=== PATIENT | male | born 1975 | race Caucasian/White ===

== ENCOUNTER 2016-06-02 02:01 | Inpatient (IN) | payer BC ==
[2016-06-02] VITALS (8 sets, daily range): BP systolic 93–136; BP diastolic 43–80; PULSE 70–98; RESP 16–24; TEMP 96.7–99.1; O2SAT 97–99
[~2016-06-02] VITALS: Ht 175.3 cm; Wt 127.9 kg
[~2016-06-02 02:01] MED LIST: ALBUAER3 INH; OCEA0.653 EACH NARE
--- NOTE | 2016-06-02 02:44 | PD ---
HPI Chief Complaint: Lump, Cyst, Hernia Time Seen by Provider: 02:39 Travel History International Travel<30 days: No Contact w/Intl Traveler<30days: No Traveled to known affect area: No History of Present Illness HPI 40-year-old white male presents to emergency Department with complaints of abscess to his right upper back. He states that this is been present now for the past week. He has had family members squeezing that area and expressing pus. The patient is a noncompliant insulin-dependent diabetic. He states that he had lost his insurance and has been off his his medications now for a month. He had seen his primary care doctor last week and was prescribed his medications but he has yet to start them due to financial reasons. He has been feeling rundown, weak, generally ill-appearing. Very dehydrated. He's had increasing pain in the area of the abscess into his neck and shoulders. He denies any nausea or vomiting. No abdominal pain. No focal numbness or tingling. States the pain is moderate but can be severe with movement and palpation. No alleviating factors. PFSH Past Medical History Narrative Medical IDDM, hypertension, hypercholesterolemia, neuropathy, gout Arthritis: No Asthma: No Anxiety: No Depression: No Heart Rhythm Problems: No Cancer: No Cardiovascular Problems: Yes High Cholesterol: Yes Chest Pain: No Congestive Heart Failure: No COPD: No Diabetes: Yes Patient Takes Glucophage: Yes Diminished Hearing: Yes Endocrine: Yes Gastrointestinal Disorders: No Gout: Yes Genitourinary: No Hypertension: Yes Immune Disorder: No Implanted Vascular Access Dvce: No Musculoskeletal: Yes Neurologic: Yes (neuropathy in his feet) Psychiatric: No Reproductive: No Respiratory: No Immunizations Current: Yes Sleep Apnea: No Thyroid Disease: No Tetanus Vaccination: > 5 Years Influenza Vaccination: No Past Surgical History Narrative Surgical Cervical fusion Abdominal Surgery: No Body Medical Devices: METAL PLATES IN NECK Cardiac Surgery: No Ear Surgery: No Endocrine Surgery: No Eye Surgery: No Genitourinary Surgery: No Gynecologic Surgery: No Neurologic Surgery: Yes (ANTERIOR CERVICAL FUSION) Oral Surgery: No Pacemaker: No Thoracic Surgery: No Other Surgery: Yes (ANTERIOR FUSION C4-C5) Social History Alcohol Use: No Tobacco Use: No Substance Use: No Allergies-Medications (Allergen,Severity, Reaction): Coded Allergies: No Known Allergies (Verified , 06/02/16) Reported Meds & Prescriptions Reported Meds & Active Scripts Active Proair Hfa 8.5 GM Inh (Albuterol Sulfate) 90 Mcg/Act Aer 2 Puff INH Q6H PRN 108 mcg/actuation [place] Nasal Zebulon (Sodium Chloride) 0.65% Zebulon 2 Zebulon EACH NARE DIRECTED PRN 14 Days Review of Systems Except as stated in HPI: all other systems reviewed are Neg Physical Exam Narrative GENERAL: Well-developed, well-nourished in no apparent distress. Nontoxic appearing. HEAD: Normocephalic, atraumatic. EYES: Pupils equal round and reactive. Extraocular motions intact. No scleral icterus. No injection or drainage. ENT: Nose clear. Throat without erythema, tonsillar hypertrophy or exudate. Uvula midline. Airway patent. Mucous membranes are dry. NECK: Trachea midline. Supple, nontender, moves head freely. No central bony tenderness or spasm. CARDIOVASCULAR: Regular rate and rhythm without murmurs, gallops, or rubs. RESPIRATORY: Clear to auscultation. Breath sounds equal bilaterally. No wheezes , rales, or rhonchi. GASTROINTESTINAL: Abdomen soft, non-tender, nondistended. No hepato-splenomegaly , or palpable masses. No guarding. EXTREMITIES: No clubbing, cyanosis, or edema. No joint tenderness. BACK: Nontender without deformity. No flank tenderness. NEUROLOGICAL: Awake, alert and oriented x 3 .Cranial nerves grossly intact. Motor and sensory grossly within normal limits. Normal speech. Skin: Patient has an area of erythema, induration, swelling and tenderness to the right trapezius region. He has a area which she has shaved on his back and has been squeezing and picking at it. The area has tracking towards his midline and towards his neck. The area measures approximately 9 x 9 cm. No significant warmth. Data Data Last Documented VS Vital Signs Date Time Temp Pulse Resp B/P Pulse Ox O2 Delivery O2 Flow Rate FiO2 06/02/16 02:14 16 06/02/16 02:13 96.7 70 94/43 97 Room Air Orders Complete Blood Count With Diff (06/02/16 02:35) Basic Metabolic Panel (Bmp) (06/02/16 02:35) Iv Access Insert/Monitor (06/02/16 02:35) Sodium Chlor 0.9% 1000 Ml Inj (Ns 1000 M (06/02/16 02:45) Clindamycin Inj (Cleocin Inj) (06/02/16 02:45) Blood Glucose (06/02/16 02:44) Sodium Chlor 0.9% 1000 Ml Inj (Ns 1000 M (06/02/16 03:00) Insulin Human Regular Inj (Novolin R Inj (06/02/16 03:00) Blood Culture (06/02/16 03:16) Lactic Acid (06/02/16 03:16) Ct Soft Tiss Neck W Iv Cont (06/02/16 03:43) Vancomycin Inj (Vancomycin Inj) (06/02/16 04:00) Sodium Chlor 0.9% 1000 Ml Inj (Ns 1000 M (06/02/16 04:00) Iohexol 350 Inj (Omnipaque 350 Inj) (06/02/16 03:51) Morphine Inj (Morphine Inj) (06/02/16 04:30) Labs Laboratory Tests Test 06/02/16 02:50 White Blood Count 24.5 TH/MM3 Red Blood Count 4.83 MIL/MM3 Hemoglobin 14.0 GM/DL Hematocrit 40.3 % Mean Corpuscular Volume 83.5 FL Mean Corpuscular Hemoglobin 29.0 PG Mean Corpuscular Hemoglobin 34.7 % Concent Red Cell Distribution Width 12.4 % Platelet Count 247 TH/MM3 Mean Platelet Volume 9.5 FL Neutrophils (%) (Auto) 86.1 % Lymphocytes (%) (Auto) 5.7 % Monocytes (%) (Auto) 7.8 % Eosinophils (%) (Auto) 0.3 % Basophils (%) (Auto) 0.1 % Neutrophils # (Auto) 21.0 TH/MM3 Lymphocytes # (Auto) 1.4 TH/MM3 Monocytes # (Auto) 1.9 TH/MM3 Eosinophils # (Auto) 0.1 TH/MM3 Basophils # (Auto) 0.0 TH/MM3 CBC Comment DIFF FINAL Differential Comment Sodium Level 129 MEQ/L Potassium Level 4.3 MEQ/L Chloride Level 92 MEQ/L Carbon Dioxide Level 24.6 MEQ/L Anion Gap 12 MEQ/L Blood Urea Nitrogen 13 MG/DL Creatinine 1.36 MG/DL Estimat Glomerular Filtration 59 ML/MIN Rate Random Glucose 381 MG/DL Calcium Level 9.1 MG/DL MDM Medical Decision Making Medical Screen Exam Complete: Yes Emergency Medical Condition: Yes Medical Record Reviewed: Yes Interpretation(s) CT neck: Cellulitis without abscess CBC & BMP Diagram 06/02/16 02:50 Differential Diagnosis MDM: High Differential diagnoses: Abscess, folliculitis, cellulitis, lymphangitis, abrasion, contact dermatitis, uncontrolled diabetes, electrolyte abnormality, dehydration Narrative Course IV access is obtained. CBC, chemistry, lactic acid, 2 blood cultures, 3 L normal saline bolus, 10 units of Regular Insulin IV, 900 mg of clear mites and IV, and 2.25 g of vancomycin IV This is sepsis, cellulitis, hyperglycemia, IDDM I've spoken with Gagan El who is agreed to admit the patient today. He is aware of his history, clinical findings, and laboratory testing. He has requested that the patient be admitted to Dr. Carlson Sepsis Criteria SIRS Criteria (2 or more): Temp > 100.9 or < 96.8, WBC > 15618, < 4000 or > 10 % bands Sepsis Criteria (SIRS+source): Infect source susp/known Severe Sepsis (+one): Hypotension Diagnosis Primary Impression: Sepsis affecting skin Additional Impressions: Cellulitis and abscess of neck Hyperglycemia Diabetes mellitus, insulin dependent (IDDM), uncontrolled Qualified Code: E10.628 - Uncontrolled type 1 diabetes mellitus with other skin complication Condition: Stable Isma Alfaro Jun 02, 2016 02:44
[2016-06-02] MEDS ORDERED: CLINDAMYCIN INJ 900 MG in SODIUM CHLORIDE 0.9% INJ 100 ML IV ONE (02:45)
[2016-06-02] MEDS ORDERED: SODIUM CHLOR 0.9% 1000 ML INJ 1,000 ML IV ONE ×3 (02:45→04:00)
[2016-06-02] MEDS ORDERED: INSULIN HUMAN REGULAR 1,000 UNITS/10 ML VIAL IV PUSH ONE (03:00)
[2016-06-02 03:06] LABS: BASOPHIL % 0.1 % (0.0-2.0); EOSINOPHIL # 0.1 TH/MM3 (0-0.4); EOSINOPHIL % 0.3 % (0.0-4.0); HEMATOCRIT 40.3 % (39.0-51.0); HEMO FLAGS DIFF FINAL; LYMPH % 5.7 % (9.0-44.0); LYMPHOCYTE # 1.4 TH/MM3 (1.0-4.8); MEAN CELL VOLUME 83.5 FL (80.0-100.0); MEAN CORPUSCULAR HGB CONC 34.7 % (32.0-36.0); MONO % 7.8 % (0.0-8.0); NEUT % 86.1 % (16.0-70.0); PLATELET COUNT 247 TH/MM3 (150-450); RED BLOOD COUNT 4.83 MIL/MM3 (4.50-5.90); RED CELL DISTRIBUTION WIDTH 12.4 % (11.6-17.2); WHITE BLOOD COUNT 24.5 TH/MM3 (4.0-11.0)
[2016-06-02 03:29] LABS: BICARBONATE 24.6 MEQ/L (21.0-32.0); POTASSIUM 4.3 MEQ/L (3.5-5.1)
[2016-06-02] MEDS ORDERED: IOHEXOL 350 MG/ML 10 ML VIAL (for RAD DIAG) IV ONE (03:51)
[2016-06-02] MEDS ORDERED: VANCOMYCIN INJ 2,250 MG in SODIUM CHLORID 0.9% 500 ML INJ 500 ML IV ONE (04:00)
--- NOTE | 2016-06-02 04:12 | RADRPT ---
EXAM DATE/TIME: 06/02/2016 03:46 [facility] COMPARISON: No previous studies available for comparison. INDICATIONS : Lump back of neck. Possible abscess. IV CONTRAST: 68 cc Omnipaque 350 (iohexol) IV RADIATION DOSE: 17.67 CTDIvol (mGy) MEDICAL HISTORY : Cardiovascular disease. Hypertension. Diabetes mellitus type 2. SURGICAL HISTORY : Fusion, cervical. ENCOUNTER: Initial ACUITY: 1 day PAIN SCALE: 10/10 LOCATION: pelvis TECH NOTE: MARKERS PUT AROUND SITE TECHNIQUE: Volumetric scanning of the neck was performed. Using automated exposure control and adjustment of th e mA and/or kV according to patient size, radiation dose was kept as low as reasonably achievable to obtain optimal diagnostic quality images. FINDINGS: Examination of the skull base demonstrates no evidence of deep infiltrating mucosal lesion. The oroph arynx, hypopharynx, glottic and subglottic airway demonstrate no abnormality. Examination of the neck for adenopathy demonstrates no abnormally large lymph nodes by CT criteria. The thyroid gland demons trates no abnormality. Lung apices demonstrate no evidence of pulmonary nodule. Bone windows are unremarkable. There is minimal edema in the subcutaneous tissues posteriorly which may reflect cellulitis. CONCLUSION: 1. Cellulitis without abscess. Juan Dhillon MD on June 02, 2016 at 4:09 Board Certified Radiologist. This report was verified electronically.
[2016-06-02] MEDS ORDERED: MORPHINE SULFATE 4 MG/ML INJ IV PUSH ONE (04:30)
[2016-06-02] MEDS ORDERED: MORPHINE SULFATE 4 MG/ML INJ IV PUSH PRN (04:45)
[2016-06-02] MEDS ORDERED: DEXTROSE 50% IN WATER 50 ML VIAL(D50) IV PUSH PRN (04:45)
[2016-06-02] MEDS ORDERED: SENNOSIDES 8.6 MG TAB PO PRN (04:45)
[2016-06-02] MEDS ORDERED: ONDANSETRON HCL 4 MG/2 ML VIAL IVP PRN (04:45)
[2016-06-02] MEDS ORDERED: Vancomycin Consult Pharmacy 1 EA XX SCH (04:45)
[2016-06-02] MEDS ORDERED: MAGNESIUM HYDROXIDE SUSP 30 ML CUP PO PRN (04:45)
[2016-06-02] MEDS ORDERED: GLUCAGON 1 MG/ML VIAL OTHER PRN (04:45)
[2016-06-02] MEDS ORDERED: ACETAMINOPHEN 325 MG TAB PO PRN (04:45)
[2016-06-02] MEDS ORDERED: NALOXONE HCL 0.4 MG/ML AMP IV PRN (04:45)
[2016-06-02] MEDS: SODIUM CHLOR 0.9% 1000 ML INJ 1,000 ML IV SCH ×3 (05:21→23:16)
[2016-06-02] MEDS ORDERED: VANCOMYCIN INJ 1,900 MG in SODIUM CHLORID 0.9% 500 ML INJ 500 ML IV ONE (05:30)
[2016-06-02] MEDS: INSULIN ASPART SUPPLEMENTAL SCALE SQ SCH ×4 (07:15→21:38)
[2016-06-02] MEDS ORDERED: ALBUTEROL SULFATE 90 MCG/ACT HFA 8 GM INHALER INH PRN (07:30)
--- NOTE | 2016-06-02 09:32 | MH ---
cc: RUBICARLOS DATE OF ADMISSION: 06/02/2016 DATE OF 1975 CHIEF COMPLAINT Right upper shoulder cyst with pain. TRAVEL Has not traveled in 30 days or less. HISTORY OF PRESENT ILLNESS This is a pleasant 40-year-old white male who has presented to the ER with an abscess on his right upper shoulder in the trapezius area. He states that it has been painful for approximately two days. He states that a family member was able to squeeze the area and expressed some pus, but at this time it is closed with no head. She does have induration with acute pain radiating into his neck and shoulders. The area of induration is approximately 3 cm x 3 cm. The patient states that he has been working, but has had no insurance for approximately six months and has not been taking any medications secondary to his financial situation. He was able to go to his PCP last week with some gout symptoms and was given Gabapentin and Indocin which he has been able to take for the past week. The patient is a known insulin dependent diabetic, but has not had any insulin or medications in months. The patient also has symptoms of polyuria, polydipsia, polyphagia which has just started over the past few days. He does complain of feeling generalized weakness and a tired sensation. He states that he had a cough approximately a week ago, but that has subsided. When he came into the hospital, he had a dizzy sensation, but denies any periods of syncope or passing out. The patient denies any headache, numbness, or tingling in the area of the possible abscess, but he does have numbness and tingling which is chronic in his lower extremities. The patient denies any chest pain, no shortness of breath. PAST MEDICAL HISTORY 1. Hypertension 2. Hyperlipidemia 3. Diabetic neuropathy 4. Diabetes type 2 5. Gout 6. Hyperlipidemia 7. Mildly hard of hearing 8. Degenerative joint disease PAST SURGICAL HISTORY Cervical fusion with metal plates C4-C5. ALLERGIES No known drug allergies. MEDICATIONS 1. Albuterol inhaler 2. [place] spray 3. NovoLog insulin Any other medications currently unknown and he has not been taking them at least for six months. SOCIAL HISTORY The patient is single, lives in an apartment, has no children. He does work at a [employer] center, but has not been able to work for the past week. He denies any alcohol, tobacco or illicit drug use. He smoked in his early years, but has been quit approximately 15 years ago. FAMILY HISTORY Diabetes, hypertension, heart disease and cancer. REVIEW OF SYSTEMS A 12-point review was done. Positives noted are some mild generalized peripheral edema, dizziness, recent cough, generalized fatigue, abscess on his right trapezius area non-draining for now. Polydipsia, polyuria, polyphagia and any other systems are unremarkable at this time. PHYSICAL EXAMINATION VITAL SIGNS; Temperature is 98.2, pulse 82, respirations 16, blood pressure 121/80. In the ER initially, his blood pressure was 93/50. He is 98 on room air. GENERAL: Obese, well-developed, well-nourished white male in no acute respiratory distress. HEENT: Atraumatic, normocephalic. PERRL at three. No scleral icterus. No drainage. Throat is clear. Mucous membranes are pale, slightly dry. NECK: Thick and supple. CARDIOVASCULAR: Regular rate and rhythm. Distant heart sounds, but no murmurs, rubs or gallops appreciated. He does have just a trace of pedal edema and a trace of edema in his hands and forearms. RESPIRATORY: Essentially clear to auscultation anteriorly and posteriorly. No wheezes, rales or rhonchi. GI: Abdomen is obese, taut, but nontender and nondistended. Active bowel sounds in all four quads. MUSCULOSKELETAL: He can move his extremities with purpose. Denies any joint tenderness. BACK: No flank tenderness, but as noted a closed cyst versus small abscess with induration and mild erythema. NEUROLOGIC: He is alert and oriented x4. He is a good historian. Speech is normal and clear. PSYCH: Appropriate mood and affect. DIAGNOSTIC DATA WBC count 24.5, RBC 4.83, hemoglobin 14, hematocrit 40.3, platelet count 247, neutrophil auto count 86.1, lymphocyte 5.7. Chemistry sodium 129, potassium 4.3, chloride 92, carbon dioxide 24.6, amnion gap 12, BUN 13, creatinine 1.36, GFR 59, random glucose is 381, lactic acid is 3, calcium 9.1. IMAGING STUDIES A neck CT, cellulitis without abscess. ASSESSMENT/PLAN 1. Sepsis with cellulitis and ? abscess of the neck. 2. Diabetes type 1 uncontrolled with hyperglycemia 3. Leukocytosis 4. Hyponatremia 5. Acute kidney injury, mild 6. Gout 7. Hypertension 8. History of history of hypertension. 9. Hypotension in the ER which is resolved. PLAN Our plan is to admit inpatient, check his vital signs at least every four hours, 1800 calories ADA diet, gentle hydration with labs as warranted. We will recheck labs in the morning. DVT prophylaxis with heparin. He has had a dose of vancomycin in the ER and he will be on IV antibiotics, clindamycin and Vancomycin. We will consult ID for their expert opinion to assess this cellulitis and possible abscess on his right trapezius area, pain management, blood cultures and possible wound cultures. We will reconcile his medications, his home meds. The patient is full code, full aggressive care. Due to his financial dilemma, we need to research his medication needs. This is related to financial reasons. We will monitor. Thank you very much. Dictated by REJI Christy Carlos Carlson MD JP/JORDI /8:28 AM /9:30 AM PT WAS SEEN AND EXAMINED ON DAY OF ADMISSION ABOVE, IN ER FACE TO FACE TIME SPENT WITH PT CHART WAS REVIEWED IN DETAIL, INCLUDING LABS MEDS AND RAD DATA NOTES WERE REVIEWED KHOA MENDOZA ABOUT PLAN OF CARE KHOA PT CINDY SX INPUT ALYSE
[2016-06-02] MEDS: MORPHINE SULFATE 4 MG/ML INJ IV PUSH PRN ×2 (10:46→16:58)
[2016-06-02] MEDS: SODIUM CHLORIDE 0.9% FLUSH 5 ML FLUSH FLUSH SCH ×2 (10:46→21:37)
[2016-06-02] MEDS: HEPARIN SODIUM - SQ 10,000 UNITS/ML VIAL SQ SCH ×2 (10:47→21:37)
[2016-06-02] MEDS: CLINDAMYCIN INJ 600 MG in SODIUM CHLORIDE 0.9% INJ 100 ML IV SCH ×3 (11:53→23:15)
--- NOTE | 2016-06-02 16:23 | RADRPT ---
EXAM DATE/TIME: 06/02/2016 15:51 [facility] COMPARISON: No previous studies available for comparison. INDICATIONS : Right upper back and lower neck pain. MEDICAL HISTORY : Hypercholesterolemia. Hypertension. Neuropathy bilateral feet. Gout. Diabetes. SURGICAL HISTORY : Anterior fusion C4-C5. ENCOUNTER: Initial ACUITY: 1 day PAIN SCORE: 10/10 LOCATION: Right upper back and lower neck. AREA EVALUATED: Right upper back, shoulder and lower neck. FINDINGS: Edematous changes in the fatty tissues. No evidence of fluid collection to suggest discrete abscess. CONCLUSION: No abscess Gagan Ordonez MD on June 02, 2016 at 16:21 Board Certified Radiologist. This report was verified electronically.
--- NOTE | 2016-06-02 16:49 | PD.CONS ---
cc: Shaun Persaud MD [facility] Service General Surgery Consult Requested By Dr. Carlson Reason for Consult Eval upper back/lower neck abscess Primary Care Physician Antony Santos MD History of Present Illness This is a 40 year old male with past medical history of IDDM and HTN who has not had health insurance for about 6 months and has not been able to control his sugars at home. On Wednesday he noticed a small pimple on his RIGHT shoulder/ upper back that a friend opened and expressed a very small amount of pus. He felt relief until Wednesday when he started using a heating pad for pain. Throughout the day on Wednesday through Wednesday night/Wednesday morning the pain got so sever and he came to the ED. A CT of soft tissue of the neck was obtained and only showed cellulitis with not abscess or fluid collection. A general surgery consult was requested to evaluate the abscess. Review of Systems Constitutional: COMPLAINS OF: Dizziness, DENIES: Fever, Chills Endocrine: COMPLAINS OF: Polydipsia, Polyuria, Polyphagia Eyes: DENIES: Diplopia, Eye pain Ears, nose, mouth, throat: DENIES: Hearing loss, Vertigo Respiratory: DENIES: Cough, Snoring Cardiovascular: DENIES: Chest pain, Palpitations Gastrointestinal: DENIES: Abdominal pain, Diarrhea, Nausea Genitourinary: DENIES: Urinary incontinence, Urgency, Hematuria Musculoskeletal: COMPLAINS OF: Neck pain (around abscess area ), DENIES: Joint pain Integumentary: DENIES: Abnormal pigmentation Hematologic/lymphatic: DENIES: Bruising Immunologic/allergic: DENIES: Eczema Neurologic: DENIES: Abnormal gait, Headache Psychiatric: DENIES: Confusion, Mood changes, Depression Past Family Social History Past Medical History IDDM HTN Past Surgical History ACDF drainage of pilonidal cyst Allergies: Coded Allergies: No Known Allergies (Verified , 06/02/16) Active Ordered Medications Current Medications Medications (Trade) Dose Ordered Sig/Michelle Route Start Time Stop Time Status Last Admin (D50w (Vial) Inj) 25 ml UNSCH PRN IV PUSH 06/02/16 04:45 Glucagon 1 mg 1 mg UNSCH PRN OTHER 06/02/16 04:45 Clindamycin Phosphate 600 mg/ Sodium Chloride 104 ml @ 200 mls/hr Q8H IV 06/02/16 12:00 06/02/16 11:53 Pharmacy Profile Note 0 ml @ 0 mls/hr UNSCH XX 06/02/16 04:45 (NS 1000 ml Inj) 1,000 ml @ 100 mls/hr Q10H IV 06/02/16 04:34 06/02/16 05:21 (NS Flush) 2 ml UNSCH PRN FLUSH 06/02/16 04:45 (NS Flush) 2 ml BID FLUSH 06/02/16 09:00 06/02/16 10:46 (Tylenol) 650 mg Q4H PRN PO 06/02/16 04:45 (Zofran Inj) 4 mg Q6H PRN IVP 06/02/16 04:45 (Milk Of Magnesia Liq) 30 ml Q12H PRN PO 06/02/16 04:45 (Senokot) 17.2 mg Q12H PRN PO 06/02/16 04:45 (Ambien) 5 mg HS PRN PO 06/02/16 04:45 (Heparin Inj) 5,000 units Q12HR SQ 06/02/16 09:00 06/02/16 10:47 (Narcan Inj) 0.4 mg UNSCH PRN IV 06/02/16 04:45 (Morphine Inj) 5 mg Q3H PRN IV PUSH 06/02/16 04:45 (Proair Hfa Inh) 2 puff Q6H PRN INH 06/02/16 07:30 (Morphine Inj) 4 mg Q3H PRN IV PUSH 06/02/16 11:00 06/02/16 10:46 Family History Non contributory Social History Denies smoking Denies ETOH use Denies illicit drug use Physical Exam Vital Signs Vital Signs Date Time Temp Pulse Resp B/P Pulse Ox O2 Delivery O2 Flow Rate FiO2 06/02/16 07:46 98.2 82 16 121/80 98 Room Air 06/02/16 05:42 16 06/02/16 02:14 16 06/02/16 02:13 96.7 70 16 94/43 97 Room Air 06/02/16 02:05 97.8 93/50 97 Room Air Physical Exam GENERAL: Alert; resting in bed on LEFT side SKIN: RIGHT upper back/lower neck area with scabbed lesion; no drainage; minimal redness; severe pain with palpation HEAD: Atraumatic. Normocephalic. EYES: Pupils equal and round. No scleral icterus. No injection or drainage. ENT: No nasal bleeding or discharge. Mucous membranes pink and moist. NECK: Trachea midline. CARDIOVASCULAR: Regular rate and rhythm. RESPIRATORY: No accessory muscle use. Clear to auscultation. Breath sounds equal bilaterally. GASTROINTESTINAL: Abdomen soft, non-tender, nondistended. MUSCULOSKELETAL: Extremities without clubbing, cyanosis, or edema. No obvious deformities. NEUROLOGICAL: Awake and alert. No obvious cranial nerve deficits. Motor grossly within normal limits. Five out of 5 muscle strength in the arms and legs. Normal speech. PSYCHIATRIC: Appropriate mood and affect; insight and judgment normal. Laboratory Laboratory Tests Test 06/02/16 06/02/16 02:50 04:00 White Blood Count 24.5 Red Blood Count 4.83 Hemoglobin 14.0 Hematocrit 40.3 Mean Corpuscular Volume 83.5 Mean Corpuscular Hemoglobin 29.0 Mean Corpuscular Hemoglobin 34.7 Concent Red Cell Distribution Width 12.4 Platelet Count 247 Mean Platelet Volume 9.5 Neutrophils (%) (Auto) 86.1 Lymphocytes (%) (Auto) 5.7 Monocytes (%) (Auto) 7.8 Eosinophils (%) (Auto) 0.3 Basophils (%) (Auto) 0.1 Neutrophils # (Auto) 21.0 Lymphocytes # (Auto) 1.4 Monocytes # (Auto) 1.9 Eosinophils # (Auto) 0.1 Basophils # (Auto) 0.0 CBC Comment DIFF FINAL Differential Comment Sodium Level 129 Potassium Level 4.3 Chloride Level 92 Carbon Dioxide Level 24.6 Anion Gap 12 Blood Urea Nitrogen 13 Creatinine 1.36 Estimat Glomerular Filtration 59 Rate Random Glucose 381 Calcium Level 9.1 Lactic Acid Level 3.0 Date/Time Procedure Status Source Growth 06/02/16 04:04 Aerobic Blood Culture Received Blood Peripheral Pending 06/02/16 04:04 Anaerobic Blood Culture Received Blood Peripheral Pending Result Diagram: 06/02/16 0250 06/02/16 0250 Imaging Last [address] 06/02/16 0343 Signed Impressions: Service Date/Time: Thursday, June 02, 2016 03:46 - CONCLUSION: 1. Cellulitis without abscess. Juan Dhillon MD Soft Tissue Ultrasound 06/02/16 0000 Signed Impressions: Service Date/Time: Thursday, June 02, 2016 15:51 - CONCLUSION: No abscess Gagan Ordonez MD Assessment and Plan Assessment and Plan 40 year old male with uncontrolled IDDM with RIGHT shoulder/lower neck ?? abscess vs cellulitis -CT neck shows no fluid collection -There is a concern for necrotizing fasciitis due to clinical presentation (low Na, hypotensive on arrival, severe pain with palpation) but US neck shows indication of that at this time -Will need to closely monitor patient has he may need OR intervention -Control sugars -Continue Clindamycin Attending Statement Pt seen at bedside, clinical exam pt very tender to palpation, without crepitus or significant skin changes CTreviewed showing stranding without identifiable fluid collection We will continue to monitor patient closely and observed for abscess formation or evidence of necrotizing soft tissue infection currently patient has a normal BP and normal neurological status. Attestation The exam, history, and the medical decision-making described in the above note were completed with the assistance of the mid-level provider. I reviewed and agree with the findings presented. I attest that I had a [id number] encounter with the patient on the same day, and personally performed and documented my assessment and findings in the medical record. Grisel Garcia Jun 02, 2016 16:48 Shaun Persaud MD Jun 02, 2016 22:21
[2016-06-02] MEDS: ZOLPIDEM TARTRATE 5 MG TAB PO PRN (21:37)
[2016-06-02] MEDS: MORPHINE SULFATE 8 MG/ML INJ IV PUSH PRN (22:05)
[2016-06-03] VITALS (9 sets, daily range): BP systolic 113–150; BP diastolic 56–88; PULSE 81–107; RESP 18–22; TEMP 97.2–98.7; O2SAT 94–97
[2016-06-03] MEDS: MORPHINE SULFATE 8 MG/ML INJ IV PUSH PRN ×5 (02:08→20:36)
[2016-06-03] MEDS: CLINDAMYCIN INJ 600 MG in SODIUM CHLORIDE 0.9% INJ 100 ML IV SCH ×3 (05:03→20:35)
[2016-06-03] MEDS: INSULIN ASPART SUPPLEMENTAL SCALE SQ SCH ×4 (06:33→20:36)
[2016-06-03] MEDS: SODIUM CHLORIDE 0.9% FLUSH 5 ML FLUSH FLUSH SCH ×2 (09:00→20:35)
[2016-06-03] MEDS: HEPARIN SODIUM - SQ 10,000 UNITS/ML VIAL SQ SCH ×2 (09:23→20:36)
[2016-06-03] MEDS: MORPHINE SULFATE 4 MG/ML INJ IV PUSH PRN (09:27)
[2016-06-03 10:29] LABS: AUTOMATED NEUTROPHIL # 11.1 TH/MM3 (1.8-7.7); BASOPHIL % 0.1 % (0.0-2.0); EOSINOPHIL # 0.1 TH/MM3 (0-0.4); EOSINOPHIL % 0.5 % (0.0-4.0); HEMATOCRIT 36.3 % (39.0-51.0); HEMO FLAGS DIFF FINAL; LYMPH % 11.2 % (9.0-44.0); LYMPHOCYTE # 1.6 TH/MM3 (1.0-4.8); MEAN CELL VOLUME 86.2 FL (80.0-100.0); MEAN CORPUSCULAR HEMOGLOBIN 28.8 PG (27.0-34.0); MEAN CORPUSCULAR HGB CONC 33.5 % (32.0-36.0); MONO % 8.5 % (0.0-8.0); NEUT % 79.7 % (16.0-70.0); PLATELET COUNT 189 TH/MM3 (150-450); RED BLOOD COUNT 4.21 MIL/MM3 (4.50-5.90); RED CELL DISTRIBUTION WIDTH 12.6 % (11.6-17.2); WHITE BLOOD COUNT 13.9 TH/MM3 (4.0-11.0)
[2016-06-03 10:50] LABS: BICARBONATE 19.8 MEQ/L (21.0-32.0)
--- NOTE | 2016-06-03 11:51 | HHI.PR ---
Subjective Remarks Hungry No chest pain Shortness of breath Resting in bed on left side Appetite good, nothing by mouth for now (Aminata Alvarez) Objective Objective Results - Vital Signs Date Time Temp Pulse Resp B/P Pulse Ox O2 Delivery O2 Flow Rate FiO2 06/03/16 08:00 98.0 107 22 139/84 96 06/03/16 06:52 88 06/03/16 04:00 98.2 98 18 113/56 95 06/03/16 00:09 98.4 97 18 120/58 96 06/02/16 20:03 98.0 91 22 114/53 98 06/02/16 20:00 90 20 06/02/16 18:15 99.1 98 24 136/63 98 06/02/16 18:06 99 18 136/64 95 06/02/16 13:00 80 18 130/70 99 I/O 06/02/16 06/02/16 06/02/16 06/03/16 06/03/16 06/03/16 07:00 15:00 23:00 07:00 15:00 23:00 Intake Total 3100 ml 800 ml Output Total 1800 ml 1000 ml Balance 3100 ml -1000 ml -1000 ml Intake Oral 800 ml IV Total 3100 ml Output Urine Total 1800 ml 1000 ml (Aminata Alvarez) Result Diagram: 06/03/16 0920 06/03/16 0920 Other Results Last Impressions Neck CT 06/02/16 0343 Signed Impressions: Service Date/Time: Thursday, June 02, 2016 03:46 - CONCLUSION: 1. Cellulitis without abscess. Juan Dhillon MD Soft Tissue Ultrasound 06/02/16 0000 Signed Impressions: Service Date/Time: Thursday, June 02, 2016 15:51 - CONCLUSION: No abscess Gagan Ordonez MD Medications and IVs Active Medications Clindamycin Phosphate 600 mg/ Sodium Chloride 104 ml @ 200 mls/hr Q8H IV Last administered on 06/03/16t 05:03; Admin Dose 200 MLS/HR; Start 06/02/16 at 12:00 Levofloxacin/ Dextrose (Levaquin 500 Mg Premix Inj) 100 ml @ 100 mls/hr Q24H IV ; Start 06/03/16 at 12:00 Miscellaneous Information SPECIFIC LAB TO BE DRAWN:VANCOMYCIN TROUGH DATE TO... ONCE ONCE XX; Start 06/05/16 at 00:45; Stop 06/05/16 at 00:46 Vancomycin HCl/ Sodium Chloride (Vancomycin Inj/ NS 500 ml Inj) 517.5 ml @ 250 mls/hr Q12H IV; Start 06/03/16 at 13:00 (Aminata Alvarez) ROS General: Weakness (generalized), Other (10 point ROS done. Positives noted edema, cellulitis right upper shoulder and trapezius area weakness generalized pain in affected area. Other systems negative) Skin: Other (right upper shoulder trapezius area with some edema. Strength pain, minimal erythema) (Aminata Alvarez) Physical Exam Physical Exam GENERAL: Obese, well-developed, well-nourished white male in no acute respiratory distress. HEENT: Atraumatic, normocephalic. PERRL at three. No scleral icterus. No drainage. Throat is clear. Mucous membranes are pale, slightly dry. NECK: Thick and supple. CARDIOVASCULAR: Regular rate and rhythm. Distant heart sounds, but no murmurs, rubs or gallops appreciated. He does have just a trace of pedal edema and a trace of edema in his hands and forearms. RESPIRATORY: Essentially clear to auscultation anteriorly and posteriorly. No wheezes, rales or rhonchi. GI: Abdomen is obese, taut, but nontender and nondistended. Active bowel sounds in all four quads. MUSCULOSKELETAL: He can move his extremities with purpose. Denies any joint tenderness. Tenderness noted right upper back with edema and extreme pain. Minimal erythema BACK: No flank tenderness, but as noted a closed cyst versus small abscess with induration and mild erythema. NEUROLOGIC: He is alert and oriented x4. He is a good historian. Speech is normal and clear. PSYCH: Appropriate mood and affect. Objective Remarks I'm so hungry hope I can eat today. Patient is now nothing by mouth. (Aminata Alvarez) A/P Assessment and Plan . Sepsis with cellulitis and abscess of the neck. 2. Diabetes type 1 uncontrolled with hyperglycemia 3. Leukocytosis 4. Hyponatremia 5. Acute kidney injury, mild 6. Gout 7. Hypertension 8. History of history of hypertension. 9. Hypotension in the ER which is resolved. PLAN admit inpatient, check his vital signs at least every four 1800 calories ADA diet, gentle hydration labs as warranted. Leukocytosis improved from 24.5 to 10.9 DVT prophylaxis with heparin. He has had a IV antibiotics, clindamycin andVancomycin. consult ID Surgical consult, no abscess, evaluating for necrotizing fasciitis. The patient is maintained nothing by mouth, but if no surgical intervention today we can feed the patient. reconcile his medications, his home meds. The patient is full code, full aggressive care. Due to his financial dilemma, we need to research his medication needs. We will monitor. Discussed With: Nurse, Family (patient), Other (Dr. Carlson shunt seen on his behalf, ) (Aminata Alvarez) Assessment and Plan Patient seen and examined as above Labs reviewed Medications reviewed Notes reviewed Plan of care discussed with TRAILER ASSEMBLER Discussed with patient patient Plan for infectious disease consult Continue broad-spectrum antibiotics Discussed with RN (Roopa Carlson MD) Aminata Alvarez Jun 03, 2016 11:51 Roopa Carlson MD Jun 03, 2016 12:25
[2016-06-03] MEDS: SODIUM CHLOR 0.9% 1000 ML INJ 1,000 ML IV SCH ×2 (12:19→20:34)
[2016-06-03] MEDS: LEVOFLOXACIN 500 MG PREMIX INJ 100 ML IV SCH (12:20)
--- NOTE | 2016-06-03 13:48 | HHI.PR ---
Subjective Subjective Notes Resting in bed; able to sit on the side of the bed for exam Objective Vitals/I&O Vital Signs Date Time Temp Pulse Resp B/P Pulse Ox O2 Delivery O2 Flow Rate FiO2 06/03/16 08:00 98.0 107 22 139/84 96 06/02/16 07:46 Room Air Labs Laboratory Tests Test 06/03/16 09:20 White Blood Count 13.9 Red Blood Count 4.21 Hemoglobin 12.1 Hematocrit 36.3 Mean Corpuscular Volume 86.2 Mean Corpuscular Hemoglobin 28.8 Mean Corpuscular Hemoglobin 33.5 Concent Red Cell Distribution Width 12.6 Platelet Count 189 Mean Platelet Volume 9.3 Neutrophils (%) (Auto) 79.7 Lymphocytes (%) (Auto) 11.2 Monocytes (%) (Auto) 8.5 Eosinophils (%) (Auto) 0.5 Basophils (%) (Auto) 0.1 Neutrophils # (Auto) 11.1 Lymphocytes # (Auto) 1.6 Monocytes # (Auto) 1.2 Eosinophils # (Auto) 0.1 Basophils # (Auto) 0.0 CBC Comment DIFF FINAL Differential Comment Sodium Level 133 Potassium Level 4.0 Chloride Level 102 Carbon Dioxide Level 19.8 Anion Gap 11 Blood Urea Nitrogen 10 Creatinine 0.63 Estimat Glomerular Filtration 143 Rate Random Glucose 193 Calcium Level 8.2 Random Vancomycin Level 1.1 Date/Time Procedure Status Source Growth 06/02/16 04:04 Aerobic Blood Culture - Preliminary Resulted Blood Peripheral NO GROWTH IN 1 DAY 06/02/16 04:04 Anaerobic Blood Culture - Preliminary Resulted Blood Peripheral NO GROWTH IN 1 DAY Radiology Last [address] 06/02/16 0343 Signed Impressions: Service Date/Time: Thursday, June 02, 2016 03:46 - CONCLUSION: 1. Cellulitis without abscess. Juan Dhillon MD Soft Tissue Ultrasound 06/02/16 0000 Signed Impressions: Service Date/Time: Thursday, June 02, 2016 15:51 - CONCLUSION: No abscess Gagan Ordonez MD Cardiovascular: Regular Lungs: Clear Abdomen: Non-distended, Non-tender Narrative Exam RIGHT shoulder/lower neck area with healing lesion present; no fluid collection palpated; no erythremia Tender with palpation closer to the base of the neck A/P Assessment and Plan 40 year old male with IDDM and hypertension with RIGHT shoulder abscess -WBC improved today -Continue antibiotics -VVS overnight -Restart diet -Continue non operative treatment at this time -ID consulted per primary team Attending Statement Patient seen at bedside, still with pain but some improvement wbc trending down continue observation Attestation The exam, history, and the medical decision-making described in the above note were completed with the assistance of the mid-level provider. I reviewed and agree with the findings presented. I attest that I had a [id number] encounter with the patient on the same day, and personally performed and documented my assessment and findings in the medical record. Grisel Garcia Jun 03, 2016 13:48 Shaun Persaud MD Jun 09, 2016 07:18
[2016-06-03] MEDS: VANCOMYCIN INJ 1,750 MG in SODIUM CHLORID 0.9% 500 ML INJ 500 ML IV SCH (15:21)
--- NOTE | 2016-06-03 18:54 | MB ---
cc: FLORENCIA THURMAN MD DATE OF CONSULTATION: 06/03/2016 REASON FOR CONSULTATION: Cellulitis of the shoulder and neck area. REQUESTING PHYSICIAN Dr. Carlson HISTORY OF PRESENT ILLNESS: This is a 40 year-old white male who has diabetes mellitus. The patient lost his medical insurance and has been without diabetic medications for about two months. He developed pain in his left posterior neck area about a week ago and he had family members squeeze some pus from that area. The upper back has a little abrasion at the trapezius on the right. No drainage of fluid and no visible opening. The patient states that his neck becomes very painful whenever he sits up and he states that the pain gets up to a 10 over 10 level. He is a morbidly obese gentleman and has some folds of tissue at the posterior neck. Currently he denies chills and other symptoms but he feels somewhat fatigued. PAST MEDICAL HISTORY Diabetes mellitus type 2, hypertension, diabetic neuropathy. Hyperlipidemia, gout, degenerative joint disease, history of cervical fusion with plates at C4-C5. ALLERGIES NO KNOWN DRUG ALLERGIES. MEDICATIONS 1. Vancomycin. 2. Levaquin. 3. Clindamycin intravenous. 4. Morphine sulfate. 5. Insulin. 6. Ambien. SOCIAL HISTORY No tobacco, alcohol or illicit drugs. FAMILY HISTORY Significant for diabetes and hypertension. REVIEW OF SYSTEMS Significant for pain at the posterior neck region and also at the upper back and mild stiffness of the neck. PHYSICAL EXAMINATION This is a morbidly obese male who is in mild distress because of pain. Vital signs: Include temperature of 98 degrees, BP 139/84. Respirations 20, heart rate 107. HEENT: The head has a tiny bruise at the vertex with dry crusted blood at the rim of a rounded abrasion. Extraocular movements grossly intact, pupils reactive to light. No icterus. Oropharynx: No visible lesions. Neck: Semi stiff. Tenderness on palpation of the posterior neck. No adenopathy. Upper back has an area of swelling at the right side at the top of the trapezius where there is also mild tenderness slightly to the left of midline at the top of the left side trapezius. Lungs: Clear to auscultation. Heart: Regular rate and rhythm. No murmurs, rubs or gallops. Abdomen: Bowel sounds present, obese, soft, nontender. No masses palpable. Rectal: Not performed. Extremities: No clubbing, cyanosis or edema. Skin: No diffuse rash. Neuro: Nonfocal. Decreased range of motion of the right shoulder secondary to pain. Psychiatric: Patient uncooperative. LABORATORY DATA: WBC 13.9, platelet count 189, 79% neutrophils, hemoglobin 12.1, creatinine 0.63, BUN 10, sodium 133, WBC on 06/02 was 24.5. X-RAYS: CT scan of the neck shows cellulitis without abscess. Ultrasound of the neck soft tissue shows no abscess. IMPRESSION: 1. Cellulitis of the neck. 2. Cellulitis of the upper back. 3. Soft tissue infection. 4. Diabetes mellitus, poorly controlled. RECOMMENDATIONS: 1. Continue clindamycin. 2. Continue vancomycin. 3. Continue Levaquin. 4. Monitor white blood cell count which is improving with antibiotics. 5. Monitor the area of the neck for potential abscess formation. 6. Obtain culture if any drainage occurs from the neck or upper back. 7. Monitor blood cultures. Thank you for the consultation. The patient's progress will be monitored and further recommendations will be given on followup if necessary. Florencia Thurman MD FD/CAS /5:07 PM /5:39 PM MTDD
[2016-06-04] MEDS: MORPHINE SULFATE 8 MG/ML INJ IV PUSH PRN ×2 (00:35→20:08)
[2016-06-04] MEDS: VANCOMYCIN INJ 1,750 MG in SODIUM CHLORID 0.9% 500 ML INJ 500 ML IV SCH ×2 (00:35→13:21)
[2016-06-04] MEDS: ZOLPIDEM TARTRATE 5 MG TAB PO PRN (00:40)
[2016-06-04] MEDS: SODIUM CHLOR 0.9% 1000 ML INJ 1,000 ML IV SCH ×2 (01:00→20:08)
[2016-06-04] MEDS: MORPHINE SULFATE 4 MG/ML INJ IV PUSH PRN ×3 (04:39→13:22)
[2016-06-04] MEDS: CLINDAMYCIN INJ 600 MG in SODIUM CHLORIDE 0.9% INJ 100 ML IV SCH ×3 (04:39→20:00)
[2016-06-04 05:36] VITALS: BP 138/72; PULSE 94; RESP 18; TEMP 97.9; O2SAT 92
[2016-06-04] MEDS: INSULIN ASPART SUPPLEMENTAL SCALE SQ SCH ×4 (06:23→21:00)
[2016-06-04 06:47] LABS: HEMATOCRIT 33.1 % (39.0-51.0); MEAN CELL VOLUME 83.7 FL (80.0-100.0); MEAN CORPUSCULAR HEMOGLOBIN 29.3 PG (27.0-34.0); MEAN CORPUSCULAR HGB CONC 34.9 % (32.0-36.0); PLATELET COUNT 189 TH/MM3 (150-450); RED BLOOD COUNT 3.95 MIL/MM3 (4.50-5.90); RED CELL DISTRIBUTION WIDTH 12.1 % (11.6-17.2); REVIEW FLAG FINAL; WHITE BLOOD COUNT 10.8 TH/MM3 (4.0-11.0)
[2016-06-04 07:01] LABS: BICARBONATE 24.5 MEQ/L (21.0-32.0); POTASSIUM 3.7 MEQ/L (3.5-5.1)
[2016-06-04 08:00] VITALS: BP 143/76; PULSE 91; RESP 20; TEMP 97.7; O2SAT 95
[2016-06-04] MEDS: HEPARIN SODIUM - SQ 10,000 UNITS/ML VIAL SQ SCH ×2 (08:43→20:08)
[2016-06-04] MEDS: SODIUM CHLORIDE 0.9% FLUSH 5 ML FLUSH FLUSH SCH ×2 (08:51→20:08)
--- NOTE | 2016-06-04 10:18 | HHI.PR ---
Subjective Remarks Pain is improving now he can sleep on his back as well Nausea vomiting No headache no dizziness No chest pain Shortness of breath Resting in bed on his back Appetite good, nothing by mouth for now No bowel movement Review of system 10 point system otherwise unremarkable Objective Objective Results - Vital Signs Date Time Temp Pulse Resp B/P Pulse Ox O2 Delivery O2 Flow Rate FiO2 06/04/16 08:00 97.7 91 20 143/76 95 06/04/16 05:36 Room Air 06/04/16 05:36 97.9 94 18 138/72 92 06/03/16 23:46 98.7 101 18 150/83 96 06/03/16 23:46 Room Air 06/03/16 20:11 104 06/03/16 19:32 Room Air 06/03/16 19:32 98.1 96 18 150/80 96 06/03/16 16:00 98.1 100 22 137/88 96 06/03/16 12:00 97.5 99 22 130/85 97 I/O 06/03/16 06/03/16 06/03/16 06/04/16 06/04/16 06/04/16 07:00 15:00 23:00 07:00 15:00 23:00 Intake Total 240 ml 1968 ml 1526 ml Output Total 1000 ml 1400 ml 900 ml 1950 ml Balance -1000 ml -1160 ml 1068 ml -424 ml Intake Oral 240 ml 480 ml 600 ml IV Total 1488 ml 926 ml Output Urine Total 1000 ml 1400 ml 900 ml 1950 ml # Bowel Movements 1 0 Result Diagram: 06/04/16 0603 06/04/16 0603 Other Results Laboratory Tests Test 06/04/16 06:03 White Blood Count 10.8 Red Blood Count 3.95 Hemoglobin 11.6 Hematocrit 33.1 Mean Corpuscular Volume 83.7 Mean Corpuscular Hemoglobin 29.3 Mean Corpuscular Hemoglobin 34.9 Concent Red Cell Distribution Width 12.1 Platelet Count 189 Mean Platelet Volume 8.9 Sodium Level 133 Potassium Level 3.7 Chloride Level 100 Carbon Dioxide Level 24.5 Anion Gap 9 Blood Urea Nitrogen 9 Creatinine 0.55 Estimat Glomerular Filtration 167 Rate Random Glucose 186 Calcium Level 8.3 Date/Time Procedure Status Source Growth 06/02/16 04:04 Aerobic Blood Culture - Preliminary Resulted Blood Peripheral NO GROWTH IN 1 DAY 06/02/16 04:04 Anaerobic Blood Culture - Preliminary Resulted Blood Peripheral NO GROWTH IN 1 DAY Physical Exam Physical Exam GENERAL: Obese, well-developed, well-nourished white male in no acute respiratory distress. HEENT: Atraumatic, normocephalic. PERRL at three. No scleral icterus. No drainage. Throat is clear. Mucous membranes are pale, slightly dry. NECK: Thick and supple. Unable to appreciate any erythema CARDIOVASCULAR: Regular rate and rhythm. Distant heart sounds, but no murmurs, rubs or gallops appreciated. He does have just a trace of pedal edema and a trace of edema in his hands and forearms. RESPIRATORY: Essentially clear to auscultation anteriorly and posteriorly. No wheezes, rales or rhonchi. GI: Abdomen is obese, taut, but nontender and nondistended. Active bowel sounds in all four quads. MUSCULOSKELETAL: He can move his extremities with purpose. Denies any joint tenderness. Tenderness noted right upper back with edema and and some tenderness. No erythema BACK: No flank tenderness. Near left shoulder/upper back noted indurated area (approximately 5 cm area ) with a small scab on it and no erythema. NEUROLOGIC: He is alert and oriented x4. He is a good historian. Speech is normal and clear. PSYCH: Appropriate mood and affect. A/P Assessment and Plan 1. Sepsis with cellulitis and questionable abscess/cyst of the neck. 2. Diabetes type 1 uncontrolled with hyperglycemia 3. Leukocytosis 4. Hyponatremia 5. Acute kidney injury, mild 6. Gout 7. Hypertension 8. History of history of hypertension. 9. Hypotension in the ER which is resolved. PLAN Appreciate ID input Labs reviewed Stable H&H Improved WBC count 1800 calories ADA diet, gentle hydration labs as warranted. DVT prophylaxis with heparin. Continue IV antibiotics, clindamycin andVancomycin. And Levaquin Surgical consult, no abscess. Tolerating by mouth Stool softener/laxative use on a when necessary basis for constipation reconcile his medications, his home meds. The patient is full code, full aggressive care. Due to his financial dilemma, we need to research his medication needs. We will monitor. Discussed With: Nurse, Family (patient), Other (Dr. Robyn escobar seen on his behalf, Discussed With: Nurse, Family (patient), Other (Dr. Robyn escobar seen on his behalf, ) Roopa Carlson MD Jun 04, 2016 10:17
[2016-06-04] MEDS ORDERED: MAGNESIUM HYDROXIDE SUSP 30 ML CUP PO PRN (10:30)
[2016-06-04] MEDS ORDERED: MAGNESIUM HYDROXIDE SUSP 30 ML CUP PO ONE (11:00)
[2016-06-04] MEDS: FAMOTIDINE 20 MG TAB PO SCH ×2 (11:34→20:07)
[2016-06-04] MEDS: LEVOFLOXACIN 500 MG PREMIX INJ 100 ML IV SCH (11:35)
[2016-06-04 12:00] VITALS: BP 161/91; PULSE 102; RESP 20; TEMP 98.2; O2SAT 99
--- NOTE | 2016-06-04 14:31 | HHI.IDPN ---
Note Infectious Disease Note Patient says he feels a little better. Still has significant pain at the upper back at the trapezius right side. Afebrile. PAST MEDICAL HISTORY Diabetes mellitus type 2, hypertension, diabetic neuropathy. Hyperlipidemia, gout, degenerative joint disease, history of cervical fusion with plates at C4-C5. ALLERGIES NO KNOWN DRUG ALLERGIES. ANTIBIOTICS: 1. Vancomycin. 2. Levaquin. 3. Clindamycin intravenous. SOCIAL HISTORY No tobacco, alcohol or illicit drugs. FAMILY HISTORY Significant for diabetes and hypertension. OBJECTIVE: Vital Signs Date Time Temp Pulse Resp B/P Pulse Ox O2 Delivery O2 Flow Rate FiO2 06/04/16 08:00 97.7 91 20 143/76 95 06/04/16 05:36 Room Air 06/04/16 05:36 97.9 94 18 138/72 92 06/03/16 23:46 98.7 101 18 150/83 96 06/03/16 23:46 Room Air 06/03/16 20:11 104 06/03/16 19:32 Room Air 06/03/16 19:32 98.1 96 18 150/80 96 06/03/16 16:00 98.1 100 22 137/88 96 Laboratory Tests Test 06/03/16 06/04/16 09:20 06:03 White Blood Count 13.9 TH/MM3 10.8 TH/MM3 Red Blood Count 4.21 MIL/MM3 3.95 MIL/MM3 Hemoglobin 12.1 GM/DL 11.6 GM/DL Hematocrit 36.3 % 33.1 % Mean Corpuscular Volume 86.2 FL 83.7 FL Mean Corpuscular Hemoglobin 28.8 PG 29.3 PG Mean Corpuscular Hemoglobin 33.5 % 34.9 % Concent Red Cell Distribution Width 12.6 % 12.1 % Platelet Count 189 TH/MM3 189 TH/MM3 Mean Platelet Volume 9.3 FL 8.9 FL Neutrophils (%) (Auto) 79.7 % Lymphocytes (%) (Auto) 11.2 % Monocytes (%) (Auto) 8.5 % Eosinophils (%) (Auto) 0.5 % Basophils (%) (Auto) 0.1 % Neutrophils # (Auto) 11.1 TH/MM3 Lymphocytes # (Auto) 1.6 TH/MM3 Monocytes # (Auto) 1.2 TH/MM3 Eosinophils # (Auto) 0.1 TH/MM3 Basophils # (Auto) 0.0 TH/MM3 CBC Comment DIFF FINAL Differential Comment Laboratory Tests Test 06/03/16 06/04/16 09:20 06:03 Sodium Level 133 MEQ/L 133 MEQ/L Potassium Level 4.0 MEQ/L 3.7 MEQ/L Chloride Level 102 MEQ/L 100 MEQ/L Carbon Dioxide Level 19.8 MEQ/L 24.5 MEQ/L Anion Gap 11 MEQ/L 9 MEQ/L Blood Urea Nitrogen 10 MG/DL 9 MG/DL Creatinine 0.63 MG/DL 0.55 MG/DL Estimat Glomerular Filtration 143 ML/MIN 167 ML/MIN Rate Random Glucose 193 MG/DL 186 MG/DL Calcium Level 8.2 MG/DL 8.3 MG/DL Microbiology Date/Time Procedure Status Source Growth 06/02/16 03:55 Aerobic Blood Culture - Preliminary Resulted Blood Peripheral NO GROWTH IN 2 DAYS 06/02/16 03:55 Anaerobic Blood Culture - Preliminary Resulted Blood Peripheral NO GROWTH IN 2 DAYS 06/02/16 04:04 Aerobic Blood Culture - Preliminary Resulted Blood Peripheral NO GROWTH IN 2 DAYS 06/02/16 04:04 Anaerobic Blood Culture - Preliminary Resulted Blood Peripheral NO GROWTH IN 2 DAYS IMAGING: Neck CT 06/02/16 0343 Signed Impressions: Service Date/Time: Thursday, June 02, 2016 03:46 - CONCLUSION: 1. Cellulitis without abscess. Juan Dhillon MD Soft Tissue Ultrasound 06/02/16 0000 Signed Impressions: Service Date/Time: Thursday, June 02, 2016 15:51 - CONCLUSION: No abscess Gagan Ordonez MD PHYSICAL EXAMINATION GEN: No acute distress. HEENT: The head has a tiny bruise at the vertex with dry crusted blood at the rim of a rounded abrasion. Extraocular movements grossly intact, pupils reactive to light. No icterus. Oropharynx: No visible lesions. Neck: Supple. Less tenderness on palpation of the posterior neck. No adenopathy. Swelling remain at the right side at the trapezius where there is also mild tenderness slightly to the left of midline at the top of the left side trapezius. Lungs: Clear to auscultation. Heart: Regular rate and rhythm. No murmurs, rubs or gallops. Abdomen: Bowel sounds present, obese, soft, nontender. No masses palpable. Extremities: No clubbing, cyanosis or edema. Skin: No diffuse rash. Neuro: Nonfocal. PSYCHIATRIC: Patient uncooperative. IMPRESSION: 1. Cellulitis of the neck. 2. Cellulitis of the upper back. 3. Soft tissue infection. 4. Diabetes mellitus, poorly controlled. RECOMMENDATIONS: 1. Continue clindamycin. 2. Continue vancomycin. 3. Continue Levaquin. 4. Monitor white blood cell count. 5. Monitor the area of the neck for potential abscess formation. 6. Obtain culture if any drainage occurs from the neck or upper back. 7. Follow the blood cultures. Kin Delaney MD Jun 04, 2016 14:31
--- NOTE | 2016-06-04 15:23 | HHI.PR ---
Subjective Subjective Notes Sitting on the side of the bed Pain somewhat better today Objective Vitals/I&O Vital Signs Date Time Temp Pulse Resp B/P Pulse Ox O2 Delivery O2 Flow Rate FiO2 06/04/16 08:00 97.7 91 20 143/76 95 06/04/16 05:36 Room Air Labs Laboratory Tests Test 06/04/16 06:03 White Blood Count 10.8 Red Blood Count 3.95 Hemoglobin 11.6 Hematocrit 33.1 Mean Corpuscular Volume 83.7 Mean Corpuscular Hemoglobin 29.3 Mean Corpuscular Hemoglobin 34.9 Concent Red Cell Distribution Width 12.1 Platelet Count 189 Mean Platelet Volume 8.9 Sodium Level 133 Potassium Level 3.7 Chloride Level 100 Carbon Dioxide Level 24.5 Anion Gap 9 Blood Urea Nitrogen 9 Creatinine 0.55 Estimat Glomerular Filtration 167 Rate Random Glucose 186 Calcium Level 8.3 Date/Time Procedure Status Source Growth 06/02/16 04:04 Aerobic Blood Culture - Preliminary Resulted Blood Peripheral NO GROWTH IN 2 DAYS 06/02/16 04:04 Anaerobic Blood Culture - Preliminary Resulted Blood Peripheral NO GROWTH IN 2 DAYS Radiology Last [address] 06/02/16 0343 Signed Impressions: Service Date/Time: Thursday, June 02, 2016 03:46 - CONCLUSION: 1. Cellulitis without abscess. Juan Dhillon MD Soft Tissue Ultrasound 06/02/16 0000 Signed Impressions: Service Date/Time: Thursday, June 02, 2016 15:51 - CONCLUSION: No abscess Gagan Ordonez MD Cardiovascular: Regular Lungs: Clear Abdomen: Non-distended, Non-tender Narrative Exam RIGHT shoulder/lower neck area with healing lesion present; no fluid collection palpated; no erythremia Tender with palpation closer to the base of the neck A/P Assessment and Plan 40 year old male with IDDM and hypertension with RIGHT shoulder abscess -WBC continues to improve -Continue antibiotics---ID following -VVS overnight -Tolerating diet -Continue non operative treatment at this time Attending Statement patient seen at bedside, still with pain but better wbc improving, no fevers continue non operative tx, pt may need I and D if pain continues or fluctuance present. Attestation The exam, history, and the medical decision-making described in the above note were completed with the assistance of the mid-level provider. I reviewed and agree with the findings presented. I attest that I had a [id number] encounter with the patient on the same day, and personally performed and documented my assessment and findings in the medical record. Grisel Garcia Jun 04, 2016 15:23 Shaun Persaud MD Jun 14, 2016 21:29
[2016-06-04 16:00] VITALS: BP 164/96; PULSE 90; RESP 20; TEMP 98; O2SAT 96
[2016-06-04 20:00] VITALS: BP 156/91; PULSE 99; RESP 20; TEMP 97.5; O2SAT 98
[2016-06-04 20:25] VITALS: PULSE 85
[2016-06-05] VITALS: BP 159/74; PULSE 89; RESP 20; TEMP 97.7; O2SAT 99
[2016-06-05] MEDS: ZOLPIDEM TARTRATE 5 MG TAB PO PRN (00:04)
[2016-06-05] MEDS: MORPHINE SULFATE 8 MG/ML INJ IV PUSH PRN ×6 (00:05→21:21)
[2016-06-05] MEDS: VANCOMYCIN INJ 1,750 MG in SODIUM CHLORID 0.9% 500 ML INJ 500 ML IV SCH (00:24)
[2016-06-05] MEDS ORDERED: PHARMACY ORDERED LAB XX ONE (00:45)
[2016-06-05 04:00] VITALS: BP 160/74; PULSE 87; RESP 20; TEMP 97.8; O2SAT 97
[2016-06-05] MEDS: CLINDAMYCIN INJ 600 MG in SODIUM CHLORIDE 0.9% INJ 100 ML IV SCH ×3 (04:46→21:18)
[2016-06-05] MEDS: INSULIN ASPART SUPPLEMENTAL SCALE SQ SCH ×4 (06:47→21:19)
[2016-06-05 08:00] VITALS: BP 137/72; PULSE 88; RESP 18; TEMP 97.8; O2SAT 97
[2016-06-05] MEDS: SODIUM CHLORIDE 0.9% FLUSH 5 ML FLUSH FLUSH SCH ×2 (08:19→21:00)
[2016-06-05] MEDS: HEPARIN SODIUM - SQ 10,000 UNITS/ML VIAL SQ SCH ×2 (08:19→21:18)
[2016-06-05] MEDS: FAMOTIDINE 20 MG TAB PO SCH ×2 (08:20→21:17)
[2016-06-05] MEDS: VANCOMYCIN 1,500 MG/NS 500 ML IV SCH ×4 (11:20→18:50)
[2016-06-05 11:32] LABS: BICARBONATE 21.6 MEQ/L (21.0-32.0); POTASSIUM 3.7 MEQ/L (3.5-5.1)
[2016-06-05] MEDS: SODIUM CHLORIDE 0.9% FLUSH 5 ML FLUSH FLUSH PRN ×2 (11:32→15:02)
[2016-06-05 12:00] VITALS: BP 143/67; PULSE 85; RESP 18; TEMP 97; O2SAT 98
[2016-06-05 12:11] LABS: HEMATOCRIT 35.4 % (39.0-51.0); MEAN CORPUSCULAR HEMOGLOBIN 29.4 PG (27.0-34.0); MEAN CORPUSCULAR HGB CONC 34.6 % (32.0-36.0); PLATELET COUNT 232 TH/MM3 (150-450); RED BLOOD COUNT 4.16 MIL/MM3 (4.50-5.90); RED CELL DISTRIBUTION WIDTH 12.2 % (11.6-17.2); REVIEW FLAG FINAL; WHITE BLOOD COUNT 9.5 TH/MM3 (4.0-11.0)
--- NOTE | 2016-06-05 12:39 | HHI.PR ---
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 no erythema, induration noted, no discharge frustrated, wants to know if surgery is gonna happen no fever no cp no sob no diarrhea doesn't want to wear heart monitor Review of Systems Constitutional Constitutional Remarks 12 point ROS completed, negative except as noted above Vitals/Results Intake & Output 06/04/16 06/04/16 06/05/16 15:00 23:00 07:00 Intake Total 720 ml 1268 ml 1221 ml Balance 720 ml 1268 ml 1221 ml Intake Oral 720 ml 480 ml 480 ml IV Total 788 ml 741 ml # Voids 3 3 1 # Bowel Movements 2 1 1 Vital Signs Vital Signs Date Time Temp Pulse Resp B/P Pulse Ox O2 Delivery O2 Flow Rate FiO2 06/05/16 08:00 97.8 88 18 137/72 97 06/05/16 04:00 97.8 87 20 160/74 97 06/05/16 04:00 Room Air 06/05/16 00:00 97.7 89 20 159/74 99 06/05/16 00:00 Room Air 06/04/16 20:25 85 06/04/16 20:00 97.5 99 20 156/91 98 06/04/16 20:00 Room Air 06/04/16 16:00 98.0 90 20 164/96 96 CBC/BMP: 06/05/16 1132 06/05/16 0020 Lab Results Laboratory Tests Test 06/05/16 06/05/16 00:20 11:32 Sodium Level 136 MEQ/L Potassium Level 3.7 MEQ/L Chloride Level 103 MEQ/L Carbon Dioxide Level 21.6 MEQ/L Anion Gap 11 MEQ/L Blood Urea Nitrogen 9 MG/DL Creatinine 0.73 MG/DL Estimat Glomerular Filtration 120 ML/MIN Rate Random Glucose 118 MG/DL Calcium Level 9.2 MG/DL Vancomycin Level Trough 8.8 MCG/ML White Blood Count 9.5 TH/MM3 Red Blood Count 4.16 MIL/MM3 Hemoglobin 12.2 GM/DL Hematocrit 35.4 % Mean Corpuscular Volume 85.0 FL Mean Corpuscular Hemoglobin 29.4 PG Mean Corpuscular Hemoglobin 34.6 % Concent Red Cell Distribution Width 12.2 % Platelet Count 232 TH/MM3 Mean Platelet Volume 8.5 FL Physical Exam General General Appearance: Well Developed, Well Nourished, Comfortable, Obese Eyes Eye Exam: Pupils Equal, Pupils Reactive Ears & Nose Ears & Nose Exam: Nasal Mucosa [place] Throat Throat Exam: Oral Mucosa [place] & Moist Neck Neck Exam: Neck Supple, Trachea Midline Pulmonary Resp Exam: Clear Bilaterally, No Distress Cardiology CV Exam: Regular, Good Perfusion Gastrointestinal/Abdomen GI Exam: Soft, Non-Tender, Bowel Sounds Present, Non-Distended Musculoskeletal MS Exam: Joints Intact Integumentary Skin Exam: Warm, Dry, Ulcer(s) Skin Remarks indurated abscess right shoulder blade, firm, no fluctuance Extremeties Extremities Exam: Pedal Pulses Palpable, Trace Edema Neurologic Neuro Exam: Alert, Awake, Oriented, Speech Clear, Moving All Extremities, No Focal Deficits VTE Prophylaxis VTE Prophylaxis Meds: Heparin Assessment/Plan Assessment/Plan 1. Sepsis with cellulitis and questionable abscess/cyst of right shoulder blade 2. Diabetes type 2 uncontrolled with hyperglycemia 3. Leukocytosis 4. Hyponatremia 5. Acute kidney injury, mild 6. Gout 7. Hypertension 8. Hypotension in the ER which is resolved. PLAN Appreciate ID input continue abx follow cultures imaging studies reviewed, no abscess. surgery evaluated, recommends to continue with abx, no plans for surgery BGM elevated continue with accuchecks AC/HS and ISS 1800 calories ADA diet, Hgb A1C in am Renal fx improved-DC IVF DVT prophylaxis with heparin. Pepcid for GI prophylaxis Continue with abx, not ready for dc yet DC tele Ok for OOB to ambulate D/W RN D/W Dr. Carlson D/W pt This patient was seen by myself and Dr. Carlson, this note is written on his behalf. Nicolette Colbert Jun 05, 2016 12:39
--- NOTE | 2016-06-05 14:08 | HHI.PR ---
Subjective Subjective Notes DAILY PROGRESS NOTE FOR SURGICAL ATTENDING, DR. COMFORT CALDERON I feel better Objective Vitals/I&O Vital Signs Date Time Temp Pulse Resp B/P Pulse Ox O2 Delivery O2 Flow Rate FiO2 06/05/16 12:00 97.0 85 18 143/67 98 06/05/16 04:00 Room Air Labs Laboratory Tests Test 06/05/16 06/05/16 00:20 11:32 Sodium Level 136 Potassium Level 3.7 Chloride Level 103 Carbon Dioxide Level 21.6 Anion Gap 11 Blood Urea Nitrogen 9 Creatinine 0.73 Estimat Glomerular Filtration 120 Rate Random Glucose 118 Calcium Level 9.2 Vancomycin Level Trough 8.8 White Blood Count 9.5 Red Blood Count 4.16 Hemoglobin 12.2 Hematocrit 35.4 Mean Corpuscular Volume 85.0 Mean Corpuscular Hemoglobin 29.4 Mean Corpuscular Hemoglobin 34.6 Concent Red Cell Distribution Width 12.2 Platelet Count 232 Mean Platelet Volume 8.5 Date/Time Procedure Status Source Growth 06/02/16 04:04 Aerobic Blood Culture - Preliminary Resulted Blood Peripheral NO GROWTH IN 3 DAYS 06/02/16 04:04 Anaerobic Blood Culture - Preliminary Resulted Blood Peripheral NO GROWTH IN 3 DAYS Radiology Last Impressions Neck CT 06/02/16 0343 Signed Impressions: Service Date/Time: Thursday, June 02, 2016 03:46 - CONCLUSION: 1. Cellulitis without abscess. Juan Dhillon MD Soft Tissue Ultrasound 06/02/16 0000 Signed Impressions: Service Date/Time: Thursday, June 02, 2016 15:51 - CONCLUSION: No abscess Gagan Ordonez MD Narrative Exam No erythema posterior neck small punctate open wound right side of upper back shoulder area no erythema tenderness more medial than lateral I don't feel an abscess A/P Problem List: (1) Hyperglycemia (2) Cellulitis and abscess of neck (3) Diabetes mellitus, insulin dependent (IDDM), uncontrolled Assessment and Plan 40 year old male with IDDM and hypertension with RIGHT shoulder swelling improving on antibiotic therapy -WBC continues to improve -Continue antibiotics---ID following -VVS overnight -Tolerating diet -Continue IV antibiotics No abscess present Problem Qualifiers (1) Diabetes mellitus, insulin dependent (IDDM), uncontrolled: Qualified Code: E10.628 - Uncontrolled type 1 diabetes mellitus with other skin complication Comfort Calderon MD Jun 05, 2016 14:08
--- NOTE | 2016-06-05 14:13 | HHI.IDPN ---
Note Infectious Disease Note Patient says he feels a little better. Pain at the upper back at the trapezius right side is the same. Afebrile. Has severe tenderness when the back is palpated. PAST MEDICAL HISTORY Diabetes mellitus type 2, hypertension, diabetic neuropathy. Hyperlipidemia, gout, degenerative joint disease, history of cervical fusion with plates at C4-C5. ALLERGIES NO KNOWN DRUG ALLERGIES. ANTIBIOTICS: 1. Vancomycin. 2. Levaquin. 3. Clindamycin intravenous. SOCIAL HISTORY No tobacco, alcohol or illicit drugs. FAMILY HISTORY Significant for diabetes and hypertension. OBJECTIVE: Vital Signs Date Time Temp Pulse Resp B/P Pulse Ox O2 Delivery O2 Flow Rate FiO2 06/05/16 12:00 97.0 85 18 143/67 98 06/05/16 08:00 97.8 88 18 137/72 97 06/05/16 04:00 97.8 87 20 160/74 97 06/05/16 04:00 Room Air 06/05/16 00:00 97.7 89 20 159/74 99 06/05/16 00:00 Room Air 06/04/16 20:25 85 06/04/16 20:00 97.5 99 20 156/91 98 06/04/16 20:00 Room Air 06/04/16 16:00 98.0 90 20 164/96 96 06/04/16 06/04/16 06/05/16 15:00 23:00 07:00 Intake Total 720 ml 1268 ml 1221 ml Balance 720 ml 1268 ml 1221 ml Intake Oral 720 ml 480 ml 480 ml IV Total 788 ml 741 ml # Voids 3 3 1 # Bowel Movements 2 1 1 Laboratory Tests Test 06/04/16 06/05/16 06:03 11:32 White Blood Count 10.8 TH/MM3 9.5 TH/MM3 Red Blood Count 3.95 MIL/MM3 4.16 MIL/MM3 Hemoglobin 11.6 GM/DL 12.2 GM/DL Hematocrit 33.1 % 35.4 % Mean Corpuscular Volume 83.7 FL 85.0 FL Mean Corpuscular Hemoglobin 29.3 PG 29.4 PG Mean Corpuscular Hemoglobin 34.9 % 34.6 % Concent Red Cell Distribution Width 12.1 % 12.2 % Platelet Count 189 TH/MM3 232 TH/MM3 Mean Platelet Volume 8.9 FL 8.5 FL Laboratory Tests Test 06/04/16 06/05/16 06:03 00:20 Sodium Level 133 MEQ/L 136 MEQ/L Potassium Level 3.7 MEQ/L 3.7 MEQ/L Chloride Level 100 MEQ/L 103 MEQ/L Carbon Dioxide Level 24.5 MEQ/L 21.6 MEQ/L Anion Gap 9 MEQ/L 11 MEQ/L Blood Urea Nitrogen 9 MG/DL 9 MG/DL Creatinine 0.55 MG/DL 0.73 MG/DL Estimat Glomerular Filtration 167 ML/MIN 120 ML/MIN Rate Random Glucose 186 MG/DL 118 MG/DL Calcium Level 8.3 MG/DL 9.2 MG/DL IMAGING: Neck CT 06/02/16 0343 Signed Impressions: Service Date/Time: Thursday, June 02, 2016 03:46 - CONCLUSION: 1. Cellulitis without abscess. Juan Dhillon MD Soft Tissue Ultrasound 06/02/16 0000 Signed Impressions: Service Date/Time: Thursday, June 02, 2016 15:51 - CONCLUSION: No abscess Gagan Ordonez MD PHYSICAL EXAMINATION GEN: No acute distress. HEENT: Extraocular movements grossly intact, pupils reactive to light. No icterus. Oropharynx: No visible lesions. Neck: Supple. Less tender. No adenopathy. UPPER back: Swelling remain at the right side at the trapezius and severe tenderness on palpation. Lungs: Clear to auscultation. Heart: Regular rate and rhythm. No murmurs, rubs or gallops. Abdomen: Bowel sounds present, obese, soft, nontender. Extremities: No clubbing, cyanosis or edema. Skin: No diffuse rash. Neuro: Nonfocal. PSYCHIATRIC: Patient is cooperative. IMPRESSION: 1. Cellulitis of the neck. 2. Cellulitis of the upper back. 3. Soft tissue infection of the upper back. 4. Diabetes mellitus, poorly controlled. RECOMMENDATIONS: 1. Continue clindamycin. 2. Continue vancomycin. 3. Continue Levaquin. 4. Monitor white blood cell count. 5. Repeat CT scan of the neck for potential abscess formation and drainage of abscess if present. Kin Delaney MD Jun 05, 2016 14:13
[2016-06-05] MEDS: LEVOFLOXACIN 500 MG PREMIX INJ 100 ML IV SCH (14:54)
[2016-06-05 16:00] VITALS: BP 142/88; PULSE 90; RESP 18; TEMP 98.3; O2SAT 97
[2016-06-05 20:00] VITALS: BP 140/70; PULSE 81; RESP 19; TEMP 97.7; O2SAT 98
[2016-06-06] VITALS: BP 136/68; PULSE 78; RESP 18; TEMP 98.1; O2SAT 97
[2016-06-06] MEDS: ZOLPIDEM TARTRATE 5 MG TAB PO PRN ×2 (00:34→21:40)
[2016-06-06] MEDS: MORPHINE SULFATE 8 MG/ML INJ IV PUSH PRN ×2 (00:36→04:05)
[2016-06-06] MEDS: VANCOMYCIN 1,500 MG/NS 500 ML IV SCH ×4 (03:57→12:09)
[2016-06-06] MEDS: CLINDAMYCIN INJ 600 MG in SODIUM CHLORIDE 0.9% INJ 100 ML IV SCH ×3 (03:57→19:42)
[2016-06-06 04:00] VITALS: BP 120/82; PULSE 86; RESP 17; TEMP 98; O2SAT 96
[2016-06-06] MEDS: INSULIN ASPART SUPPLEMENTAL SCALE SQ SCH ×4 (05:44→21:40)
[2016-06-06] MEDS: HEPARIN SODIUM - SQ 10,000 UNITS/ML VIAL SQ SCH ×2 (07:43→21:39)
[2016-06-06] MEDS: FAMOTIDINE 20 MG TAB PO SCH ×2 (07:43→21:40)
[2016-06-06] MEDS: MORPHINE SULFATE 4 MG/ML INJ IV PUSH PRN ×4 (07:43→21:40)
[2016-06-06] MEDS: SODIUM CHLORIDE 0.9% FLUSH 5 ML FLUSH FLUSH SCH ×2 (07:43→19:42)
[2016-06-06 08:00] VITALS: BP 155/74; PULSE 82; RESP 20; TEMP 97.7; O2SAT 98
[2016-06-06] MEDS ORDERED: IOHEXOL 350 MG/ML 10 ML VIAL (for RAD DIAG) IV ONE (08:52)
[2016-06-06] MEDS ORDERED: PHARMACY ORDERED LAB XX ONE (10:45)
--- NOTE | 2016-06-06 11:41 | HHI.PR ---
Subjective Subjective Notes Still sore on neck Objective Vitals/I&O Vital Signs Date Time Temp Pulse Resp B/P Pulse Ox O2 Delivery O2 Flow Rate FiO2 06/06/16 08:00 97.7 82 20 155/74 98 06/05/16 04:00 Room Air Labs Laboratory Tests Test 06/06/16 10:45 Vancomycin Level Trough 22.6 Date/Time Procedure Status Source Growth 06/02/16 04:04 Aerobic Blood Culture - Preliminary Resulted Blood Peripheral NO GROWTH IN 4 DAYS 06/02/16 04:04 Anaerobic Blood Culture - Preliminary Resulted Blood Peripheral NO GROWTH IN 4 DAYS Radiology Last Impressions Neck CT 06/02/16 0343 Signed Impressions: Service Date/Time: Thursday, June 02, 2016 03:46 - CONCLUSION: 1. Cellulitis without abscess. Juan Dhillon MD Soft Tissue Ultrasound 06/02/16 0000 Signed Impressions: Service Date/Time: Thursday, June 02, 2016 15:51 - CONCLUSION: No abscess Gagan Ordonez MD Narrative Exam Soft tissue right base of neck upper back with some swelling but no induration or erythema Moderately tender to deep palpation. A/P Problem List: (1) Hyperglycemia (2) Cellulitis and abscess of neck (3) Diabetes mellitus, insulin dependent (IDDM), uncontrolled Assessment and Plan A/P Problem List: (1) Hyperglycemia (2) Cellulitis and abscess of neck (3) Diabetes mellitus, insulin dependent (IDDM), uncontrolled Assessment and Plan 40 year old male with IDDM and hypertension with RIGHT shoulder swelling improving on antibiotic therapy -No CBC today -Continue antibiotics---ID following -No fevers -Tolerating diet - Repeat CT results pending; if no abscess present, ok to discharge when ok with ID and med team. -No surgery indicated at this time. Problem Qualifiers (1) Diabetes mellitus, insulin dependent (IDDM), uncontrolled: Qualified Code: E10.628 - Uncontrolled type 1 diabetes mellitus with other skin complication Rusty Nugent MD Jun 06, 2016 11:41
--- NOTE | 2016-06-06 11:51 | RADRPT ---
EXAM DATE/TIME: 06/06/2016 08:46 [facility] COMPARISON: No previous studies available for comparison. INDICATIONS : Pain and swelling to posterior neck. IV CONTRAST: 62 cc Omnipaque 350 (iohexol) IV RADIATION DOSE: 21.41 CTDIvol (mGy) MEDICAL HISTORY : Hypertension. Diabetes mellitus type 2. SURGICAL HISTORY : Fusion, cervical. ENCOUNTER: Initial ACUITY: 1 week PAIN SCALE: 6/10 LOCATION: posterior neck. TECHNIQUE: Volumetric scanning of the neck was performed. Using automated exposure control and adjustment of th e mA and/or kV according to patient size, radiation dose was kept as low as reasonably achievable to obtain optimal diagnostic quality images. FINDINGS: Adenosine and indurated subcutaneous fat seen of the upper back and lower neck. This has worsened in the interim and now with some lobulated soft tissue density at the level of C7 right of midline measu ring approximately 3.2 x 6.2 cm in size and of concern for a developing abscess. This has extension t o just beneath the skin and potentially draining. Visualized lung apices are clear. Visualized osseous structures are without acute abnormality. CONCLUSION: Persistent cellulitis posteriorly of the upper back and lower neck and with CT features suggesting an irregular abscess developing to the right of midline. Gagan Pisano MD on June 06, 2016 at 11:48 Board Certified Radiologist. This report was verified electronically.
[2016-06-06 12:00] VITALS: BP 175/103; PULSE 83; RESP 22; TEMP 97.8; O2SAT 99
[2016-06-06] MEDS ORDERED: ACETAMINOPHEN 1000 MG/100 ML VIAL IV ONE (12:00)
[2016-06-06] MEDS ORDERED: PROPOFOL 200 MG/20 ML AMP IV ONE (12:00)
[2016-06-06] MEDS ORDERED: ePHEDrine/NS 25 MG/5 ML SYR IV ONE (12:00)
[2016-06-06] MEDS ORDERED: PHENYLEPH/NS 1000 MCG/10 ML SYR IV ONE (12:00)
[2016-06-06] MEDS ORDERED: ONDANSETRON HCL 4 MG/2 ML VIAL IV PUSH ONE (12:00)
[2016-06-06] MEDS: LEVOFLOXACIN 500 MG PREMIX INJ 100 ML IV SCH (12:07)
[2016-06-06 12:30] LABS: HEMOGLOBIN A1a 1.3 %; HEMOGLOBIN A1b 2.3 %; HEMOGLOBIN Ao 79.4 %; HEMOGLOBIN LA1C 2.1 %; HEMOGLOBIN P3 3.8 %
--- NOTE | 2016-06-06 12:37 | HHI.PR ---
Subjective Subjective Remarks bee tender to palpation on right shoulder area frustrated Dr. Nugent to evaluate, no surgery planned repeat CT pending no fever no cp no sob Review of Systems Constitutional Constitutional Remarks 12 point ROS completed, negative except as noted above Vitals/Results Intake & Output 06/05/16 06/05/16 06/06/16 15:00 23:00 07:00 Intake Total 960 ml 790 ml 732 ml Output Total 1250 ml Balance -290 ml 790 ml 732 ml Intake Oral 960 ml 290 ml 180 ml IV Total 500 ml 552 ml Output Urine Total 1250 ml # Voids 3 1 3 # Bowel Movements 0 Vital Signs Vital Signs Date Time Temp Pulse Resp B/P Pulse Ox O2 Delivery O2 Flow Rate FiO2 06/06/16 08:00 97.7 82 20 155/74 98 06/06/16 04:43 18 06/06/16 04:00 98.0 86 17 120/82 96 06/06/16 00:00 98.1 78 18 136/68 97 06/05/16 20:00 97.7 81 19 140/70 98 06/05/16 16:00 98.3 90 18 142/88 97 CBC/BMP: 06/05/16 1132 06/05/16 0020 Lab Results Laboratory Tests Test 06/06/16 10:45 Vancomycin Level Trough 22.6 MCG/ML Physical Exam General General Appearance: Well Developed, Well Nourished, Comfortable, Obese Eyes Eye Exam: Pupils Equal, Pupils Reactive Ears & Nose Ears & Nose Exam: Nasal Mucosa [place] Throat Throat Exam: Oral Mucosa [place] & Moist Neck Neck Exam: Neck Supple, Trachea Midline Pulmonary Resp Exam: Clear Bilaterally, No Distress Cardiology CV Exam: Regular, Good Perfusion Gastrointestinal/Abdomen GI Exam: Soft, Non-Tender, Bowel Sounds Present, Non-Distended Musculoskeletal MS Exam: Joints Intact Integumentary Skin Exam: Warm, Dry, Ulcer(s) Skin Remarks indurated abscess right shoulder blade, firm, no fluctuance Extremeties Extremities Exam: Pedal Pulses Palpable, Trace Edema Neurologic Neuro Exam: Alert, Awake, Oriented, Speech Clear, Moving All Extremities, No Focal Deficits VTE Prophylaxis VTE Prophylaxis Meds: Heparin Assessment/Plan Assessment/Plan 1. Sepsis with cellulitis and questionable abscess/cyst of right shoulder blade 2. Diabetes type 2 uncontrolled with hyperglycemia 3. Leukocytosis 4. Hyponatremia 5. Acute kidney injury, mild 6. Gout 7. Hypertension 8. Hypotension in the ER which is resolved. PLAN Appreciate ID input continue abx follow cultures imaging studies reviewed, no abscess. surgery evaluated, recommends to continue with abx, no plans for surgery Repeat CT done today, results noted-persistent cellulitis, poss. irregular abscess developing to right of midline BGM 170s continue with accuchecks AC/HS and ISS 1800 calories ADA diet, Hgb A1C 10.6, poorly controlled blood glucose doesn't take any meds at home, will need insulin when discharged consult outreach educator DVT prophylaxis with heparin. Pepcid for GI prophylaxis Continue with abx, not ready for dc yet Ok for OOB to ambulate Waiting on surgery input D/W RN D/W Dr. Carlson D/W pt This patient was seen by myself and Dr. Carlson, this note is written on his behalf. Nicolette Colbert Jun 06, 2016 12:37
[2016-06-06] MEDS: SODIUM CHLORIDE 0.9% FLUSH 5 ML FLUSH FLUSH PRN (15:03)
[2016-06-06 16:00] VITALS: BP 134/70; PULSE 78; RESP 20; TEMP 97.7; O2SAT 98
[2016-06-06] MEDS ORDERED: BUPIVACAINE/EPINEPHRINE 0.5% PF 30 ML VIAL ONE (18:34)
--- NOTE | 2016-06-06 19:17 | HHI.PR ---
cc: Rusty Nugent MD Immediate Post Op Note Procedure Date: Jun 06, 2016 Pre Op Diagnosis: Abscess RIGHT upper back Post Op Diagnosis: Same Surgeon: Rusty Nugent Clinical Data Manager(s): None Procedure: Incision and drainage RIGHT upper back abscess, complex Complications: None Specimen(s) removed: Gram Stain, C&S Estimated blood loss: 50 ml Anesthesia: General Drains: None IVF (600 ml) Patient to: PACU Patient Condition: Good Date/Time of Procedure: SEE SURGICAL CARE RECORD Rusty Nugent MD Jun 06, 2016 19:17
[2016-06-06] MEDS ORDERED: fentaNYL CITRATE 250 MCG/5 ML AMP ONE (19:25)
[2016-06-06] MEDS ORDERED: MIDAZOLAM HCL 2 MG/2 ML VIAL ONE (19:25)
[2016-06-06] MEDS ORDERED: HYDROmorphone HCL PF 2 MG/ML VIAL IV PUSH PRN (19:30)
[2016-06-06] MEDS ORDERED: DO NOT ADM ANY ANTICOAGULANT DRUGS XX PRN (19:45)
[2016-06-06 20:00] VITALS: BP 155/92; PULSE 88; RESP 18; TEMP 97.2; O2SAT 96
[2016-06-07] VITALS: BP 151/76; PULSE 88; RESP 18; TEMP 97.9; O2SAT 96
[2016-06-07] MEDS ORDERED: VANCOMYCIN INJ 1,750 MG in SODIUM CHLORID 0.9% 500 ML INJ 500 ML IV SCH (02:00)
[2016-06-07] MEDS: CLINDAMYCIN INJ 600 MG in SODIUM CHLORIDE 0.9% INJ 100 ML IV SCH (04:43)
[2016-06-07] MEDS: INSULIN ASPART SUPPLEMENTAL SCALE SQ SCH ×4 (06:12→20:26)
[2016-06-07] MEDS: FAMOTIDINE 20 MG TAB PO SCH ×2 (07:51→20:27)
[2016-06-07] MEDS: SODIUM CHLORIDE 0.9% FLUSH 5 ML FLUSH FLUSH SCH ×2 (07:52→20:32)
[2016-06-07] MEDS: HEPARIN SODIUM - SQ 10,000 UNITS/ML VIAL SQ SCH ×2 (07:52→20:28)
[2016-06-07] MEDS: MORPHINE SULFATE 4 MG/ML INJ IV PUSH PRN (07:58)
[2016-06-07 08:00] VITALS: BP 160/106; PULSE 74; RESP 20; TEMP 98.5; O2SAT 98
--- NOTE | 2016-06-07 08:23 | MP ---
cc: RUSTY NUGENT M.D., JAWED A. MD DATE OF SURGERY: 06/06/2016 PREOPERATIVE DIAGNOSIS: Abscess right upper back. POSTOPERATIVE DIAGNOSIS: Abscess right upper back. PROCEDURE: ANESTHESIA: General endotracheal anesthesia SURGEON: Amy Nugent MD. ESTIMATED BLOOD LOSS: 50 mL FLUIDS: 600 mL Crystalloid COMPLICATIONS: None. DRAINS: None. SPECIMEN: Gram stain and C&S to microbiology. PROCEDURE IN DETAIL The patient was taken to the operating room and placed on the operating table in the supine position. After an adequate level of general endotracheal anesthesia was achieved the patient was placed in the lateral decubitus position on the fall bag and the back was shaved, prepped and draped. Time-out was taken confirming the correct patient, site and procedure to be performed. Skin and subcutaneous tissue was infiltrated with local anesthetic and a transverse incision made directly over the previous scab. Purulent material was exuded and this was cultured and sent for Gram stain and C&S. The abscess cavity was completely opened and all loculations broken up. Small bleeding points were controlled with electrocautery. The wound was irrigated copiously with saline and then packed with four inch Betadine Juan [place], 4x4s and ABD were applied over this. The patient was extubated and taken back to the Recovery Room in stable condition. The patient tolerated the procedure well. Rusty Nugent MD [facility] /7:23 PM /8:19 AM
--- NOTE | 2016-06-07 08:46 | HHI.PR ---
Subjective Subjective Remarks Sitting up on side of bed Appetite good Alert, talkative No acute pain or shortness of breath Slept well last night (Aminata Alvarez) Review of Systems Constitutional Constitutional Remarks 10 point ROS done. Positives include wound on the right shoulder and trapezius area. Status post I&D last p.m. (Aminata Alvarez) Musculoskeletal MS: Swelling, Discomfort/Pain (at surgical wound site right upper shoulder) ( Aminata Alvarez) Integumentary Skin: Wounds (see above) (Aminata Alvarez) Psychiatric Psychiatric: Normal Mood (Aminata Alvarez) Vitals/Results Intake & Output 06/06/16 06/06/16 06/07/16 15:00 23:00 07:00 Intake Total 360 ml 1920 ml 669 ml Output Total 50 ml 300 ml Balance 360 ml 1870 ml 369 ml Intake Oral 360 ml 0 ml 120 ml IV Total 1120 ml 549 ml Other 800 ml Output Urine Total 0 ml 300 ml Estimated Blood Loss 50 ml Other 0 ml # Voids 4 # Bowel Movements 0 0 Vital Signs Vital Signs Date Time Temp Pulse Resp B/P Pulse Ox O2 Delivery O2 Flow Rate FiO2 06/07/16 00:00 97.9 88 18 151/76 96 06/06/16 20:00 97.2 88 18 155/92 96 06/06/16 19:50 86 19 142/85 95 Nasal Cannula 3 06/06/16 19:45 97.6 86 20 144/88 95 Nasal Cannula 3 06/06/16 19:30 89 16 136/83 95 Nasal Cannula 3 06/06/16 19:19 98.8 95 16 144/81 92 Simple Mask 10 06/06/16 17:17 98.5 100 20 161/86 100 06/06/16 17:17 Room Air 06/06/16 16:00 97.7 78 20 134/70 98 06/06/16 12:00 97.8 83 22 175/103 99 (Aminata Alvarez) CBC/BMP: 06/05/16 1132 06/05/16 0020 Lab Results Laboratory Tests Test 06/06/16 10:45 Vancomycin Level Trough 22.6 MCG/ML Microbiology Microbiology 06/06/16 Gram Stain, Received Pending 06/06/16 Wound Culture, Received Pending 06/06/16 Acid Fast Stain, Received Pending 06/06/16 Mycobacterial Culture, Received Pending 06/06/16 Fungal Smear, Received Pending 06/06/16 Fungal Culture, Received Pending Imaging Remarks Last Impressions Neck CT 06/06/16 0000 Signed Impressions: Service Date/Time: Monday, June 06, 2016 08:46 - CONCLUSION: Persistent cellulitis posteriorly of the upper back and lower neck and with CT features suggesting an irregular abscess developing to the right of midline. Gagan Pisano MD Soft Tissue Ultrasound 06/02/16 0000 Signed Impressions: Service Date/Time: Thursday, June 02, 2016 15:51 - CONCLUSION: No abscess Gagan Ordonez MD Current Medications Active Medications Bupivacaine HCl/ Epinephrine Bitart (Sensorcaine-Epinephrine Pf 0.5% Inj) 30 ml STK-MED ONCE .ROUTE Last administered on 06/06/16 18:47; Admin Dose 30 ML; Start 06/06/16 at 18:34; Stop 06/06/16 at 18:35; Status DC Fentanyl Citrate (fentaNYL INJ) 250 mcg STK-MED ONCE .ROUTE; Start 06/06/16 at 19:25; Stop 06/06/16 at 19:26; Status DC Hydromorphone HCl (Dilaudid Pf Inj) 2 mg Q4H PRN IV PUSH Last administered on 01:41; Admin Dose 2 MG; Start 06/06/16 at 19:30; Stop 06/07/16 at 19:30 Iohexol 62 ml 62 ml STK-MED ONCE IV Last administered on 06/06/16 08:52; Admin Dose 62 ML; Start 06/06/16 at 08:52; Stop 06/06/16 at 08:53; Status DC Midazolam HCl (Versed Inj) 2 mg STK-MED ONCE .ROUTE; Start 06/06/16 at 19:25; Stop 06/06/16 at 19:26; Status DC Miscellaneous Information ALL NURSING DEPARTME... UNSCH PRN XX; Start 06/06/16 at 19:45; Stop 06/07/16 at 19:44 Miscellaneous Information SPECIFIC LAB TO BE ... ONCE ONCE XX; Start at 01:45; Stop 06/09/16 at 01:46 Miscellaneous Information SPECIFIC LAB TO BE DRAWN:VANCO TROUGH DATE... ONCE ONCE XX Last administered on 06/06/16 10:44; Admin Dose 1; Start 06/06/16 at 10 :45; Stop 06/06/16 at 10:46; Status DC Vancomycin HCl/ Sodium Chloride (Vancomycin Inj/ NS 500 ml Inj) 517.5 ml @ 258.75 mls/ hr Q12H IV Last administered on 06/07/16 01:40; Admin Dose 258.75 MLS/HR; Start 06/07/16 at 02:00 (Aminata Alvarez. WINDING LATHE OPERATOR) Physical Exam General General Appearance: Well Developed, Well Nourished, Comfortable, Obese (Aminata Alvarez M. WINDING LATHE OPERATOR) Eyes Eye Exam: Pupils Equal, Pupils Reactive (Aminata Alvarez M. WINDING LATHE OPERATOR) Ears & Nose Ears & Nose Exam: Nasal Mucosa [place] (Aminata Alvarez M. WINDING LATHE OPERATOR) Throat Throat Exam: Oral Mucosa [place] & Moist (Aminata Alvarez M. WINDING LATHE OPERATOR) Neck Neck Exam: Neck Supple, Trachea Midline (Aminata Alvarez M. WINDING LATHE OPERATOR) Pulmonary Resp Exam: Clear Bilaterally, No Distress (Aminata Alvarez M. WINDING LATHE OPERATOR) Cardiology CV Exam: Regular, Good Perfusion (Denise Alvarezan M. WINDING LATHE OPERATOR) Gastrointestinal/Abdomen GI Exam: Soft, Non-Tender, Bowel Sounds Present, Non-Distended (Aminata Alvarez M. WINDING LATHE OPERATOR) Musculoskeletal MS Exam: Joints Intact (Aminata Alvarez M. WINDING LATHE OPERATOR) Integumentary Skin Exam: Warm, Dry, Ulcer(s) Skin Remarks Wound right upper shoulder, dressing clean dry and intact, soreness, improving ( Aminata Alvarez. WINDING LATHE OPERATOR) Extremeties Extremities Exam: Pedal Pulses Palpable, Trace Edema (Aminata Alvarez M. WINDING LATHE OPERATOR) Neurologic Neuro Exam: Alert, Awake, Oriented, Speech Clear, Moving All Extremities, No Focal Deficits (Aminata Alvarez M. WINDING LATHE OPERATOR) VTE Prophylaxis VTE Prophylaxis Meds: Heparin (Aminata Alvarez. WINDING LATHE OPERATOR) Assessment/Plan Assessment/Plan 1. Sepsis with cellulitis, deep complicated abscess 2. Diabetes type 2 uncontrolled with hyperglycemia 3. Leukocytosis 4. Hyponatremia 5. Acute kidney injury, mild 6. Gout 7. Hypertension 8. Hypotension in the ER which is resolved. PLAN Appreciate ID input continue abx follow wound cultures, pending, no growth 4 days on blood cultures Follow-up images show complex abscess, Surgical I&D yesterday p.m., Patient still taking IV pain meds, we'll discuss transition to by mouth today with Dr. Carlson BGM 170s continue with accuchecks AC/HS and ISS 1800 calories ADA diet, Hgb A1C 10.6, poorly controlled blood glucose doesn't take any meds at home, will need insulin when discharged consult compositor apprentice DVT prophylaxis with heparin. Pepcid for GI prophylaxis Ok for OOB to ambulate D/W Dr. Carlson, patient seen on his behalf D/W pt Discussed Condition with: Patient (Aminata Alvarez) Assessment/Plan Pt seen and examined labs reviewed still culture pending dw pt dw print production coordinator about plan of care hopefuly dc tomorrow depends on culture and ID (Roopa Carlson MD) Aminata Alvarez Jun 07, 2016 08:46 Roopa Carlson MD Jun 07, 2016 12:41
[2016-06-07] MEDS ORDERED: PERC5TAB12 PO (11:07)
[2016-06-07] MEDS ORDERED: BACT800T5 PO (11:08)
--- NOTE | 2016-06-07 11:14 | HHI.PR ---
Subjective Subjective Notes Pt feels better, wants to get out of hospital. Objective Vitals/I&O Vital Signs Date Time Temp Pulse Resp B/P Pulse Ox O2 Delivery O2 Flow Rate FiO2 06/07/16 08:00 98.5 74 20 160/106 98 06/06/16 19:50 Nasal Cannula 3 Labs Date/Time Procedure Status Source Growth 06/06/16 17:45 Gram Stain - Final Resulted Abscess Back 06/06/16 17:45 Wound Culture Resulted Abscess Back Pending 06/06/16 17:45 Fungal Smear Received Abscess Back Pending 06/06/16 17:45 Fungal Culture Received Abscess Back Pending 06/06/16 17:45 Acid Fast Stain Received Abscess Back Pending 06/06/16 17:45 Mycobacterial Culture Received Abscess Back Pending Radiology Last Impressions Neck CT 06/02/16 0343 Signed Impressions: Service Date/Time: Thursday, June 02, 2016 03:46 - CONCLUSION: 1. Cellulitis without abscess. Juan Dhillon MD Soft Tissue Ultrasound 06/02/16 0000 Signed Impressions: Service Date/Time: Thursday, June 02, 2016 15:51 - CONCLUSION: No abscess Gagan Ordonez MD Narrative Exam R upper back dressing changed to saline wet to dry. A single 4x4 was placed in wound. No purulent drainage noted, wound pretty clean. No surrounding erythema present. A/P Problem List: (1) Hyperglycemia (2) Cellulitis and abscess of neck (3) Diabetes mellitus, insulin dependent (IDDM), uncontrolled Assessment and Plan POD one I and D upper back abscess. Transition to oral antibiotics and po pain med. DC OK from surgical standpoint. Scrips for Bactrim and Percocet on chart. Follow up with dr Nugent in one week. Problem Qualifiers (1) Diabetes mellitus, insulin dependent (IDDM), uncontrolled: Qualified Code: E10.628 - Uncontrolled type 1 diabetes mellitus with other skin complication Juan Olea MD Jun 07, 2016 11:14
--- NOTE | 2016-06-07 11:15 | PD.HHIRFFV ---
Face to Face Verification Requested Services: [facility] Face to Face Verification I have seen patient Toi Cano on 06/07/16 My clinical findings support the need for the requested homehealth care services because: [] Limited Mobility [] Limited ability to care for self [] Needs assistance with bathing/dressing [] Need for psychosocial assistance [] I certify that my clinical findings support that this patient is homebound because [] Unable to drive [] Non-ambulatory [] Unable to use public transportation due to cognitive limitation [] Orders normal saline wet to dry dressing daily. Pt may shower prior to dressing change and allow soap and water to run through wound. Diagnosis: (1) Cellulitis and abscess of neck Juan Olea MD Jun 07, 2016 11:15
[2016-06-07 12:00] VITALS: BP 165/104; PULSE 86; RESP 20; TEMP 97.8; O2SAT 99
[2016-06-07] MEDS: oxyCODONE/ACETAMINOPHEN 5 MG/325 MG TAB PO PRN ×2 (13:41→20:28)
[2016-06-07 16:00] VITALS: BP 182/101; PULSE 84; RESP 20; TEMP 97.9; O2SAT 97
--- NOTE | 2016-06-07 18:02 | HHI.IDPN ---
Note Infectious Disease Note ID consult for Dr. Delaney. Delayed entry patient seen at ~ 2 pm Mr. Parra is a 40-year-old obese male with history of recurrent folliculitis particularly on the nape of his neck and back. With this background patient was admitted and evaluated for cellulitis of the neck as well as back and underwent incision and drainage of the abscess. He currently has a packing in place. Overnight events reviewed. No fever No rash No diarrhea. Thinks the pain in his back is now less. PAST MEDICAL HISTORY Diabetes mellitus type 2, hypertension, diabetic neuropathy. Hyperlipidemia, gout, degenerative joint disease, history of cervical fusion with plates at C4-C5. ALLERGIES NO KNOWN DRUG ALLERGIES. ANTIBIOTICS: 1. Vancomycin. 2. Levaquin. 3. Clindamycin intravenous. SOCIAL HISTORY No tobacco, alcohol or illicit drugs. FAMILY HISTORY Significant for diabetes and hypertension. OBJECTIVE: Vital Signs Date Time Temp Pulse Resp B/P Pulse Ox O2 Delivery O2 Flow Rate FiO2 06/07/16 16:00 97.9 84 20 182/101 97 06/07/16 12:00 97.8 86 20 165/104 99 06/07/16 08:00 98.5 74 20 160/106 98 06/07/16 00:00 97.9 88 18 151/76 96 06/06/16 20:00 97.2 88 18 155/92 96 06/06/16 19:50 86 19 142/85 95 Nasal Cannula 3 06/06/16 19:45 97.6 86 20 144/88 95 Nasal Cannula 3 06/06/16 19:30 89 16 136/83 95 Nasal Cannula 3 06/06/16 19:19 98.8 95 16 144/81 92 Simple Mask 10 06/06/16 06/06/16 06/07/16 15:00 23:00 07:00 Intake Total 360 ml 1920 ml 669 ml Output Total 50 ml 300 ml Balance 360 ml 1870 ml 369 ml Intake Oral 360 ml 0 ml 120 ml IV Total 1120 ml 549 ml Other 800 ml Output Urine Total 0 ml 300 ml Estimated Blood Loss 50 ml Other 0 ml # Voids 4 # Bowel Movements 0 0 Laboratory Tests Test 06/05/16 06/05/16 06/06/16 06/06/16 00:20 11:32 07:35 10:45 Sodium Level 136 MEQ/L Potassium Level 3.7 MEQ/L Chloride Level 103 MEQ/L Carbon Dioxide Level 21.6 MEQ/L Anion Gap 11 MEQ/L Blood Urea Nitrogen 9 MG/DL Creatinine 0.73 MG/DL Estimat Glomerular Filtration 120 ML/MIN Rate Random Glucose 118 MG/DL Calcium Level 9.2 MG/DL Vancomycin Level Trough 8.8 MCG/ML 22.6 MCG/ML White Blood Count 9.5 TH/MM3 Red Blood Count 4.16 MIL/MM3 Hemoglobin 12.2 GM/DL Hematocrit 35.4 % Mean Corpuscular Volume 85.0 FL Mean Corpuscular Hemoglobin 29.4 PG Mean Corpuscular Hemoglobin 34.6 % Concent Red Cell Distribution Width 12.2 % Platelet Count 232 TH/MM3 Mean Platelet Volume 8.5 FL Hemoglobin A1c 10.6 % Microbiology Date/Time Procedure Status Source Growth 06/06/16 17:45 Gram Stain - Final Resulted Abscess Back 06/06/16 17:45 Wound Culture - Preliminary Resulted Abscess Back 06/06/16 17:45 Fungal Smear Received Abscess Back Pending 06/06/16 17:45 Fungal Culture Received Abscess Back Pending 06/06/16 17:45 Acid Fast Stain Received Abscess Back Pending 06/06/16 17:45 Mycobacterial Culture Received Abscess Back Pending IMAGING: Neck CT 06/02/16 0343 Signed Impressions: Service Date/Time: Thursday, June 02, 2016 03:46 - CONCLUSION: 1. Cellulitis without abscess. Juan Dhillon MD Soft Tissue Ultrasound 06/02/16 0000 Signed Impressions: Service Date/Time: Thursday, June 02, 2016 15:51 - CONCLUSION: No abscess Gagan Ordonez MD PHYSICAL EXAMINATION GEN: No acute distress. HEENT: Extraocular movements grossly intact, pupils reactive to light. No icterus. Oropharynx: No visible lesions. Neck: Supple. Less tender. No adenopathy. UPPER back: Upper back with surgical opening and packing in place. Not much surrounding erythema. Tenderness noted. Lungs: Clear to auscultation. Heart: Regular rate and rhythm. No murmurs, rubs or gallops. Abdomen: Bowel sounds present, obese, soft, nontender. Extremities: No clubbing, cyanosis or edema. Skin: No diffuse rash. Neuro: Nonfocal. PSYCHIATRIC: Patient is cooperative. IMPRESSION: 1. Cellulitis of the neck. 2. Cellulitis/abscess of the upper back. 3. Soft tissue infection of the upper back. 4. Diabetes mellitus, poorly controlled. RECOMMENDATIONS: 1. Continue clindamycin. 2. Continue vancomycin. 3. Continue Levaquin. 4. Monitor white blood cell count. to resume care in . Maureen Mohan MD Jun 07, 2016 18:02
[2016-06-07 20:00] VITALS: BP 147/85; PULSE 96; RESP 18; TEMP 98.3; O2SAT 96
[2016-06-07] MEDS: ZOLPIDEM TARTRATE 5 MG TAB PO PRN (20:27)
[2016-06-07] MEDS: SULFAMETHOXAZOLE-TRIMETHOPRIM DS 800-160 MG TAB PO SCH (20:27)
[2016-06-08] VITALS: BP 126/62; PULSE 82; RESP 16; TEMP 98.3; O2SAT 97
[2016-06-08] MEDS: oxyCODONE/ACETAMINOPHEN 5 MG/325 MG TAB PO PRN ×3 (00:24→09:19)
[2016-06-08 04:00] VITALS: BP 128/69; PULSE 80; RESP 16; TEMP 98; O2SAT 98
[2016-06-08] MEDS: INSULIN ASPART SUPPLEMENTAL SCALE SQ SCH ×2 (05:31→12:27)
[2016-06-08 08:00] VITALS: BP_SYST 140; BP_SYST 148; BP_DIAS 65; BP_DIAS 79; PULSE 73; PULSE 97; RESP 20; TEMP 97.2; TEMP 97.7; O2SAT 98
[2016-06-08] MEDS: SODIUM CHLORIDE 0.9% FLUSH 5 ML FLUSH FLUSH SCH (09:03)
[2016-06-08] MEDS: SULFAMETHOXAZOLE-TRIMETHOPRIM DS 800-160 MG TAB PO SCH (09:03)
[2016-06-08] MEDS: HEPARIN SODIUM - SQ 10,000 UNITS/ML VIAL SQ SCH (09:03)
[2016-06-08] MEDS: FAMOTIDINE 20 MG TAB PO SCH (09:03)
--- NOTE | 2016-06-08 10:31 | HHI.PR ---
Subjective Subjective Notes Sitting up in bed Asking about going home today Objective Vitals/I&O Vital Signs Date Time Temp Pulse Resp B/P Pulse Ox O2 Delivery O2 Flow Rate FiO2 06/08/16 08:00 97.7 73 20 140/79 98 06/06/16 19:50 Nasal Cannula 3 Labs Date/Time Procedure Status Source Growth 06/06/16 17:45 Gram Stain - Final Resulted Abscess Back 06/06/16 17:45 Wound Culture - Preliminary Resulted Abscess Back 06/06/16 17:45 Fungal Smear Received Abscess Back Pending 06/06/16 17:45 Fungal Culture Received Abscess Back Pending 06/06/16 17:45 Acid Fast Stain Received Abscess Back Pending 06/06/16 17:45 Mycobacterial Culture Received Abscess Back Pending Radiology Last Impressions Neck CT 06/02/16 0343 Signed Impressions: Service Date/Time: Thursday, June 02, 2016 03:46 - CONCLUSION: 1. Cellulitis without abscess. Juan Dhillon MD Soft Tissue Ultrasound 06/02/16 0000 Signed Impressions: Service Date/Time: Thursday, June 02, 2016 15:51 - CONCLUSION: No abscess Gagan Ordonez MD Cardiovascular: Regular Lungs: Clear Abdomen: Non-distended, Non-tender Narrative Exam RIGHT shoulder/lower neck area with open incision s/p I&D---packing removed--- wound dry with no drainage--- packing replaced A/P Problem List: (1) Hyperglycemia (2) Cellulitis and abscess of neck (3) Diabetes mellitus, insulin dependent (IDDM), uncontrolled Assessment and Plan 40 year old male with IDDM and hypertension with RIGHT shoulder abscess -POD2 I&D neck abscess -Rx for pain and antibiotics on chart -Follow up with Dr. Nugent next week -[facility] arranged Attending Note - Dr. Nugent Wound packing removed and wound repacked with a single 4 x 4 Wound clean with no purulence noted The exam, history, and the medical decision-making described in the above note were completed with the assistance of the mid-level provider. I reviewed and agree with the findings presented. I attest that I had a [id number] encounter with the patient on the same day, and personally performed and documented my assessment and findings in the medical record. Problem Qualifiers (1) Diabetes mellitus, insulin dependent (IDDM), uncontrolled: Qualified Code: E10.628 - Uncontrolled type 1 diabetes mellitus with other skin complication Grisel Garcia Jun 08, 2016 10:31 Rusty Nugent MD Jun 11, 2016 18:21
--- NOTE | 2016-06-08 11:41 | HHI.PR ---
Subjective Subjective Remarks Sitting up on side of bed and up in room without problems Appetite good Alert, talkative No acute pain or shortness of breath Slept well last night (Aminata Alvarez) Review of Systems Constitutional Constitutional Remarks 10 point ROS done. Positives include wound on the right shoulder and trapezius area. Status post I&D last p.m. (Aminata Alvarez) Musculoskeletal MS: Swelling, Discomfort/Pain (at surgical wound site right upper shoulder) ( Aminata Alvarez) Integumentary Skin: Wounds (see above) (Aminata Alvarez) Psychiatric Psychiatric: Normal Mood (Aminata Alvarez) Vitals/Results Intake & Output 06/07/16 06/07/16 06/08/16 15:00 23:00 07:00 Intake Total 960 ml 480 ml 480 ml Balance 960 ml 480 ml 480 ml Intake Oral 960 ml 480 ml 480 ml # Voids 4 3 1 # Bowel Movements 0 0 1 Vital Signs Vital Signs Date Time Temp Pulse Resp B/P Pulse Ox O2 Delivery O2 Flow Rate FiO2 06/08/16 08:00 97.7 73 20 140/79 98 06/08/16 04:00 98.0 80 16 128/69 98 06/08/16 00:00 98.3 82 16 126/62 97 06/07/16 20:00 98.3 96 18 147/85 96 06/07/16 16:00 97.9 84 20 182/101 97 06/07/16 12:00 97.8 86 20 165/104 99 (Aminata Alvarez) CBC/BMP: 06/05/16 1132 06/05/16 0020 Current Medications Active Medications Miscellaneous Information SPECIFIC LAB TO BE KARLOS... ONCE ONCE XX; Start at 01:45; Stop 06/09/16 at 01:46; Status Cancel Trimethoprim/ Sulfamethoxazole (Bactrim Ds 800-160 Mg) 1 tab Q12HR PO Last administered on 06/08/16t 09:03; Admin Dose 1 TAB; Start 06/07/16 at 21:00 ( Aminata Alvarez) Physical Exam General General Appearance: Well Developed, Well Nourished, Comfortable, Obese ([place] Aminata M. [employer]) Eyes Eye Exam: Pupils Equal, Pupils Reactive (HopewellAminata M. [employer]) Ears & Nose Ears & Nose Exam: Nasal Mucosa [place] (HopewellAminata M. [employer]) Throat Throat Exam: Oral Mucosa [place] & Moist (HopewellAminata M. [employer]) Neck Neck Exam: Neck Supple, Trachea Midline (HopewellAminata M. [employer]) Pulmonary Resp Exam: Clear Bilaterally, No Distress (HopewellAminata M. [employer]) Cardiology CV Exam: Regular, Good Perfusion (HopewellAminata M. [employer]) Gastrointestinal/Abdomen GI Exam: Soft, Non-Tender, Bowel Sounds Present, Non-Distended ([place],Aminata M. [employer]) Musculoskeletal MS Exam: Joints Intact (HopewellAminata M. [employer]) Integumentary Skin Exam: Warm, Dry, Ulcer(s) Skin Remarks Wound right upper shoulder, dressing clean dry and intact, soreness, improving ( HopewellAminata M. [employer]) Extremeties Extremities Exam: Pedal Pulses Palpable, Trace Edema (AntonioAminata M. [employer]) Neurologic Neuro Exam: Alert, Awake, Oriented, Speech Clear, Moving All Extremities, No Focal Deficits (AntonioAminata M. [employer]) VTE Prophylaxis VTE Prophylaxis Meds: Heparin (AntonioAminata M. [employer]) Assessment/Plan Assessment/Plan Assessment/Plan 1. Sepsis with cellulitis, deep complicated abscess 2. Diabetes type 2 uncontrolled with hyperglycemia 3. Leukocytosis, 4. Hyponatremia 5. Acute kidney injury, mild 6. Gout 7. Hypertension 8. Hypotension in the ER which is resolved. PLAN Appreciate ID input follow wound cultures staph aureus, no growth 4 days on blood cultures, Follow-up images show complex abscess, wound care dressing changes. States he feels better today Now by mouth antibiotics and by mouth pain meds BGM 170s continue with accuchecks AC/HS and ISS 1800 calories ADA diet, Hgb A1C 10.6, poorly controlled blood glucose consult professional services manager notified to see before discharge. Patient may need supplies, insulin script or med. Dr. Carlson aware DVT prophylaxis with heparin. Pepcid for GI prophylaxis Ok for OOB to ambulate Stable for discharge pending Dr. Carlson seeing Follow-up with PCP in 2 weeks Follow-up with surgical physician in one week We'll need to follow up on any diabetic supplies needed (Aminata Alvarez) Assessment/Plan Patient seen and examined as above Discussed with infectious disease Dr. as per Dr. Delaney DC on Bactrim Labs reviewed including culture Plan of care discussed with [employer] Discussed with patient in detail about DC planning and sugar management and weight loss. He understood all including follow-ups. Also explained if blood sugar is still not under control call primary care doctor Discussed with RN DC home today to be followed by primary care doctor and surgeon as outpatient. ( Roopa Carlson MD) Aminata Alvarez Jun 08, 2016 11:41 Roopa Carlson MD Jun 08, 2016 15:40
[2016-06-08 12:00] VITALS: BP 148/84; PULSE 78; RESP 20; TEMP 97.7; O2SAT 99
[2016-06-08] MEDS ORDERED: NOVOLOGP2 SQ (12:51)
[2016-06-08] MEDS ORDERED: LEVEMIR SQ (12:51)
[2016-06-08] MEDS ORDERED: INSU-171 SQ (12:59)
--- NOTE | 2016-06-08 18:00 | HHI.DS ---
Discharge Summary Admission Date Jun 02, 2016 at 04:37 Admitting Diagnosis sepsis, cellulitis, hyperglycemia, IDDM Brief History This was a pleasant 40-year-old white male who presented to the ER with an abscess on his right upper shoulder in the trapezius area. He stated that it has been painful for approximately two days. He stated that a family member was able to squeeze the area and expressed some pus, but at this time it is closed with no head. He did have induration with acute pain radiating into his neck and shoulders. The area of induration is approximately 3 cm x 3 cm. The patient stated that he has been working, but has had no insurance for approximately six months and has not been taking any medications secondary to his financial situation. He was able to go to his PCP last week with some gout symptoms and was given Gabapentin and Indocin which he had been able to take for the past week. The patient was a known insulin dependent diabetic, but has not had any insulin or medications in months. The patient also had symptoms of polyuria, polydipsia, polyphagia which has just started over the past few days. He did complain of feeling generalized weakness and a tired sensation. He stated that he had a cough approximately a week ago, but that had subsided. When he came into the hospital, he had a dizzy sensation, but denied any periods of syncope or passing out. The patient denied any headache, numbness, or tingling in the area of the possible abscess, but he does have numbness and tingling which is chronic in his lower extremities. The patient denied any chest pain, no shortness of breath. CBC/BMP: 06/05/16 1132 06/05/16 0020 Significant Findings Laboratory Tests Test 06/06/16 06/06/16 07:35 10:45 Hemoglobin A1c 10.6 % (4.3-6.0) Vancomycin Level Trough 22.6 MCG/ML (5.0-10.0) Imaging Last Impressions Neck CT 06/06/16 0000 Signed Impressions: Service Date/Time: Monday, June 06, 2016 08:46 - CONCLUSION: Persistent cellulitis posteriorly of the upper back and lower neck and with CT features suggesting an irregular abscess developing to the right of midline. Gagan Pisano MD Soft Tissue Ultrasound 06/02/16 0000 Signed Impressions: Service Date/Time: Thursday, June 02, 2016 15:51 - CONCLUSION: No abscess Gagan Ordonez MD PE at Discharge General Appearance: Well Developed, Well Nourished, Comfortable, Obese Eye Exam: Pupils Equal, Pupils Reactive Ears & Nose Exam: Nasal Mucosa [place] Throat Exam: Oral Mucosa [place] & Moist Neck Exam: Neck Supple, Trachea Midline Resp Exam: Clear Bilaterally, No Distress CV Exam: Regular, Good Perfusion GI Exam: Soft, Non-Tender, Bowel Sounds Present, Non-Distended MS Exam: Joints Intact Skin Exam: Warm, Dry, Ulcer(s) Skin Remarks Wound right upper shoulder, dressing clean dry and intact, soreness, improving Extremities Exam: Pedal Pulses Palpable, Trace Edema Neuro Exam: Alert, Awake, Oriented, Speech Clear, Moving All Extremities, No Focal Deficits VTE Prophylaxis Meds: Heparin Hospital Course The diagnosis which we use to treat the plan of care for this patient. 1. Sepsis with cellulitis, deep complicated abscess 2. Diabetes type 2 uncontrolled with hyperglycemia 3. Leukocytosis, 4. Hyponatremia 5. Acute kidney injury, mild 6. Gout 7. Hypertension 8. Hypotension in the ER which is resolved. Appreciate ID input on admission wound cultures were followed and positive for staph aureus after 4 days Assessment/Plan Assessment/Plan Assessment/Plan Assessment/Plan 1. Sepsis with cellulitis, deep complicated abscess 2. Diabetes type 2 uncontrolled with hyperglycemia 3. Leukocytosis, 4. Hyponatremia 5. Acute kidney injury, mild 6. Gout 7. Hypertension 8. Hypotension in the ER which is resolved. PLAN Appreciate ID input follow wound cultures staph aureus, no growth 4 days on blood cultures, Follow-up images show complex abscess, wound care dressing changes. States he feels better today Now by mouth antibiotics and by mouth pain meds BGM 170s continue with accuchecks AC/HS and ISS 1800 calories ADA diet, Hgb A1C 10.6, poorly controlled blood glucose consult family educator notified to see before discharge. Patient may need supplies, insulin script or med. Dr. Carlson aware DVT prophylaxis with heparin. Pepcid for GI prophylaxis Ok for OOB to ambulate Follow-up images show complex abscess, wound care dressing changes. States he feels better today on discharge Now by mouth antibiotics and by mouth pain meds Patient had I&D on wound right scapula area. This abscess was evaluated daily and followed by wound care. Patient was maintained on IV antibiotics, until day before discharge. Diabetes management treatment regimen continue with accuchecks AC/HS and ISS 1800 calories ADA diet, good appetite 100 percent Hgb A1C 10.6, poorly controlled blood glucose. Monitored and controlled with sliding scale NovoLog insulin. consult family educator notified to see before discharge. Patient will need supplies, insulin script or med, alcohol preps and fingersticks. DVT prophylaxis with heparin. Pepcid for GI prophylaxis Ok for OOB to ambulate with safety precautions and calling if needed help. Patient was assessed and monitored and found that his wound could now be managed on outpatient basis. He was discharged home with home health wound care. Pt Condition on Discharge: Good Discharge Disposition: Discharge Home Discharge Instructions DIET: Follow Instructions for: Diabetic Diet Activities you can perform: Weight Bearing as Luis Other Activity Instructions: wt loss recomendations Follow up Referrals: Surgical - 1 Week with Rusty Nugent MD New Medications: B-D Insulin Syringe Ultra 30G X 1/2" 0.3 ml (B-D Insulin Syringe Ultra 30G X 1/2 " 0.3 ml) 1 Mis Mis 1 SYRINGE SQ ACHS SLIDING SCALE PRN high sugar #100 Ref 0 BOX Insulin Aspart Inj (Novolog Inj) 1,000 Unit/10 Ml Vial 1-9 UNITS SQ ACHS Max dose at bedtime:( )units; sugars less than 70,(0)units; sugars 150-199,(1) unit; sugars 200-249,(3) units; sugars 250-299,(5) units; sugars 300-349,(7) units; sugars greater than 349,(9) units Blood Sugar Management #10 Ref 2 ML Insulin Detemir Inj (Levemir Inj) 1,000 unit/ 10 ML Vial 10 UNITS SQ BID Do not mix with any other Insulin. Blood Sugar Management #2 Ref 0 VIAL Oxycodone-Acetaminophen (Percocet) 5-325 mg Tab 1 TAB PO Q4H PRN PAIN #30 Ref 0 TAB Sulfamethoxazole-Trimethoprim (Bactrim DS) 800-160 Mg Tab 1 TAB PO BID Infection #14 Ref 0 TAB Continued Medications: Albuterol 8.5 GM Inh (Proair Hfa 8.5 GM Inh) 90 Mcg/Act Aer 2 PUFF INH Q6H 108 mcg/actuation PRN COUGH AND/OR COLD SYMPTOMS #1 Ref 0 INHALER Saline Nasal (Bracken Nasal [place]) 0.65% [place] 2 SPRAY EACH NARE DIRECTED PRN NASAL CONGESTION Days 14 Ref 0 BOTTLE Amianta Alvarez Jun 08, 2016 17:59 1 SYRINGE SQ ACHS SLIDING SCALE PRN high sugar #100 Ref 0 BOX Insulin Aspart Inj (Novolog Inj) 1,000 Unit/10 Ml Vial 1-9 UNITS SQ ACHS Max dose at bedtime:( )units; sugars less than 70,(0)units; sugars 150-199,(1) unit; sugars 200-249,(3) units; sugars 250-299,(5) units; sugars 300-349,(7) units; sugars greater than 349,(9) units Blood Sugar Management #10 Ref 2 ML Insulin Detemir Inj (Levemir Inj) 1,000 unit/ 10 ML Vial 10 UNITS SQ BID Do not mix with any other Insulin. Blood Sugar Management #2 Ref 0 VIAL Oxycodone-Acetaminophen (Percocet) 5-325 mg Tab 1 TAB PO Q4H PRN PAIN #30 Ref 0 TAB Sulfamethoxazole-Trimethoprim (Bactrim DS) 800-160 Mg Tab 1 TAB PO BID Infection #14 Ref 0 TAB Continued Medications: Albuterol 8.5 GM Inh (Proair Hfa 8.5 GM Inh) 90 Mcg/Act Aer 2 PUFF INH Q6H 108 mcg/actuation PRN COUGH AND/OR COLD SYMPTOMS #1 Ref 0 INHALER Saline Nasal (Bracken Nasal [place]) 0.65% [place] 2 SPRAY EACH NARE DIRECTED PRN NASAL CONGESTION Days 14 Ref 0 BOTTLE Aminata Alvarez Jun 08, 2016 17:59
[2016-06-09] MEDS ORDERED: PHARMACY ORDERED LAB XX ONE (01:45)
--- NOTE | 2016-06-09 12:42 | HHI.FF ---
Face to Face Verification Diagnosis: (1) Cellulitis and abscess of neck Home Health Nursing Order: Wound care and dressing changes Instructions: wet to dry dressing to neck s/p I&D site---- cover with dry dressing---change daily Okay to shower between dressing changes I have seen patient Toi Cano on 06/09/16. My clinical findings support the need for the requested home health care services because: Limited ability to care for self I certify that my clinical findings support that this patient is homebound because: Post-op weakness Grisel Garcia Jun 09, 2016 12:41
== END 2016-06-08 14:25 | disposition home or self-care (01) | DRG 872 ==
LOC: NEPB 02:01 → NEDA 04:37 → NEDH 11:44 → N04B 18:11
PROVIDERS: ADMIT Specialist; ATTEND Specialist
PROC: 0H94XZZ Drainage of Neck Skin, External Approach (ICD-10-PCS; principal; 2016-06-06 18:21)
DX: A41.9 Sepsis, unspecified organism (principal); L03.221 Cellulitis of neck; L03.113 Cellulitis of right upper limb; E87.1 Hypo-osmolality and hyponatremia; N17.9 Acute kidney failure, unspecified; E10.40 Type 1 diabetes mellitus with diabetic neuropathy, unspecified; I95.9 Hypotension, unspecified; E10.65 Type 1 diabetes mellitus with hyperglycemia; I10 Essential (primary) hypertension; E86.0 Dehydration; E78.00 Pure hypercholesterolemia, unspecified; E78.5 Hyperlipidemia, unspecified; E66.01 Morbid (severe) obesity due to excess calories; Z98.1 Arthrodesis status; M10.9 Gout, unspecified; Z79.4 Long term (current) use of insulin; R35.8 Other polyuria; R63.2 Polyphagia; R63.1 Polydipsia; Z91.19 Patient's noncompliance with other medical treatment and regimen; B95.61 Methicillin susceptible Staphylococcus aureus infection as the cause of diseases classified elsewhere
CPT/HCPCS: 70491; 76999; 80048; 80202; 82948; 83036; 83605; 85025; 85027; 86403; 87015; 87040; 87070; 87102; 87116; 87147; 87186; 87205; 87206; 96361; 96374; 96375; J0131; J1170; J1644; J1815; J1956; J2250; J2270; J2370; J2405; J3010; J3370; J7030; J7040; Q9967

== ENCOUNTER 2017-05-17 15:55 | Emergency (ER) | payer BC, OTHER ==
[~2017-05-17] VITALS: Ht 175.3 cm; Wt 122.7 kg
[~2017-05-17 15:55] MED LIST changes: +BACT800T5 PO; +INSU-171 SQ; +LEVEMIR SQ; +NOVOLOGP2 SQ; +PERC5TAB12 PO
[2017-05-17 16:00] VITALS: BP 161/103; PULSE 103; RESP 22; TEMP 98.4; O2SAT 99
--- NOTE | 2017-05-17 16:42 | RADRPT ---
EXAM DATE/TIME: 05/17/2017 16:23 [facility] COMPARISON: CHEST PA & LAT, March 18, 2016, 17:03. INDICATIONS : Cough, cold and flu symptoms for 2 weeks, body aches MEDICAL HISTORY : None. SURGICAL HISTORY : cervical fusion ENCOUNTER: Initial ACUITY: 1 day PAIN SCORE: Non-responsive. LOCATION: Bilateral chest FINDINGS: PA and lateral views of the chest demonstrate the lungs to be symmetrically aerated without evidence of mass, infiltrate or effusion. The cardiomediastinal contours are unremarkable. Osseous structure s are intact. CONCLUSION: No acute disease. There is no evidence of pneumonia. Rusty Segundo MD on May 17, 2017 at 16:39 Board Certified Radiologist. This report was verified electronically.
--- NOTE | 2017-05-17 18:50 | PD ---
HPI Chief Complaint: Cold / Flu Symptoms Time Seen by Provider: 18:39 Travel History International Travel<30 days: No Contact w/Intl Traveler<30days: No Traveled to known affect area: No History of Present Illness HPI 41-year-old male presents emergency department with 2 week history of upper respiratory symptoms including headaches, postnasal drip, sore throat, congestion, and cough which is keeping him up at night. Patient states some mild diarrhea over the last couple of days. He is eating and drinking normally. He denies wheezing or shortness of breath. He is a non-smoker. Patient has had trouble with sinuses in the past. Chest x-ray and influenza was ordered in triage per protocol. He has no known drug allergies. PFSH Past Medical History Arthritis: No Asthma: No Anxiety: No Depression: No Heart Rhythm Problems: No Cancer: No Cardiovascular Problems: Yes High Cholesterol: Yes Chest Pain: No Congestive Heart Failure: No COPD: No Diabetes: Yes Patient Takes Glucophage: No Diminished Hearing: Yes Endocrine: Yes Gastrointestinal Disorders: No Gout: Yes Genitourinary: No Hypertension: Yes Immune Disorder: No Implanted Vascular Access Dvce: No Musculoskeletal: Yes Neurologic: Yes (neuropathy in his feet) Psychiatric: No Reproductive: No Respiratory: No Immunizations Current: Yes Sleep Apnea: No Thyroid Disease: No Past Surgical History Abdominal Surgery: No Body Medical Devices: METAL PLATES IN NECK Cardiac Surgery: No Ear Surgery: No Endocrine Surgery: No Eye Surgery: No Genitourinary Surgery: No Gynecologic Surgery: No Neurologic Surgery: Yes (ANTERIOR CERVICAL FUSION) Oral Surgery: No Pacemaker: No Thoracic Surgery: No Other Surgery: Yes (ANTERIOR FUSION C4-C5) Social History Alcohol Use: No Tobacco Use: No Substance Use: No Allergies-Medications (Allergen,Severity, Reaction): Coded Allergies: No Known Allergies (Verified , 06/02/16) Reported Meds & Prescriptions Reported Meds & Active Scripts Active B-D Insulin Syringe Ultra 30G X 1/2" 0.3 ml 1 Mis Mis 1 Syringe SQ ACHS SLIDING SCALE PRN Novolog Inj (Insulin Aspart) 1,000 Unit/10 Ml Vial 1-9 Units SQ ACHS Max dose at bedtime:( )units; sugars less than 70,(0)units; sugars 150-199,(1) unit; sugars 200-249,(3) units; sugars 250-299,(5) units; sugars 300-349,(7) units; sugars greater than 349,(9) units Levemir Inj (Insulin Detemir) 1,000 unit/ 10 ML Vial 10 Units SQ BID Do not mix with any other Insulin. Percocet (Oxycodone-Acetaminophen) 5-325 mg Tab 1 Tab PO Q4H PRN Proair Hfa 8.5 GM Inh (Albuterol Sulfate) 90 Mcg/Act Aer 2 Puff INH Q6H PRN 108 mcg/actuation Review of Systems Except as stated in HPI: all other systems reviewed are Neg General / Constitutional: Positive: Chills, No: Fever Eyes: No: Visual changes HENT: Positive: Headaches, Sore Throat, Rhinitis, Rhinorrhea, Congestion, Other , No: Vertigo, Lightheadedness, Nosebleed, Neck Stiffness, Neck Pain, Masses ( Postnasal drip), Gingival Bleeding, Dental Difficulties, Earache Cardiovascular: No: Chest Pain or Discomfort Respiratory: Positive: Cough, No: Shortness of Breath, Wheezing Gastrointestinal: Positive: Diarrhea, No: Nausea, Vomiting, Abdominal Pain Genitourinary: No: Dysuria Musculoskeletal: No: Pain Skin: No Rash Neurologic: No: Weakness Psychiatric: No: Depression Endocrine: No: Polydipsia Hematologic/Lymphatic: No: Easy Bruising Physical Exam Narrative GENERAL: Patient appears ill but not septic SKIN: Warm and dry. Normal turgor. Normal color. HEAD: Atraumatic. Normocephalic. EYES: Pupils equal and round. No scleral icterus. No injection or drainage. ENT: No nasal bleeding or discharge. Mucous membranes pink and moist. TMs are dull bilaterally with no injection. Patient has moderate sinus tenderness of both frontal maxillary sinuses. Posterior pharynx is mild to moderate generalized swelling without significant erythema. There is cobblestoning and postnasal drip noted in the posterior pharynx. NECK: Trachea midline. No JVD. CARDIOVASCULAR: Regular rate and rhythm. RESPIRATORY: No accessory muscle use. Clear to auscultation. Breath sounds equal bilaterally. GASTROINTESTINAL: Abdomen soft, non-tender, nondistended. Hepatic and splenic margins not palpable. MUSCULOSKELETAL: Extremities without clubbing, cyanosis, or edema. No obvious deformities. NEUROLOGICAL: Awake and alert. No obvious cranial nerve deficits. Motor grossly within normal limits. Five out of 5 muscle strength in the arms and legs. Normal speech. PSYCHIATRIC: Appropriate mood and affect; insight and judgment normal. Data Data Last Documented VS Vital Signs Date Time Temp Pulse Resp B/P (MAP) Pulse Ox O2 Delivery O2 Flow Rate FiO2 05/17/17 16:00 98.4 103 22 161/103 (122) 99 Room Air Orders Orders Chest, Pa & Lat (05/17/17 ) Influenzae A/B Antigen (05/17/17 16:13) MDM Medical Decision Making Medical Screen Exam Complete: Yes Emergency Medical Condition: Yes Differential Diagnosis Upper respiratory infection. Sinusitis. Postnasal drip. Cough. Pneumonia. Influenza. Narrative Course Patient is medically stable at time of exam Rapid influenza is negative. Chest x-ray is negative for acute process per radiologist Patient will be treated for sinusitis with amoxicillin 875 twice daily 10 days. Patient also given Flonase nasal spray 2 sprays each nostril daily. Patient is given Tussionex cough medicine 1 teaspoon twice daily as needed cough #30 mL's per Work note was given for today and tomorrow. Patient is to follow-up if symptoms do not improve or worsen as needed Diagnosis Primary Impression: Sinusitis, acute Qualified Codes: J01.40 - Acute pansinusitis, unspecified Additional Impression: PND (post-nasal drip) Referrals: [facility] Patient Instructions: General Instructions, Rhinosinusitis (GEN) Departure Forms: Work Release Enter return to work date: May 19, 2017 Additional Instructions: Rapid influenza is negative. Chest x-ray is negative for acute process per radiologist Patient will be treated for sinusitis with amoxicillin 875 twice daily 10 days. Patient also given Flonase nasal spray 2 sprays each nostril daily. Patient is given Tussionex cough medicine 1 teaspoon twice daily as needed cough #30 mL's per Work note was given for today and tomorrow. Patient is to follow-up if symptoms do not improve or worsen as needed Med/Other Pt SpecificInfo: Prescription(s) given Disposition: 01 DISCHARGE HOME Condition: Stable Nate Huertas May 17, 2017 18:50
[2017-05-17] MEDS ORDERED: FLUT1SPR5 EACH NARE (18:51)
[2017-05-17] MEDS ORDERED: AMOX875T PO (18:51)
[2017-05-17] MEDS ORDERED: TUSSSUS2 PO (18:51)
== END 2017-05-17 19:00 | disposition home or self-care (01) ==
LOC: NEPD 15:55
DX: J01.40 Acute pansinusitis, unspecified (principal); R09.82 Postnasal drip; E78.00 Pure hypercholesterolemia, unspecified; E11.9 Type 2 diabetes mellitus without complications; I10 Essential (primary) hypertension; Z79.4 Long term (current) use of insulin
CPT/HCPCS: 71046; 87804; 99284

== ENCOUNTER 2017-08-13 14:01 | Day surgery (SDC) | payer OTHER ==
[2017-08-13 14:00] VITALS: BP 150/96; PULSE 90; RESP 20; TEMP 98.6; O2SAT 100
[~2017-08-13 14:01] MED LIST changes: +AMOX875T PO; -BACT800T5 PO; +FLUT1SPR5 EACH NARE; -OCEA0.653 EACH NARE; +TUSSSUS2 PO
[2017-08-13] MEDS ORDERED: TRAZ100T10 PO (14:35)
[2017-08-13] MEDS ORDERED: LISI10TA3 PO (14:35)
[2017-08-13] MEDS ORDERED: GABA800T PO (14:35)
[2017-08-13] MEDS ORDERED: HUMALOG SQ (14:35)
[2017-08-13] MEDS ORDERED: cefTRIAXone 1,000 MG/NS 100 ML IV ONE ×2 (14:45)
[2017-08-13] MEDS ORDERED: LIDOCAINE HCL 1% PF 30 ML VIAL ONE ×2 (14:58→14:59)
[2017-08-13 15:15] VITALS: BP 110/69; PULSE 76; RESP 18; TEMP 98.1; O2SAT 95
--- NOTE | 2017-08-13 15:37 | RADRPT ---
EXAM DATE/TIME: 08/13/2017 15:13 [place] COMPARISON: No previous studies available for comparison. INDICATIONS : Patient in need of senior care antibx therapy for osteomyelitis. MEDICAL HISTORY : 1. Neuropathy 2. HTN 3. gout 4. DM 5. asthma SURGICAL HISTORY : 1. Anterior cervical fusion 2. Abscess on neck ENCOUNTER: Initial ACUITY: 1 month PAIN SCORE: 0/10 FLUORO TIME: 0.2 IMAGE SERIES: 2 ACCESS: Right basilic vein DEVICE(S): 1.) 4 [place]zeri single lumen 47 cm Xcela Power PICC PROCEDURE : 1. Ultrasound guidance for venous catheterization. 2. Fluoroscopic guidance. 3. Ultrasound & fluoroscopic guided central venous Power PICC line placement. The risks, benefits and alternatives to the procedure were explained and verbal and written consent w as obtained. The site was prepped in sterile fashion. Full sterile technique was used, including ca p, mask, sterile gloves and gown and a large sterile sheet. Hand hygiene and 2% chlorhexidine prep w as utilized per protocol for cutaneous antisepsis with appropriate dry time for site. Sterile gel a nd sterile probe cover were utilized for ultrasound guidance. The skin and subcutaneous tissues wer e infiltrated with local anesthetic solution. Under direct ultrasound guidance, a suitable vein was accessed and a measuring guidewire was introduc ed and positioned in the central venous system. The ultrasound images depicting access guidance were saved and stored to PACS for permanent record. A Power Injectable PICC line was cut to prescribed length and introduced, positioned with tip at the cavoatrial junction level. The line was flushed and secured per protocol. CONCLUSION: 1. Uncomplicated central venous Power PICC line placement. 2. The PICC line can be used immediately. Juan Dhillon MD on August 13, 2017 at 15:34 Board Certified Radiologist. This report was verified electronically.
--- NOTE | 2017-08-13 15:42 | PD.RAD ---
Radiology Post PICC Prog Note Pre Procedure Diagnosis: (1) Cellulitis and abscess of neck Post Procedure Diagnosis: (1) Cellulitis and abscess of neck Procedure Date: Aug 13, 2017 Supervising Radiologist Juan Dhillon Proceduralist/Assist: Kera Kessler RT(R)() Device Side: Right [place]: 4 single lumen cm: 47 Catheter: Power PICC Plan of Activity Patient to Unit: ROPU Patient Condition: Good PICC line can be used immediately Juan Dhillon MD Aug 13, 2017 15:42
[2017-08-13] MEDS ORDERED: SODIUM CHLORIDE 0.9% FLUSH 10 ML FLUSH IVF PRN ×2 (15:45)
[2017-08-14] MEDS ORDERED: SODIUM CHLORIDE 0.9% FLUSH 10 ML FLUSH IVF SCH (09:00)
[2017-08-15] MEDS ORDERED: CEFT1INJ2 IV (09:41)
[2017-08-15] MEDS ORDERED: BACT800T5 PO (10:14)
== END 2017-08-13 16:28 | disposition home or self-care (01) ==
LOC: HRIP 14:01 → HROP 14:01
PROVIDERS: ATTEND Nurse Practitioner Acute Care
DX: Z45.2 Encounter for adjustment and management of vascular access device (principal); M86.172 Other acute osteomyelitis, left ankle and foot; L03.221 Cellulitis of neck; L02.11 Cutaneous abscess of neck; I10 Essential (primary) hypertension; E11.9 Type 2 diabetes mellitus without complications; M10.9 Gout, unspecified; J45.909 Unspecified asthma, uncomplicated
CPT/HCPCS: 36569; 76937; 77001; C1751; J0696

== ENCOUNTER 2017-12-19 13:47 | Inpatient (IN) ==
[2017-12-19] MEDS ORDERED: Morphine Inj 4 MG/ML Vial IV.PUSH ONE (16:01)
--- NOTE | 2017-12-19 17:02 | XR ---
EXAM DATE: 12/19/2017 4:58 PM EDT AGE/SEX: 42 years / Male INDICATIONS: Inflammation, pain distal left foot CLINICAL DATA: This is the patient's initial encounter. Patient reports that signs and symptoms have been present for 1 day and indicates a pain score of 8/10. MEDICAL/SURGICAL HISTORY: Hypertension. Diabetes mellitus type II. None. COMPARISON: [facility] [place], FOOT LEFT COMPLETE ([id number]), 01/22/2015. . FINDINGS: Significant degenerative change first interphalangeal joint is present significantly worse since the prior examination with erosive changes not present previously. There are calcifications in the volar aspect of the first distal phalanx not present previously possibly avulsed fracture at this site. 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 Electronically signed by: Marjorie Mayen MD 12/19/2017 5:01 PM EDT
[2017-12-19 17:26] LABS: Baso % (Auto) 0.2 % (0.0-2.0); Eos # (Auto) 0.3 th/mm3 (0.0-0.4); Eos % (Auto) 2.3 % (0.0-4.0); Hematocrit 39.2 % (39.0-51.0); Lymph # (Auto) 1.6 th/mm3 (1.0-4.8); Lymph % (Auto) 12.5 % (9.0-44.0); Mean Corpuscular HGB Conc 33.2 % (32.0-36.0); Mean Corpuscular Hemoglobin 27.9 pg (27.0-34.0); Mean Corpuscular Volume 84.1 fL (80.0-100.0); Mono # (Auto) 0.6 th/mm3 (0.0-0.9); Mono % (Auto) 4.7 % (0.0-8.0); Neut # (Auto) 10.5 th/mm3 (1.8-7.7); Neut % (Auto) 80.3 % (16.0-70.0); Platelet Count 301 th/mm3 (150-450); Red Blood Count 4.66 mil/mm3 (4.50-5.90); Red Cell Distribution Width 13.1 % (11.6-17.2); White Blood Count 13.1 th/mm3 (4.0-11.0)
[2017-12-19 17:41] LABS: Albumin 3.8 g/dL (3.4-5.0); Anion Gap 9 meq/L (5-15); Aspartate Aminotransferase 21 U/L (15-37); Blood Urea Nitrogen 15 mg/dL (7-18); Calcium 9.4 mg/dL (8.5-10.1); Carbon Dioxide 22.1 meq/L (21.0-32.0); Chloride 106 meq/L (98-107); Glomerular Filtration Rate 81 mL/min (>89); Glucose,Random 144 mg/dL (74-106); Potassium 4.9 meq/L (3.5-5.1); Sodium 137 meq/L (136-145)
[2017-12-19 17:42] LABS: Alanine Aminotransferase 46 U/L (12-78)
[2017-12-19 17:44] LABS: Alkaline Phosphatase 103 U/L (45-117); Total Protein 8.5 g/dL (6.4-8.2)
[2017-12-19] MEDS ORDERED: Vancomycin Inj 1 GM/200 ML PIGGYBACK IV.SIG ONE (17:54)
--- NOTE | 2017-12-19 18:21 | ED ---
HPI General Chief complaint: Skin/Abscess/Foreign Body Stated complaint: Laceration on toe Time Seen by Provider: 12/19/17 15:52 Source: patient Mode of arrival: ambulatory Limitations: no limitations History of Present Illness HPI narrative: Patient is a 42-year-old male who comes in complaining of pain and discoloration of his left foot. He says in September he was admitted for osteomyelitis of his left foot [facility]. He says he was on vancomycin for several weeks and then [facility]. He says he has been on for the past week, changing his bandages on his own. He says he changed his bandage Wednesday and his foot looked okay, today he noticed increased discoloration of his left third toe. He reports pain from this. He denies fever or chills. Severity is moderate. Related Data Home Medications Medication Instructions Recorded Confirmed gabapentin 800 mg PO BID 12/19/17 12/19/17 hydrocodone-acetaminophen [[place]ty] 1 tab PO Q6H PRN 12/19/17 12/19/17 insulin aspart U-100 [Novolog See Label Instructions .ROUTE 12/19/17 12/19/17 Flexpen U-100 Insulin] .COMPLEX insulin detemir U-100 [Levemir 25 unit SUB-Q BID 12/19/17 12/19/17 U-100 Insulin] lisinopril 20 mg PO DAILY 12/19/17 12/19/17 pregabalin [Lyrica] 75 mg PO BID 12/19/17 12/19/17 trazodone 50 mg PO DAILY 12/19/17 12/19/17 Allergies Allergy/AdvReac Type Severity Reaction Status Date / Time No Known Allergies Allergy Unknown Uncoded 09/20/17 15:40 Review of Systems ROS: all other systems reviewed are negative Constitutional Denies chills and Denies fever(s) ENT Denies dizziness Cardiovascular Denies chest pain Respiratory Denies cough and Denies dyspnea Gastrointestinal Denies nausea and Denies vomiting Musculoskeletal Denies myalgias and Denies arthralgias Integumentary/Breasts Reports change in pigmentation Neurologic Denies focal weakness PMFSH Social History Social History Substance History: Unable to Obtain Smoking Status: Unknown if ever smoked How Often Do You Have a Drink Containing Alcohol: Unable to Obtain Recent Travel [facility] within the Last 8 Weeks: No Recent Out of Country Travel within the Last 8 Weeks: No Immunization History Tetanus Immunization: Unable to Assess Exam Narrative Exam Narrative: GENERAL: Awake and alert, no acute distress. SKIN: Purple and black discoloration of the left third toe. Healing wound to the left plantar surface of the foot. HEAD: Atraumatic. Normocephalic. EYES: Pupils equal and round. No scleral icterus. ENT: Mucous membranes pink and moist. NECK: Trachea midline. No JVD. CARDIOVASCULAR: Regular rate and rhythm. No murmur appreciated. RESPIRATORY: No accessory muscle use. Clear to auscultation. Breath sounds equal bilaterally. GASTROINTESTINAL: Abdomen soft, non-tender, nondistended. MUSCULOSKELETAL: No obvious deformities. No clubbing. No cyanosis. No edema. Pedal pulse intact. NEUROLOGICAL: Awake and alert. No obvious cranial nerve deficits. Motor grossly within normal limits. Normal speech. PSYCHIATRIC: Appropriate mood and affect; insight and judgment normal. Course Initial Documented Vital Signs Temperature 98.7 F 12/19/17 13:55 Pulse Rate 104 H 12/19/17 13:55 Respiratory Rate 16 12/19/17 13:55 Blood Pressure 185/105 H 12/19/17 13:55 Pulse Oximetry 100 12/19/17 13:55 Last Documented Vital Signs Temperature 98.7 F 12/19/17 13:55 Pulse Rate 104 H 12/19/17 13:55 Respiratory Rate 16 12/19/17 13:55 Blood Pressure 185/105 H 12/19/17 13:55 Pulse Oximetry 100 12/19/17 13:55 Medical Decision Making [facility] Narrative Medical decision making narrative: Patient is a 42-year-old male who comes in complaining of pain and discoloration to his left foot. Exam shows purple and black discoloration of his left third toe, concerning for gangrene. IV established, labs sent. Labs show elevated white blood cell count as well as elevated ESR. Patient given pain medicine as well as antibiotics. MRI of the foot ordered. Patient will require admission for further management. Medical Screen Exam Complete: Yes Emergency Medical Condition: Yes Differential Diagnosis Differential Diagnosis: Osteomyelitis versus gangrene versus cellulitis versus abscess Medical Records Medical records reviewed: Yes I reviewed the patient's medical records. Lab Data Lab results reviewed: Yes I reviewed the patient's lab results. Result diagrams: 12/19/17 16:35 12/19/17 16:35 Lab Results 12/19/17 12/19/17 12/19/17 Range/Units 16:35 16:35 16:35 WBC 13.1 H (4.0-11.0) th/mm3 RBC 4.66 (4.50-5.90) mil/mm3 Hgb 13.0 (13.0-17.0) gm/dL Hct 39.2 (39.0-51.0) % MCV 84.1 (80.0-100.0) fL MCH 27.9 (27.0-34.0) pg MCHC 33.2 (32.0-36.0) % RDW 13.1 (11.6-17.2) % Plt Count 301 (150-450) th/mm3 MPV 9.0 (7.0-11.0) fL Neut % (Auto) 80.3 H (16.0-70.0) % Lymph % (Auto) 12.5 (9.0-44.0) % [place] % (Auto) 4.7 (0.0-8.0) % Eos % (Auto) 2.3 (0.0-4.0) % Baso % (Auto) 0.2 (0.0-2.0) % Neut # (Auto) 10.5 H (1.8-7.7) th/mm3 Lymph # (Auto) 1.6 (1.0-4.8) th/mm3 [place] # (Auto) 0.6 (0.0-0.9) th/mm3 Eos # (Auto) 0.3 (0.0-0.4) th/mm3 Baso # (Auto) 0.0 (0.0-0.2) th/mm3 WBC Differential . Differential Comment Auto diff final ESR 72 H (0-15) mm/hr Sodium 137 (136-145) meq/L Potassium 4.9 (3.5-5.1) meq/L Chloride 106 (98-107) meq/L Carbon Dioxide 22.1 (21.0-32.0) meq/L Anion Gap 9 (5-15) meq/L BUN 15 (7-18) mg/dL Creatinine 1.02 (0.60-1.30) mg/dL Estimated GFR 81 L (>89) mL/min Random Glucose 144 H (74-106) mg/dL Calcium 9.4 (8.5-10.1) mg/dL Total Bilirubin 0.5 (0.2-1.0) mg/dL AST 21 (15-37) U/L ALT 46 (12-78) U/L Alkaline Phosphatase 103 (45-117) U/L Total Protein 8.5 H (6.4-8.2) g/dL Albumin 3.8 (3.4-5.0) g/dL Imaging Data Radiologist's impression: Foot X-Ray 12/19/17 16:01 CONCLUSION: Significant arthritis involving the first interphalangeal joint with erosive changes and possibility of inflammatory osteoarthritis should be entertained and there is a fracture involving the first distal phalanx as well and the appearance is nonspecific in regards to osteomyelitis. Discharge Plan Discharge Disposition Patient Disposition: 30 Still Patient Discharge Condition Condition: Stable Discharge Details Diagnosis: Gangrene Physicians Team ED Provider: Wanda Miller Primary Care Provider: John Amos Rxs /Orders / Referrals /Forms Prescriptions: No Action trazodone 50 mg Tablet 50 mg PO DAILY RF: 0 lisinopril 20 mg Tablet 20 mg PO DAILY RF: 0 hydrocodone-acetaminophen [[place]ty] 10-325 mg Tablet 1 tab PO Q6H PRN (Reason: Pain) RF: 0 gabapentin 800 mg Tablet 800 mg PO BID RF: 0 insulin aspart U-100 [Novolog Flexpen U-100 Insulin] 100 unit/mL Insulin Pen See Label Instructions .ROUTE .COMPLEX RF: 0 pregabalin [Lyrica] 75 mg Capsule 75 mg PO BID RF: 0 insulin detemir U-100 [Levemir U-100 Insulin] 100 unit/mL Solution 25 unit SUB-Q BID RF: 0 Discharge Interventions Interventions: Vital Signs Last Done: 12/19/17 13:55 Status ED Status: With Doctor
[2017-12-19] MEDS ORDERED: Vancomycin Inj 1,000 MG in Sodium Chlor 0.9% Inj 250 ML IV.SIG ONE (18:30)
--- NOTE | 2017-12-19 19:53 | MR ---
EXAM DATE: 12/19/2017 7:45 PM EDT AGE/SEX: 42 years / Male INDICATIONS: Osteomyelitis. Discolored left second digit. CLINICAL DATA: This is the patient's initial encounter. Patient reports that signs and symptoms have been present for 3 days and indicates a pain score of 2/10. MEDICAL/SURGICAL HISTORY: Diabetes mellitus type II. Hypertension. Fusion, cervical. COMPARISON: [facility], FOOT COMPLETE LEFT 3V, 12/19/2017. . TECHNIQUE: Multiplanar, multisequence MRI examination was performed without contrast and after th e intravenous administration of 10 ml Gadavist (gadobutrol) single exam dose. FINDINGS: Significant arthritis in the first interphalangeal joint is identified with deformity of the bony str uctures as described in the patient's prior x-ray and erosive changes. There is marrow edema probably related to arthritic changes. The patient's symptomatology involving the second digit and there is n o evidence for osteomyelitis involving this digit. The rest of the examination is unremarkable. CONCLUSION: 1. Significant arthritic changes of the first interphalangeal joint and the second digit is unremark able without signs of osteomyelitis. Electronically signed by: Marjorie Mayen MD 12/19/2017 7:52 PM EDT
--- NOTE | 2017-12-19 20:51 | P.HPIM ---
History of Present Illness Service: [facility] Primary Care Physician: John Amos MD Chief Complaint: Left foot pain/change in color History of Present Illness: Mr. Cano is a 42 yo M with PMH of T2DM, HTN who was recently treated for osteomyelitis in his left great toe at [facility]. Patient reports that he sought admission today due to noticing drastic change in appearance in his left 3rd toe over the past ~3 days when changing bandages to his feet. He first noticed 3rd toe redness ~1 week ago; this stayed about the same appearance until he noticed worsening recently from a reddish to a bluish coloration. Patient reports generalized foot pain but that he also has foot numbness and pain. He takes Gabapentin and Lyrica for this. Patient states that he was diagnosed with osteomyelitis at [facility] ~1.5 months ago; he was treated initially for 1 week at prior to discharge to rehab for 2 weeks and subsequent home treatment for 1 week to complete ~4 weeks of IV Vancomycin and Ciprofloxacin. Patient unsure if a causative organism was found but he was seen by ID (Dr. Chua) and wound Care over this interval. Patient has also been receiving treatment of bilateral left and right plantar ulcerations. Patient denies prior vascular surgery evaluation. Patient has had diabetes for ~5 years; he has improved glucose levels from ~500- 600's to high 100's. No recent fever or chills. No chest pain, shortness of breath, abdominal pain, abnormal urination, or abnormal bowel movements. Inpatient Certification: I certify that the inpatient services were ordered in accordance with Medicare regulations governing the order. This includes certification that hospital inpatient services are reasonable and necessary and in the case of services not specified as inpatient-only under 42 CFR 419.22(n), that they are appropriately provided as inpatient services in accordance to with the 2-midnight benchmark under 43 CFR 412.3(e) Review of Systems All other systems reviewed negative except as stated in HPI Constitutional: Denies chills, Denies fatigue, Denies fever(s) Eyes: Reports blurry vision (no recent changes), Denies change in vision Ears, Nose, Mouth, and Throat: Denies nasal congestion, Denies sinus pressure Cardiovascular: Denies chest pain, Denies shortness of breath Respiratory: Denies cough, Denies shortness of breath Gastrointestinal: Denies abdominal pain, Denies change in stools Genitourinary: Denies urinary frequency, Denies urinary incontinence Musculoskeletal: Reports back pain (chronic), Reports numbness (chronic) Skin/Breast: Reports change in skin color Neurologic: Reports tingling, Denies confusion Psychiatric: Denies confusion Endocrine: Denies increased thirst, Denies rapid, pounding, or irregular heartbeat PMFSH - History History Provided By: Patient - Medical History Medical History: Medical History (Last Updated 12/20/17 @ 00:01 by Ti Nolan MD) Chronic back pain Diabetes Foot fracture, left HTN (hypertension) Osteomyelitis - Family History Family History: Family History (Last Updated 12/19/17 @ 23:58 by Ti Nolan MD) Other Diabetes HTN (hypertension) Hyperlipidemia - Tobacco History Smoking Status: Unknown if ever smoked - Alcohol History How Often Do You Have a Drink Containing Alcohol: Unable to Obtain - Substance Use History Substance History: Unable to Obtain - Travel History Recent Travel in the [place] Within the Last 8 Weeks: No Recent Travel Out of the Country Within the Last 8 Weeks: No - Immunization History Tetanus Immunization: Unable to Assess Medications and Allergies Allergies Allergy/AdvReac Type Severity Reaction Status Date / Time No Known Allergies Allergy Unverified 12/19/17 23:04 Home Medications Medication Instructions Recorded Confirmed Type gabapentin 800 mg PO BID 12/19/17 12/19/17 History hydrocodone-acetaminophen [[place]] 1 tab PO Q6H PRN 12/19/17 12/19/17 History insulin aspart U-100 [Novolog See Label Instructions .ROUTE 12/19/17 12/19/17 History Flexpen U-100 Insulin] .COMPLEX insulin detemir U-100 [Levemir 25 unit SUB-Q BID 12/19/17 12/19/17 History U-100 Insulin] lisinopril 20 mg PO DAILY 12/19/17 12/19/17 History pregabalin [Lyrica] 75 mg PO BID 12/19/17 12/19/17 History trazodone 50 mg PO DAILY 12/19/17 12/19/17 History Exam Vital signs: Vital Signs 12/19/17 13:55 12/19/17 20:16 Temperature 98.7 F Pulse Rate 104 H 89 Respiratory Rate 16 18 Blood Pressure 185/105 H 123/79 Pulse Oximetry 100 98 Intake & Output 12/19/17 12/19/17 12/20/17 06:59 18:59 06:59 Intake Total 100 / 100 Balance 100 / 100 Weight 270 kg Intake: IV 100 / 100 Rocephin Inj 1,000 MG In NS Inj 100 / 100 100 ML @ 200 mls/hr IV.SIG ONCE ONE Rx#:[id number] Narrative: General: No acute distress Skin: Right foot- scabbing on anterior plantar foot. Left foot- left 3rd toe bluish in coloration with serous drainage. No pain obvious to palpation. redness of 4th digit also Extremities: Toe findings as above. Ambulation not assessed. Otherwise grossly normal ROM and motor function Neuro: Bilateral decreased but present sensation distally to mid calves. Otherwise normal strength and sensation. Normal CN. CV: Regular rate and rhythm. Decreased DP pulses bilaterally Resp: CTAB; normal rate Results - Labs CBC & Chem 7: 12/19/17 16:35 12/19/17 16:35 Labs: Short CBC 12/19/17 Range/Units 16:35 WBC 13.1 H (4.0-11.0) th/mm3 Hgb 13.0 (13.0-17.0) gm/dL Hct 39.2 (39.0-51.0) % Plt Count 301 (150-450) th/mm3 BMP 12/19/17 16:35 Sodium 137 Potassium 4.9 Chloride 106 Carbon Dioxide 22.1 BUN 15 Creatinine 1.02 Calcium 9.4 Liver Function 12/19/17 Range/Units 16:35 Total Bilirubin 0.5 (0.2-1.0) mg/dL AST 21 (15-37) U/L ALT 46 (12-78) U/L Alkaline Phosphatase 103 (45-117) U/L Albumin 3.8 (3.4-5.0) g/dL - Imaging Impressions Foot MRI 12/19/17 16:01 CONCLUSION: 1. Significant arthritic changes of the first interphalangeal joint and the second digit is unremarkable without signs of osteomyelitis. 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 Caprini VTE Risk Assessment Caprini VTE Risk Assessment: Moderate/High Risk (score >= 2) Caprini Risk Assessment Model: Point Value = 1 Point Value = 2 Point Value = 3 Point Value = 5 Age 41-60 Minor surgery BMI > 25 kg/m2 Swollen legs Varicose veins or History of unexplained or recurrent spontaneous Oral contraceptives or hormone replacement Sepsis (< 1 month) Serious lung disease, including pneumonia (< 1 month) Abnormal pulmonary function Acute myocardial infarction Congestive heart failure (< 1 month) History of inflammatory bowel disease Medical patient at bed rest Age 61-74 Arthroscopic surgery Major open surgery (> 45 min) Laparoscopic surgery (> 45 min) Malignancy Confined to bed (> 72 hours) Immobilizing plaster cast Central venous access Age >= 75 History of VTE Family history of VTE Factor V Leiden Prothrombin [id number] Lupus anticoagulant Anticardiolipin antibodies Elevated serum homocysteine Heparin-induced thrombocytopenia Other congenital or acquired thrombophilia Stroke (< 1 month) Elective arthroplasty Hip, pelvis, or leg fracture Acute spinal cord injury (< 1 month) Prophylaxis Regimen: Total Risk Factor Score Risk Level Prophylaxis Regimen 0-1 Low Early ambulation 2 Moderate Order ONE of the following: *Sequential Compression Device (SCD) *Heparin 5000 units SQ BID 3-4 Higher Order ONE of the following medications: *Heparin 5000 units SQ TID *Enoxaparin/Lovenox 40 mg SQ daily (WT < 150 kg, CrCl > 30 mL/min) *Enoxaparin/Lovenox 30 mg SQ daily (WT < 150 kg, CrCl > 10-29 mL/min) *Enoxaparin/Lovenox 30 mg SQ BID (WT < 150 kg, CrCl > 30 mL/min) AND/OR *Sequential Compression Device (SCD) 5 or more Highest Order ONE of the following medications: *Heparin 5000 units SQ TID (Preferred with Epidurals) *Enoxaparin/Lovenox 40 mg SQ daily (WT < 150 kg, CrCl > 30 mL/min) *Enoxaparin/Lovenox 30 mg SQ daily (WT < 150 kg, CrCl > 10-29 mL/min) *Enoxaparin/Lovenox 30 mg SQ BID (WT < 150 kg, CrCl > 30 mL/min) AND *Sequential Compression Device (SCD) Assessment and Plan - Plan Mr. Cano is a 42 yo M with PMH DM and recent osteomyelitis who presents with L 3rd toe discoloration recent osteomyelitis Concern for left foot infection and/ or ischemia Impression: L 3rd toe concerning for ischemia/gangrene S/P 4 weeks treatment with Vancomycin/Ciprofloxacin per patient for L great toe osteomyelitis. ESR ~ 70 on admission. MRI of left foot not suggestive of osteomyelitis WBC 13.1 on admission but afebrile with stable appearance -Will attempt to obtain [facility] [place] and ID (Dr. Chua) records and consult ID -Blood culture pending -Will give empiric antibiotic treatment -Vancomycin IV with pharmacy consult -Zosyn -Will consult Podiatry for evaluation -Will consult vascular surgery -Will give Percocet pain scale PRN for pain as opioid tolerant from chronic back pain DM Impression: BG in mid 100's on admission -Will continue home Levemir 25 U BID (start tomorrow for decreased intake toda) -Novolog sliding scale -Will check A1C while inpatient -Continue Gabapentin and Lyrica for neuropathic pain HTN Impression: Currently normotensive -Continue Lisinopril DVT PPX -Will give bilateral SCD's until Podiatry and vascular surgery evaluations Code Status: Full code
[2017-12-19] MEDS ORDERED: Acetaminophen 325 MG Tablet PO PRN (20:57)
[2017-12-19] MEDS ORDERED: Gadobutrol PF 10 MMOL/10 ML Vial (for RAD) IV.SIG ONE (20:58)
[2017-12-19] MEDS ORDERED: Dextrose 50% in Water 50 ML Vial IV.PUSH PRN (21:57)
[2017-12-19] MEDS: Gabapentin 400 MG Capsule PO SCH (22:49)
[2017-12-19] MEDS: Senna/Docusate Sodium 8.6/50 MG Tablet PO SCH (22:53)
[2017-12-19] MEDS: traZODone 50 MG Tablet PO SCH (22:57)
[2017-12-19] MEDS: Sod Chloride 0.9% Inj 1,000 ML IV.CONT SCH (22:58)
[2017-12-19] MEDS: Piperacil/Tazo 3.375 GM Premix 50 ML IV.SIG SCH (23:43)
[2017-12-20] MEDS ORDERED: Morphine Inj 4 MG/ML Vial IV.PUSH ONE (00:46)
[2017-12-20] MEDS: Piperacil/Tazo 3.375 GM Premix 50 ML IV.SIG SCH ×4 (04:45→23:10)
[2017-12-20 04:49] LABS: Baso % (Auto) 0.3 % (0.0-2.0); Eos # (Auto) 0.3 th/mm3 (0.0-0.4); Eos % (Auto) 3.6 % (0.0-4.0); Hematocrit 32.9 % (39.0-51.0); Hemoglobin 11.3 gm/dL (13.0-17.0); Lymph # (Auto) 2.3 th/mm3 (1.0-4.8); Lymph % (Auto) 25.7 % (9.0-44.0); Mean Corpuscular HGB Conc 34.3 % (32.0-36.0); Mean Corpuscular Hemoglobin 28.3 pg (27.0-34.0); Mean Corpuscular Volume 82.6 fL (80.0-100.0); Mean Platelet Volume 8.8 fL (7.0-11.0); Mono # (Auto) 0.6 th/mm3 (0.0-0.9); Mono % (Auto) 6.8 % (0.0-8.0); Neut # (Auto) 5.8 th/mm3 (1.8-7.7); Neut % (Auto) 63.6 % (16.0-70.0); Platelet Count 276 th/mm3 (150-450); Red Blood Count 3.99 mil/mm3 (4.50-5.90); Red Cell Distribution Width 12.8 % (11.6-17.2)
[2017-12-20 05:22] LABS: Calcium 8.5 mg/dL (8.5-10.1); Carbon Dioxide 22.3 meq/L (21.0-32.0); Chol/HDL Ratio 5.34 Ratio; HDL Cholesterol 32.2 mg/dL (40.0-60.0); Potassium 4.2 meq/L (3.5-5.1)
[2017-12-20] MEDS ORDERED: Insulin Detemir Inj 1,000 UNIT/10 ML Vial SQ SCH (09:00)
--- NOTE | 2017-12-20 09:27 | P.CONVS ---
History of Present Illness Service: Vascular Surgery Consult date: 12/20/17 Reason for Consult: L foot wound Primary Care Provider: John Amos MD Chief Complaint: Left foot pain/change in color History of Present Illness: 42 yo male with DM who was seeing Dr. Pham ([facility] wound care) for L plantar wound likely neuropathic ulcer. He had superficial wound on LEFT third toe that over past 24-48h turned black. No elevated BS and no malaise. Review of Systems Constitutional: Denies chills, Denies fever(s) Cardiovascular: Denies chest pain Genitourinary: Reports erectile dysfunction Musculoskeletal: Reports abnormal walking, Reports radiating pain into limb PMFSH - History History Provided By: Patient - Medical History Medical History: Medical History (Last Reviewed 12/20/17 @ 09:25 by Brian Melo MD) Chronic back pain Diabetes Foot fracture, left HTN (hypertension) Osteomyelitis Pilonidal abscess - Surgical History Surgical History: Surgical History (Last Reviewed 12/20/17 @ 09:25 by Brian Melo MD) S/P cervical spinal fusion - Family History Family History: Family History (Last Updated 12/19/17 @ 23:58 by Ti Nolan MD) Other Diabetes HTN (hypertension) Hyperlipidemia - Tobacco History Second Hand Smoke Exposure: No Tobacco Use In Past 30 Days: No Smoking Status: Unknown if ever smoked Tobacco Type: Cigarettes - Alcohol History How Often Do You Have a Drink Containing Alcohol: Unable to Obtain - Substance Use History Substance History: Unable to Obtain - Travel History Recent Travel in the [place] Within the Last 8 Weeks: No Recent Travel Out of the Country Within the Last 8 Weeks: No - Immunization History Tetanus Immunization: Unable to Assess Tetanus Immunization Year if Known: 2016 Hx Influenza Vaccine This Season: No Medications and Allergies Active Medications: Active Medications Acetaminophen (Tylenol) 650 mg PO Q4H PRN PRN Reason: Temp > 100.4 Al Hydroxide/Mg Hydroxide (Milk Of Magnesia Liq) 30 ml PO Q12H PRN PRN Reason: Mild Constipation Dextrose (D50w Vial) 50 ml IV.PUSH UNSCH PRN PRN Reason: PER HYPOGLYCEMIA PROTOCOL Gabapentin (Neurontin) 800 mg PO BID [facility] Last Admin: 12/19/17 22:49 Dose: 800 mg Glucagon (Glucagon Inj) 1 mg OTHER PRN PRN PRN Reason: for Hypoglycemia Protocol Sodium Chloride (Ns Inj) 1,000 mls @ 100 mls/hr IV.CONT .Q10H [facility] Last Admin: 12/19/17 22:58 Dose: 100 mls/hr Vancomycin HCl 1,000 mg/ (Sodium Chloride) 250 mls @ 250 mls/hr IV.SIG Q12H [facility] Piperacillin/Tazobactam/Dextrose (Zosyn 3.375 Gm Premix) 50 mls @ 100 mls/hr IV.SIG Q6H [facility] Last Infusion: 12/20/17 05:44 Dose: Infused Insulin Aspart (Novolog Insulin Correctional Sugar Inj) 0 unit SQ ACHS [facility]; Protocol Insulin Detemir (Levemir Inj) 25 unit SQ BID [facility] Lisinopril (Prinivil) 20 mg PO DAILY [facility] Ondansetron HCl (Zofran Inj) 4 mg IV.PUSH Q6H PRN PRN Reason: NAUSEA OR VOMITING Oxycodone/Acetaminophen (Percocet 5/325 Mg) 1 tab PO Q6H PRN PRN Reason: PAIN SCALE 4 TO 6 MODERATE Oxycodone/Acetaminophen (Percocet 5/325 Mg) 2 tab PO Q6H PRN PRN Reason: PAIN SCALE 7 TO 10 SEVERE Last Admin: 12/20/17 04:45 Dose: 2 tab Pregabalin (Lyrica) 75 mg PO BID [facility] Senna/Docusate Sodium (Adriana-Colace) 1 tab PO BID [facility] Last Admin: 12/19/17 22:53 Dose: Not Given Trazodone HCl (Desyrel) 50 mg PO DAILY [facility] Last Admin: 12/19/17 22:57 Dose: 50 mg Allergies Allergy/AdvReac Type Severity Reaction Status Date / Time No Known Allergies Allergy Unverified 12/19/17 23:04 Home Medications Medication Instructions Recorded Confirmed Type gabapentin 800 mg PO BID 12/19/17 12/19/17 History hydrocodone-acetaminophen [[place]] 1 tab PO Q6H PRN 12/19/17 12/19/17 History insulin aspart U-100 [Novolog See Label Instructions .ROUTE 12/19/17 12/19/17 History Flexpen U-100 Insulin] .COMPLEX insulin detemir U-100 [Levemir 25 unit SUB-Q BID 12/19/17 12/19/17 History U-100 Insulin] lisinopril 20 mg PO DAILY 12/19/17 12/19/17 History pregabalin [Lyrica] 75 mg PO BID 12/19/17 12/19/17 History trazodone 50 mg PO DAILY 12/19/17 12/19/17 History Physical Exam Vital Signs / I&O: Vital Signs 12/19/17 13:55 12/19/17 20:16 12/19/17 22:01 Temperature 98.7 F 98.5 F Pulse Rate 104 H 89 89 Respiratory Rate 18 Blood Pressure 185/105 H 123/79 126/84 Pulse Oximetry 100 98 99 12/20/17 00:00 12/20/17 04:00 12/20/17 05:44 Temperature 98.8 F 98.5 F Pulse Rate 85 77 Respiratory Rate 18 16 Blood Pressure 125/84 127/78 Pulse Oximetry 99 98 Intake & Output 12/19/17 12/20/17 12/20/17 18:59 06:59 18:59 Intake Total 100 / 100 350 / 350 Balance 100 / 100 350 / 350 Weight 270 kg 122.2 kg Intake: IV 100 / 100 350 / 350 Zosyn 3.375 GM Premix 50 ML @ 100 / 100 100 mls/hr IV.SIG Q6H [facility] Rx#: [id number] Vancomycin Inj 1,000 MG In NS 250 / 250 Inj 250 ML @ 200 mls/hr IV.SIG ONCE ONE Rx#:[id number] Rocephin Inj 1,000 MG In NS Inj 100 / 100 100 ML @ 200 mls/hr IV.SIG ONCE ONE Rx#:[id number] Other: # Voids 3 Weight On Admission 270 kg Neuro: alert, oriented, no distress HEENT: NC/AT Neck: no JVD Heart: reg rate Lungs: clear Vascular: nonpalpable pedal pulse Extremities: L 3rd toe gangrenous plantar foot with superficial well granulating wound Laboratory Results - last 24 hr 12/19/17 12/19/17 12/19/17 16:35 16:35 16:35 WBC 13.1 H RBC 4.66 Hgb 13.0 Hct 39.2 MCV 84.1 MCH 27.9 MCHC 33.2 RDW 13.1 Plt Count 301 MPV 9.0 Neut % (Auto) 80.3 H Lymph % (Auto) 12.5 [place] % (Auto) 4.7 Eos % (Auto) 2.3 Baso % (Auto) 0.2 Neut # (Auto) 10.5 H Lymph # (Auto) 1.6 [place] # (Auto) 0.6 Eos # (Auto) 0.3 Baso # (Auto) 0.0 WBC Differential . Differential Comment Auto diff final ESR 72 H Sodium 137 Potassium 4.9 Chloride 106 Carbon Dioxide 22.1 Anion Gap 9 BUN 15 Creatinine 1.02 Estimated GFR 81 L POC Glucose Random Glucose 144 H Calcium 9.4 Total Bilirubin 0.5 AST 21 ALT 46 Alkaline Phosphatase 103 Total Protein 8.5 H Albumin 3.8 Triglycerides Cholesterol LDL Cholesterol, Calc HDL Cholesterol Cholesterol/HDL Ratio 12/19/17 12/20/17 12/20/17 22:14 03:14 03:14 WBC 9.0 RBC 3.99 L Hgb 11.3 L Hct 32.9 L MCV 82.6 MCH 28.3 MCHC 34.3 RDW 12.8 Plt Count 276 MPV 8.8 Neut % (Auto) 63.6 Lymph % (Auto) 25.7 [place] % (Auto) 6.8 Eos % (Auto) 3.6 Baso % (Auto) 0.3 Neut # (Auto) 5.8 Lymph # (Auto) 2.3 [place] # (Auto) 0.6 Eos # (Auto) 0.3 Baso # (Auto) 0.0 WBC Differential . Differential Comment Auto diff final ESR Sodium 139 Potassium 4.2 Chloride 106 Carbon Dioxide 22.3 Anion Gap 11 BUN 15 Creatinine 0.98 Estimated GFR 85 L POC Glucose 152 H Random Glucose 109 H Calcium 8.5 D Total Bilirubin AST ALT Alkaline Phosphatase Total Protein Albumin Triglycerides 154 H Cholesterol 172 LDL Cholesterol, Calc 109 H HDL Cholesterol 32.2 L Cholesterol/HDL Ratio 5.34 12/20/17 07:54 WBC RBC Hgb Hct MCV MCH MCHC RDW Plt Count MPV Neut % (Auto) Lymph % (Auto) [place] % (Auto) Eos % (Auto) Baso % (Auto) Neut # (Auto) Lymph # (Auto) [place] # (Auto) Eos # (Auto) Baso # (Auto) WBC Differential Differential Comment ESR Sodium Potassium Chloride Carbon Dioxide Anion Gap BUN Creatinine Estimated GFR POC Glucose 103 Random Glucose Calcium Total Bilirubin AST ALT Alkaline Phosphatase Total Protein Albumin Triglycerides Cholesterol LDL Cholesterol, Calc HDL Cholesterol Cholesterol/HDL Ratio Impressions Foot MRI 12/19/17 16:01 CONCLUSION: 1. Significant arthritic changes of the first interphalangeal joint and the second digit is unremarkable without signs of osteomyelitis. 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 Assessment and Plan - Assessment (1) Diabetic foot infection Code(s): E11.628 - Type 2 diabetes mellitus with other skin complications; L08.9 - Local infection of the skin and subcutaneous tissue, unspecified Status: Acute - Plan 42 yo male with diabetic foot infection and no clear palpable pulses 1. Plan for L LE angiogram tomorrow (Wednesday) 12/21; NPO after MN 2. CAROLA's today - ordered 3. Broad antibiotics as you are doing 4. glucose control and f/u A1c 5. Podiatry consult. Brian Melo MD FACS PRVI tumbler dyeing machine operator [facility] [phone]
[2017-12-20] MEDS: Insulin NovoLOG Aspart Correctional Sugar Inj SQ SCH ×4 (09:46→23:10)
[2017-12-20] MEDS: Pregabalin 75 MG Capsule PO SCH ×2 (09:46→20:54)
[2017-12-20] MEDS: traZODone 50 MG Tablet PO SCH ×2 (09:47→23:05)
[2017-12-20] MEDS: Lisinopril 20 MG Tablet PO SCH (09:47)
[2017-12-20] MEDS: Gabapentin 400 MG Capsule PO SCH ×2 (09:48→20:55)
[2017-12-20] MEDS: Vancomycin Inj 1,000 MG in Sodium Chlor 0.9% Inj 250 ML IV.SIG SCH ×2 (09:49→21:00)
[2017-12-20] MEDS: Sod Chloride 0.9% Inj 1,000 ML IV.CONT SCH ×2 (10:03→17:33)
[2017-12-20] MEDS: Senna/Docusate Sodium 8.6/50 MG Tablet PO SCH ×2 (10:03→20:55)
--- NOTE | 2017-12-20 10:34 | P.PN ---
Subjective Interval history: Patient seen and examined this morning, their vitals are stable and the patient is afebrile. Denies CP or SOB. States pain uncontrolled. Physical Exam Vital signs: Vital Signs 12/19/17 13:55 12/19/17 20:16 12/19/17 22:01 Temperature 98.7 F 98.5 F Pulse Rate 104 H 89 89 Respiratory Rate 16 18 18 Blood Pressure 185/105 H 123/79 126/84 Pulse Oximetry 100 98 99 12/20/17 00:00 12/20/17 04:00 12/20/17 05:44 Temperature 98.8 F 98.5 F Pulse Rate 85 77 Respiratory Rate 18 18 16 Blood Pressure 125/84 127/78 Pulse Oximetry 99 98 12/20/17 08:00 Temperature 97.4 F L Pulse Rate 79 Respiratory Rate 16 Blood Pressure 138/74 Pulse Oximetry 98 Intake & Output 12/19/17 12/20/17 12/20/17 18:59 06:59 18:59 Intake Total 100 / 100 350 / 350 1000 / 1000 Balance 100 / 100 350 / 350 1000 / 1000 Weight 270 kg 122.2 kg 122 kg Intake: IV 100 / 100 350 / 350 1000 / 1000 NS Inj 1,000 ML @ 100 mls/hr IV 1000 / 1000 .CONT .Q10H [facility] Rx#:[id number] Zosyn 3.375 GM Premix 50 ML @ 100 / 100 100 mls/hr IV.SIG Q6H [facility] Rx#: [id number] Vancomycin Inj 1,000 MG In NS 250 / 250 Inj 250 ML @ 200 mls/hr IV.SIG ONCE ONE Rx#:[id number] Rocephin Inj 1,000 MG In NS Inj 100 / 100 100 ML @ 200 mls/hr IV.SIG ONCE ONE Rx#:[id number] Other: # Voids 3 Date of Last Bowel Movement 12/20/17 Weight On Admission 270 kg Narrative: GENERAL: Well-appearing, no acute distress SKIN: Warm and dry. HEAD: Normocephalic. EYES: No scleral icterus. No injection or drainage. NECK: Supple, trachea midline. No JVD or lymphadenopathy. CARDIOVASCULAR: Regular rate and rhythm without murmurs, gallops, or rubs. RESPIRATORY: Breath sounds equal bilaterally. No accessory muscle use. GASTROINTESTINAL: Abdomen soft, non-tender, nondistended. MUSCULOSKELETAL: Left foot 3rd toe is black, ulcer noted, first toe without toenail. Results - Labs CBC & Chem 7: 12/20/17 03:14 12/20/17 03:14 Laboratory Results - last 24 hr 12/19/17 12/19/17 12/19/17 16:35 16:35 16:35 WBC 13.1 H RBC 4.66 Hgb 13.0 Hct 39.2 MCV 84.1 MCH 27.9 MCHC 33.2 RDW 13.1 Plt Count 301 MPV 9.0 Neut % (Auto) 80.3 H Lymph % (Auto) 12.5 [place] % (Auto) 4.7 Eos % (Auto) 2.3 Baso % (Auto) 0.2 Neut # (Auto) 10.5 H Lymph # (Auto) 1.6 [place] # (Auto) 0.6 Eos # (Auto) 0.3 Baso # (Auto) 0.0 WBC Differential . Differential Comment Auto diff final ESR 72 H Sodium 137 Potassium 4.9 Chloride 106 Carbon Dioxide 22.1 Anion Gap 9 BUN 15 Creatinine 1.02 Estimated GFR 81 L POC Glucose Random Glucose 144 H Calcium 9.4 Total Bilirubin 0.5 AST 21 ALT 46 Alkaline Phosphatase 103 Total Protein 8.5 H Albumin 3.8 Triglycerides Cholesterol LDL Cholesterol, Calc HDL Cholesterol Cholesterol/HDL Ratio 12/19/17 12/20/17 12/20/17 22:14 03:14 03:14 WBC 9.0 RBC 3.99 L Hgb 11.3 L Hct 32.9 L MCV 82.6 MCH 28.3 MCHC 34.3 RDW 12.8 Plt Count 276 MPV 8.8 Neut % (Auto) 63.6 Lymph % (Auto) 25.7 [place] % (Auto) 6.8 Eos % (Auto) 3.6 Baso % (Auto) 0.3 Neut # (Auto) 5.8 Lymph # (Auto) 2.3 [place] # (Auto) 0.6 Eos # (Auto) 0.3 Baso # (Auto) 0.0 WBC Differential . Differential Comment Auto diff final ESR Sodium 139 Potassium 4.2 Chloride 106 Carbon Dioxide 22.3 Anion Gap 11 BUN 15 Creatinine 0.98 Estimated GFR 85 L POC Glucose 152 H Random Glucose 109 H Calcium 8.5 D Total Bilirubin AST ALT Alkaline Phosphatase Total Protein Albumin Triglycerides 154 H Cholesterol 172 LDL Cholesterol, Calc 109 H HDL Cholesterol 32.2 L Cholesterol/HDL Ratio 5.34 12/20/17 07:54 WBC RBC Hgb Hct MCV MCH MCHC RDW Plt Count MPV Neut % (Auto) Lymph % (Auto) [place] % (Auto) Eos % (Auto) Baso % (Auto) Neut # (Auto) Lymph # (Auto) [place] # (Auto) Eos # (Auto) Baso # (Auto) WBC Differential Differential Comment ESR Sodium Potassium Chloride Carbon Dioxide Anion Gap BUN Creatinine Estimated GFR POC Glucose 103 Random Glucose Calcium Total Bilirubin AST ALT Alkaline Phosphatase Total Protein Albumin Triglycerides Cholesterol LDL Cholesterol, Calc HDL Cholesterol Cholesterol/HDL Ratio - Imaging Impressions Foot MRI 12/19/17 16:01 CONCLUSION: 1. Significant arthritic changes of the first interphalangeal joint and the second digit is unremarkable without signs of osteomyelitis. 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 Assessment and Plan - Plan In summary this is a 42-year-old male with medical significant for diabetes, and hypertension, recently treated for osteomyelitis of his left great toe presented to [facility] for increased redness of his third toe. Again patient recently treated at [facility] for osteomyelitis of the toe, prolonged hospital stay with outpatient rehab, and then subsequent home treatment. He completed approximately 4 weeks of IV vancomycin and ciprofloxacin. X-ray shows fracture of first distal phalanx, MRI is negative for ostial. Left great toe cellulitis Fracture distal phalanx Recently treated for osteomyelitis MRI shows arthritic changes without signs of osteomyelitis -Blood cultures obtained -Vancomycin and Zosyn started -Podiatry consult -Vascular surgery consulted: Plan for left lower extremity angiogram on Wednesday Diabetes -home Levemir 25 units twice daily--> change to 10 units daily with sliding scale given am blood sugar 103 - Supplemental sliding scale - Gabapentin and Lyrica continued for his neuropathic pain Hypertension -Continue patient's lisinopril DVT prophy: heparin SQ Discharge Planning: D/C pending further workup by vascular surgery on , podiatry eval pending
[2017-12-20 11:28] LABS: Hemoglobin A1c 6.6 % (4.3-6.0)
[2017-12-20] MEDS: Heparin - SQ 10,000 UNITS/ML Vial SQ SCH ×2 (13:44→21:02)
[2017-12-20] MEDS: Morphine Inj 4 MG/ML Vial IV.PUSH PRN ×2 (13:44→20:48)
--- NOTE | 2017-12-20 15:12 | P.CONID ---
History of Present Illness Service: ID Consult date: 12/20/17 Requesting Physician: Ti Nolan Reason for Consult: osteo Primary Care Provider: John Amos MD Chief Complaint: Left foot pain/change in color History of Present Illness: 42 morbidly obese diabetic male h/o L great toe osteo in August s/p treatment x [address] Lutz with resolution of pain and redness (per pt osteo was seen on Xray done by supervisor print line back in August). This time developped pain, redness of 3rd L toe which turned black over the week end No fevers, chills, no other c,o Pt also has L foot plantar ulcer which in his assessment improving Xray, MRI negative for osteo Pt is ff by Dr Melo Started on vanco, zosyn PMFSH - History History Provided By: Patient - Medical History Medical History: Medical History (Last Reviewed 12/20/17 @ 14:53 by Rosa Hightower MD) Chronic back pain Diabetes Foot fracture, left HTN (hypertension) Osteomyelitis Pilonidal abscess - Surgical History Surgical History: Surgical History (Last Reviewed 12/20/17 @ 14:53 by Rosa Hightower MD) S/P cervical spinal fusion - Family History Family History: Family History (Last Reviewed 12/20/17 @ 14:53 by Rosa Hightower MD) Other Diabetes HTN (hypertension) Hyperlipidemia - Tobacco History Second Hand Smoke Exposure: No Tobacco Use In Past 30 Days: No Smoking Status: Unknown if ever smoked Tobacco Type: Cigarettes - Alcohol History How Often Do You Have a Drink Containing Alcohol: Unable to Obtain - Substance Use History Substance History: Unable to Obtain - Travel History Recent Travel in the [place] Within the Last 8 Weeks: No Recent Travel Out of the Country Within the Last 8 Weeks: No - Immunization History Tetanus Immunization: Unable to Assess Tetanus Immunization Year if Known: 2016 Hx Influenza Vaccine This Season: No Medications and Allergies Active Medications: Active Medications Acetaminophen (Tylenol) 650 mg PO Q4H PRN PRN Reason: Temp > 100.4 Al Hydroxide/Mg Hydroxide (Milk Of Magnesia Liq) 30 ml PO Q12H PRN PRN Reason: Mild Constipation Dextrose (D50w Vial) 50 ml IV.PUSH UNSCH PRN PRN Reason: PER HYPOGLYCEMIA PROTOCOL Gabapentin (Neurontin) 800 mg PO BID [facility] Last Admin: 12/20/17 09:48 Dose: 800 mg Glucagon (Glucagon Inj) 1 mg OTHER PRN PRN PRN Reason: for Hypoglycemia Protocol Heparin Sodium (Porcine) (Heparin Inj) 5,000 units SQ Q8HR [facility] Last Admin: 12/20/17 13:44 Dose: 5,000 units Sodium Chloride (Ns Inj) 1,000 mls @ 100 mls/hr IV.CONT .Q10H [facility] Last Admin: 12/20/17 10:03 Dose: 100 mls/hr Vancomycin HCl 1,000 mg/ (Sodium Chloride) 250 mls @ 250 mls/hr IV.SIG Q12H [facility] Last Admin: 12/20/17 09:49 Dose: 150 mls/hr Piperacillin/Tazobactam/Dextrose (Zosyn 3.375 Gm Premix) 50 mls @ 100 mls/hr IV.SIG Q6H [facility] Last Admin: 12/20/17 12:46 Dose: Not Given Insulin Aspart (Novolog Insulin Correctional Sugar Inj) 0 unit SQ ACHS [facility]; Protocol Last Admin: 12/20/17 12:46 Dose: Not Given Insulin Detemir (Levemir Inj) 10 unit SQ BID [facility] Lisinopril (Prinivil) 20 mg PO DAILY [facility] Last Admin: 12/20/17 09:47 Dose: 20 mg Morphine Sulfate (Morphine Inj) 2 mg IV.PUSH Q4H PRN PRN Reason: BREAKTHROUGH PAIN Last Admin: 12/20/17 13:44 Dose: 2 mg Ondansetron HCl (Zofran Inj) 4 mg IV.PUSH Q6H PRN PRN Reason: NAUSEA OR VOMITING Oxycodone/Acetaminophen (Percocet 5/325 Mg) 1 tab PO Q6H PRN PRN Reason: PAIN SCALE 4 TO 6 MODERATE Oxycodone/Acetaminophen (Percocet 5/325 Mg) 2 tab PO Q6H PRN PRN Reason: PAIN SCALE 7 TO 10 SEVERE Last Admin: 12/20/17 10:39 Dose: 2 tab Pregabalin (Lyrica) 75 mg PO BID [facility] Last Admin: 12/20/17 09:46 Dose: 75 mg Senna/Docusate Sodium (Adriana-Colace) 1 tab PO BID [facility] Last Admin: 12/20/17 10:03 Dose: Not Given Trazodone HCl (Desyrel) 50 mg PO DAILY [facility] Last Admin: 12/20/17 09:47 Dose: Not Given Allergies Allergy/AdvReac Type Severity Reaction Status Date / Time No Known Allergies Allergy Unverified 12/19/17 23:04 Home Medications Medication Instructions Recorded Confirmed Type gabapentin 800 mg PO BID 12/19/17 12/19/17 History hydrocodone-acetaminophen [[place]] 1 tab PO Q6H PRN 12/19/17 12/19/17 History insulin aspart U-100 [Novolog See Label Instructions .ROUTE 12/19/17 12/19/17 History Flexpen U-100 Insulin] .COMPLEX insulin detemir U-100 [Levemir 25 unit SUB-Q BID 12/19/17 12/19/17 History U-100 Insulin] lisinopril 20 mg PO DAILY 12/19/17 12/19/17 History pregabalin [Lyrica] 75 mg PO BID 12/19/17 12/19/17 History trazodone 50 mg PO DAILY 12/19/17 12/19/17 History Exam Vital signs: Vital Signs 12/19/17 20:16 12/19/17 22:01 12/20/17 00:00 Temperature 98.5 F 98.8 F Pulse Rate 89 89 85 Respiratory Rate 18 18 18 Blood Pressure 123/79 126/84 125/84 Pulse Oximetry 98 99 99 12/20/17 04:00 12/20/17 05:44 12/20/17 08:00 Temperature 98.5 F 97.4 F L Pulse Rate 77 79 Respiratory Rate 18 16 16 Blood Pressure 127/78 138/74 Pulse Oximetry 98 98 12/20/17 12:00 Temperature 97.8 F Pulse Rate 74 Respiratory Rate 16 Blood Pressure 124/63 Pulse Oximetry 97 Intake & Output 12/19/17 12/20/17 12/20/17 18:59 06:59 18:59 Intake Total 100 / 100 350 / 350 1000 / 1000 Balance 100 / 100 350 / 350 1000 / 1000 Weight 270 kg 122.2 kg 122 kg Intake: IV 100 / 100 350 / 350 1000 / 1000 NS Inj 1,000 ML @ 100 mls/hr IV 1000 / 1000 .CONT .Q10H [facility] Rx#:[id number] Zosyn 3.375 GM Premix 50 ML @ 100 / 100 100 mls/hr IV.SIG Q6H [facility] Rx#: [id number] Vancomycin Inj 1,000 MG In NS 250 / 250 Inj 250 ML @ 200 mls/hr IV.SIG ONCE ONE Rx#:[id number] Rocephin Inj 1,000 MG In NS Inj 100 / 100 100 ML @ 200 mls/hr IV.SIG ONCE ONE Rx#:[id number] Other: # Voids 3 Date of Last Bowel Movement 12/20/17 Weight On Admission 270 kg - Constitutional no acute distress, morbidly obese - Routine HEENT Exam Head: Present: normocephalic, atraumatic Eye: Present: EOMI, PERRL ENT: Present: mucous membranes moist, oropharynx clear, dentition normal - Routine Neck Exam Present: supple, full ROM - Routine Respiratory Exam Present: decreased breath sounds (2/2 body habitus), CTA bilaterally - Routine Cardiovascular Exam Present: RRR, S1, S2 Comments: no murmurs, rubs gallops - Routine Abdominal Exam Present: soft, normoactive bowel sounds Comments: no organomegaly, no masses - Routine Extremities Exam Comments: no cyanosis, no clubbing no edema decrased sensation to light tough b/l feet + clean based stage II-III L plantar ulcer, 100% granulated No eryema of L great toe 3rd toe is dusky, dyscolored in distal part and dryn gangreneous changes in the proximal part Pedal pulses no palpable - Routine Skin Exam Present: intact, dry, warm Comments: no rash - Routine Neurological Exam Present: alert, oriented X3, CN II-XII intact, sensory deficit (decreased sensation in socks distribution), moving all extremities, vision grossly intact , hearing grossly intact, normal speech - Routine Psychiatric Exam Present: normal affect, normal thought process, cooperative Results - Labs CBC & Chem 7: 12/20/17 03:14 12/20/17 03:14 Labs: Laboratory Results - last 24 hr 12/19/17 12/19/17 12/19/17 16:35 16:35 16:35 WBC 13.1 H RBC 4.66 Hgb 13.0 Hct 39.2 MCV 84.1 MCH 27.9 MCHC 33.2 RDW 13.1 Plt Count 301 MPV 9.0 Neut % (Auto) 80.3 H Lymph % (Auto) 12.5 [place] % (Auto) 4.7 Eos % (Auto) 2.3 Baso % (Auto) 0.2 Neut # (Auto) 10.5 H Lymph # (Auto) 1.6 [place] # (Auto) 0.6 Eos # (Auto) 0.3 Baso # (Auto) 0.0 WBC Differential . Differential Comment Auto diff final ESR 72 H Sodium 137 Potassium 4.9 Chloride 106 Carbon Dioxide 22.1 Anion Gap 9 BUN 15 Creatinine 1.02 Estimated GFR 81 L POC Glucose Random Glucose 144 H Hemoglobin A1c Calcium 9.4 Total Bilirubin 0.5 AST 21 ALT 46 Alkaline Phosphatase 103 Total Protein 8.5 H Albumin 3.8 Triglycerides Cholesterol LDL Cholesterol, Calc HDL Cholesterol Cholesterol/HDL Ratio 12/19/17 12/20/17 12/20/17 22:14 03:14 03:14 WBC 9.0 RBC 3.99 L Hgb 11.3 L Hct 32.9 L MCV 82.6 MCH 28.3 MCHC 34.3 RDW 12.8 Plt Count 276 MPV 8.8 Neut % (Auto) 63.6 Lymph % (Auto) 25.7 [place] % (Auto) 6.8 Eos % (Auto) 3.6 Baso % (Auto) 0.3 Neut # (Auto) 5.8 Lymph # (Auto) 2.3 [place] # (Auto) 0.6 Eos # (Auto) 0.3 Baso # (Auto) 0.0 WBC Differential . Differential Comment Auto diff final ESR Sodium 139 Potassium 4.2 Chloride 106 Carbon Dioxide 22.3 Anion Gap 11 BUN 15 Creatinine 0.98 Estimated GFR 85 L POC Glucose 152 H Random Glucose 109 H Hemoglobin A1c Calcium 8.5 D Total Bilirubin AST ALT Alkaline Phosphatase Total Protein Albumin Triglycerides 154 H Cholesterol 172 LDL Cholesterol, Calc 109 H HDL Cholesterol 32.2 L Cholesterol/HDL Ratio 5.34 12/20/17 12/20/17 12/20/17 03:14 07:54 12:38 WBC RBC Hgb Hct MCV MCH MCHC RDW Plt Count MPV Neut % (Auto) Lymph % (Auto) [place] % (Auto) Eos % (Auto) Baso % (Auto) Neut # (Auto) Lymph # (Auto) [place] # (Auto) Eos # (Auto) Baso # (Auto) WBC Differential Differential Comment ESR Sodium Potassium Chloride Carbon Dioxide Anion Gap BUN Creatinine Estimated GFR POC Glucose 103 141 H Random Glucose Hemoglobin A1c 6.6 H Calcium Total Bilirubin AST ALT Alkaline Phosphatase Total Protein Albumin Triglycerides Cholesterol LDL Cholesterol, Calc HDL Cholesterol Cholesterol/HDL Ratio - Imaging Impressions Foot MRI 12/19/17 16:01 CONCLUSION: 1. Significant arthritic changes of the first interphalangeal joint and the second digit is unremarkable without signs of osteomyelitis. 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 Assessment and Plan - Plan DFI L 3 rd digit H/o L hallux osteo: clinically and radiologically resolved Dry gangrene - suspect undelying vascular disease morbid obesity DM Leukocuytosis cont current abx awaiting vasc w/u results
--- NOTE | 2017-12-20 20:53 | MB ---
cc: Jacque Spence DPM DATE: 12/20/2017 REASON FOR CONSULTATION: Left foot pain, ischemic digit. HISTORY OF PRESENT ILLNESS: The patient is a 42-year-old male with a history of osteo, status post 6 weeks of IV antibiotics with Dr. Chua and resolution. The patient with acute development of redness of the third digit, which turned black over the week. No fever, no chills. PAST MEDICAL HISTORY: 1. Back pain. 2. DM. 3. Left foot fracture. 4. HTN. 5. Osteomyelitis. 6. Pilonidal abscess. PAST SURGICAL HISTORY: Cervical spine fusion. SOCIAL HISTORY: Positive smoking. Social history of alcohol. Denies illicit drugs. PHYSICAL EXAMINATION: Left foot positive for granular ulcer of sub second and third metatarsals, full thickness. No active drainage. No erythema. Left third digit is ischemic, discolored, purpuric at the distal tip. DP and PT nonpalpable. Lower extremity without any streaking. No purulence noted. LABORATORY DATA: WBC on 12/20/2017 was 9.0, RBC 3.99, H and H 11.3 and 32.9. MRI of left foot with OA of the first IP joint and no osteo noted. ASSESSMENT: 1. Diabetes mellitus. 2. Peripheral vascular disease. 3. Left third digit ischemia. PLAN: The patient is pending an arterial runoff with Dr. Melo on 12/21/2017. My recommendation is a left third digit amputation given its ischemic and gangrenous changes. Discussed with the patient and possible on 12/21/[address] Melo. We will continue to follow the patient while in house. Jacque Spence DPM SR/vj , 08:02 PM , 08:07 PM
[2017-12-20] MEDS: Insulin Detemir Inj 1,000 UNIT/10 ML Vial SQ SCH (23:09)
[2017-12-21] MEDS: Morphine Inj 4 MG/ML Vial IV.PUSH PRN ×3 (01:42→18:53)
[2017-12-21] MEDS: Sod Chloride 0.9% Inj 1,000 ML IV.CONT SCH ×3 (05:25→22:10)
[2017-12-21] MEDS: Heparin - SQ 10,000 UNITS/ML Vial SQ SCH ×2 (05:26→14:07)
[2017-12-21] MEDS: Piperacil/Tazo 3.375 GM Premix 50 ML IV.SIG SCH ×4 (05:35→23:29)
--- NOTE | 2017-12-21 08:00 | ECG ---
Date Performed: 12/21/2017 Time Performed: 07:09:05 PTAGE: 42 years EKG: Sinus rhythm NONSPECIFIC T-WAVE ABNORMALITY BORDERLINE ECG PREVIOUS TRACING : 03/18/2016 18.34 Compared to previous tracing, nonspecific T wave abnormalit y is now present. DOCTOR: Adonis Hinson Interpretating Date/Time 12/21/2017 07:58:51
[2017-12-21] MEDS: Pregabalin 75 MG Capsule PO SCH ×2 (08:48→22:08)
[2017-12-21] MEDS: Gabapentin 400 MG Capsule PO SCH ×2 (08:48→22:08)
[2017-12-21] MEDS: Senna/Docusate Sodium 8.6/50 MG Tablet PO SCH ×2 (08:49→22:08)
[2017-12-21] MEDS: Vancomycin Inj 1,000 MG in Sodium Chlor 0.9% Inj 250 ML IV.SIG SCH ×2 (08:49→22:06)
[2017-12-21] MEDS: Insulin Detemir Inj 1,000 UNIT/10 ML Vial SQ SCH ×2 (08:50→22:09)
[2017-12-21] MEDS: Lisinopril 20 MG Tablet PO SCH (08:51)
[2017-12-21] MEDS ORDERED: Heparin/NS PF Inj 500 ML ONE (09:21)
[2017-12-21] MEDS ORDERED: Heparin 10,000 UNITS/10 ML Vial (for IV use) ONE (09:30)
[2017-12-21] MEDS ORDERED: Sugammadex Inj 200 MG/2 ML Vial IV.PUSH ONE (10:18)
[2017-12-21] MEDS ORDERED: Iohexol 300 MG/ML 50 ML Vial (for Rad Diag) IVCONTRAST ONE ×3 (10:38→10:57)
[2017-12-21] MEDS ORDERED: Lidocaine PF 1% Inj 5 ML Syringe INFILTRATN ONE (10:38)
--- NOTE | 2017-12-21 10:58 | P.OP ---
- Preoperative Diagnosis (1) Diabetic foot infection - Postoperative Diagnosis (1) Diabetic foot infection Date of procedure: 12/21/17 Procedure: Aortogram w/ L LE angiogram Implants: R DENTAL BILLER Angioseal (6F) Anesthesia: GETA Surgeon: Brian eMlo MD Estimated blood loss (mL): 5 Pathology: none sent Operation and Findings: patent inline aorto-iliac, femoropoliteal blood vessels AT patent to foot PT diminutive but patent + pedal arch
[2017-12-21] MEDS ORDERED: fentaNYL Citrate Inj 100 MCG/2 ML Ampul ONE (11:24)
[2017-12-21] MEDS: Insulin NovoLOG Aspart Correctional Sugar Inj SQ SCH ×4 (12:27→22:09)
--- NOTE | 2017-12-21 15:07 | MP ---
cc: Brian Melo MD DATE OF OPERATION: 12/21/2017 PREOPERATIVE DIAGNOSIS: Left lower extremity osteomyelitis and nonpalpable pedal pulses. POSTOPERATIVE DIAGNOSIS: Left lower extremity osteomyelitis and nonpalpable pedal pulses. PROCEDURE PERFORMED: Aortogram and left lower extremity angiogram. ATTENDING SURGEON: Brian Melo MD ANESTHESIA: General. INDICATIONS FOR PROCEDURE: Mr. Cano is a 42-year-old gentleman with diabetes who has nonpalpable pedal pulses and a left gangrenous third toe. He is taken to the operating room for angiographic evaluation and treatment. There is no prior catheter-based imaging available for my review. DESCRIPTION OF PROCEDURE: Informed consent was obtained from the patient. He was taken to the operating room and placed supine on the operating table. An appropriate timeout was taken to ensure the patient's identity, operative site and planned procedure. The administration of antibiotics was not necessary is the patient as on systemic and therapeutic antibiotics and these will be continued postoperatively as ongoing therapy of his polymicrobial diabetic foot infection. Everyone in the room agreed with our timeout and we proceeded. His bilateral groins were prepped and draped, and the right common femoral artery was accessed with a 21-gauge micropuncture needle; this was exchanged using Seldinger technique to undertake for a micropuncture sheath through which a 0.035 Glidewire was introduced. The micropuncture sheath was exchanged for a 5-Georgian sheath. A VCF catheter was placed over the wire and through the sheath and aortogram and pelvic arteriogram was obtained. A Glidewire and VCF catheter was navigated down to the left common femoral artery and the left lower extremity arteriogram was obtained. The wire, catheter and sheath were removed and the groin was closed with an Angio-Seal. There were no complications. I was present and scrubbed, and performed the entire procedure. INTERPRETATION: The patient has patent infrarenal aorta, common iliac arteries, hypogastric arteries and external arteries bilaterally without any hemodynamically significant stenosis. The left SFA and profunda are patent. The left popliteal is patent. The anterior tibial artery is a dominant runoff. The posterior tibial artery was very diminutive and the peroneal appears to be occluded. The anterior tibial artery continues to go down to the dorsum of the foot and at the level of the foot, a posterior tibial fills the plantar arch. MD Gale Pate , 02:34 PM , 02:41 PM
--- NOTE | 2017-12-21 17:35 | P.PNIM ---
Subjective Interval history: Mr. Cano was afebrile with stable vital signs overnight. Bedside glucoses controlled <150mg/dl. Patient reports continued foot pain but states that Morphine helps pain control. Patient reports concern for other toes and requests evaluation of his 5th L toe due to discoloration. Patient does not report recent chest pain, shortness of breath, or abnormal urination/bowel movements. Patient reports being aware of need for toe amputation and is agreeable to surgery tomorrow. Physical Exam Vital signs: Vital Signs 12/20/17 20:00 12/20/17 21:00 12/20/17 22:50 Temperature 98.7 F Pulse Rate 84 Respiratory Rate 18 18 19 Blood Pressure 139/83 Pulse Oximetry 98 12/21/17 00:30 12/21/17 02:00 12/21/17 04:30 Temperature 98 F 98 F Pulse Rate 80 80 Respiratory Rate 17 18 18 Blood Pressure 130/84 128/78 Pulse Oximetry 99 99 12/21/17 06:05 12/21/17 08:00 12/21/17 11:10 Temperature 98 F 98 F Pulse Rate 73 88 Respiratory Rate 18 16 15 Blood Pressure 126/73 122/72 Pulse Oximetry 98 100 12/21/17 11:15 12/21/17 11:30 12/21/17 11:40 Temperature Pulse Rate 84 78 Respiratory Rate 16 18 Blood Pressure 128/69 127/72 Pulse Oximetry 99 98 99 12/21/17 11:44 12/21/17 12:00 12/21/17 16:00 Temperature 98.2 F 98 F 97.8 F Pulse Rate 77 77 80 Respiratory Rate 15 16 18 Blood Pressure 123/71 138/67 131/72 Pulse Oximetry 97 95 97 Intake & Output 12/20/17 12/21/17 12/21/17 18:59 06:59 18:59 Intake Total 2800 / 2800 1350 / 1350 1200 / 1200 Output Total 5 / 5 Balance 2800 / 2800 1350 / 1350 1195 / 1195 Weight 122 kg 122 kg Intake: IV 1300 / 1300 1350 / 1350 300 / 300 Heparin/NS PF Inj 500 ML @ 0 0 / 0 mls/hr .ROUTE .[facility] Rx#: [id number] NS Inj 1,000 ML @ 100 mls/hr IV 1000 / 1000 1000 / 1000 .CONT .Q10H [facility] Rx#:[id number] Zosyn 3.375 GM Premix 50 ML @ 50 / 50 100 / 100 50 / 50 100 mls/hr IV.SIG Q6H [facility] Rx#: [id number] Vancomycin Inj 1,000 MG In NS 250 / 250 250 / 250 250 / 250 Inj 250 ML @ 250 mls/hr IV.SIG Q12H [facility] Rx#:[id number] Oral 1500 / 1500 0 / 0 Anesthesia Amount 900 / 900 Output: Estimated Blood Loss 5 / 5 Other: # Voids 4 3 Date of Last Bowel Movement 12/20/17 12/21/17 # Bowel Movements 0 Narrative: General: No acute distress Skin: Right foot- scabbing on anterior plantar foot. Left foot- left 3rd toe bluish in coloration with serous drainage; worse than prior exam. Plantar ulcer. Some early signs of pre-ulceration suggested on lateral 5th digit with discoloration but skin intact. 4th digit red Extremities: Toe findings as above. Ambulation not assessed. Otherwise grossly normal ROM and motor function Neuro: Normal CN. Bilateral decreased but present sensation distally to mid calves. Otherwise normal strength and sensation. CV: Regular rate and rhythm. Decreased DP pulses bilaterally Resp: CTAB; normal rate Abdominal: soft, nontender, normal BS Results - Labs CBC & Chem 7: 12/20/17 03:14 12/20/17 03:14 Laboratory Results - last 24 hr 12/20/17 12/21/17 12/21/17 23:07 08:05 11:21 POC Glucose 121 H 110 109 12/21/17 12/21/17 12/21/17 11:23 12:31 16:31 POC Glucose 119 H 115 H 170 H Microbiology 12/19/17 16:35 Blood - Peripheral Aerobic Blood Culture - Preliminary No growth in 2 days 12/19/17 16:35 Blood - Peripheral Anaerobic Blood Culture - Preliminary No growth in 2 days 12/19/17 16:50 Blood - Peripheral Aerobic Blood Culture - Preliminary No growth in 2 days 12/19/17 16:50 Blood - Peripheral Anaerobic Blood Culture - Preliminary No growth in 2 days Assessment and Plan - Plan Mr. Cano is a 42 yo M with PMH DM and recent osteomyelitis who presents with L 3rd toe discoloration L 3rd toe gangrene, recent osteomyelitis Impression: L 3rd toe concerning for ischemia/gangrene S/P 4 weeks treatment with Vancomycin/Ciprofloxacin per patient for L great toe osteomyelitis. ESR ~ 70 on admission. MRI of left foot not suggestive of osteomyelitis WBC 13.1 on admission but afebrile with stable appearance -Will attempt to obtain [facility] [place] and ID (Dr. Chua) records and consult ID -Blood culture pending -Will give empiric antibiotic treatment -Vancomycin IV with pharmacy consult -Zosyn - vascular surgery consulted -CAROLA's,glucose/A1C, Podiatry consult -aortogram w/ LLE angiogram performed. Patent inline aorto-iliac, fempop vessels. AT patent to foot. PT diminutive but patent. + pedal arch -Podiatry consulted -Per nursing staff/patient, plan for amputation tomorrow -Surgical clearance requested -Continue pain control with PRN Percocet and Morphine -Will give Percocet pain scale PRN for pain as opioid tolerant from chronic back pain Surgical evaluation Impression: Patient without active coronary or pulmonary disease; EKG, CBC, CMP reassuring. Despite poor vascularization of lower extremities and prior uncontrolled DM, sugars now well controlled w/ A1C 6.6. METs difficult due to foot infection but no concerns -Patient should be at low risk for surgical complications; cleared medically for surgery tomorrow DM Impression: BG in mid 100's on admission.A1C 6.6 -Novolog sliding scale -Levemir 10U BID -Continue Gabapentin and Lyrica for neuropathic pain HTN Impression: Currently normotensive -Continue Lisinopril DVT PPX -Will give bilateral SCD's; heparin held Code Status: Full code
--- NOTE | 2017-12-21 20:03 | P.PNPOD ---
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 Patient seen at bedside in [facility] Physical Exam Vital signs: Vital Signs 12/20/17 20:00 12/20/17 21:00 12/20/17 22:50 Temperature 98.7 F Pulse Rate 84 Respiratory Rate 18 18 19 Blood Pressure 139/83 Pulse Oximetry 98 12/21/17 00:30 12/21/17 02:00 12/21/17 04:30 Temperature 98 F 98 F Pulse Rate 80 80 Respiratory Rate 17 18 18 Blood Pressure 130/84 128/78 Pulse Oximetry 99 99 12/21/17 06:05 12/21/17 08:00 12/21/17 11:10 Temperature 98 F 98 F Pulse Rate 73 88 Respiratory Rate 18 16 15 Blood Pressure 126/73 122/72 Pulse Oximetry 98 100 12/21/17 11:15 12/21/17 11:30 12/21/17 11:40 Temperature Pulse Rate 84 78 Respiratory Rate 16 18 Blood Pressure 128/69 127/72 Pulse Oximetry 99 98 99 12/21/17 11:44 12/21/17 12:00 12/21/17 16:00 Temperature 98.2 F 98 F 97.8 F Pulse Rate 77 77 80 Respiratory Rate 15 16 18 Blood Pressure 123/71 138/67 131/72 Pulse Oximetry 97 95 97 12/21/17 17:36 Temperature Pulse Rate Respiratory Rate Blood Pressure Pulse Oximetry 97 Intake & Output 12/21/17 12/21/17 12/22/17 06:59 18:59 06:59 Intake Total 1350 / 1350 2470 / 2470 Output Total 5 / 5 Balance 1350 / 1350 2465 / 2465 Weight 122 kg Intake: IV 1350 / 1350 850 / 850 Heparin/NS PF Inj 500 ML @ 0 0 / 0 mls/hr .ROUTE .STK-MED ONE Rx#: [id number] NS Inj 1,000 ML @ 100 mls/hr IV 1000 / 1000 500 / 500 .CONT .Q10H [facility] Rx#:[id number] Zosyn 3.375 GM Premix 50 ML @ 100 / 100 100 / 100 100 mls/hr IV.SIG Q6H [facility] Rx#: [id number] Vancomycin Inj 1,000 MG In NS 250 / 250 250 / 250 Inj 250 ML @ 250 mls/hr IV.SIG Q12H [facility] Rx#:[id number] Oral 0 / 0 720 / 720 Anesthesia Amount 900 / 900 Output: Estimated Blood Loss 5 / 5 Other: # Voids 3 4 Date of Last Bowel Movement 12/21/17 # Bowel Movements 0 Narrative: LLE Ischemic and gangrene of the left 3rd digit distal 2/3. Warm to warm Mild drainage. NO purulence. Medications and Allergies Active Medications: Active Medications Acetaminophen (Tylenol) 650 mg PO Q4H PRN PRN Reason: Temp > 100.4 Al Hydroxide/Mg Hydroxide (Milk Of Magnesia Liq) 30 ml PO Q12H PRN PRN Reason: Mild Constipation Dextrose (D50w Vial) 50 ml IV.PUSH UNSCH PRN PRN Reason: PER HYPOGLYCEMIA PROTOCOL Gabapentin (Neurontin) 800 mg PO BID [facility] Last Admin: 12/21/17 08:48 Dose: 800 mg Glucagon (Glucagon Inj) 1 mg OTHER PRN PRN PRN Reason: for Hypoglycemia Protocol Heparin Sodium (Porcine) (Heparin Inj) 5,000 units SQ Q8HR [facility] Last Admin: 12/21/17 14:07 Dose: Not Given Sodium Chloride (Ns Inj) 1,000 mls @ 100 mls/hr IV.CONT .Q10H [facility] Last Infusion: 12/21/17 18:59 Dose: 100 mls/hr Vancomycin HCl 1,000 mg/ (Sodium Chloride) 250 mls @ 250 mls/hr IV.SIG Q12H [facility] Last Infusion: 12/21/17 11:00 Dose: Infused Piperacillin/Tazobactam/Dextrose (Zosyn 3.375 Gm Premix) 50 mls @ 100 mls/hr IV.SIG Q6H [facility] Last Infusion: 12/21/17 17:50 Dose: Infused Insulin Aspart (Novolog Insulin Correctional Sugar Inj) 0 unit SQ ACHS [facility]; Protocol Last Admin: 12/21/17 18:56 Dose: 1 unit Insulin Detemir (Levemir Inj) 10 unit SQ BID [facility] Last Admin: 12/21/17 08:50 Dose: Not Given Lisinopril (Prinivil) 20 mg PO DAILY [facility] Last Admin: 12/21/17 08:51 Dose: 20 mg Miscellaneous Information ([facility] Nursing Information) 1 each OTHER UNSCH PRN PRN Reason: SEE LABEL COMMENTS Stop: 12/22/17 11:13 Morphine Sulfate (Morphine Inj) 2 mg IV.PUSH Q4H PRN PRN Reason: BREAKTHROUGH PAIN Last Admin: 12/21/17 18:53 Dose: 2 mg Ondansetron HCl (Zofran Inj) 4 mg IV.PUSH Q6H PRN PRN Reason: NAUSEA OR VOMITING Oxycodone/Acetaminophen (Percocet 5/325 Mg) 1 tab PO Q6H PRN PRN Reason: PAIN SCALE 4 TO 6 MODERATE Oxycodone/Acetaminophen (Percocet 5/325 Mg) 2 tab PO Q6H PRN PRN Reason: PAIN SCALE 7 TO 10 SEVERE Last Admin: 12/21/17 17:17 Dose: 2 tab Pregabalin (Lyrica) 75 mg PO BID [facility] Last Admin: 12/21/17 08:48 Dose: 75 mg Senna/Docusate Sodium (Adriana-Colace) 1 tab PO BID [facility] Last Admin: 12/21/17 08:49 Dose: Not Given Sodium Chloride (Ns Flush) 2 ml IV.FLUSH BID [facility] Sodium Chloride (Ns Flush) 2 ml IV.FLUSH PRN PRN PRN Reason: FLUSH AFTER USING IV ACCESS Trazodone HCl (Desyrel) 50 mg PO [facility] Last Admin: 12/20/17 23:05 Dose: 50 mg Allergies Allergy/AdvReac Type Severity Reaction Status Date / Time No Known Allergies Allergy Unverified 12/19/17 23:04 Home Medications Medication Instructions Recorded Confirmed Type gabapentin 800 mg PO BID 12/19/17 12/19/17 History hydrocodone-acetaminophen [[place]on] 1 tab PO Q6H PRN 12/19/17 12/19/17 History insulin aspart U-100 [Novolog See Label Instructions .ROUTE 12/19/17 12/19/17 History Flexpen U-100 Insulin] .COMPLEX insulin detemir U-100 [Levemir 25 unit SUB-Q BID 12/19/17 12/19/17 History U-100 Insulin] lisinopril 20 mg PO DAILY 12/19/17 12/19/17 History pregabalin [Lyrica] 75 mg PO BID 12/19/17 12/19/17 History trazodone 50 mg PO DAILY 12/19/17 12/19/17 History Results - Labs CBC & Chem 7: 12/20/17 03:14 12/20/17 03:14 Laboratory Results - last 24 hr 12/20/17 12/21/17 12/21/17 23:07 08:05 11:21 POC Glucose 121 H 110 109 12/21/17 12/21/17 12/21/17 11:23 12:31 16:31 POC Glucose 119 H 115 H 170 H Microbiology 12/19/17 16:35 Blood - Peripheral Aerobic Blood Culture - Preliminary No growth in 2 days 12/19/17 16:35 Blood - Peripheral Anaerobic Blood Culture - Preliminary No growth in 2 days 12/19/17 16:50 Blood - Peripheral Aerobic Blood Culture - Preliminary No growth in 2 days 12/19/17 16:50 Blood - Peripheral Anaerobic Blood Culture - Preliminary No growth in 2 days Assessment and Plan - Plan Plan for left 3rd digit amputation on 12/22/17 OK to proceed per Dr Melo. NPO at midnight. Discussed with the patient and all questions answered.
[2017-12-21] MEDS: traZODone 50 MG Tablet PO SCH (22:08)
[2017-12-22] MEDS: Morphine Inj 4 MG/ML Vial IV.PUSH PRN ×3 (02:11→23:08)
[2017-12-22] MEDS ORDERED: Chlorhexidine Gluconate 2% 1 Pack (2 Cloths) TOPICAL ONE (03:27)
[2017-12-22] MEDS ORDERED: Metoprolol Tartrate 25 MG Tablet PO ONE (03:27)
[2017-12-22] MEDS ORDERED: Sodium Chlor 0.9% Inj 500 ML IV.SIG SCH (04:00)
[2017-12-22] MEDS: Piperacil/Tazo 3.375 GM Premix 50 ML IV.SIG SCH ×4 (05:32→23:10)
[2017-12-22 08:18] LABS: Baso % (Auto) 0.3 % (0.0-2.0); Eos # (Auto) 0.3 th/mm3 (0.0-0.4); Eos % (Auto) 4.7 % (0.0-4.0); Hematocrit 32.5 % (39.0-51.0); Hemoglobin 11.1 gm/dL (13.0-17.0); Lymph # (Auto) 1.4 th/mm3 (1.0-4.8); Lymph % (Auto) 21.2 % (9.0-44.0); Mean Corpuscular HGB Conc 34.1 % (32.0-36.0); Mean Corpuscular Hemoglobin 28.1 pg (27.0-34.0); Mean Corpuscular Volume 82.5 fL (80.0-100.0); Mean Platelet Volume 8.8 fL (7.0-11.0); Mono # (Auto) 0.5 th/mm3 (0.0-0.9); Mono % (Auto) 7.5 % (0.0-8.0); Neut # (Auto) 4.3 th/mm3 (1.8-7.7); Neut % (Auto) 66.3 % (16.0-70.0); Platelet Count 223 th/mm3 (150-450); Red Blood Count 3.94 mil/mm3 (4.50-5.90); Red Cell Distribution Width 12.8 % (11.6-17.2); White Blood Count 6.5 th/mm3 (4.0-11.0)
[2017-12-22] MEDS: Pregabalin 75 MG Capsule PO SCH ×2 (08:38→23:08)
[2017-12-22] MEDS: Gabapentin 400 MG Capsule PO SCH ×2 (08:38→23:08)
[2017-12-22] MEDS: Insulin Detemir Inj 1,000 UNIT/10 ML Vial SQ SCH ×2 (08:38→23:09)
[2017-12-22] MEDS: Insulin NovoLOG Aspart Correctional Sugar Inj SQ SCH ×4 (08:38→23:09)
[2017-12-22] MEDS: Lisinopril 20 MG Tablet PO SCH (08:39)
[2017-12-22] MEDS: Senna/Docusate Sodium 8.6/50 MG Tablet PO SCH ×2 (08:39→23:08)
[2017-12-22] MEDS: Vancomycin Inj 1,000 MG in Sodium Chlor 0.9% Inj 250 ML IV.SIG SCH ×2 (08:41→23:07)
[2017-12-22] MEDS: Sod Chloride 0.9% Inj 1,000 ML IV.CONT SCH ×2 (08:41→18:09)
[2017-12-22 08:45] LABS: Calcium 8.6 mg/dL (8.5-10.1); Carbon Dioxide 28.2 meq/L (21.0-32.0)
--- NOTE | 2017-12-22 11:57 | ECHRPT ---
EXAM DATE: 12/22/2017 10:48 AM EDT AGE/SEX: 42 years / Male INDICATIONS: osteomyelitis, gangrene CLINICAL DATA: This is the patient's initial encounter. Patient reports that signs and symptoms have been present for 1 week and indicates a pain score of 4/10. MEDICAL/SURGICAL HISTORY: . chronic back pain, diabetes, foot fracture left, hypertension, oste omyelitis, pilonidal abscess, hyperlipidemia . cervical spine fusion COMPARISON: No prior exams available for comparison. TECHNIQUE: Four-cuff ankle and brachial pressures were obtained. Pulse cuff waveform tracings of the ankles were recorded, and ankle-brachial indices were calculated. PRESSURES (mmHg): Brachial (arm) : RIGHT: 114, LEFT: iv site Ankle : RIGHT: CNO >220, LEFT: CNO >220 CAROLA : RIGHT: CNO, LEFT: CNO TBI : RIGHT: 0.85, LEFT: 0.40 FINDINGS: Pulsed-Cuff Waveform: There are good upstroke and a dicrotic downstroke of the tracings. Other: None. CONCLUSION: 1. Unable to occlude the vessels of the ankle level bilaterally therefore preventing calculation of the CAROLA. This could relate to calcified atherosclerotic plaque. 2. Reduction of the left toe brachial index. This could either relate to microangiopathic disease or could relate to more central disease. Inability to calculate CAROLA prevents differentiation. CTA with runoff could be used to further assess if needed. Electronically signed by: Dre Jenkins MD 12/22/2017 11:56 AM EDT
--- NOTE | 2017-12-22 12:02 | P.PN ---
Subjective Interval history: Left foot PVD, left 3rd digit gangrene. Patient going for surgery today. no acute issue. Physical Exam Vital signs: Vital Signs 12/21/17 16:00 12/21/17 17:36 12/21/17 21:40 Temperature 97.8 F 97.8 F Pulse Rate 80 76 Respiratory Rate 18 16 Blood Pressure 131/72 150/79 H Pulse Oximetry 97 97 96 12/22/17 01:00 12/22/17 03:27 12/22/17 05:45 Temperature 98 F 97 F L Pulse Rate 75 67 Respiratory Rate 17 16 16 Blood Pressure 139/80 140/75 Pulse Oximetry 97 96 12/22/17 08:00 12/22/17 11:10 Temperature 98.9 F Pulse Rate 90 Respiratory Rate 18 16 Blood Pressure 120/92 H Pulse Oximetry 97 Intake & Output 12/21/17 12/22/17 12/22/17 18:59 06:59 18:59 Intake Total 2470 / 2470 2770 / 2770 1300 / 1300 Output Total 5 / 5 Balance 2465 / 2465 2770 / 2770 1300 / 1300 Weight 122 kg 124.9 kg Intake: IV 850 / 850 800 / 800 1300 / 1300 Heparin/NS PF Inj 500 ML @ 0 0 / 0 mls/hr .ROUTE .STK-MED ONE Rx#: [id number] NS Inj 1,000 ML @ 100 mls/hr IV 500 / 500 500 / 500 1000 / 1000 .CONT .Q10H [facility] Rx#:[id number] Zosyn 3.375 GM Premix 50 ML @ 100 / 100 50 / 50 50 / 50 100 mls/hr IV.SIG Q6H [facility] Rx#: [id number] Vancomycin Inj 1,000 MG In NS 250 / 250 250 / 250 250 / 250 Inj 250 ML @ 250 mls/hr IV.SIG Q12H [facility] Rx#:[id number] Oral 720 / 720 1970 / 1970 Anesthesia Amount 900 / 900 Output: Estimated Blood Loss 5 / 5 Other: # Voids 4 6 Date of Last Bowel Movement 12/21/17 12/21/17 12/21/17 # Bowel Movements 0 - Constitutional no acute distress - Routine HEENT Exam Head: Present: normocephalic, atraumatic Eye: Present: EOMI, PERRL ENT: Present: mucous membranes moist - Routine Neck Exam Present: supple, full ROM - Routine Respiratory Exam Present: CTA bilaterally - Routine Cardiovascular Exam Present: RRR, S1, S2 - Routine Abdominal Exam Present: soft, normoactive bowel sounds - Routine Extremities Exam Present: full ROM Comments: left 3rd digit gangrene. Left foot 3rd toe is black, ulcer noted, first toe without toenail. - Routine Skin Exam Comments: left 3rd digit gangrene.Left foot 3rd toe is black, ulcer noted, first toe without toenail. - Routine Neurological Exam Present: alert, oriented X3, CN II-XII intact, normal speech - Detailed Neurological Exam: Coma Scale Eye Opening: Spontaneous Verbal Response: Oriented Motor Response: Obey commands [place] Coma Scale Total: 15 - Routine Psychiatric Exam Present: normal affect, normal thought process, good judgment Results - Labs CBC & Chem 7: 12/22/17 06:59 12/22/17 06:59 Laboratory Results - last 24 hr 12/21/17 12/21/17 12/21/17 12:31 16:31 19:57 WBC RBC Hgb Hct MCV MCH MCHC RDW Plt Count MPV Neut % (Auto) Lymph % (Auto) [place] % (Auto) Eos % (Auto) Baso % (Auto) Neut # (Auto) Lymph # (Auto) [place] # (Auto) Eos # (Auto) Baso # (Auto) WBC Differential Differential Comment Sodium Potassium Chloride Carbon Dioxide Anion Gap BUN Creatinine Estimated GFR POC Glucose 115 H 170 H 172 H Random Glucose Calcium 12/22/17 12/22/17 12/22/17 06:59 06:59 07:32 WBC 6.5 RBC 3.94 L Hgb 11.1 L Hct 32.5 L MCV 82.5 MCH 28.1 MCHC 34.1 RDW 12.8 Plt Count 223 MPV 8.8 Neut % (Auto) 66.3 Lymph % (Auto) 21.2 [place] % (Auto) 7.5 Eos % (Auto) 4.7 H Baso % (Auto) 0.3 Neut # (Auto) 4.3 Lymph # (Auto) 1.4 [place] # (Auto) 0.5 Eos # (Auto) 0.3 Baso # (Auto) 0.0 WBC Differential . Differential Comment Auto diff final Sodium 141 Potassium 4.0 Chloride 105 Carbon Dioxide 28.2 Anion Gap 8 BUN 11 Creatinine 0.99 Estimated GFR 84 L POC Glucose 105 Random Glucose 102 Calcium 8.6 12/22/17 11:01 WBC RBC Hgb Hct MCV MCH MCHC RDW Plt Count MPV Neut % (Auto) Lymph % (Auto) [place] % (Auto) Eos % (Auto) Baso % (Auto) Neut # (Auto) Lymph # (Auto) [place] # (Auto) Eos # (Auto) Baso # (Auto) WBC Differential Differential Comment Sodium Potassium Chloride Carbon Dioxide Anion Gap BUN Creatinine Estimated GFR POC Glucose 109 Random Glucose Calcium Microbiology 12/19/17 16:35 Blood - Peripheral Aerobic Blood Culture - Preliminary No growth in 3 days 12/19/17 16:35 Blood - Peripheral Anaerobic Blood Culture - Preliminary No growth in 3 days 12/19/17 16:50 Blood - Peripheral Aerobic Blood Culture - Preliminary No growth in 3 days 12/19/17 16:50 Blood - Peripheral Anaerobic Blood Culture - Preliminary No growth in 3 days - Imaging Impressions Extremity Arterial Study 12/20/17 00:00 CONCLUSION: 1. Unable to occlude the vessels of the ankle level bilaterally therefore preventing calculation of the CAROLA. This could relate to calcified atherosclerotic plaque. 2. Reduction of the left toe brachial index. This could either relate to microangiopathic disease or could relate to more central disease. Inability to calculate CAROLA prevents differentiation. CTA with runoff could be used to further assess if needed. Assessment and Plan - Plan Assessment and Plan - Plan Mr. Cano is a 42 yo M with PMH DM and recent osteomyelitis who presents with L 3rd toe discoloration Left 3rd toe gangrene, recent osteomyelitis Impression: L 3rd toe concerning for ischemia/gangrene S/P 4 weeks treatment with Vancomycin/Ciprofloxacin per patient for Left great toe osteomyelitis. ESR ~70 on admission. MRI of left foot not suggestive of osteomyelitis WBC 13.1 on admission but afebrile with stable appearance -Will attempt to obtain [place] and ID (Dr. Chua) records and ID input noted. -Blood culture negative -on empiric antibiotic treatment -Vancomycin IV with pharmacy consult -Yasmin - vascular surgery input noted. -CAROLA's,glucose/A1C, Podiatry input noted going for surgery today. -aortogram w/ LLE angiogram performed. Patent inline aorto-iliac, fempop vessels. AT patent to foot. PT diminutive but patent. + pedal arch -Podiatry input noted. -Continue pain control with PRN Percocet and Morphine -on Percocet pain scale PRN for pain as opioid tolerant from chronic back pain Surgical evaluation Impression: Patient without active coronary or pulmonary disease; EKG, CBC, CMP reassuring. Despite poor vascularization of lower extremities and prior uncontrolled DM, sugars now well controlled w/ A1C 6.6. METs difficult due to foot infection but no concerns -Patient should be at low risk for surgical complications; cleared medically for surgery tomorrow DM Impression: BG in mid 100's on admission.A1C 6.6 -Novolog sliding scale -Levemir 10U BID -Continue Gabapentin and Lyrica for neuropathic pain HTN Impression: Currently normotensive -Continue Lisinopril DVT PPX -Will give bilateral SCD's; heparin held Code Status: Full code check CBC with diff and CMP in AM.
[2017-12-22] MEDS ORDERED: Lidocaine PF 1% Inj 5 ML Syringe INFILTRATN ONE (15:30)
[2017-12-22] MEDS ORDERED: Bupivacaine/Epinephrine Inj 0.25% 50 ML Vial ONE (15:31)
[2017-12-22] MEDS ORDERED: Bupivacaine PF 0.5% Inj 30 ML Vial ONE (15:50)
--- NOTE | 2017-12-22 16:16 | P.BOP ---
- Preoperative Diagnosis (1) Diabetic foot infection (2) Gangrene Date of procedure: 12/22/17 Procedure: 1) left 3rd digit amputation 2) Left 3rd digit bone biopsy Implants: None Anesthesia: MAC Surgeon: Jacque Spence DPM Estimated blood loss (mL): 3 Tourniquet time (min): 16 Pathology: none sent (Left 3rd digit, left 3rd digit, proximal phalanx bone biopsy.) Condition: stable Disposition: PACU
[2017-12-22 21:05] LABS: Baso % (Auto) 0.4 % (0.0-2.0); Eos # (Auto) 0.3 th/mm3 (0.0-0.4); Hematocrit 32.8 % (39.0-51.0); Hemoglobin 11.1 gm/dL (13.0-17.0); Lymph # (Auto) 1.6 th/mm3 (1.0-4.8); Lymph % (Auto) 21.6 % (9.0-44.0); Mean Corpuscular Volume 82.3 fL (80.0-100.0); Mean Platelet Volume 8.5 fL (7.0-11.0); Mono # (Auto) 0.6 th/mm3 (0.0-0.9); Mono % (Auto) 7.8 % (0.0-8.0); Neut % (Auto) 66.2 % (16.0-70.0); Platelet Count 240 th/mm3 (150-450); Red Blood Count 3.98 mil/mm3 (4.50-5.90); Red Cell Distribution Width 12.8 % (11.6-17.2); White Blood Count 7.5 th/mm3 (4.0-11.0)
[2017-12-22 21:24] LABS: Albumin 3.2 g/dL (3.4-5.0); Anion Gap 10 meq/L (5-15); Aspartate Aminotransferase 19 U/L (15-37); Blood Urea Nitrogen 11 mg/dL (7-18); Calcium 8.8 mg/dL (8.5-10.1); Chloride 105 meq/L (98-107); Glomerular Filtration Rate Greater Than 89 mL/min (>89); Glucose,Random 99 mg/dL (74-106); Potassium 4.2 meq/L (3.5-5.1); Sodium 141 meq/L (136-145)
[2017-12-22 21:25] LABS: Alanine Aminotransferase 28 U/L (12-78)
[2017-12-22 21:29] LABS: Alkaline Phosphatase 79 U/L (45-117); Total Protein 6.8 g/dL (6.4-8.2)
--- NOTE | 2017-12-22 22:34 | MP ---
cc: Jacque Spence [facility] DATE OF OPERATION: 12/22/2017 PREOPERATIVE DIAGNOSES: 1. Peripheral vascular disease. 2. Left third digit gangrene. POSTOPERATIVE DIAGNOSES. 1. Peripheral vascular disease. 2. Left third digit gangrene. PROCEDURE: 1. Left third digit amputation. 2. Left third digit bone biopsy. ANESTHESIOLOGIST: Rusty Jacobs MD ANESTHESIA: MAC. HEMOSTASIS: Left calf tourniquet at 250 mmHg for 60 minutes. ESTIMATED BLOOD LOSS: Less than 3 mL MATERIALS: 2-0 Vicryl and 3-0 nylon. INJECTABLES: Postop 10 mL of 0.5% Marcaine plain, preoperative mL of 0.5% Marcaine plain. BRIEF HISTORY: The patient is a 42-year-old male with a morbidly obese presentation with a history of osteo on the left hallux in August, which was treated with 6 weeks IV antibiotics. The patient developed acute ischemia associated with his PVD. The patient was revascularized by Dr. Mayorga. Risks, benefits, pros and cons were discussed. The patient freely consents to surgery, no guarantees were given nor implied. DESCRIPTION OF PROCEDURE IN DETAIL: The patient was brought into the room, placed on the operating table in the supine position. After MAC anesthesia was administered, the left foot was prepped, scrubbed and draped in usual sterile aseptic manner. The left ankle calf tourniquet was applied, but not yet inflated. After prep and scrub left third ray block was carried out using 10 mL of 0.5% Marcaine plain. The left foot was exsanguinated to 250 mmHg on the left side. Attention was then directed to the left third digit where a disarticulation amputation was carried out at the left MP joint of the third digit. There is no purulence underlying. There is some borderline tissue, which was sharply debrided using a #15 blade in the interspace. It was noted that there was an ulceration to the medial aspect of the left fourth digit as well. No exposed bone or tendon. There is a 4 x 2 cm plantar ulcer, which was 100% granular. The incision was then copiously irrigated with normal sterile saline impregnated with and then bleeders were bovied or tied as necessary. The incision was primarily closed using 2-0 Vicryl and 3-0 nylon simple suture pattern. Dry sterile dressings were applied using Xeroform, 4 x 4, [place], and a light Semaj wrap. Tourniquet was deflated after 60 minutes. Prompt recurrence found to digits 1, 2, 4 and 5 on the left. The patient tolerated procedure and patient will be transferred to the PACU and then transferred to the floor per PACU protocol He will be followed up appropriately while in-house. Jacque Spence DPM SR/reg/ , 08:45 PM , 08:54 PM ALYSE
[2017-12-22] MEDS: traZODone 50 MG Tablet PO SCH (23:08)
[2017-12-23] MEDS: Morphine Inj 4 MG/ML Vial IV.PUSH PRN ×5 (03:50→20:40)
[2017-12-23] MEDS: Piperacil/Tazo 3.375 GM Premix 50 ML IV.SIG SCH ×4 (04:00→22:44)
[2017-12-23] MEDS: Sod Chloride 0.9% Inj 1,000 ML IV.CONT SCH ×2 (05:11→14:34)
[2017-12-23] MEDS: Insulin NovoLOG Aspart Correctional Sugar Inj SQ SCH ×4 (07:31→21:16)
--- NOTE | 2017-12-23 07:50 | P.PNVS ---
Subjective Subjective/Hospital Course: POD#2 s/p LLE angiogram showing decent pedal perfusion s/p toe amputation by podiatry ambulating this morning c/o post-op pain Objective Vital Signs / I&O: Vital Signs 12/22/17 08:00 12/22/17 11:10 12/22/17 12:00 Temperature 98.9 F 98.8 F Pulse Rate 90 75 Respiratory Rate 18 16 14 Blood Pressure 120/92 H 134/84 Pulse Oximetry 97 98 12/22/17 16:34 12/22/17 18:36 12/22/17 20:00 Temperature 98.1 F 97.9 F Pulse Rate 71 87 Respiratory Rate 16 16 18 Blood Pressure 116/75 167/92 H Pulse Oximetry 92 L 99 12/23/17 00:00 12/23/17 04:00 Temperature 97.8 F 97.9 F Pulse Rate 75 80 Respiratory Rate 18 18 Blood Pressure 126/86 150/90 H Pulse Oximetry 98 100 Intake & Output 12/22/17 12/23/17 12/23/17 18:59 06:59 18:59 Intake Total 2950 / 2950 1400 / 1400 Output Total 30 / 30 Balance 2920 / 2920 1400 / 1400 Weight 124.9 kg 123.7 kg Intake: IV 2350 / 2350 1400 / 1400 NS Inj 1,000 ML @ 100 mls/hr IV 2000 / 2000 1000 / 1000 .CONT .Q10H [facility] Rx#:[id number] Zosyn 3.375 GM Premix 50 ML @ 100 / 100 150 / 150 100 mls/hr IV.SIG Q6H [facility] Rx#: [id number] Vancomycin Inj 1,000 MG In NS 250 / 250 250 / 250 Inj 250 ML @ 250 mls/hr IV.SIG Q12H [facility] Rx#:[id number] Anesthesia Amount 600 / 600 Output: Estimated Blood Loss 30 / 30 Other: # Voids 3 Date of Last Bowel Movement 12/21/17 Physical Exam: L foot wrapped with surgical dressing good strength Laboratory Results - last 24 hr 12/22/17 12/22/17 12/22/17 06:59 06:59 11:01 WBC 6.5 RBC 3.94 L Hgb 11.1 L Hct 32.5 L MCV 82.5 MCH 28.1 MCHC 34.1 RDW 12.8 Plt Count 223 MPV 8.8 Neut % (Auto) 66.3 Lymph % (Auto) 21.2 [place] % (Auto) 7.5 Eos % (Auto) 4.7 H Baso % (Auto) 0.3 Neut # (Auto) 4.3 Lymph # (Auto) 1.4 [place] # (Auto) 0.5 Eos # (Auto) 0.3 Baso # (Auto) 0.0 WBC Differential . Differential Comment Auto diff final Sodium 141 Potassium 4.0 Chloride 105 Carbon Dioxide 28.2 Anion Gap 8 BUN 11 Creatinine 0.99 Estimated GFR 84 L POC Glucose 109 Random Glucose 102 Calcium 8.6 Total Bilirubin AST ALT Alkaline Phosphatase Total Protein Albumin 12/22/17 12/22/17 12/22/17 14:15 18:08 20:26 WBC RBC Hgb Hct MCV MCH MCHC RDW Plt Count MPV Neut % (Auto) Lymph % (Auto) [place] % (Auto) Eos % (Auto) Baso % (Auto) Neut # (Auto) Lymph # (Auto) [place] # (Auto) Eos # (Auto) Baso # (Auto) WBC Differential Differential Comment Sodium Potassium Chloride Carbon Dioxide Anion Gap BUN Creatinine Estimated GFR POC Glucose 103 109 109 Random Glucose Calcium Total Bilirubin AST ALT Alkaline Phosphatase Total Protein Albumin 12/22/17 12/22/17 12/23/17 20:34 20:34 07:21 WBC 7.5 RBC 3.98 L Hgb 11.1 L Hct 32.8 L MCV 82.3 MCH 28.0 MCHC 34.0 RDW 12.8 Plt Count 240 MPV 8.5 Neut % (Auto) 66.2 Lymph % (Auto) 21.6 [place] % (Auto) 7.8 Eos % (Auto) 4.0 Baso % (Auto) 0.4 Neut # (Auto) 5.0 Lymph # (Auto) 1.6 [place] # (Auto) 0.6 Eos # (Auto) 0.3 Baso # (Auto) 0.0 WBC Differential . Differential Comment Auto diff final Sodium 141 Potassium 4.2 Chloride 105 Carbon Dioxide 26.0 Anion Gap 10 BUN 11 Creatinine 0.89 Estimated GFR Greater than 89 POC Glucose 132 H Random Glucose 99 Calcium 8.8 Total Bilirubin 0.6 AST 19 ALT 28 Alkaline Phosphatase 79 Total Protein 6.8 D Albumin 3.2 L Microbiology 12/19/17 16:35 Aerobic Blood Culture - Preliminary Blood - Peripheral No growth in 3 days Anaerobic Blood Culture - Preliminary No growth in 3 days 12/19/17 16:50 Aerobic Blood Culture - Preliminary Blood - Peripheral No growth in 3 days Anaerobic Blood Culture - Preliminary No growth in 3 days Impressions Extremity Arterial Study 12/20/17 00:00 CONCLUSION: 1. Unable to occlude the vessels of the ankle level bilaterally therefore preventing calculation of the CAROLA. This could relate to calcified atherosclerotic plaque. 2. Reduction of the left toe brachial index. This could either relate to microangiopathic disease or could relate to more central disease. Inability to calculate CAROLA prevents differentiation. CTA with runoff could be used to further assess if needed. Assessment and Plan - Assessment (1) Diabetic foot infection Code(s): E11.628 - Type 2 diabetes mellitus with other skin complications; L08.9 - Local infection of the skin and subcutaneous tissue, unspecified Status: Acute - Plan 42 yo male with diabetic foot infection and decent perfusion by angiography Wednesday s/p toe amputation Will arrange f/u in vascular surgery clinic in 3-4 weeks with ABIs clear for discharge from vascular standpoint Brian Melo MD FACS PRVI head batcher [facility] - Heart and Vascular Surgery at [facility] [phone]
[2017-12-23] MEDS: Vancomycin Inj 1,000 MG in Sodium Chlor 0.9% Inj 250 ML IV.SIG SCH ×2 (08:06→20:39)
[2017-12-23] MEDS: Insulin Detemir Inj 1,000 UNIT/10 ML Vial SQ SCH ×2 (08:07→21:23)
[2017-12-23] MEDS: Lisinopril 20 MG Tablet PO SCH (08:07)
[2017-12-23] MEDS: Gabapentin 400 MG Capsule PO SCH ×2 (08:07→20:39)
[2017-12-23] MEDS: Pregabalin 75 MG Capsule PO SCH ×2 (08:07→20:39)
[2017-12-23] MEDS: Senna/Docusate Sodium 8.6/50 MG Tablet PO SCH ×2 (08:08→22:38)
--- NOTE | 2017-12-23 12:38 | P.PN ---
Subjective Interval history: Left foot PVD, left 3rd digit gangrene. Patient s/p surgery. no acute issue. 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 Physical Exam Vital signs: Vital Signs 12/22/17 16:34 12/22/17 18:36 12/22/17 20:00 Temperature 98.1 F 97.9 F Pulse Rate 71 87 Respiratory Rate 16 16 18 Blood Pressure 116/75 167/92 H Pulse Oximetry 92 L 99 12/23/17 00:00 12/23/17 04:00 12/23/17 08:00 Temperature 97.8 F 97.9 F 97.9 F Pulse Rate 75 80 77 Respiratory Rate 18 18 20 Blood Pressure 126/86 150/90 H 119/56 L Pulse Oximetry 98 100 99 12/23/17 08:03 12/23/17 08:23 12/23/17 12:21 Temperature Pulse Rate Respiratory Rate 16 16 16 Blood Pressure Pulse Oximetry Intake & Output 12/22/17 12/23/17 12/23/17 18:59 06:59 18:59 Intake Total 2950 / 2950 1400 / 1400 300 / 300 Output Total 30 / 30 Balance 2920 / 2920 1400 / 1400 300 / 300 Weight 124.9 kg 123.7 kg Intake: IV 2350 / 2350 1400 / 1400 300 / 300 NS Inj 1,000 ML @ 100 mls/hr IV 2000 / 2000 1000 / 1000 .CONT .Q10H [facility] Rx#:[id number] Zosyn 3.375 GM Premix 50 ML @ 100 / 100 150 / 150 50 / 50 100 mls/hr IV.SIG Q6H [facility] Rx#: [id number] Vancomycin Inj 1,000 MG In NS 250 / 250 250 / 250 250 / 250 Inj 250 ML @ 250 mls/hr IV.SIG Q12H [facility] Rx#:[id number] Anesthesia Amount 600 / 600 Output: Estimated Blood Loss 30 / 30 Other: # Voids 3 Date of Last Bowel Movement 12/21/17 12/22/17 - Constitutional no acute distress - Routine HEENT Exam Head: Present: normocephalic, atraumatic Eye: Present: EOMI, PERRL ENT: Present: mucous membranes moist - Routine Neck Exam Present: supple, full ROM - Routine Respiratory Exam Present: CTA bilaterally - Routine Cardiovascular Exam Present: RRR, S1, S2 - Routine Abdominal Exam Present: soft, normoactive bowel sounds - Routine Extremities Exam Comments: Left foot PVD, left 3rd digit gangrene. ..s/p amputation. - Routine Skin Exam Present: dry, warm, wounds Comments: Left foot PVD, left 3rd digit gangrene. ..s/p amputation. wound after amputation. - Routine Neurological Exam Present: alert, oriented X3, CN II-XII intact, moving all extremities, normal speech - Detailed Neurological Exam: Coma Scale Eye Opening: Spontaneous Verbal Response: Oriented Motor Response: Obey commands Ag Coma Scale Total: 15 - Routine Psychiatric Exam Present: normal affect, normal thought process, good judgment Results - Labs CBC & Chem 7: 12/23/17 13:00 12/23/17 13:00 Laboratory Results - last 24 hr 12/22/17 12/22/17 12/22/17 14:15 18:08 20:26 WBC RBC Hgb Hct MCV MCH MCHC RDW Plt Count MPV Neut % (Auto) Lymph % (Auto) [place] % (Auto) Eos % (Auto) Baso % (Auto) Neut # (Auto) Lymph # (Auto) [place] # (Auto) Eos # (Auto) Baso # (Auto) WBC Differential Differential Comment Sodium Potassium Chloride Carbon Dioxide Anion Gap BUN Creatinine Estimated GFR POC Glucose 103 109 109 Random Glucose Calcium Total Bilirubin AST ALT Alkaline Phosphatase Total Protein Albumin 12/22/17 12/22/17 12/23/17 20:34 20:34 07:21 WBC 7.5 RBC 3.98 L Hgb 11.1 L Hct 32.8 L MCV 82.3 MCH 28.0 MCHC 34.0 RDW 12.8 Plt Count 240 MPV 8.5 Neut % (Auto) 66.2 Lymph % (Auto) 21.6 [place] % (Auto) 7.8 Eos % (Auto) 4.0 Baso % (Auto) 0.4 Neut # (Auto) 5.0 Lymph # (Auto) 1.6 [place] # (Auto) 0.6 Eos # (Auto) 0.3 Baso # (Auto) 0.0 WBC Differential . Differential Comment Auto diff final Sodium 141 Potassium 4.2 Chloride 105 Carbon Dioxide 26.0 Anion Gap 10 BUN 11 Creatinine 0.89 Estimated GFR Greater than 89 POC Glucose 132 H Random Glucose 99 Calcium 8.8 Total Bilirubin 0.6 AST 19 ALT 28 Alkaline Phosphatase 79 Total Protein 6.8 D Albumin 3.2 L 12/23/17 11:25 WBC RBC Hgb Hct MCV MCH MCHC RDW Plt Count MPV Neut % (Auto) Lymph % (Auto) [place] % (Auto) Eos % (Auto) Baso % (Auto) Neut # (Auto) Lymph # (Auto) [place] # (Auto) Eos # (Auto) Baso # (Auto) WBC Differential Differential Comment Sodium Potassium Chloride Carbon Dioxide Anion Gap BUN Creatinine Estimated GFR POC Glucose 148 H Random Glucose Calcium Total Bilirubin AST ALT Alkaline Phosphatase Total Protein Albumin Microbiology 12/19/17 16:35 Blood - Peripheral Aerobic Blood Culture - Preliminary No growth in 4 days 12/19/17 16:35 Blood - Peripheral Anaerobic Blood Culture - Preliminary No growth in 4 days 12/19/17 16:50 Blood - Peripheral Aerobic Blood Culture - Preliminary No growth in 4 days 12/19/17 16:50 Blood - Peripheral Anaerobic Blood Culture - Preliminary No growth in 4 days 12/22/17 15:53 Wound - Toe Gram Stain - Final 12/22/17 15:53 Wound - Toe Fungal Smear - Final No fungal elements seen Assessment and Plan - Plan Assessment and Plan - Plan Mr. Cano is a 42 yo M with PMH DM and recent osteomyelitis who presents with L 3rd toe discoloration Left 3rd toe gangrene, recent osteomyelitis .. s/p Amputation. Impression: L 3rd toe concerning for ischemia/gangrene S/P 4 weeks treatment with Vancomycin/Ciprofloxacin per patient for Left great toe osteomyelitis. ESR ~70 on admission. MRI of left foot not suggestive of osteomyelitis WBC 13.1 on admission but afebrile with stable appearance -Will attempt to obtain [place] and ID (Dr. Chua) records and ID input noted. -Blood culture negative -on empiric antibiotic treatment -Vancomycin IV with pharmacy consult -Zosyn - vascular surgery input noted. -CAROLA's,glucose/A1C, Podiatry input noted going for surgery today. -aortogram w/ LLE angiogram performed. Patent inline aorto-iliac, fempop vessels. AT patent to foot. PT diminutive but patent. + pedal arch -Podiatry input noted. -Continue pain control with PRN Percocet and Morphine -on Percocet pain scale PRN for pain as opioid tolerant from chronic back pain Surgical evaluation Impression: Patient without active coronary or pulmonary disease; EKG, CBC, CMP reassuring. Despite poor vascularization of lower extremities and prior uncontrolled DM, sugars now well controlled w/ A1C 6.6. METs difficult due to foot infection but no concerns -Patient should be at low risk for surgical complications; cleared medically for surgery tomorrow DM Impression: BG in mid 100's on admission.A1C 6.6 -Novolog sliding scale -Levemir 10U BID -Continue Gabapentin and Lyrica for neuropathic pain HTN Impression: Currently normotensive -Continue Lisinopril DVT PPX - bilateral SCD's; Code Status: Full code check CBC with diff and CMP in AM. 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
[2017-12-23 13:51] LABS: Baso % (Auto) 0.3 % (0.0-2.0); Eos # (Auto) 0.3 th/mm3 (0.0-0.4); Eos % (Auto) 4.7 % (0.0-4.0); Hematocrit 30.7 % (39.0-51.0); Hemoglobin 10.6 gm/dL (13.0-17.0); Lymph # (Auto) 1.6 th/mm3 (1.0-4.8); Lymph % (Auto) 24.9 % (9.0-44.0); Mean Corpuscular HGB Conc 34.6 % (32.0-36.0); Mean Corpuscular Hemoglobin 28.5 pg (27.0-34.0); Mean Corpuscular Volume 82.4 fL (80.0-100.0); Mean Platelet Volume 8.5 fL (7.0-11.0); Mono # (Auto) 0.6 th/mm3 (0.0-0.9); Mono % (Auto) 8.6 % (0.0-8.0); Neut # (Auto) 3.9 th/mm3 (1.8-7.7); Neut % (Auto) 61.5 % (16.0-70.0); Platelet Count 232 th/mm3 (150-450); Red Blood Count 3.73 mil/mm3 (4.50-5.90); Red Cell Distribution Width 12.9 % (11.6-17.2); White Blood Count 6.4 th/mm3 (4.0-11.0)
[2017-12-23 14:17] LABS: Alanine Aminotransferase 27 U/L (12-78); Albumin 3.2 g/dL (3.4-5.0); Anion Gap 8 meq/L (5-15); Aspartate Aminotransferase 14 U/L (15-37); Blood Urea Nitrogen 10 mg/dL (7-18); Calcium 8.9 mg/dL (8.5-10.1); Carbon Dioxide 29.9 meq/L (21.0-32.0); Chloride 104 meq/L (98-107); Glomerular Filtration Rate 85 mL/min (>89); Glucose,Random 125 mg/dL (74-106); Potassium 3.6 meq/L (3.5-5.1); Sodium 142 meq/L (136-145)
[2017-12-23 14:20] LABS: Alkaline Phosphatase 76 U/L (45-117); Total Protein 6.7 g/dL (6.4-8.2)
[2017-12-23] MEDS: traZODone 50 MG Tablet PO SCH (20:39)
--- NOTE | 2017-12-23 22:08 | P.PNPOD ---
Subjective Interval history: s/p L #3 amputation 12/22/17 [facility] Review of Systems All other systems reviewed negative except as stated in HPI Physical Exam Vital signs: Vital Signs 12/23/17 00:00 12/23/17 04:00 12/23/17 08:00 Temperature 97.8 F 97.9 F 97.9 F Pulse Rate 75 80 77 Respiratory Rate 18 18 20 Blood Pressure 126/86 150/90 H 119/56 L Pulse Oximetry 98 100 99 12/23/17 08:03 12/23/17 08:23 12/23/17 12:00 Temperature 97.8 F Pulse Rate 77 Respiratory Rate 16 16 20 Blood Pressure 119/57 L Pulse Oximetry 98 12/23/17 12:21 12/23/17 16:00 12/23/17 16:58 Temperature 98 F Pulse Rate 78 Respiratory Rate 16 20 16 Blood Pressure 120/60 Pulse Oximetry 98 12/23/17 17:38 12/23/17 20:00 Temperature 98.0 F Pulse Rate 79 Respiratory Rate 16 18 Blood Pressure 140/90 Pulse Oximetry 98 Intake & Output 12/23/17 12/23/17 12/24/17 06:59 18:59 06:59 Intake Total 1400 / 1400 1780 / 1780 50 / 50 Output Total 5 / 5 Balance 1400 / 1400 1775 / 1775 50 / 50 Weight 123.7 kg Intake: IV 1400 / 1400 1300 / 1300 50 / 50 NS Inj 1,000 ML @ 100 mls/hr IV 1000 / 1000 1000 / 1000 .CONT .Q10H [facility] Rx#:[id number] Zosyn 3.375 GM Premix 50 ML @ 150 / 150 50 / 50 50 / 50 100 mls/hr IV.SIG Q6H [facility] Rx#: [id number] Vancomycin Inj 1,000 MG In NS 250 / 250 250 / 250 Inj 250 ML @ 250 mls/hr IV.SIG Q12H [facility] Rx#:[id number] Oral 480 / 480 Output: Urine 3 / 3 Stool 2 / 2 Other: # Voids 3 Date of Last Bowel Movement 12/23/17 Medications and Allergies Active Medications: Active Medications Acetaminophen (Tylenol) 650 mg PO Q4H PRN PRN Reason: Temp > 100.4 Al Hydroxide/Mg Hydroxide (Milk Of Magnesia Liq) 30 ml PO Q12H PRN PRN Reason: Mild Constipation Dextrose (D50w Vial) 50 ml IV.PUSH UNSCH PRN PRN Reason: PER HYPOGLYCEMIA PROTOCOL Gabapentin (Neurontin) 800 mg PO BID [facility] Last Admin: 12/23/17 20:39 Dose: 800 mg Glucagon (Glucagon Inj) 1 mg OTHER PRN PRN PRN Reason: for Hypoglycemia Protocol Heparin Sodium (Porcine) (Heparin Inj) 5,000 units SQ Q8HR [facility] Last Admin: 12/21/17 14:07 Dose: Not Given Sodium Chloride (Ns Inj) 1,000 mls @ 100 mls/hr IV.CONT .Q10H [facility] Last Admin: 12/23/17 14:34 Dose: 100 mls/hr Vancomycin HCl 1,000 mg/ (Sodium Chloride) 250 mls @ 250 mls/hr IV.SIG Q12H [facility] Last Admin: 12/23/17 20:39 Dose: 250 mls/hr Piperacillin/Tazobactam/Dextrose (Zosyn 3.375 Gm Premix) 50 mls @ 100 mls/hr IV.SIG Q6H [facility] Last Infusion: 12/23/17 19:32 Dose: Infused Sodium Chloride (Ns Inj) 500 mls @ 30 mls/hr IV.SIG .Q10H [facility] Insulin Aspart (Novolog Insulin Correctional Sugar Inj) 0 unit SQ ACHS [facility]; Protocol Last Admin: 12/23/17 17:15 Dose: 3 unit Insulin Detemir (Levemir Inj) 10 unit SQ BID [facility] Last Admin: 12/23/17 21:23 Dose: 10 unit Lisinopril (Prinivil) 20 mg PO DAILY [facility] Last Admin: 12/23/17 08:07 Dose: 20 mg Morphine Sulfate (Morphine Inj) 2 mg IV.PUSH Q4H PRN PRN Reason: BREAKTHROUGH PAIN Last Admin: 12/23/17 20:40 Dose: 2 mg Ondansetron HCl (Zofran Inj) 4 mg IV.PUSH Q6H PRN PRN Reason: NAUSEA OR VOMITING Oxycodone/Acetaminophen (Percocet 5/325 Mg) 1 tab PO Q6H PRN PRN Reason: PAIN SCALE 4 TO 6 MODERATE Oxycodone/Acetaminophen (Percocet 5/325 Mg) 2 tab PO Q6H PRN PRN Reason: PAIN SCALE 7 TO 10 SEVERE Last Admin: 12/23/17 15:25 Dose: 2 tab Pregabalin (Lyrica) 75 mg PO BID [facility] Last Admin: 12/23/17 20:39 Dose: 75 mg Senna/Docusate Sodium (Adriana-Colace) 1 tab PO BID [facility] Last Admin: 12/23/17 08:08 Dose: Not Given Sodium Chloride (Ns Flush) 2 ml IV.FLUSH BID [facility] Last Admin: 12/23/17 08:07 Dose: Not Given Sodium Chloride (Ns Flush) 2 ml IV.FLUSH PRN PRN PRN Reason: FLUSH AFTER USING IV ACCESS Trazodone HCl (Desyrel) 50 mg PO [facility] Last Admin: 12/23/17 20:39 Dose: 50 mg Allergies Allergy/AdvReac Type Severity Reaction Status Date / Time No Known Allergies Allergy Unverified 12/19/17 23:04 Home Medications Medication Instructions Recorded Confirmed Type gabapentin 800 mg PO BID 12/19/17 12/19/17 History hydrocodone-acetaminophen [Peridot] 1 tab PO Q6H PRN 12/19/17 12/19/17 History insulin aspart U-100 [Novolog See Label Instructions .ROUTE 12/19/17 12/19/17 History Flexpen U-100 Insulin] .COMPLEX insulin detemir U-100 [Levemir 25 unit SUB-Q BID 12/19/17 12/19/17 History U-100 Insulin] lisinopril 20 mg PO DAILY 12/19/17 12/19/17 History pregabalin [Lyrica] 75 mg PO BID 12/19/17 12/19/17 History trazodone 50 mg PO DAILY 12/19/17 12/19/17 History Results - Labs CBC & Chem 7: 12/23/17 13:00 12/23/17 13:00 Laboratory Results - last 24 hr 12/23/17 12/23/17 12/23/17 07:21 11:25 13:00 WBC 6.4 RBC 3.73 L Hgb 10.6 L Hct 30.7 L MCV 82.4 MCH 28.5 MCHC 34.6 RDW 12.9 Plt Count 232 MPV 8.5 Neut % (Auto) 61.5 Lymph % (Auto) 24.9 [place] % (Auto) 8.6 H Eos % (Auto) 4.7 H Baso % (Auto) 0.3 Neut # (Auto) 3.9 Lymph # (Auto) 1.6 [place] # (Auto) 0.6 Eos # (Auto) 0.3 Baso # (Auto) 0.0 WBC Differential . Differential Comment Auto diff final Sodium Potassium Chloride Carbon Dioxide Anion Gap BUN Creatinine Estimated GFR POC Glucose 132 H 148 H Random Glucose Calcium Total Bilirubin AST ALT Alkaline Phosphatase Total Protein Albumin 12/23/17 12/23/17 12/23/17 13:00 16:44 21:16 WBC RBC Hgb Hct MCV MCH MCHC RDW Plt Count MPV Neut % (Auto) Lymph % (Auto) [place] % (Auto) Eos % (Auto) Baso % (Auto) Neut # (Auto) Lymph # (Auto) [place] # (Auto) Eos # (Auto) Baso # (Auto) WBC Differential Differential Comment Sodium 142 Potassium 3.6 Chloride 104 Carbon Dioxide 29.9 Anion Gap 8 BUN 10 Creatinine 0.98 Estimated GFR 85 L POC Glucose 222 H 138 H Random Glucose 125 H Calcium 8.9 Total Bilirubin 0.4 AST 14 L ALT 27 Alkaline Phosphatase 76 Total Protein 6.7 Albumin 3.2 L Microbiology 12/22/17 15:53 Wound - Toe Gram Stain - Final 12/22/17 15:53 Wound - Toe Wound Culture - Preliminary gram negative rods 12/19/17 16:35 Blood - Peripheral Aerobic Blood Culture - Preliminary No growth in 4 days 12/19/17 16:35 Blood - Peripheral Anaerobic Blood Culture - Preliminary No growth in 4 days 12/19/17 16:50 Blood - Peripheral Aerobic Blood Culture - Preliminary No growth in 4 days 12/19/17 16:50 Blood - Peripheral Anaerobic Blood Culture - Preliminary No growth in 4 days 12/22/17 15:53 Wound - Toe Fungal Smear - Final No fungal elements seen Assessment and Plan - Assessment (1) Gangrene Code(s): I96 - Gangrene, not elsewhere classified Status: Acute (2) Diabetic foot infection Code(s): E11.628 - Type 2 diabetes mellitus with other skin complications; L08.9 - Local infection of the skin and subcutaneous tissue, unspecified Status: Acute - Plan Plan to change bandage tomorrow Awaiting pathology
[2017-12-24] MEDS: Morphine Inj 4 MG/ML Vial IV.PUSH PRN ×5 (00:45→20:29)
[2017-12-24] MEDS: Sod Chloride 0.9% Inj 1,000 ML IV.CONT SCH ×3 (03:00→20:49)
[2017-12-24] MEDS: Piperacil/Tazo 3.375 GM Premix 50 ML IV.SIG SCH ×4 (04:14→23:37)
--- NOTE | 2017-12-24 07:50 | P.PN ---
Subjective Interval history: Left foot PVD, left 3rd digit gangrene. Patient s/p surgery. no acute issue. 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 Physical Exam Vital signs: Vital Signs 12/23/17 08:00 12/23/17 08:03 12/23/17 08:23 Temperature 97.9 F Pulse Rate 77 Respiratory Rate 20 16 16 Blood Pressure 119/56 L Pulse Oximetry 99 12/23/17 12:00 12/23/17 12:21 12/23/17 16:00 Temperature 97.8 F 98 F Pulse Rate 77 78 Respiratory Rate 20 16 20 Blood Pressure 119/57 L 120/60 Pulse Oximetry 98 98 12/23/17 16:58 12/23/17 17:38 12/23/17 20:00 Temperature 98.0 F Pulse Rate 79 Respiratory Rate 16 16 18 Blood Pressure 140/90 Pulse Oximetry 98 12/24/17 00:00 12/24/17 04:00 12/24/17 05:04 Temperature 98.1 F 97.8 F Pulse Rate 87 77 Respiratory Rate 18 18 Blood Pressure 121/70 164/101 H 151/94 H Pulse Oximetry 97 98 Intake & Output 12/23/17 12/24/17 12/24/17 18:59 06:59 18:59 Intake Total 1780 / 1780 1400 / 1400 Output Total 5 / 5 Balance 1775 / 1775 1400 / 1400 Weight 123.7 kg Intake: IV 1300 / 1300 1400 / 1400 NS Inj 1,000 ML @ 100 mls/hr IV 1000 / 1000 1000 / 1000 .CONT .Q10H [facility] Rx#:[id number] Zosyn 3.375 GM Premix 50 ML @ 50 / 50 150 / 150 100 mls/hr IV.SIG Q6H [facility] Rx#: [id number] Vancomycin Inj 1,000 MG In NS 250 / 250 250 / 250 Inj 250 ML @ 250 mls/hr IV.SIG Q12H [facility] Rx#:[id number] Oral 480 / 480 Output: Urine 3 / 3 Stool 2 / 2 Other: # Voids 2 Date of Last Bowel Movement 12/23/17 12/22/17 - Constitutional no acute distress - Routine HEENT Exam Head: Present: normocephalic, atraumatic Eye: Present: EOMI, PERRL ENT: Present: mucous membranes moist - Routine Neck Exam Present: supple, full ROM - Routine Respiratory Exam Present: CTA bilaterally - Routine Cardiovascular Exam Present: RRR, S1, S2 - Routine Abdominal Exam Present: soft, normoactive bowel sounds - Routine Extremities Exam Present: full ROM Comments: Left foot PVD, left 3rd digit gangrene. Patient s/p surgery. - Routine Skin Exam Present: wounds Comments: Left foot PVD, left 3rd digit gangrene. Patient s/p surgery...wound after surgery. - Routine Neurological Exam Present: alert, oriented X3, CN II-XII intact, normal speech - Detailed Neurological Exam: Coma Scale Eye Opening: Spontaneous Verbal Response: Oriented Motor Response: Obey commands Ag Coma Scale Total: 15 - Routine Psychiatric Exam Present: normal affect, normal thought process, good judgment Results - Labs CBC & Chem 7: 12/24/17 09:28 12/24/17 09:28 Laboratory Results - last 24 hr 12/23/17 12/23/17 12/23/17 11:25 13:00 13:00 WBC 6.4 RBC 3.73 L Hgb 10.6 L Hct 30.7 L MCV 82.4 MCH 28.5 MCHC 34.6 RDW 12.9 Plt Count 232 MPV 8.5 Neut % (Auto) 61.5 Lymph % (Auto) 24.9 [place] % (Auto) 8.6 H Eos % (Auto) 4.7 H Baso % (Auto) 0.3 Neut # (Auto) 3.9 Lymph # (Auto) 1.6 [place] # (Auto) 0.6 Eos # (Auto) 0.3 Baso # (Auto) 0.0 WBC Differential . Differential Comment Auto diff final Sodium 142 Potassium 3.6 Chloride 104 Carbon Dioxide 29.9 Anion Gap 8 BUN 10 Creatinine 0.98 Estimated GFR 85 L POC Glucose 148 H Random Glucose 125 H Calcium 8.9 Total Bilirubin 0.4 AST 14 L ALT 27 Alkaline Phosphatase 76 Total Protein 6.7 Albumin 3.2 L 12/23/17 12/23/17 16:44 21:16 WBC RBC Hgb Hct MCV MCH MCHC RDW Plt Count MPV Neut % (Auto) Lymph % (Auto) [place] % (Auto) Eos % (Auto) Baso % (Auto) Neut # (Auto) Lymph # (Auto) [place] # (Auto) Eos # (Auto) Baso # (Auto) WBC Differential Differential Comment Sodium Potassium Chloride Carbon Dioxide Anion Gap BUN Creatinine Estimated GFR POC Glucose 222 H 138 H Random Glucose Calcium Total Bilirubin AST ALT Alkaline Phosphatase Total Protein Albumin Microbiology 12/22/17 15:53 Wound - Toe Gram Stain - Final 12/22/17 15:53 Wound - Toe Wound Culture - Preliminary gram negative rods 12/19/17 16:35 Blood - Peripheral Aerobic Blood Culture - Preliminary No growth in 4 days 12/19/17 16:35 Blood - Peripheral Anaerobic Blood Culture - Preliminary No growth in 4 days 12/19/17 16:50 Blood - Peripheral Aerobic Blood Culture - Preliminary No growth in 4 days 12/19/17 16:50 Blood - Peripheral Anaerobic Blood Culture - Preliminary No growth in 4 days 12/22/17 15:53 Wound - Toe Fungal Smear - Final No fungal elements seen Assessment and Plan - Plan Assessment and Plan - Plan Mr. Cano is a 42 yo M with PMH DM and recent osteomyelitis who presents with L 3rd toe discoloration Left 3rd toe gangrene, recent osteomyelitis .. s/p Amputation. Impression: L 3rd toe concerning for ischemia/gangrene S/P 4 weeks treatment with Vancomycin/Ciprofloxacin per patient for Left great toe osteomyelitis. ESR ~70 on admission. MRI of left foot not suggestive of osteomyelitis WBC 13.1 on admission but afebrile with stable appearance - ID input noted. -Blood culture negative -on empiric antibiotic treatment -Vancomycin IV with pharmacy consult -Yasmin - vascular surgery input noted. -CAROLA's,glucose/A1C, Podiatry input noted going for surgery today. -aortogram w/ LLE angiogram performed. Patent inline aorto-iliac, fempop vessels. AT patent to foot. PT diminutive but patent. + pedal arch -Podiatry input noted. -Continue pain control with PRN Percocet and Morphine -on Percocet pain scale PRN for pain as opioid tolerant from chronic back pain Surgical evaluation Impression: Patient without active coronary or pulmonary disease; EKG, CBC, CMP reassuring. Despite poor vascularization of lower extremities and prior uncontrolled DM, sugars now well controlled w/ A1C 6.6. METs difficult due to foot infection but no concerns -Patient should be at low risk for surgical complications; cleared medically for surgery tomorrow DM Impression: BG in mid 100's on admission.A1C 6.6 -Novolog sliding scale -Levemir 10U BID -Continue Gabapentin and Lyrica for neuropathic pain HTN Impression: Currently normotensive -Continue Lisinopril DVT PPX - bilateral SCD's; Code Status: Full code check CBC with diff and CMP in AM. 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
[2017-12-24] MEDS: Vancomycin Inj 1,000 MG in Sodium Chlor 0.9% Inj 250 ML IV.SIG SCH ×2 (08:53→20:32)
[2017-12-24] MEDS: Gabapentin 400 MG Capsule PO SCH ×2 (08:54→20:32)
[2017-12-24] MEDS: Pregabalin 75 MG Capsule PO SCH ×2 (08:54→20:33)
[2017-12-24] MEDS: Senna/Docusate Sodium 8.6/50 MG Tablet PO SCH ×2 (08:54→20:34)
[2017-12-24] MEDS: Lisinopril 20 MG Tablet PO SCH (08:54)
[2017-12-24 10:20] LABS: Baso % (Auto) 0.5 % (0.0-2.0); Eos # (Auto) 0.3 th/mm3 (0.0-0.4); Eos % (Auto) 4.7 % (0.0-4.0); Hematocrit 35.4 % (39.0-51.0); Hemoglobin 12.1 gm/dL (13.0-17.0); Lymph # (Auto) 2.3 th/mm3 (1.0-4.8); Lymph % (Auto) 32.2 % (9.0-44.0); Mean Corpuscular HGB Conc 34.3 % (32.0-36.0); Mean Corpuscular Volume 81.8 fL (80.0-100.0); Mean Platelet Volume 8.6 fL (7.0-11.0); Mono # (Auto) 0.5 th/mm3 (0.0-0.9); Mono % (Auto) 6.8 % (0.0-8.0); Neut % (Auto) 55.8 % (16.0-70.0); Platelet Count 272 th/mm3 (150-450); Red Blood Count 4.32 mil/mm3 (4.50-5.90); Red Cell Distribution Width 12.8 % (11.6-17.2); White Blood Count 7.2 th/mm3 (4.0-11.0)
[2017-12-24 10:50] LABS: Albumin 3.7 g/dL (3.4-5.0); Anion Gap 7 meq/L (5-15); Aspartate Aminotransferase 18 U/L (15-37); Blood Urea Nitrogen 9 mg/dL (7-18); Calcium 9.1 mg/dL (8.5-10.1); Carbon Dioxide 27.9 meq/L (21.0-32.0); Chloride 105 meq/L (98-107); Glomerular Filtration Rate Greater Than 89 mL/min (>89); Glucose,Random 94 mg/dL (74-106); Potassium 3.8 meq/L (3.5-5.1); Sodium 140 meq/L (136-145)
[2017-12-24 10:55] LABS: Alanine Aminotransferase 33 U/L (12-78); Alkaline Phosphatase 88 U/L (45-117); Total Protein 7.8 g/dL (6.4-8.2)
[2017-12-24] MEDS: Insulin Detemir Inj 1,000 UNIT/10 ML Vial SQ SCH ×2 (13:08→20:48)
[2017-12-24] MEDS: Insulin NovoLOG Aspart Correctional Sugar Inj SQ SCH ×3 (19:52→20:48)
--- NOTE | 2017-12-24 19:59 | P.PNID ---
Subjective Allergies/Adverse Reactions: Allergies No Known Allergies Allergy (Unverified 12/19/17 23:04) Objective Vital Signs 12/23/17 20:00 12/24/17 00:00 12/24/17 04:00 Temperature 98.0 F 98.1 F 97.8 F Pulse Rate 79 87 77 Respiratory Rate 18 18 18 Blood Pressure 140/90 121/70 164/101 H Pulse Oximetry 98 97 98 12/24/17 05:04 12/24/17 08:00 12/24/17 12:00 Temperature 97.6 F 98.1 F Pulse Rate 68 74 Respiratory Rate 18 18 Blood Pressure 151/94 H 132/63 120/67 Pulse Oximetry 97 97 12/24/17 15:48 12/24/17 19:54 12/24/17 19:55 Temperature 97.4 F L Pulse Rate 75 Respiratory Rate 18 18 18 Blood Pressure 126/64 Pulse Oximetry 98 Intake & Output 12/24/17 12/24/17 12/25/17 06:59 18:59 06:59 Intake Total 1400 / 1400 1530 / 1530 50 / 50 Balance 1400 / 1400 1530 / 1530 50 / 50 Weight 123.7 kg Intake: IV 1400 / 1400 1050 / 1050 50 / 50 NS Inj 1,000 ML @ 100 mls/hr IV 1000 / 1000 1000 / 1000 .CONT .Q10H [facility] Rx#:[id number] Zosyn 3.375 GM Premix 50 ML @ 150 / 150 50 / 50 50 / 50 100 mls/hr IV.SIG Q6H [facility] Rx#: [id number] Vancomycin Inj 1,000 MG In NS 250 / 250 Inj 250 ML @ 250 mls/hr IV.SIG Q12H [facility] Rx#:[id number] Oral 480 / 480 Other: # Voids 2 3 Date of Last Bowel Movement 12/22/17 12/23/17 12/22/17 15:53 Wound - Toe Acid Fast Bacilli Smear - Final No acid fast bacilli seen 12/22/17 15:53 Wound - Toe Mycobacterial Culture - Pending 12/19/17 16:35 Blood - Peripheral Aerobic Blood Culture - Final No growth in 5 days 12/19/17 16:35 Blood - Peripheral Anaerobic Blood Culture - Final No growth in 5 days 12/19/17 16:50 Blood - Peripheral Aerobic Blood Culture - Final No growth in 5 days 12/19/17 16:50 Blood - Peripheral Anaerobic Blood Culture - Final No growth in 5 days 12/22/17 15:53 Wound - Toe Gram Stain - Final 12/22/17 15:53 Wound - Toe Wound Culture - Preliminary Proteus mirabilis Group D Enterococcus 12/22/17 15:53 Wound - Toe Fungal Smear - Final No fungal elements seen 12/22/17 15:53 Wound - Toe Fungal Culture - Pending Lab - Hematology Results 12/22/17 12/23/17 12/24/17 20:34 13:00 09:28 WBC 7.5 6.4 7.2 RBC 3.98 L 3.73 L 4.32 L Hgb 11.1 L 10.6 L 12.1 L Hct 32.8 L 30.7 L 35.4 L MCV 82.3 82.4 81.8 MCH 28.0 28.5 28.0 MCHC 34.0 34.6 34.3 RDW 12.8 12.9 12.8 Plt Count 240 232 272 MPV 8.5 8.5 8.6 Neut % (Auto) 66.2 61.5 55.8 Lymph % (Auto) 21.6 24.9 32.2 [place] % (Auto) 7.8 8.6 H 6.8 Eos % (Auto) 4.0 4.7 H 4.7 H Baso % (Auto) 0.4 0.3 0.5 Neut # (Auto) 5.0 3.9 4.0 Lymph # (Auto) 1.6 1.6 2.3 [place] # (Auto) 0.6 0.6 0.5 Eos # (Auto) 0.3 0.3 0.3 Baso # (Auto) 0.0 0.0 0.0 WBC Differential . . . Differential Comment Auto diff final Auto diff final Auto diff final Lab - Chemistry Results 12/22/17 12/22/17 12/23/17 20:26 20:34 07:21 Sodium 141 Potassium 4.2 Chloride 105 Carbon Dioxide 26.0 Anion Gap 10 BUN 11 Creatinine 0.89 Estimated GFR Greater than 89 POC Glucose 109 132 H Random Glucose 99 Calcium 8.8 Total Bilirubin 0.6 AST 19 ALT 28 Alkaline Phosphatase 79 Total Protein 6.8 D Albumin 3.2 L 12/23/17 12/23/17 12/23/17 11:25 13:00 16:44 Sodium 142 Potassium 3.6 Chloride 104 Carbon Dioxide 29.9 Anion Gap 8 BUN 10 Creatinine 0.98 Estimated GFR 85 L POC Glucose 148 H 222 H Random Glucose 125 H Calcium 8.9 Total Bilirubin 0.4 AST 14 L ALT 27 Alkaline Phosphatase 76 Total Protein 6.7 Albumin 3.2 L 12/23/17 12/24/17 12/24/17 21:16 08:57 09:28 Sodium 140 Potassium 3.8 Chloride 105 Carbon Dioxide 27.9 Anion Gap 7 BUN 9 Creatinine 0.93 Estimated GFR Greater than 89 POC Glucose 138 H 93 Random Glucose 94 Calcium 9.1 Total Bilirubin 0.4 AST 18 ALT 33 Alkaline Phosphatase 88 Total Protein 7.8 D Albumin 3.7 12/24/17 12/24/17 12:27 16:34 Sodium Potassium Chloride Carbon Dioxide Anion Gap BUN Creatinine Estimated GFR POC Glucose 98 162 H Random Glucose Calcium Total Bilirubin AST ALT Alkaline Phosphatase Total Protein Albumin Imaging: ITS Impressions Foot MRI 12/19/17 16:01 CONCLUSION: 1. Significant arthritic changes of the first interphalangeal joint and the second digit is unremarkable without signs of osteomyelitis. 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 Extremity Arterial Study 12/20/17 00:00 CONCLUSION: 1. Unable to occlude the vessels of the ankle level bilaterally therefore preventing calculation of the CAROLA. This could relate to calcified atherosclerotic plaque. 2. Reduction of the left toe brachial index. This could either relate to microangiopathic disease or could relate to more central disease. Inability to calculate CAROLA prevents differentiation. CTA with runoff could be used to further assess if needed.
[2017-12-24] MEDS: traZODone 50 MG Tablet PO SCH (20:33)
--- NOTE | 2017-12-24 20:44 | P.PNPOD ---
Subjective Interval history: s/p L 3rd toe amputation Dr Spence Physical Exam Vital signs: Vital Signs 12/24/17 00:00 12/24/17 04:00 12/24/17 05:04 Temperature 98.1 F 97.8 F Pulse Rate 87 77 Respiratory Rate 18 18 Blood Pressure 121/70 164/101 H 151/94 H Pulse Oximetry 97 98 12/24/17 08:00 12/24/17 12:00 12/24/17 15:48 Temperature 97.6 F 98.1 F 97.4 F L Pulse Rate 68 74 75 Respiratory Rate 18 18 Blood Pressure 132/63 120/67 126/64 Pulse Oximetry 97 97 98 12/24/17 19:54 12/24/17 19:55 12/24/17 20:00 Temperature 97.9 F Pulse Rate 74 Respiratory Rate 18 18 Blood Pressure 139/97 H Pulse Oximetry 98 Intake & Output 12/24/17 12/24/17 12/25/17 06:59 18:59 06:59 Intake Total 1400 / 1400 1530 / 1530 50 / 50 Balance 1400 / 1400 1530 / 1530 50 / 50 Weight 123.7 kg Intake: IV 1400 / 1400 1050 / 1050 50 / 50 NS Inj 1,000 ML @ 100 mls/hr IV 1000 / 1000 1000 / 1000 .CONT .Q10H [facility] Rx#:[id number] Zosyn 3.375 GM Premix 50 ML @ 150 / 150 50 / 50 50 / 50 100 mls/hr IV.SIG Q6H [facility] Rx#: [id number] Vancomycin Inj 1,000 MG In NS 250 / 250 Inj 250 ML @ 250 mls/hr IV.SIG Q12H [facility] Rx#:[id number] Oral 480 / 480 Other: # Voids 2 3 Date of Last Bowel Movement 12/22/17 12/23/17 Narrative: left foot 3rd toe amputation site with sutures in place. Viable tissue with reduced erythema. No purulence. Shallow ulceration to plantar 3rd metatarsal head area. Stable appearance. No probe to bone. Medications and Allergies Active Medications: Active Medications Acetaminophen (Tylenol) 650 mg PO Q4H PRN PRN Reason: Temp > 100.4 Al Hydroxide/Mg Hydroxide (Milk Of Magnesia Liq) 30 ml PO Q12H PRN PRN Reason: Mild Constipation Dextrose (D50w Vial) 50 ml IV.PUSH UNSCH PRN PRN Reason: PER HYPOGLYCEMIA PROTOCOL Gabapentin (Neurontin) 800 mg PO BID COUNTS INCLUDE 234 BEDS AT THE [facility] Last Admin: 12/24/17 08:54 Dose: 800 mg Glucagon (Glucagon Inj) 1 mg OTHER PRN PRN PRN Reason: for Hypoglycemia Protocol Heparin Sodium (Porcine) (Heparin Inj) 5,000 units SQ Q8HR COUNTS INCLUDE 234 BEDS AT THE [facility] Last Admin: 12/21/17 14:07 Dose: Not Given Sodium Chloride (Ns Inj) 1,000 mls @ 100 mls/hr IV.CONT .Q10H COUNTS INCLUDE 234 BEDS AT THE [facility] Last Admin: 12/24/17 16:36 Dose: 100 mls/hr Vancomycin HCl 1,000 mg/ (Sodium Chloride) 250 mls @ 250 mls/hr IV.SIG Q12H COUNTS INCLUDE 234 BEDS AT THE [facility] Last Infusion: 12/24/17 19:55 Dose: 250 mls/hr Piperacillin/Tazobactam/Dextrose (Zosyn 3.375 Gm Premix) 50 mls @ 100 mls/hr IV.SIG Q6H COUNTS INCLUDE 234 BEDS AT THE [facility] Last Infusion: 12/24/17 19:57 Dose: Infused Sodium Chloride (Ns Inj) 500 mls @ 30 mls/hr IV.SIG .Q10H COUNTS INCLUDE 234 BEDS AT THE [facility] Last Admin: 12/24/17 06:36 Dose: Not Given Insulin Aspart (Novolog Insulin Correctional Sugar Inj) 0 unit SQ ACHS COUNTS INCLUDE 234 BEDS AT THE [facility]; Protocol Last Admin: 12/24/17 19:54 Dose: Not Given Insulin Detemir (Levemir Inj) 10 unit SQ BID COUNTS INCLUDE 234 BEDS AT THE [facility] Last Admin: 12/24/17 13:08 Dose: 10 unit Lisinopril (Prinivil) 20 mg PO DAILY COUNTS INCLUDE 234 BEDS AT THE [facility] Last Admin: 12/24/17 08:54 Dose: 20 mg Morphine Sulfate (Morphine Inj) 2 mg IV.PUSH Q4H PRN PRN Reason: BREAKTHROUGH PAIN Last Admin: 12/24/17 16:08 Dose: 2 mg Ondansetron HCl (Zofran Inj) 4 mg IV.PUSH Q6H PRN PRN Reason: NAUSEA OR VOMITING Oxycodone/Acetaminophen (Percocet 5/325 Mg) 1 tab PO Q6H PRN PRN Reason: PAIN SCALE 4 TO 6 MODERATE Oxycodone/Acetaminophen (Percocet 5/325 Mg) 2 tab PO Q6H PRN PRN Reason: PAIN SCALE 7 TO 10 SEVERE Last Admin: 09/07/18 18:04 Dose: 2 tab Pregabalin (Lyrica) 75 mg PO BID COUNTS INCLUDE 234 BEDS AT THE [facility] Last Admin: 12/24/17 08:54 Dose: 75 mg Senna/Docusate Sodium (Adriana-Colace) 1 tab PO BID COUNTS INCLUDE 234 BEDS AT THE [facility] Last Admin: 12/24/17 08:54 Dose: 1 tab Sodium Chloride (Ns Flush) 2 ml IV.FLUSH BID COUNTS INCLUDE 234 BEDS AT THE [facility] Last Admin: 12/24/17 19:55 Dose: Not Given Sodium Chloride (Ns Flush) 2 ml IV.FLUSH PRN PRN PRN Reason: FLUSH AFTER USING IV ACCESS Last Admin: 12/24/17 16:13 Dose: 2 ml Trazodone HCl (Desyrel) 50 mg PO HS COUNTS INCLUDE 234 BEDS AT THE [facility] Last Admin: 12/23/17 20:39 Dose: 50 mg Allergies Allergy/AdvReac Type Severity Reaction Status Date / Time No Known Allergies Allergy Unverified 12/19/17 23:04 Home Medications Medication Instructions Recorded Confirmed Type gabapentin 800 mg PO BID 12/19/17 12/19/17 History hydrocodone-acetaminophen [[place]] 1 tab PO Q6H PRN 12/19/17 12/19/17 History insulin aspart U-100 [Novolog See Label Instructions .ROUTE 12/19/17 12/19/17 History Flexpen U-100 Insulin] .COMPLEX insulin detemir U-100 [Levemir 25 unit SUB-Q BID 12/19/17 12/19/17 History U-100 Insulin] lisinopril 20 mg PO DAILY 12/19/17 12/19/17 History pregabalin [Lyrica] 75 mg PO BID 12/19/17 12/19/17 History trazodone 50 mg PO DAILY 12/19/17 12/19/17 History Results - Labs CBC & Chem 7: 12/24/17 09:28 12/24/17 09:28 Laboratory Results - last 24 hr 12/23/17 12/24/17 12/24/17 21:16 08:57 09:28 WBC 7.2 RBC 4.32 L Hgb 12.1 L Hct 35.4 L MCV 81.8 MCH 28.0 MCHC 34.3 RDW 12.8 Plt Count 272 MPV 8.6 Neut % (Auto) 55.8 Lymph % (Auto) 32.2 [place] % (Auto) 6.8 Eos % (Auto) 4.7 H Baso % (Auto) 0.5 Neut # (Auto) 4.0 Lymph # (Auto) 2.3 [place] # (Auto) 0.5 Eos # (Auto) 0.3 Baso # (Auto) 0.0 WBC Differential . Differential Comment Auto diff final Sodium Potassium Chloride Carbon Dioxide Anion Gap BUN Creatinine Estimated GFR POC Glucose 138 H 93 Random Glucose Calcium Total Bilirubin AST ALT Alkaline Phosphatase Total Protein Albumin 12/24/17 12/24/17 12/24/17 09:28 12:27 16:34 WBC RBC Hgb Hct MCV MCH MCHC RDW Plt Count MPV Neut % (Auto) Lymph % (Auto) [place] % (Auto) Eos % (Auto) Baso % (Auto) Neut # (Auto) Lymph # (Auto) [place] # (Auto) Eos # (Auto) Baso # (Auto) WBC Differential Differential Comment Sodium 140 Potassium 3.8 Chloride 105 Carbon Dioxide 27.9 Anion Gap 7 BUN 9 Creatinine 0.93 Estimated GFR Greater than 89 POC Glucose 98 162 H Random Glucose 94 Calcium 9.1 Total Bilirubin 0.4 AST 18 ALT 33 Alkaline Phosphatase 88 Total Protein 7.8 D Albumin 3.7 12/24/17 20:37 WBC RBC Hgb Hct MCV MCH MCHC RDW Plt Count MPV Neut % (Auto) Lymph % (Auto) [place] % (Auto) Eos % (Auto) Baso % (Auto) Neut # (Auto) Lymph # (Auto) [place] # (Auto) Eos # (Auto) Baso # (Auto) WBC Differential Differential Comment Sodium Potassium Chloride Carbon Dioxide Anion Gap BUN Creatinine Estimated GFR POC Glucose 159 H Random Glucose Calcium Total Bilirubin AST ALT Alkaline Phosphatase Total Protein Albumin Microbiology 12/22/17 15:53 Wound - Toe Acid Fast Bacilli Smear - Final No acid fast bacilli seen 12/19/17 16:35 Blood - Peripheral Aerobic Blood Culture - Final No growth in 5 days 12/19/17 16:35 Blood - Peripheral Anaerobic Blood Culture - Final No growth in 5 days 12/19/17 16:50 Blood - Peripheral Aerobic Blood Culture - Final No growth in 5 days 12/19/17 16:50 Blood - Peripheral Anaerobic Blood Culture - Final No growth in 5 days 12/22/17 15:53 Wound - Toe Gram Stain - Final 12/22/17 15:53 Wound - Toe Wound Culture - Preliminary Proteus mirabilis Group D Enterococcus Assessment and Plan - Assessment (1) Gangrene Code(s): I96 - Gangrene, not elsewhere classified Status: Acute (2) Diabetic foot infection Code(s): E11.628 - Type 2 diabetes mellitus with other skin complications; L08.9 - Local infection of the skin and subcutaneous tissue, unspecified Status: Acute - Plan Changed bandage today Pathology back and confirmed toe had osteomyelitis, but per Dr Spence's operative report, remaining tissue was viable and infected tissue was removed. Surgical wound stable Clear for discharge from podiatry perspective on 2 weeks oral broad spectrum antibiotics Keep current bandage clean, dry, intact. Ambulate on heel only in surgical shoe Follow up with Dr Spence in 1 week after discharge for further wound evaluation /bandage change
--- NOTE | 2017-12-24 23:46 | P.PNID ---
Subjective Remarks: sp L third toe amputation Culture + for proteus, Enterococcus Antibiotics: vanco zosyn Allergies/Adverse Reactions: Allergies No Known Allergies Allergy (Unverified 12/19/17 23:04) Objective Vital Signs 12/24/17 00:00 12/24/17 04:00 12/24/17 05:04 Temperature 98.1 F 97.8 F Pulse Rate 87 77 Respiratory Rate 18 18 Blood Pressure 121/70 164/101 H 151/94 H Pulse Oximetry 97 98 12/24/17 08:00 12/24/17 12:00 12/24/17 15:48 Temperature 97.6 F 98.1 F 97.4 F L Pulse Rate 68 74 75 Respiratory Rate 18 18 18 Blood Pressure 132/63 120/67 126/64 Pulse Oximetry 97 97 98 12/24/17 19:54 12/24/17 19:55 12/24/17 20:00 Temperature 97.9 F Pulse Rate 74 Respiratory Rate 18 18 18 Blood Pressure 139/97 H Pulse Oximetry 98 Intake & Output 12/24/17 12/24/17 12/25/17 06:59 18:59 06:59 Intake Total 1400 / 1400 1530 / 1530 50 / 50 Balance 1400 / 1400 1530 / 1530 50 / 50 Weight 123.7 kg Intake: IV 1400 / 1400 1050 / 1050 50 / 50 NS Inj 1,000 ML @ 100 mls/hr IV 1000 / 1000 1000 / 1000 .CONT .Q10H [facility] Rx#:[id number] Zosyn 3.375 GM Premix 50 ML @ 150 / 150 50 / 50 50 / 50 100 mls/hr IV.SIG Q6H [facility] Rx#: [id number] Vancomycin Inj 1,000 MG In NS 250 / 250 Inj 250 ML @ 250 mls/hr IV.SIG Q12H [facility] Rx#:[id number] Oral 480 / 480 Other: # Voids 2 3 Date of Last Bowel Movement 12/22/17 12/23/17 12/24/17 12/22/17 15:53 Wound - Toe Acid Fast Bacilli Smear - Final No acid fast bacilli seen 12/22/17 15:53 Wound - Toe Mycobacterial Culture - Pending 12/19/17 16:35 Blood - Peripheral Aerobic Blood Culture - Final No growth in 5 days 12/19/17 16:35 Blood - Peripheral Anaerobic Blood Culture - Final No growth in 5 days 12/19/17 16:50 Blood - Peripheral Aerobic Blood Culture - Final No growth in 5 days 12/19/17 16:50 Blood - Peripheral Anaerobic Blood Culture - Final No growth in 5 days 12/22/17 15:53 Wound - Toe Gram Stain - Final 12/22/17 15:53 Wound - Toe Wound Culture - Preliminary Proteus mirabilis Group D Enterococcus 12/22/17 15:53 Wound - Toe Fungal Smear - Final No fungal elements seen 12/22/17 15:53 Wound - Toe Fungal Culture - Pending Lab - Hematology Results 12/23/17 12/24/17 13:00 09:28 WBC 6.4 7.2 RBC 3.73 L 4.32 L Hgb 10.6 L 12.1 L Hct 30.7 L 35.4 L MCV 82.4 81.8 MCH 28.5 28.0 MCHC 34.6 34.3 RDW 12.9 12.8 Plt Count 232 272 MPV 8.5 8.6 Neut % (Auto) 61.5 55.8 Lymph % (Auto) 24.9 32.2 [place] % (Auto) 8.6 H 6.8 Eos % (Auto) 4.7 H 4.7 H Baso % (Auto) 0.3 0.5 Neut # (Auto) 3.9 4.0 Lymph # (Auto) 1.6 2.3 [place] # (Auto) 0.6 0.5 Eos # (Auto) 0.3 0.3 Baso # (Auto) 0.0 0.0 WBC Differential . . Differential Comment Auto diff final Auto diff final Lab - Chemistry Results 12/23/17 12/23/17 12/23/17 07:21 11:25 13:00 Sodium 142 Potassium 3.6 Chloride 104 Carbon Dioxide 29.9 Anion Gap 8 BUN 10 Creatinine 0.98 Estimated GFR 85 L POC Glucose 132 H 148 H Random Glucose 125 H Calcium 8.9 Total Bilirubin 0.4 AST 14 L ALT 27 Alkaline Phosphatase 76 Total Protein 6.7 Albumin 3.2 L 12/23/17 12/23/17 12/24/17 16:44 21:16 08:57 Sodium Potassium Chloride Carbon Dioxide Anion Gap BUN Creatinine Estimated GFR POC Glucose 222 H 138 H 93 Random Glucose Calcium Total Bilirubin AST ALT Alkaline Phosphatase Total Protein Albumin 12/24/17 12/24/17 12/24/17 09:28 12:27 16:34 Sodium 140 Potassium 3.8 Chloride 105 Carbon Dioxide 27.9 Anion Gap 7 BUN 9 Creatinine 0.93 Estimated GFR Greater than 89 POC Glucose 98 162 H Random Glucose 94 Calcium 9.1 Total Bilirubin 0.4 AST 18 ALT 33 Alkaline Phosphatase 88 Total Protein 7.8 D Albumin 3.7 12/24/17 20:37 Sodium Potassium Chloride Carbon Dioxide Anion Gap BUN Creatinine Estimated GFR POC Glucose 159 H Random Glucose Calcium Total Bilirubin AST ALT Alkaline Phosphatase Total Protein Albumin Imaging: ITS Impressions Foot MRI 12/19/17 16:01 CONCLUSION: 1. Significant arthritic changes of the first interphalangeal joint and the second digit is unremarkable without signs of osteomyelitis. 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 Extremity Arterial Study 12/20/17 00:00 CONCLUSION: 1. Unable to occlude the vessels of the ankle level bilaterally therefore preventing calculation of the CAROLA. This could relate to calcified atherosclerotic plaque. 2. Reduction of the left toe brachial index. This could either relate to microangiopathic disease or could relate to more central disease. Inability to calculate CAROLA prevents differentiation. CTA with runoff could be used to further assess if needed. Physical Exam: GENERAL: SKIN: Warm and dry. No rash HEAD: Normocephalic. EYES: No scleral icterus. No injection or drainage. NECK: Supple, trachea midline. No JVD or lymphadenopathy. RESPIRATORY: Breathing unlaboured GASTROINTESTINAL: Abdomen soft, non-tender, nondistended. MUSCULOSKELETAL: No cyanosis, or edema. L foot dressing in place Assessment and Plan - Plan DFI L 3 rd digit H/o L hallux osteo: clinically and radiologically resolved Dry gangrene - suspect undelying vascular disease morbid obesity DM Leukocuytosis change zosyn to Unasyn cont vanco for now
[2017-12-25] MEDS: Morphine Inj 4 MG/ML Vial IV.PUSH PRN ×6 (01:13→21:05)
[2017-12-25] MEDS: Ampicillin/Sulbactam Inj 3 GM in Sodium Chloride 0.9% Inj 100 ML IV.SIG SCH ×5 (01:14→23:52)
[2017-12-25] MEDS: Sod Chloride 0.9% Inj 1,000 ML IV.CONT SCH ×3 (05:24→18:24)
[2017-12-25] MEDS: Gabapentin 400 MG Capsule PO SCH ×2 (10:07→20:58)
[2017-12-25] MEDS: Lisinopril 20 MG Tablet PO SCH (10:07)
[2017-12-25] MEDS: Pregabalin 75 MG Capsule PO SCH ×2 (10:07→20:58)
[2017-12-25] MEDS: Senna/Docusate Sodium 8.6/50 MG Tablet PO SCH ×2 (10:08→23:55)
[2017-12-25] MEDS: Vancomycin Inj 1,000 MG in Sodium Chlor 0.9% Inj 250 ML IV.SIG SCH (10:08)
[2017-12-25] MEDS: Insulin Detemir Inj 1,000 UNIT/10 ML Vial SQ SCH ×2 (10:13→20:59)
[2017-12-25] MEDS: Insulin NovoLOG Aspart Correctional Sugar Inj SQ SCH ×4 (10:13→20:59)
--- NOTE | 2017-12-25 10:29 | P.PN ---
Subjective Interval history: Patient same no acute issue discussed with Patient and RN at bed side about patient condition diagnosis and plan of care. Physical Exam Vital signs: Vital Signs 12/24/17 12:00 12/24/17 15:48 12/24/17 19:54 Temperature 98.1 F 97.4 F L Pulse Rate 74 75 Respiratory Rate 18 18 18 Blood Pressure 120/67 126/64 Pulse Oximetry 97 98 12/24/17 19:55 12/24/17 20:00 12/25/17 00:00 Temperature 97.9 F 98.1 F Pulse Rate 74 70 Respiratory Rate 18 18 18 Blood Pressure 139/97 H 145/73 H Pulse Oximetry 98 99 12/25/17 04:00 12/25/17 07:22 12/25/17 08:00 Temperature 97.9 F 98.0 F Pulse Rate 67 74 Respiratory Rate 18 18 18 Blood Pressure 148/70 H 131/63 Pulse Oximetry 95 96 Intake & Output 12/24/17 12/25/17 12/25/17 18:59 06:59 18:59 Intake Total 1530 / 1530 1500 / 1500 50 / 50 Balance 1530 / 1530 1500 / 1500 50 / 50 Weight 125.1 kg Intake: IV 1050 / 1050 1500 / 1500 50 / 50 NS Inj 1,000 ML @ 100 mls/hr IV 1000 / 1000 1000 / 1000 .CONT .Q10H [facility] Rx#:[id number] Unasyn Inj 3 GM In NS Inj 100 200 / 200 ML @ 200 mls/hr IV.SIG Q6H [facility] Rx#:[id number] Zosyn 3.375 GM Premix 50 ML @ 50 / 50 50 / 50 50 / 50 100 mls/hr IV.SIG Q6H [facility] Rx#: [id number] Vancomycin Inj 1,000 MG In NS 250 / 250 Inj 250 ML @ 250 mls/hr IV.SIG Q12H [facility] Rx#:[id number] Oral 480 / 480 Other: # Voids 3 3 Date of Last Bowel Movement 12/23/17 12/24/17 - Constitutional no acute distress - Routine HEENT Exam Head: Present: normocephalic, atraumatic Eye: Present: EOMI, PERRL ENT: Present: mucous membranes moist - Routine Neck Exam Present: supple, full ROM - Routine Respiratory Exam Present: CTA bilaterally - Routine Cardiovascular Exam Present: RRR, S1, S2 - Routine Abdominal Exam Present: soft, normoactive bowel sounds - Routine Extremities Exam Comments: Left 3rd toe amputation wound. - Routine Skin Exam Present: dry, warm, wounds Comments: Left 3rd toe amputation wound. - Routine Neurological Exam Present: alert, oriented X3, CN II-XII intact, normal speech - Detailed Neurological Exam: Coma Scale Eye Opening: Spontaneous Verbal Response: Oriented Motor Response: Obey commands Ag Coma Scale Total: 15 - Routine Psychiatric Exam Present: normal affect, normal thought process, good judgment Results - Labs CBC & Chem 7: 12/24/17 09:28 12/24/17 09:28 Laboratory Results - last 24 hr 12/24/17 12/24/17 12/24/17 09:28 12:27 16:34 Sodium 140 Potassium 3.8 Chloride 105 Carbon Dioxide 27.9 Anion Gap 7 BUN 9 Creatinine 0.93 Estimated GFR Greater than 89 POC Glucose 98 162 H Random Glucose 94 Calcium 9.1 Total Bilirubin 0.4 AST 18 ALT 33 Alkaline Phosphatase 88 Total Protein 7.8 D Albumin 3.7 12/24/17 12/25/17 20:37 07:45 Sodium Potassium Chloride Carbon Dioxide Anion Gap BUN Creatinine Estimated GFR POC Glucose 159 H 107 Random Glucose Calcium Total Bilirubin AST ALT Alkaline Phosphatase Total Protein Albumin Microbiology 12/22/17 15:53 Wound - Toe Acid Fast Bacilli Smear - Final No acid fast bacilli seen 12/19/17 16:35 Blood - Peripheral Aerobic Blood Culture - Final No growth in 5 days 12/19/17 16:35 Blood - Peripheral Anaerobic Blood Culture - Final No growth in 5 days 12/19/17 16:50 Blood - Peripheral Aerobic Blood Culture - Final No growth in 5 days 12/19/17 16:50 Blood - Peripheral Anaerobic Blood Culture - Final No growth in 5 days 12/22/17 15:53 Wound - Toe Gram Stain - Final 12/22/17 15:53 Wound - Toe Wound Culture - Preliminary Proteus mirabilis Group D Enterococcus Assessment and Plan - Plan Assessment and Plan - Plan Mr. Cano is a 42 yo M with PMH DM and recent osteomyelitis who presents with L 3rd toe discoloration Left 3rd toe gangrene, recent osteomyelitis .. s/p Amputation. Impression: L 3rd toe concerning for ischemia/gangrene S/P 4 weeks treatment with Vancomycin/ciprofloxacin per patient for Left great toe osteomyelitis. ESR ~70 on admission. MRI of left foot not suggestive of osteomyelitis WBC 13.1 on admission but afebrile with stable appearance. - ID input noted. -Blood culture negative. -on empiric antibiotic treatment. -Vancomycin IV with pharmacy monitoring. -Unasyn. - vascular surgery input noted. -CAROLA's,glucose/A1C, Podiatry input noted going for surgery today. -aortogram w/ LLE angiogram performed. Patent inline aorto-iliac, fempop vessels. AT patent to foot. PT diminutive but patent. + pedal arch -Podiatry input noted. Chronic back pain. -Continue pain control with PRN Percocet and Morphine -on Percocet pain scale PRN for pain as opioid tolerant from chronic back pain. DM Impression: blood glucose monitoring...HgA1C 6.6 -Novolog sliding scale -Levemir 10 Units BID -Continue Gabapentin and Lyrica for neuropathic pain HTN -Continue Lisinopril DVT PPX - bilateral SCD's; Code Status: Full code check CBC with diff and CMP in AM. Discharge plan when ok with [employer] senior [employer] and Infectious disease.
--- NOTE | 2017-12-25 15:01 | P.PNPOD ---
Physical Exam Vital signs: Vital Signs 12/24/17 15:48 12/24/17 19:54 12/24/17 19:55 Temperature 97.4 F L Pulse Rate 75 Respiratory Rate 18 Blood Pressure 126/64 Pulse Oximetry 98 12/24/17 20:00 12/25/17 00:00 12/25/17 04:00 Temperature 97.9 F 98.1 F 97.9 F Pulse Rate 74 70 67 Respiratory Rate 18 18 18 Blood Pressure 139/97 H 145/73 H 148/70 H Pulse Oximetry 98 99 95 12/25/17 07:22 12/25/17 08:00 12/25/17 12:00 Temperature 98.0 F 97.8 F Pulse Rate 74 69 Respiratory Rate 18 18 14 Blood Pressure 131/63 154/70 H Pulse Oximetry 96 98 Intake & Output 12/24/17 12/25/17 12/25/17 18:59 06:59 18:59 Intake Total 1530 / 1530 1500 / 1500 400 / 400 Balance 1530 / 1530 1500 / 1500 400 / 400 Weight 125.1 kg Intake: IV 1050 / 1050 1500 / 1500 400 / 400 NS Inj 1,000 ML @ 100 mls/hr IV 1000 / 1000 1000 / 1000 .CONT .Q10H [facility] Rx#:[id number] Unasyn Inj 3 GM In NS Inj 100 200 / 200 100 / 100 ML @ 200 mls/hr IV.SIG Q6H [facility] Rx#:[id number] Zosyn 3.375 GM Premix 50 ML @ 50 / 50 50 / 50 50 / 50 100 mls/hr IV.SIG Q6H [facility] Rx#: [id number] Vancomycin Inj 1,000 MG In NS 250 / 250 250 / 250 Inj 250 ML @ 250 mls/hr IV.SIG Q12H [facility] Rx#:[id number] Oral 480 / 480 Other: # Voids 3 3 Date of Last Bowel Movement 12/23/17 12/24/17 Medications and Allergies Active Medications: Active Medications Acetaminophen (Tylenol) 650 mg PO Q4H PRN PRN Reason: Temp > 100.4 Al Hydroxide/Mg Hydroxide (Milk Of Magnesia Liq) 30 ml PO Q12H PRN PRN Reason: Mild Constipation Dextrose (D50w Vial) 50 ml IV.PUSH UNSCH PRN PRN Reason: PER HYPOGLYCEMIA PROTOCOL Gabapentin (Neurontin) 800 mg PO BID [facility] Last Admin: 12/25/17 10:07 Dose: 800 mg Glucagon (Glucagon Inj) 1 mg OTHER PRN PRN PRN Reason: for Hypoglycemia Protocol Heparin Sodium (Porcine) (Heparin Inj) 5,000 units SQ Q8HR [facility] Last Admin: 12/21/17 14:07 Dose: Not Given Sodium Chloride (Ns Inj) 1,000 mls @ 100 mls/hr IV.CONT .Q10H [facility] Last Admin: 12/25/17 06:41 Dose: Not Given Sodium Chloride (Ns Inj) 500 mls @ 30 mls/hr IV.SIG .Q10H [facility] Last Admin: 12/24/17 06:36 Dose: Not Given Ampicillin Sodium/Sulbactam (Sodium 3 gm/ Sodium Chloride) 100 mls @ 200 mls/ hr IV.SIG Q6H [facility] Last Infusion: 12/25/17 13:32 Dose: Infused Insulin Aspart (Novolog Insulin Correctional Sugar Inj) 0 unit SQ ACHS [facility]; Protocol Last Admin: 12/25/17 11:35 Dose: Not Given Insulin Detemir (Levemir Inj) 10 unit SQ BID [facility] Last Admin: 12/25/17 10:13 Dose: 10 unit Lisinopril (Prinivil) 20 mg PO DAILY [facility] Last Admin: 12/25/17 10:07 Dose: 20 mg Morphine Sulfate (Morphine Inj) 2 mg IV.PUSH Q4H PRN PRN Reason: BREAKTHROUGH PAIN Last Admin: 12/25/17 14:08 Dose: 2 mg Ondansetron HCl (Zofran Inj) 4 mg IV.PUSH Q6H PRN PRN Reason: NAUSEA OR VOMITING Last Admin: 12/25/17 06:40 Dose: 4 mg Oxycodone/Acetaminophen (Percocet 5/325 Mg) 1 tab PO Q6H PRN PRN Reason: PAIN SCALE 4 TO 6 MODERATE Last Admin: 12/25/17 11:33 Dose: 1 tab Oxycodone/Acetaminophen (Percocet 5/325 Mg) 2 tab PO Q6H PRN PRN Reason: PAIN SCALE 7 TO 10 SEVERE Last Admin: 12/25/17 05:23 Dose: 2 tab Pregabalin (Lyrica) 75 mg PO BID [facility] Last Admin: 12/25/17 10:07 Dose: 75 mg Senna/Docusate Sodium (Adriana-Colace) 1 tab PO BID [facility] Last Admin: 12/25/17 10:08 Dose: 1 tab Sodium Chloride (Ns Flush) 2 ml IV.FLUSH BID [facility] Last Admin: 12/25/17 10:14 Dose: Not Given Sodium Chloride (Ns Flush) 2 ml IV.FLUSH PRN PRN PRN Reason: FLUSH AFTER USING IV ACCESS Last Admin: 12/24/17 16:13 Dose: 2 ml Trazodone HCl (Desyrel) 50 mg PO [facility] Last Admin: 12/24/17 20:33 Dose: 50 mg Allergies Allergy/AdvReac Type Severity Reaction Status Date / Time No Known Allergies Allergy Unverified 12/19/17 23:04 Home Medications Medication Instructions Recorded Confirmed Type gabapentin 800 mg PO BID 12/19/17 12/19/17 History hydrocodone-acetaminophen [[place]] 1 tab PO Q6H PRN 12/19/17 12/19/17 History insulin aspart U-100 [Novolog See Label Instructions .ROUTE 12/19/17 12/19/17 History Flexpen U-100 Insulin] .COMPLEX insulin detemir U-100 [Levemir 25 unit SUB-Q BID 12/19/17 12/19/17 History U-100 Insulin] lisinopril 20 mg PO DAILY 12/19/17 12/19/17 History pregabalin [Lyrica] 75 mg PO BID 12/19/17 12/19/17 History trazodone 50 mg PO DAILY 12/19/17 12/19/17 History Results - Labs CBC & Chem 7: 12/24/17 09:28 12/24/17 09:28 Laboratory Results - last 24 hr 12/24/17 12/24/17 12/25/17 16:34 20:37 07:45 POC Glucose 162 H 159 H 107 12/25/17 11:35 POC Glucose 172 H Microbiology 12/22/17 15:53 Wound - Toe Gram Stain - Final 12/22/17 15:53 Wound - Toe Wound Culture - Final Proteus mirabilis Enterococcus faecalis VRE 12/22/17 15:53 Wound - Toe Acid Fast Bacilli Smear - Final No acid fast bacilli seen 12/19/17 16:35 Blood - Peripheral Aerobic Blood Culture - Final No growth in 5 days 12/19/17 16:35 Blood - Peripheral Anaerobic Blood Culture - Final No growth in 5 days 12/19/17 16:50 Blood - Peripheral Aerobic Blood Culture - Final No growth in 5 days 12/19/17 16:50 Blood - Peripheral Anaerobic Blood Culture - Final No growth in 5 days Assessment and Plan - Assessment (1) Gangrene Code(s): I96 - Gangrene, not elsewhere classified Status: Acute (2) Diabetic foot infection Code(s): E11.628 - Type 2 diabetes mellitus with other skin complications; L08.9 - Local infection of the skin and subcutaneous tissue, unspecified Status: Acute - Plan Clear for discharge from podiatry perspective on 2 weeks oral broad spectrum antibiotics Keep current bandage clean, dry, intact. Ambulate on heel only in surgical shoe Follow up with Dr Spence in 1 week after discharge for further wound evaluation /bandage change
--- NOTE | 2017-12-25 15:28 | P.PNID ---
Subjective Remarks: sp L third toe amputation Culture + for proteus,VRE ( S to ampicillin) co diarrhea, 2 liquid BMs this am path was reviewed: LEFT THIRD TOE, GANGRENE OF DISTAL TOE. AREAS OF DISTAL TOE BONE SUSPICIOUS FOR ACUTE OSTEOMYELITIS. THE SOFT TISSUE PROXIMAL RESECTION MARGIN HAS ACUTE INFLAMMATION AND NECROSIS AT THE DEEP PORTION OF THE SPECIMEN. THE PROXIMAL BONE MARGIN OF RESECTION OF THE TOE HAS MARROW ISCHEMIA BUT NO EVIDENCE OF INFLAMMATION. #2- THIRD PROXIMAL PHALANX, LEFT FOOT BONE, BIOPSY: BONE WITH ACUTE OSTEOMYELITIS. Antibiotics: vanco Unasyn Allergies/Adverse Reactions: Allergies No Known Allergies Allergy (Unverified 12/19/17 23:04) Objective Vital Signs 12/24/17 15:48 12/24/17 19:54 12/24/17 19:55 Temperature 97.4 F L Pulse Rate 75 Respiratory Rate 18 18 18 Blood Pressure 126/64 Pulse Oximetry 98 12/24/17 20:00 12/25/17 00:00 12/25/17 04:00 Temperature 97.9 F 98.1 F 97.9 F Pulse Rate 74 70 67 Respiratory Rate 18 18 18 Blood Pressure 139/97 H 145/73 H 148/70 H Pulse Oximetry 98 99 95 12/25/17 07:22 12/25/17 08:00 12/25/17 12:00 Temperature 98.0 F 97.8 F Pulse Rate 74 69 Respiratory Rate 18 18 14 Blood Pressure 131/63 154/70 H Pulse Oximetry 96 98 Intake & Output 12/24/17 12/25/17 12/25/17 18:59 06:59 18:59 Intake Total 1530 / 1530 1500 / 1500 400 / 400 Balance 1530 / 1530 1500 / 1500 400 / 400 Weight 125.1 kg Intake: IV 1050 / 1050 1500 / 1500 400 / 400 NS Inj 1,000 ML @ 100 mls/hr IV 1000 / 1000 1000 / 1000 .CONT .Q10H [facility] Rx#:[id number] Unasyn Inj 3 GM In NS Inj 100 200 / 200 100 / 100 ML @ 200 mls/hr IV.SIG Q6H [facility] Rx#:[id number] Zosyn 3.375 GM Premix 50 ML @ 50 / 50 50 / 50 50 / 50 100 mls/hr IV.SIG Q6H [facility] Rx#: [id number] Vancomycin Inj 1,000 MG In NS 250 / 250 250 / 250 Inj 250 ML @ 250 mls/hr IV.SIG Q12H [facility] Rx#:[id number] Oral 480 / 480 Other: # Voids 3 3 Date of Last Bowel Movement 12/23/17 12/24/17 12/22/17 15:53 Wound - Toe Gram Stain - Final 12/22/17 15:53 Wound - Toe Wound Culture - Final Proteus mirabilis Enterococcus faecalis VRE 12/22/17 15:53 Wound - Toe Acid Fast Bacilli Smear - Final No acid fast bacilli seen 12/22/17 15:53 Wound - Toe Mycobacterial Culture - Pending 12/19/17 16:35 Blood - Peripheral Aerobic Blood Culture - Final No growth in 5 days 12/19/17 16:35 Blood - Peripheral Anaerobic Blood Culture - Final No growth in 5 days 12/19/17 16:50 Blood - Peripheral Aerobic Blood Culture - Final No growth in 5 days 12/19/17 16:50 Blood - Peripheral Anaerobic Blood Culture - Final No growth in 5 days 12/22/17 15:53 Wound - Toe Fungal Smear - Final No fungal elements seen 12/22/17 15:53 Wound - Toe Fungal Culture - Pending Lab - Hematology Results 12/24/17 09:28 WBC 7.2 RBC 4.32 L Hgb 12.1 L Hct 35.4 L MCV 81.8 MCH 28.0 MCHC 34.3 RDW 12.8 Plt Count 272 MPV 8.6 Neut % (Auto) 55.8 Lymph % (Auto) 32.2 Webb % (Auto) 6.8 Eos % (Auto) 4.7 H Baso % (Auto) 0.5 Neut # (Auto) 4.0 Lymph # (Auto) 2.3 Webb # (Auto) 0.5 Eos # (Auto) 0.3 Baso # (Auto) 0.0 WBC Differential . Differential Comment Auto diff final Lab - Chemistry Results 12/23/17 12/23/17 12/24/17 16:44 21:16 08:57 Sodium Potassium Chloride Carbon Dioxide Anion Gap BUN Creatinine Estimated GFR POC Glucose 222 H 138 H 93 Random Glucose Calcium Total Bilirubin AST ALT Alkaline Phosphatase Total Protein Albumin 12/24/17 12/24/17 12/24/17 09:28 12:27 16:34 Sodium 140 Potassium 3.8 Chloride 105 Carbon Dioxide 27.9 Anion Gap 7 BUN 9 Creatinine 0.93 Estimated GFR Greater than 89 POC Glucose 98 162 H Random Glucose 94 Calcium 9.1 Total Bilirubin 0.4 AST 18 ALT 33 Alkaline Phosphatase 88 Total Protein 7.8 D Albumin 3.7 12/24/17 12/25/17 12/25/17 20:37 07:45 11:35 Sodium Potassium Chloride Carbon Dioxide Anion Gap BUN Creatinine Estimated GFR POC Glucose 159 H 107 172 H Random Glucose Calcium Total Bilirubin AST ALT Alkaline Phosphatase Total Protein Albumin Imaging: ITS Impressions Foot MRI 12/19/17 16:01 CONCLUSION: 1. Significant arthritic changes of the first interphalangeal joint and the second digit is unremarkable without signs of osteomyelitis. 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 Extremity Arterial Study 12/20/17 00:00 CONCLUSION: 1. Unable to occlude the vessels of the ankle level bilaterally therefore preventing calculation of the CAROLA. This could relate to calcified atherosclerotic plaque. 2. Reduction of the left toe brachial index. This could either relate to microangiopathic disease or could relate to more central disease. Inability to calculate CAROLA prevents differentiation. CTA with runoff could be used to further assess if needed. Physical Exam: GENERAL: SKIN: Warm and dry. No rash HEAD: Normocephalic. EYES: No scleral icterus. No injection or drainage. NECK: Supple, trachea midline. No JVD or lymphadenopathy. RESPIRATORY: Breathing unlaboured GASTROINTESTINAL: Abdomen soft, non-tender, nondistended. MUSCULOSKELETAL: No cyanosis, or edema. L foot dressing in place with small staining over plantar wound 4 th tow has some discoloration Assessment and Plan - Plan DFI L 3 rd digit: osteomyelitis - sp amputation with bone clear margins, but + soft tissue H/o L hallux osteo: clinically and radiologically resolved Dry gangrene - suspect undelying vascular disease morbid obesity DM Leukocuytosis; resolved cont Unasyn IV for another 1-2 days dc vanco anticipate 2-3 weeks of abx possibnly PO if healing is good clx findings and tx plan were d/w pt, s/o intensively All questions answered to full extent dw Dr Dipti madrid RN
[2017-12-25] MEDS: traZODone 50 MG Tablet PO SCH (20:58)
[2017-12-26] MEDS: Morphine Inj 4 MG/ML Vial IV.PUSH PRN ×4 (02:46→18:33)
[2017-12-26] MEDS: Sod Chloride 0.9% Inj 1,000 ML IV.CONT SCH ×2 (04:35→14:43)
[2017-12-26] MEDS: Ampicillin/Sulbactam Inj 3 GM in Sodium Chloride 0.9% Inj 100 ML IV.SIG SCH ×3 (06:28→18:54)
[2017-12-26] MEDS: Insulin NovoLOG Aspart Correctional Sugar Inj SQ SCH ×4 (09:53→22:30)
[2017-12-26] MEDS: Insulin Detemir Inj 1,000 UNIT/10 ML Vial SQ SCH ×2 (09:54→21:59)
[2017-12-26] MEDS: Gabapentin 400 MG Capsule PO SCH ×2 (09:56→21:58)
[2017-12-26] MEDS: Pregabalin 75 MG Capsule PO SCH ×2 (09:56→21:58)
[2017-12-26] MEDS: Senna/Docusate Sodium 8.6/50 MG Tablet PO SCH ×2 (09:57→22:31)
--- NOTE | 2017-12-26 12:40 | P.PNPOD ---
Physical Exam Vital signs: Vital Signs 12/25/17 16:00 12/25/17 20:00 12/26/17 00:00 Temperature 97.9 F 98 F 98 F Pulse Rate 62 70 64 Respiratory Rate 18 18 Blood Pressure 167/77 H 191/88 H 143/70 H Pulse Oximetry 100 99 98 12/26/17 04:00 12/26/17 08:00 12/26/17 11:52 Temperature 97.4 F L 98 F Pulse Rate 64 65 Respiratory Rate 18 18 20 Blood Pressure 138/69 143/73 H 133/66 Pulse Oximetry 67 L 98 99 Intake & Output 12/25/17 12/26/17 12/26/17 18:59 06:59 18:59 Intake Total 1400 / 1400 1200 / 1200 240 / 240 Balance 1400 / 1400 1200 / 1200 240 / 240 Intake: IV 1400 / 1400 1200 / 1200 NS Inj 1,000 ML @ 100 mls/hr IV 1000 / 1000 1000 / 1000 .CONT .Q10H [facility] Rx#:[id number] Unasyn Inj 3 GM In NS Inj 100 100 / 100 200 / 200 ML @ 200 mls/hr IV.SIG Q6H [facility] Rx#:[id number] Zosyn 3.375 GM Premix 50 ML @ 50 / 50 100 mls/hr IV.SIG Q6H [facility] Rx#: [id number] Vancomycin Inj 1,000 MG In NS 250 / 250 Inj 250 ML @ 250 mls/hr IV.SIG Q12H [facility] Rx#:[id number] Oral 240 / 240 Other: # Voids 2 Date of Last Bowel Movement 12/25/17 Medications and Allergies Active Medications: Active Medications Acetaminophen (Tylenol) 650 mg PO Q4H PRN PRN Reason: Temp > 100.4 Al Hydroxide/Mg Hydroxide (Milk Of Magnesia Liq) 30 ml PO Q12H PRN PRN Reason: Mild Constipation Dextrose (D50w Vial) 50 ml IV.PUSH UNSCH PRN PRN Reason: PER HYPOGLYCEMIA PROTOCOL Gabapentin (Neurontin) 800 mg PO BID [facility] Last Admin: 12/26/17 09:56 Dose: 800 mg Glucagon (Glucagon Inj) 1 mg OTHER PRN PRN PRN Reason: for Hypoglycemia Protocol Heparin Sodium (Porcine) (Heparin Inj) 5,000 units SQ Q8HR [facility] Last Admin: 12/21/17 14:07 Dose: Not Given Sodium Chloride (Ns Inj) 1,000 mls @ 100 mls/hr IV.CONT .Q10H [facility] Last Admin: 12/26/17 04:35 Dose: Not Given Sodium Chloride (Ns Inj) 500 mls @ 30 mls/hr IV.SIG .Q10H [facility] Last Admin: 12/24/17 06:36 Dose: Not Given Ampicillin Sodium/Sulbactam (Sodium 3 gm/ Sodium Chloride) 100 mls @ 200 mls/ hr IV.SIG Q6H [facility] Last Admin: 12/26/17 06:28 Dose: 200 mls/hr Insulin Aspart (Novolog Insulin Correctional Sugar Inj) 0 unit SQ ACHS [facility]; Protocol Last Admin: 12/26/17 09:53 Dose: Not Given Insulin Detemir (Levemir Inj) 10 unit SQ BID [facility] Last Admin: 12/26/17 09:54 Dose: 10 unit Lisinopril (Prinivil) 20 mg PO DAILY [facility] Last Admin: 12/25/17 10:07 Dose: 20 mg Morphine Sulfate (Morphine Inj) 2 mg IV.PUSH Q4H PRN PRN Reason: BREAKTHROUGH PAIN Last Admin: 12/26/17 08:58 Dose: 2 mg Ondansetron HCl (Zofran Inj) 4 mg IV.PUSH Q6H PRN PRN Reason: NAUSEA OR VOMITING Last Admin: 12/25/17 06:40 Dose: 4 mg Oxycodone/Acetaminophen (Percocet 5/325 Mg) 1 tab PO Q6H PRN PRN Reason: PAIN SCALE 4 TO 6 MODERATE Last Admin: 12/25/17 11:33 Dose: 1 tab Oxycodone/Acetaminophen (Percocet 5/325 Mg) 2 tab PO Q6H PRN PRN Reason: PAIN SCALE 7 TO 10 SEVERE Last Admin: 12/26/17 06:27 Dose: 2 tab Pregabalin (Lyrica) 75 mg PO BID [facility] Last Admin: 12/26/17 09:56 Dose: 75 mg Senna/Docusate Sodium (Adriana-Colace) 1 tab PO BID [facility] Last Admin: 12/26/17 09:57 Dose: 1 tab Sodium Chloride (Ns Flush) 2 ml IV.FLUSH BID [facility] Last Admin: 12/25/17 23:55 Dose: Not Given Sodium Chloride (Ns Flush) 2 ml IV.FLUSH PRN PRN PRN Reason: FLUSH AFTER USING IV ACCESS Last Admin: 12/24/17 16:13 Dose: 2 ml Trazodone HCl (Desyrel) 50 mg PO HS [facility] Last Admin: 12/25/17 20:58 Dose: 50 mg Allergies Allergy/AdvReac Type Severity Reaction Status Date / Time No Known Allergies Allergy Unverified 12/19/17 23:04 Home Medications Medication Instructions Recorded Confirmed Type gabapentin 800 mg PO BID 12/19/17 12/19/17 History hydrocodone-acetaminophen [[place]] 1 tab PO Q6H PRN 12/19/17 12/19/17 History insulin aspart U-100 [Novolog See Label Instructions .ROUTE 12/19/17 12/19/17 History Flexpen U-100 Insulin] .COMPLEX insulin detemir U-100 [Levemir 25 unit SUB-Q BID 12/19/17 12/19/17 History U-100 Insulin] lisinopril 20 mg PO DAILY 12/19/17 12/19/17 History pregabalin [Lyrica] 75 mg PO BID 12/19/17 12/19/17 History trazodone 50 mg PO DAILY 12/19/17 12/19/17 History Results - Labs CBC & Chem 7: 12/24/17 09:28 12/24/17 09:28 Laboratory Results - last 24 hr 12/25/17 12/25/17 12/26/17 18:15 20:36 09:48 POC Glucose 132 H 218 H 141 H Microbiology 12/22/17 15:53 Wound - Toe Gram Stain - Final 12/22/17 15:53 Wound - Toe Wound Culture - Final Proteus mirabilis Enterococcus faecalis VRE Assessment and Plan - Assessment (1) Gangrene Code(s): I96 - Gangrene, not elsewhere classified Status: Acute (2) Diabetic foot infection Code(s): E11.628 - Type 2 diabetes mellitus with other skin complications; L08.9 - Local infection of the skin and subcutaneous tissue, unspecified Status: Acute - Plan Clear for discharge from podiatry perspective on IV per ID recommendations Recommend daily dressing changes with betadine to incision line and nonadherent dressing with 4x4 between toes, abd pad to plantar foot and anterior ankle, cling, eder left foot daily per nursing while in house and to continue upon discharge. Ambulate on heel only in surgical shoe Follow up with Dr Spence in 1 week after discharge for further wound evaluation /bandage change
[2017-12-26] MEDS: Lisinopril 20 MG Tablet PO SCH (14:44)
--- NOTE | 2017-12-26 20:06 | P.PN ---
Subjective Interval history: Left 3rd toe gangrene, recent osteomyelitis .. s/p Amputation. Patine need 6 week IV Antibiotic Physical Exam Vital signs: Vital Signs 12/26/17 00:00 12/26/17 04:00 12/26/17 08:00 Temperature 98 F 97.4 F L Pulse Rate 64 64 Respiratory Rate 18 18 Blood Pressure 143/70 H 138/69 143/73 H Pulse Oximetry 98 67 L 98 12/26/17 11:52 12/26/17 16:00 Temperature 98 F 98.1 F Pulse Rate 65 79 Respiratory Rate 20 18 Blood Pressure 133/66 136/64 Pulse Oximetry 99 96 Intake & Output 12/26/17 12/26/17 12/27/17 06:59 18:59 06:59 Intake Total 1200 / 1200 720 / 720 Balance 1200 / 1200 720 / 720 Intake: IV 1200 / 1200 0 / 0 NS Inj 1,000 ML @ 100 mls/hr IV 1000 / 1000 .CONT .Q10H [facility] Rx#:[id number] Unasyn Inj 3 GM In NS Inj 100 200 / 200 0 / 0 ML @ 200 mls/hr IV.SIG Q6H [facility] Rx#:[id number] Oral 720 / 720 Other: # Voids 2 Date of Last Bowel Movement 12/25/17 # Bowel Movements 1 - Constitutional no acute distress - Routine HEENT Exam Head: Present: normocephalic, atraumatic Eye: Present: EOMI, PERRL ENT: Present: mucous membranes moist - Routine Neck Exam Present: supple, full ROM - Routine Respiratory Exam Present: CTA bilaterally - Routine Cardiovascular Exam Present: RRR, S1, S2 - Routine Abdominal Exam Present: soft, normoactive bowel sounds - Routine Extremities Exam Comments: Left 3rd toe gangrene, recent osteomyelitis .. s/p Amputation. wound at amputation area. - Routine Skin Exam Present: dry, warm Comments: Left 3rd toe gangrene, recent osteomyelitis .. s/p Amputation. wound at amputation area. - Routine Neurological Exam Present: alert, oriented X3, CN II-XII intact, normal speech - Detailed Neurological Exam: Coma Scale Eye Opening: Spontaneous Verbal Response: Oriented Motor Response: Obey commands [place] Coma Scale Total: 15 - Routine Psychiatric Exam Present: normal affect, normal thought process, good judgment Results - Labs CBC & Chem 7: 12/26/17 20:40 12/26/17 20:40 Laboratory Results - last 24 hr 12/25/17 12/26/17 12/26/17 20:36 09:48 17:38 POC Glucose 218 H 141 H 151 H Assessment and Plan - Plan Assessment and Plan - Plan Mr. Cano is a 42 yo M with PMH DM and recent osteomyelitis who presents with L 3rd toe discoloration Left 3rd toe gangrene, recent osteomyelitis .. s/p Amputation. Impression: L 3rd toe concerning for ischemia/gangrene S/P 4 weeks treatment with Vancomycin/ciprofloxacin per patient for Left great toe osteomyelitis. ESR ~70 on admission. MRI of left foot not suggestive of osteomyelitis WBC 13.1 on admission but afebrile with stable appearance. - ID input noted. -Blood culture negative. -on empiric antibiotic treatment. -Vancomycin IV with pharmacy monitoring. -Unasyn. - vascular surgery input noted. -CAROLA's,glucose/A1C, Podiatry input noted going for surgery today. -aortogram w/ LLE angiogram performed. Patent inline aorto-iliac, fempop vessels. AT patent to foot. PT diminutive but patent. + pedal arch -Podiatry input noted. Chronic back pain. -Continue pain control with PRN Percocet and Morphine -on Percocet pain scale PRN for pain as opioid tolerant from chronic back pain. DM Impression: blood glucose monitoring...HgA1C 6.6 -Novolog sliding scale -Levemir 10 Units BID -Continue Gabapentin and Lyrica for neuropathic pain HTN -Continue Lisinopril DVT PPX - bilateral SCD's; Code Status: Full code check CBC with diff and CMP in AM. Discharge plan when ok with electromechanical inspector and Infectious disease.
[2017-12-26 20:52] LABS: Baso # (Auto) 0.1 th/mm3 (0.0-0.2); Baso % (Auto) 0.6 % (0.0-2.0); Eos # (Auto) 0.3 th/mm3 (0.0-0.4); Eos % (Auto) 3.4 % (0.0-4.0); Hematocrit 33.4 % (39.0-51.0); Hemoglobin 11.5 gm/dL (13.0-17.0); Lymph % (Auto) 21.8 % (9.0-44.0); Mean Corpuscular HGB Conc 34.3 % (32.0-36.0); Mean Corpuscular Hemoglobin 27.9 pg (27.0-34.0); Mean Corpuscular Volume 81.1 fL (80.0-100.0); Mean Platelet Volume 8.4 fL (7.0-11.0); Mono # (Auto) 0.6 th/mm3 (0.0-0.9); Mono % (Auto) 6.2 % (0.0-8.0); Neut # (Auto) 6.2 th/mm3 (1.8-7.7); Platelet Count 239 th/mm3 (150-450); Red Blood Count 4.12 mil/mm3 (4.50-5.90); Red Cell Distribution Width 12.9 % (11.6-17.2); White Blood Count 9.1 th/mm3 (4.0-11.0)
[2017-12-26 21:04] LABS: Albumin 3.3 g/dL (3.4-5.0); Anion Gap 8 meq/L (5-15); Aspartate Aminotransferase 18 U/L (15-37); Blood Urea Nitrogen 10 mg/dL (7-18); Calcium 8.9 mg/dL (8.5-10.1); Carbon Dioxide 26.9 meq/L (21.0-32.0); Chloride 104 meq/L (98-107); Glomerular Filtration Rate 83 mL/min (>89); Glucose,Random 155 mg/dL (74-106); Sodium 139 meq/L (136-145)
[2017-12-26 21:05] LABS: Alanine Aminotransferase 33 U/L (12-78)
[2017-12-26 21:07] LABS: Alkaline Phosphatase 78 U/L (45-117); Total Protein 7.1 g/dL (6.4-8.2)
[2017-12-26] MEDS: traZODone 50 MG Tablet PO SCH (21:58)
[2017-12-27] MEDS: Sod Chloride 0.9% Inj 1,000 ML IV.CONT SCH ×3 (00:35→18:47)
[2017-12-27] MEDS: Ampicillin/Sulbactam Inj 3 GM in Sodium Chloride 0.9% Inj 100 ML IV.SIG SCH ×4 (03:02→18:04)
[2017-12-27] MEDS: Insulin NovoLOG Aspart Correctional Sugar Inj SQ SCH ×4 (08:44→20:57)
[2017-12-27] MEDS: Gabapentin 400 MG Capsule PO SCH ×2 (08:50→20:52)
[2017-12-27] MEDS: Senna/Docusate Sodium 8.6/50 MG Tablet PO SCH ×2 (08:50→20:52)
[2017-12-27] MEDS: Insulin Detemir Inj 1,000 UNIT/10 ML Vial SQ SCH ×2 (08:50→20:50)
[2017-12-27] MEDS: Pregabalin 75 MG Capsule PO SCH ×2 (08:50→20:52)
[2017-12-27] MEDS: Lisinopril 20 MG Tablet PO SCH (08:52)
--- NOTE | 2017-12-27 10:02 | P.DCO ---
Post Hospital Infusion Therapy Location of Infusion Therapy: Home Health Care IV Infusion Order Patient Weight: 125.1 kg - Diagnosis (1) Diabetic foot infection Code(s): E11.628 - Type 2 diabetes mellitus with other skin complications; L08.9 - Local infection of the skin and subcutaneous tissue, unspecified - Administer Medication Ampicillin/Sulbactam Directions: q 6 hours Additional Dosing Instructions: 3 gm IV Start Treatment: 12/27/17 Stop Treatment: 02/11/18 - Additional Information Venous Access: PICC Line Additional Instructions: [x] Peripheral flush and dressing changes per protocol [x] Implanted port and central line closer: * Implanted port: 10 ml Normal Saline followed by 5 ml Heparin 100 units/ml Heparin flush after each use and monthly to maintain. [] May leave port accessed during therapy. [] May leave peripheral site accessed for duration of therapy. [x] If patient has SOB or respiratory distress, check oxygen saturation. If less than 90% or clinical signs of respiratory distress, administer oxygen at 2 L/min. via nasal cannula and notify physician. [x] Anaphylaxis/Reaction orders: * Stop infusion. * Keep IV line open with saline flush. * Notify physician. * Monitor vital signs every 15 minutes until symptoms resolve. * Check Oxygen saturation; Oxygen at 2 L/min. via nasal cannula if less than 90% or clinical signs of respiratory distress. * Administer diphenhydramine (Benadryl) 25 mg IV STAT, (unless patient has received as pre-med). May repeat once, if necessary. * Solu-Cortef 250 mg IVP over 30-60 seconds, use 100 mg vials for each dissolution. * Epinephrine (1mg/1 ml) 0.3 mg subcutaneously or IVP now with any signs of respiratory distress. * Check with physician for new additional pre-med orders if patient is re- challenged or re-treated. [x] May remove PICC line when treatment complete, after confirming with Physician. [x] If the patient is admitted to the hospital, the ED, or transferred via [facility] , complete transfer form including medication reconciliation order sheet. Weekly Labs: CBC w/diff, CMP Allergies No Known Allergies Allergy (Unverified 12/19/17 23:04)
[2017-12-27] MEDS: Morphine Inj 4 MG/ML Vial IV.PUSH PRN ×3 (10:05→18:47)
[2017-12-27] MEDS ORDERED: Heparin Central Flush 100 UNIT/ML 5 ML Vial IV.FLUSH PRN (12:52)
--- NOTE | 2017-12-27 14:24 | P.PN ---
Subjective Interval history: Left 3rd toe gangrene, recent osteomyelitis .. s/p Amputation. wound at amputation area. need 6 week IV Antibiotic. d/w Infectious disease discharge plan soon when arrangement made by special education case manager. Physical Exam Vital signs: Vital Signs 12/26/17 16:00 12/26/17 20:00 12/27/17 00:00 Temperature 98.1 F 98 F 97.8 F Pulse Rate 79 69 63 Respiratory Rate 18 18 18 Blood Pressure 136/64 176/98 H 140/85 Pulse Oximetry 96 97 100 12/27/17 04:00 12/27/17 08:00 12/27/17 12:00 Temperature 98.1 F 97.8 F 97.8 F Pulse Rate 63 61 70 Respiratory Rate 18 18 18 Blood Pressure 129/66 138/72 162/82 H Pulse Oximetry 99 98 99 Intake & Output 12/26/17 12/27/17 12/27/17 18:59 06:59 18:59 Intake Total 1620 / 1620 1420 / 1420 100 / 100 Balance 1620 / 1620 1420 / 1420 100 / 100 Weight 125.1 kg 125.1 kg Intake: IV 0 / 0 100 / 100 100 / 100 Unasyn Inj 3 GM In NS Inj 100 0 / 0 100 / 100 100 / 100 ML @ 200 mls/hr IV.SIG Q6H [facility] Rx#:[id number] Oral 1620 / 1620 1320 / 1320 Other: # Voids 3 Date of Last Bowel Movement 12/26/17 12/26/17 # Bowel Movements 1 - Constitutional no acute distress - Routine HEENT Exam Head: Present: normocephalic, atraumatic Eye: Present: EOMI, PERRL ENT: Present: mucous membranes moist - Routine Neck Exam Present: supple, full ROM - Routine Respiratory Exam Present: CTA bilaterally - Routine Cardiovascular Exam Present: RRR, S1, S2 - Routine Abdominal Exam Present: soft, normoactive bowel sounds - Routine Extremities Exam Present: full ROM, pulses intact Comments: Left 3rd toe gangrene, recent osteomyelitis .. s/p Amputation. wound at amputation area. - Routine Skin Exam Present: wounds Comments: Left 3rd toe gangrene, recent osteomyelitis .. s/p Amputation. wound at amputation area. - Routine Neurological Exam Present: alert, oriented X3, CN II-XII intact, normal speech - Detailed Neurological Exam: Coma Scale Eye Opening: Spontaneous Verbal Response: Oriented Motor Response: Obey commands [place] Coma Scale Total: 15 - Routine Psychiatric Exam Present: normal affect, normal thought process, good judgment Results - Labs CBC & Chem 7: 12/26/17 20:40 12/26/17 20:40 Laboratory Results - last 24 hr 12/26/17 12/26/17 12/26/17 17:38 20:09 20:40 WBC 9.1 RBC 4.12 L Hgb 11.5 L Hct 33.4 L MCV 81.1 MCH 27.9 MCHC 34.3 RDW 12.9 Plt Count 239 MPV 8.4 Neut % (Auto) 68.0 Lymph % (Auto) 21.8 Phillips % (Auto) 6.2 Eos % (Auto) 3.4 Baso % (Auto) 0.6 Neut # (Auto) 6.2 Lymph # (Auto) 2.0 Phillips # (Auto) 0.6 Eos # (Auto) 0.3 Baso # (Auto) 0.1 WBC Differential . Differential Comment Auto diff final Sodium Potassium Chloride Carbon Dioxide Anion Gap BUN Creatinine Estimated GFR POC Glucose 151 H 138 H Random Glucose Calcium Total Bilirubin AST ALT Alkaline Phosphatase Total Protein Albumin 12/26/17 12/27/17 12/27/17 20:40 07:27 11:08 WBC RBC Hgb Hct MCV MCH MCHC RDW Plt Count MPV Neut % (Auto) Lymph % (Auto) Phillips % (Auto) Eos % (Auto) Baso % (Auto) Neut # (Auto) Lymph # (Auto) Phillips # (Auto) Eos # (Auto) Baso # (Auto) WBC Differential Differential Comment Sodium 139 Potassium 4.0 Chloride 104 Carbon Dioxide 26.9 Anion Gap 8 BUN 10 Creatinine 1.00 Estimated GFR 83 L POC Glucose 104 137 H Random Glucose 155 H Calcium 8.9 Total Bilirubin 0.3 AST 18 ALT 33 Alkaline Phosphatase 78 Total Protein 7.1 D Albumin 3.3 L Assessment and Plan - Plan Assessment and Plan - Plan Mr. Cano is a 42 yo M with PMH DM and recent osteomyelitis who presents with L 3rd toe discoloration Left 3rd toe gangrene, recent osteomyelitis .. s/p Amputation. Impression: L 3rd toe concerning for ischemia/gangrene S/P 4 weeks treatment with Vancomycin/ciprofloxacin per patient for Left great toe osteomyelitis. ESR ~70 on admission. MRI of left foot not suggestive of osteomyelitis WBC 13.1 on admission but afebrile with stable appearance. - ID input noted. -Blood culture negative. -on empiric antibiotic treatment. -Vancomycin IV with pharmacy monitoring. -Unasyn. - vascular surgery input noted. -CAROLA's,glucose/A1C, Podiatry input noted going for surgery today. -aortogram w/ LLE angiogram performed. Patent inline aorto-iliac, fempop vessels. AT patent to foot. PT diminutive but patent. + pedal arch -Podiatry input noted. Chronic back pain. -Continue pain control with PRN Percocet and Morphine -on Percocet pain scale PRN for pain as opioid tolerant from chronic back pain. DM Impression: blood glucose monitoring...HgA1C 6.6 -Novolog sliding scale -Levemir 10 Units BID -Continue Gabapentin and Lyrica for neuropathic pain HTN -Continue Lisinopril DVT PPX - bilateral SCD's; Code Status: Full code check CBC with diff and CMP in AM. Discharge plan when ok with pawn broker and Infectious disease.
--- NOTE | 2017-12-27 14:32 | P.PNID ---
Subjective Remarks: doing OK sp L third toe amputation Culture + for proteus,VRE ( S to ampicillin) co diarrhea, 2 liquid BMs this am path was reviewed: LEFT THIRD TOE, GANGRENE OF DISTAL TOE. AREAS OF DISTAL TOE BONE SUSPICIOUS FOR ACUTE OSTEOMYELITIS. THE SOFT TISSUE PROXIMAL RESECTION MARGIN HAS ACUTE INFLAMMATION AND NECROSIS AT THE DEEP PORTION OF THE SPECIMEN. THE PROXIMAL BONE MARGIN OF RESECTION OF THE TOE HAS MARROW ISCHEMIA BUT NO EVIDENCE OF INFLAMMATION. #2- THIRD PROXIMAL PHALANX, LEFT FOOT BONE, BIOPSY: BONE WITH ACUTE OSTEOMYELITIS. Antibiotics: vanco Unasyn Allergies/Adverse Reactions: Allergies No Known Allergies Allergy (Unverified 12/19/17 23:04) Objective Vital Signs 12/26/17 16:00 12/26/17 20:00 12/27/17 00:00 Temperature 98.1 F 98 F 97.8 F Pulse Rate 79 69 63 Respiratory Rate 18 18 18 Blood Pressure 136/64 176/98 H 140/85 Pulse Oximetry 96 97 100 12/27/17 04:00 12/27/17 08:00 12/27/17 12:00 Temperature 98.1 F 97.8 F 97.8 F Pulse Rate 63 61 70 Respiratory Rate 18 18 18 Blood Pressure 129/66 138/72 162/82 H Pulse Oximetry 99 98 99 Intake & Output 12/26/17 12/27/17 12/27/17 18:59 06:59 18:59 Intake Total 1620 / 1620 1420 / 1420 100 / 100 Balance 1620 / 1620 1420 / 1420 100 / 100 Weight 125.1 kg 125.1 kg Intake: IV 0 / 0 100 / 100 100 / 100 Unasyn Inj 3 GM In NS Inj 100 0 / 0 100 / 100 100 / 100 ML @ 200 mls/hr IV.SIG Q6H DOLORES Rx#:[id number] Oral 1620 / 1620 1320 / 1320 Other: # Voids 3 Date of Last Bowel Movement 12/26/17 12/26/17 # Bowel Movements 1 12/22/17 15:53 Wound - Toe Gram Stain - Final 12/22/17 15:53 Wound - Toe Wound Culture - Final Proteus mirabilis Enterococcus faecalis VRE 12/22/17 15:53 Wound - Toe Acid Fast Bacilli Smear - Final No acid fast bacilli seen 12/22/17 15:53 Wound - Toe Mycobacterial Culture - Pending 12/19/17 16:35 Blood - Peripheral Aerobic Blood Culture - Final No growth in 5 days 12/19/17 16:35 Blood - Peripheral Anaerobic Blood Culture - Final No growth in 5 days 12/19/17 16:50 Blood - Peripheral Aerobic Blood Culture - Final No growth in 5 days 12/19/17 16:50 Blood - Peripheral Anaerobic Blood Culture - Final No growth in 5 days Lab - Hematology Results 12/26/17 20:40 WBC 9.1 RBC 4.12 L Hgb 11.5 L Hct 33.4 L MCV 81.1 MCH 27.9 MCHC 34.3 RDW 12.9 Plt Count 239 MPV 8.4 Neut % (Auto) 68.0 Lymph % (Auto) 21.8 [place] % (Auto) 6.2 Eos % (Auto) 3.4 Baso % (Auto) 0.6 Neut # (Auto) 6.2 Lymph # (Auto) 2.0 [place] # (Auto) 0.6 Eos # (Auto) 0.3 Baso # (Auto) 0.1 WBC Differential . Differential Comment Auto diff final Lab - Chemistry Results 12/25/17 12/25/17 12/26/17 18:15 20:36 09:48 Sodium Potassium Chloride Carbon Dioxide Anion Gap BUN Creatinine Estimated GFR POC Glucose 132 H 218 H 141 H Random Glucose Calcium Total Bilirubin AST ALT Alkaline Phosphatase Total Protein Albumin 12/26/17 12/26/17 12/26/17 17:38 20:09 20:40 Sodium 139 Potassium 4.0 Chloride 104 Carbon Dioxide 26.9 Anion Gap 8 BUN 10 Creatinine 1.00 Estimated GFR 83 L POC Glucose 151 H 138 H Random Glucose 155 H Calcium 8.9 Total Bilirubin 0.3 AST 18 ALT 33 Alkaline Phosphatase 78 Total Protein 7.1 D Albumin 3.3 L 12/27/17 12/27/17 07:27 11:08 Sodium Potassium Chloride Carbon Dioxide Anion Gap BUN Creatinine Estimated GFR POC Glucose 104 137 H Random Glucose Calcium Total Bilirubin AST ALT Alkaline Phosphatase Total Protein Albumin Imaging: ITS Impressions Foot MRI 12/19/17 16:01 CONCLUSION: 1. Significant arthritic changes of the first interphalangeal joint and the second digit is unremarkable without signs of osteomyelitis. 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 Extremity Arterial Study 12/20/17 00:00 CONCLUSION: 1. Unable to occlude the vessels of the ankle level bilaterally therefore preventing calculation of the CAROLA. This could relate to calcified atherosclerotic plaque. 2. Reduction of the left toe brachial index. This could either relate to microangiopathic disease or could relate to more central disease. Inability to calculate CAROLA prevents differentiation. CTA with runoff could be used to further assess if needed. Physical Exam: GENERAL: SKIN: Warm and dry. No rash HEAD: Normocephalic. EYES: No scleral icterus. No injection or drainage. NECK: Supple, trachea midline. No JVD or lymphadenopathy. RESPIRATORY: Breathing unlaboured GASTROINTESTINAL: Abdomen soft, non-tender, nondistended. MUSCULOSKELETAL: No cyanosis, or edema. L foot with mnima serosag drainage on the op site Incision well approximated. Clean Plantar wound looks clean Assessment and Plan (1) Diabetic foot infection Status: Acute Code(s): E11.628 - Type 2 diabetes mellitus with other skin complications; L08.9 - Local infection of the skin and subcutaneous tissue, unspecified - Plan DFI L 3 rd digit: osteomyelitis - sp amputation with bone clear margins, but + soft tissue H/o L hallux osteo: clinically and radiologically resolved VRE, Proteus Dry gangrene - suspect undelying vascular disease morbid obesity DM Leukocuytosis; resolved cont Unasyn IV for 6 weeks ; transition to PO (AUgmentin) can be donea earlier by Dr Rodarte if healing progresses fast, but will still do first 2 weeks IV julius madrid case mngr dw RN
--- NOTE | 2017-12-27 14:48 | P.DCO ---
- Home Health Nursing Order: IV medication administration - Certification I have seen patient Toi Cano on 12/27/17. My clinical findings support the need for the requested home health care services because: Limited mobility due to disease progression, Infection with risk of complications, Injectable medication education/administration I certify that my clinical findings support that this patient is homebound because: Post-op weakness, Unsteady gait/balance
--- NOTE | 2017-12-27 15:44 | P.PNADD ---
Addendum to Inpatient Note Additional information: Pt is cleared by me for d/c Zelalem RN: it will take till We to start HHC He can be discharged today and take PO Augmentin 500 TID untill his IV is started. He will need to be switched to IV abx as soon as arranged, That was zelalem BOB and Dr Amos
[2017-12-27] MEDS: traZODone 50 MG Tablet PO SCH (20:52)
[2017-12-28] MEDS: Morphine Inj 4 MG/ML Vial IV.PUSH PRN ×3 (00:24→12:04)
[2017-12-28] MEDS: Ampicillin/Sulbactam Inj 3 GM in Sodium Chloride 0.9% Inj 100 ML IV.SIG SCH ×4 (00:25→12:02)
[2017-12-28] MEDS: Sod Chloride 0.9% Inj 1,000 ML IV.CONT SCH (06:18)
[2017-12-28] MEDS: Gabapentin 400 MG Capsule PO SCH (08:33)
[2017-12-28] MEDS: Insulin Detemir Inj 1,000 UNIT/10 ML Vial SQ SCH (08:34)
[2017-12-28] MEDS: Insulin NovoLOG Aspart Correctional Sugar Inj SQ SCH ×2 (08:34→12:03)
[2017-12-28] MEDS: Lisinopril 20 MG Tablet PO SCH (08:35)
[2017-12-28] MEDS: Senna/Docusate Sodium 8.6/50 MG Tablet PO SCH (08:35)
[2017-12-28] MEDS: Pregabalin 75 MG Capsule PO SCH (08:35)
[2017-12-28] MEDS ORDERED: Heparin Central Flush 100 UNIT/ML 5 ML Vial IV.FLUSH SCH (09:00)
--- NOTE | 2017-12-28 09:56 | P.PN ---
Subjective Interval history: Patient feel better ok to discharge per ID and Podiatry need IV Antibiotic for 6 week all arrangement was made. d/w RN. and patient at bed side Physical Exam Vital signs: Vital Signs 12/27/17 12:00 12/27/17 16:00 12/27/17 20:00 Temperature 97.8 F 98.1 F 98.5 F Pulse Rate 70 66 61 Respiratory Rate 18 18 20 Blood Pressure 162/82 H 153/77 H 134/78 Pulse Oximetry 99 97 98 12/28/17 00:00 12/28/17 04:00 12/28/17 08:00 Temperature 98.6 F 98.2 F 97.8 F Pulse Rate 66 97 H 66 Respiratory Rate 16 16 18 Blood Pressure 157/74 H 130/75 141/65 H Pulse Oximetry 98 96 97 Intake & Output 12/27/17 12/28/17 12/28/17 18:59 06:59 18:59 Intake Total 1160 / 1160 2535 / 2535 Balance 1160 / 1160 2535 / 2535 Weight 125.1 kg 103 kg Intake: IV 200 / 200 1200 / 1200 NS Inj 1,000 ML @ 100 mls/hr IV 1000 / 1000 .CONT .Q10H DOLORES Rx#:[id number] Unasyn Inj 3 GM In NS Inj 100 200 / 200 200 / 200 ML @ 200 mls/hr IV.SIG Q6H DOLORES Rx#:[id number] Oral 960 / 960 1335 / 1335 Other: # Voids 4 1 Date of Last Bowel Movement 12/26/17 12/26/17 12/27/17 # Bowel Movements 1 - Constitutional no acute distress - Routine HEENT Exam Head: Present: normocephalic, atraumatic Eye: Present: EOMI, PERRL ENT: Present: mucous membranes moist - Routine Neck Exam Present: supple, full ROM - Routine Respiratory Exam Present: CTA bilaterally - Routine Cardiovascular Exam Present: RRR, S1, S2 - Routine Abdominal Exam Present: soft, normoactive bowel sounds - Routine Extremities Exam Present: full ROM Comments: wound after amputation of left 3rd toe. - Routine Skin Exam Present: dry, warm, wounds Comments: wound after amputation of left 3rd toe. - Routine Neurological Exam Present: alert, oriented X3, CN II-XII intact, normal speech - Detailed Neurological Exam: Coma Scale Eye Opening: Spontaneous Verbal Response: Oriented Motor Response: Obey commands Ag Coma Scale Total: 15 - Routine Psychiatric Exam Present: normal affect, normal thought process Results - Labs CBC & Chem 7: 12/26/17 20:40 12/26/17 20:40 Laboratory Results - last 24 hr 12/27/17 12/27/17 12/27/17 11:08 17:01 20:49 POC Glucose 137 H 204 H 159 H 12/28/17 07:45 POC Glucose 111 H Assessment and Plan - Plan Assessment and Plan - Plan Mr. Cano is a 42 yo M with PMH DM and recent osteomyelitis who presents with L 3rd toe discoloration Left 3rd toe gangrene, recent osteomyelitis .. s/p Amputation. Impression: L 3rd toe concerning for ischemia/gangrene S/P 4 weeks treatment with Vancomycin/ciprofloxacin per patient for Left great toe osteomyelitis. ESR ~70 on admission. MRI of left foot not suggestive of osteomyelitis WBC 13.1 on admission but afebrile with stable appearance. - ID input noted. -Blood culture negative. -on empiric antibiotic treatment. -Vancomycin IV with pharmacy monitoring. -Unasyn. - vascular surgery input noted. -CAROLA's,glucose/A1C, Podiatry input noted going for surgery today. -aortogram w/ LLE angiogram performed. Patent inline aorto-iliac, fempop vessels. AT patent to foot. PT diminutive but patent. + pedal arch -Podiatry input noted. Chronic back pain. -Continue pain control with PRN Percocet and Morphine -on Percocet pain scale PRN for pain as opioid tolerant from chronic back pain. DM Impression: blood glucose monitoring...HgA1C 6.6 -Novolog sliding scale -Levemir 10 Units BID -Continue Gabapentin and Lyrica for neuropathic pain HTN -Continue Lisinopril DVT PPX - bilateral SCD's; Code Status: Full code ok to discharge per ID and Podiatry need IV Antibiotic for 6 week all arrangement was made. ok to discharge home today f/u with PCP/ Podiatry/ Infectious disease 1 week.
[2017-12-28 12:25] LABS: Baso % (Auto) 0.4 % (0.0-2.0); Eos # (Auto) 0.3 th/mm3 (0.0-0.4); Eos % (Auto) 4.1 % (0.0-4.0); Hematocrit 28.2 % (39.0-51.0); Hemoglobin 9.5 gm/dL (13.0-17.0); Lymph # (Auto) 1.8 th/mm3 (1.0-4.8); Lymph % (Auto) 28.1 % (9.0-44.0); Mean Corpuscular HGB Conc 33.7 % (32.0-36.0); Mean Corpuscular Hemoglobin 28.1 pg (27.0-34.0); Mean Corpuscular Volume 83.5 fL (80.0-100.0); Mean Platelet Volume 8.7 fL (7.0-11.0); Mono # (Auto) 0.5 th/mm3 (0.0-0.9); Mono % (Auto) 7.8 % (0.0-8.0); Neut # (Auto) 3.9 th/mm3 (1.8-7.7); Neut % (Auto) 59.6 % (16.0-70.0); Platelet Count 194 th/mm3 (150-450); Red Blood Count 3.37 mil/mm3 (4.50-5.90); White Blood Count 6.5 th/mm3 (4.0-11.0)
[2017-12-28 12:57] LABS: Albumin 3.2 g/dL (3.4-5.0); Anion Gap 10 meq/L (5-15); Aspartate Aminotransferase 19 U/L (15-37); Blood Urea Nitrogen 13 mg/dL (7-18); Calcium 8.7 mg/dL (8.5-10.1); Carbon Dioxide 28.2 meq/L (21.0-32.0); Chloride 103 meq/L (98-107); Glomerular Filtration Rate Greater Than 89 mL/min (>89); Glucose,Random 93 mg/dL (74-106); Potassium 3.5 meq/L (3.5-5.1); Sodium 141 meq/L (136-145)
[2017-12-28 13:04] LABS: Alanine Aminotransferase 33 U/L (12-78); Alkaline Phosphatase 73 U/L (45-117)
--- NOTE | 2017-12-28 15:58 | MD ---
cc: John Amos MD DATE OF DISCHARGE: 12/28/2017 Okay to discharge the patient home with home healthcare, will need IV antibiotic for 6 weeks. CONDITION AT THE TIME OF DISCHARGE: Satisfactory. ACTIVITY: As tolerated. DIET: Cardiac diet, ADA 1800 calorie diet. ALLERGIES: NO KNOWN DRUG ALLERGIES. DISCHARGE MEDICATIONS: Include: 1. Unasyn 3 grams IV every 6 hours. 2. Gabapentin 800 mg twice a day. 3. Levemir 25 units subcutaneous twice a day. 4. Lisinopril 20 mg daily. 5. Lyrica 75 mg twice a day. 6. Trazodone 50 mg p.o. daily. FOLLOWUP: The patient advised to followup with Dr. Rosa Hightower, primary care doctor; Jacque Spence DPM; and Dr. Brian Melo. ADMITTING DIAGNOSIS: Gangrene of the left third toe. DISCHARGE DIAGNOSIS: Gangrene of the left third toe, status post amputation. Other comorbidities include history of diabetes mellitus, history of hypertension, history of diabetic neuropathy. HOSPITAL COURSE: This is a 42-year-old, very pleasant male with a past medical and surgical history as dictated above, came to the ER at [facility] with possible osteomyelitis of the left third toe and with blackening and gangrene. The patient seen by podiatry and vascular surgeon. Arterial Doppler study was done. No vascular intervention needed per vascular surgeon. Podiatry seeing the patient. The patient is status post amputation of the left third toe. The patient seen by infectious disease, Dr. De La Cruz. The patient was given empiric antibiotic. The patient was discharged home with a PICC line and 6 weeks of IV Unasyn. The patient told all the plan. The patient verbalized understanding. The patient remained stable during the hospital stay. No acute event happened. The patient has hemoglobin of 11.5 at the time of discharge. The patient's sugar was pretty controlled during hospital stay. The patient remained stable. No acute event happened. The patient discharged in a satisfactory condition. The patient's MRI of the foot was done shows significant arthritic changes of the first interphalangeal joint and the second digit is unremarkable without sign of osteomyelitis. Lower extremity study was done, shows unable to occlude the vessels of the ankle level bilaterally; therefore, preventing calculation of the CAROLA. This could relate to calcified atherosclerotic plaque. Reduction of the left toe brachial index. This could be either related to microangiopathic disease or could relate to more central disease. Inability to calculate CAROLA prevents differentiation. CTA with runoff could be used to further assess if needed. Foot x-ray was done, shows significant arthritic changes involving the first interphalangeal joint with erosive changes and possibility of inflammatory osteoarthritis should be entertained and there is a fracture involving the first distal phalanx as well as the appearance is nonspecific in regard to osteomyelitis. Vascular Surgery seeing the patient. Will arrange followup with vascular surgery clinic in 3-4 week with ABIs. They cleared the patient from discharge, Dr. Brian Melo. Patient got a surgery done during hospital stay, left third toe amputation. Further detail in the medical record. John Amos MD EA/reg , 10:24 AM , 10:34 AM
== END 2017-12-28 13:57 | disposition home health service (06) ==
LOC: NEPC 13:47 → NEDA 18:48 → N05 21:34
PROVIDERS: ADMIT Family Medicine; ATTEND Family Medicine
PROC: ANGIOLE (2017-12-21 10:20)

== ENCOUNTER 2018-03-04 08:19 | Inpatient (IN) ==
[2018-03-04 09:50] LABS: Baso % (Auto) 0.3 % (0.0-2.0); Eos # (Auto) 0.4 th/mm3 (0.0-0.4); Eos % (Auto) 4.6 % (0.0-4.0); Hemoglobin 12.3 gm/dL (13.0-17.0); Lymph # (Auto) 1.9 th/mm3 (1.0-4.8); Lymph % (Auto) 21.9 % (9.0-44.0); Mean Corpuscular HGB Conc 34.1 % (32.0-36.0); Mean Corpuscular Hemoglobin 30.1 pg (27.0-34.0); Mean Corpuscular Volume 88.2 fL (80.0-100.0); Mean Platelet Volume 7.4 fL (7.0-11.0); Mono # (Auto) 0.6 th/mm3 (0.0-0.9); Mono % (Auto) 7.1 % (0.0-8.0); Neut # (Auto) 5.6 th/mm3 (1.8-7.7); Neut % (Auto) 66.1 % (16.0-70.0); Platelet Count 218 th/mm3 (150-450); Red Blood Count 4.08 mil/mm3 (4.50-5.90); Red Cell Distribution Width 20.9 % (11.6-17.2); White Blood Count 8.5 th/mm3 (4.0-11.0)
--- NOTE | 2018-03-04 09:51 | ED ---
HPI General Chief complaint: Psychiatric Symptoms Stated complaint: psych eval Time Seen by Provider: 03/04/18 09:12 Source: patient Mode of arrival: ambulatory Limitations: no limitations History of Present Illness HPI narrative: patient was dropped off by employer due to bizarre behavior. patient provides history of dm, htn, insomnia and foot ulcer (chronic). stated that wednesday he was approached by the "devil, who knew things about me that went back to childhood. I have only lived here for 11 years and NO ONE should know the things he knew" patient goes on to say that the "devil made offers to me but i refused, but since then i haven't been able to process things the same way" patient insisted that this devil person is real, and tried to shake his hand to formalize agreement but patient states that he refused to. pcp kristian amos. Related Data Home Medications Medication Instructions Recorded Confirmed gabapentin 800 mg PO BID 12/19/17 03/04/18 insulin aspart U-100 [Novolog See Label Instructions .ROUTE 12/19/17 03/04/18 Flexpen U-100 Insulin] .COMPLEX insulin detemir U-100 [Levemir 25 unit SUB-Q BID 12/19/17 03/04/18 U-100 Insulin] lisinopril 20 mg PO DAILY 12/19/17 03/04/18 trazodone 50 mg PO DAILY 12/19/17 03/04/18 Allergies Allergy/AdvReac Type Severity Reaction Status Date / Time No Known Allergies Allergy Verified 03/04/18 09:27 Review of Systems ROS: all other systems reviewed are negative REPLACED BY [facility] Medical History Medical History Chronic back pain (Acute) Diabetes (Acute) Foot fracture, left (Acute) HTN (hypertension) (Acute) Osteomyelitis (Acute) Pilonidal abscess (Acute) Surgical History Surgical History S/P cervical spinal fusion (Acute) Family History Family History Other Diabetes HTN (hypertension) Hyperlipidemia Social History Social History Substance History: No History of Abuse Second Hand Smoke Exposure: No Smoking Status: Never smoker Tobacco Type: Cigarettes How Often Do You Have a Drink Containing Alcohol: Never Recent Travel in [place] within the Last 8 Weeks: No Recent Out of Country Travel within the Last 8 Weeks: No Immunization History Tetanus Immunization Year if Known: 2017 Exam [facility] Head: normocephalic and atraumatic Nose: no nasal discharge and no epistaxis Mouth: moist mucous membranes Eyes Sclera: normal sclerae Pupils: PERRL Neck Neck: trachea midline and no JVD Resp Effort & Inspection: no use of accessory muscles Auscultation: clear to auscultation bilaterally Cardio Rate: regular rate Rhythm: regular rhythm Heart Sounds: no murmurs GI Inspection: non-distended Palpation: soft, no hepatosplenomegaly and nontender Skin General: dry skin (warm) Neuro General: alert and awake Cranial Nerves: other Speech: speech normal Motor: no movement abnormalities noted Extrem General: no clubbing, no cyanosis and no edema Left lower extremity: foot (left third toe amputation) Psych Mood: congruent mood Affect: normal affect Judgment: judgment good Course Initial Documented Vital Signs Temperature 98.6 F 03/04/18 08:41 Pulse Rate 84 03/04/18 08:41 Respiratory Rate 16 03/04/18 08:41 Blood Pressure 179/77 H 03/04/18 08:41 Pulse Oximetry 97 03/04/18 08:41 Last Documented Vital Signs Temperature 98.6 F 03/04/18 08:41 Pulse Rate 84 03/04/18 08:41 Respiratory Rate 16 03/04/18 08:41 Blood Pressure 179/77 H 03/04/18 08:41 Pulse Oximetry 97 03/04/18 08:41 Medical Decision Making [facility] Narrative Medical decision making narrative: cbc without leukocytosis, anemia,no left shift, normal platelet count. tsh screen normal electrolytes/normal kidney,pancreas,liver function neg tylenol/salicylate or alcohol. neg tox screen Medical Screen Exam Complete: Yes Emergency Medical Condition: Yes Medical Records Medical records reviewed: Yes I reviewed the patient's medical records. Lab Data Lab results reviewed: Yes I reviewed the patient's lab results. Result diagrams: 03/04/18 09:28 03/04/18 09:28 Lab Results 03/04/18 03/04/18 03/04/18 Range/Units 09:28 09:28 09:28 WBC 8.5 (4.0-11.0) th/mm3 RBC 4.08 L (4.50-5.90) mil/mm3 Hgb 12.3 L (13.0-17.0) gm/dL Hct 36.0 L (39.0-51.0) % MCV 88.2 (80.0-100.0) fL MCH 30.1 (27.0-34.0) pg MCHC 34.1 (32.0-36.0) % RDW 20.9 H (11.6-17.2) % Plt Count 218 (150-450) th/mm3 MPV 7.4 (7.0-11.0) fL Neut % (Auto) 66.1 (16.0-70.0) % Lymph % (Auto) 21.9 (9.0-44.0) % [place] % (Auto) 7.1 (0.0-8.0) % Eos % (Auto) 4.6 H (0.0-4.0) % Baso % (Auto) 0.3 (0.0-2.0) % Neut # (Auto) 5.6 (1.8-7.7) th/mm3 Lymph # (Auto) 1.9 (1.0-4.8) th/mm3 [place] # (Auto) 0.6 (0.0-0.9) th/mm3 Eos # (Auto) 0.4 (0.0-0.4) th/mm3 Baso # (Auto) 0.0 (0.0-0.2) th/mm3 WBC Differential . Differential Comment Auto diff final Sodium 137 (136-145) meq/L Potassium 4.7 (3.5-5.1) meq/L Chloride 102 (98-107) meq/L Carbon Dioxide 25.1 (21.0-32.0) meq/L Anion Gap 10 (5-15) meq/L BUN 19 H (7-18) mg/dL Creatinine 0.97 (0.60-1.30) mg/dL Estimated GFR 86 L (>89) mL/min Random Glucose 135 H (74-106) mg/dL Calcium 8.8 (8.5-10.1) mg/dL Total Bilirubin 0.4 (0.2-1.0) mg/dL AST 18 (15-37) U/L ALT 27 (12-78) U/L Alkaline Phosphatase 89 (45-117) U/L Total Protein 7.7 (6.4-8.2) g/dL Albumin 3.9 (3.4-5.0) g/dL TSH 0.806 (0.358-3.740) uIU/mL Urine Color (Yellw/Straw) Urine Clarity (Clear) Urine pH (5.0-8.5) Ur Specific [place] (1.002-1.035) Urine Protein (Neg-Trace) mg/dL Urine Glucose (UA) (Negative) mg/dL Urine Ketones (Negative) mg/dL Urine Occult Blood (Negative) Urine Nitrate (Negative) Urine Bilirubin (Negative) Urine Urobilinogen (Less than 2) mg/dL Ur Leukocyte Esterase (Negative) Urine RBC (0-3) /hpf Urine WBC (0-5) /hpf Ur Squamous Epith Cells (0-5) /hpf Urine Mucus (Occasional) /lpf Micro UA Comment Ur Microscopic Review Urine Culture Comments Salicylates Less than 1.7 L (2.8-20.0) mg/dL Urine Opiates Screen (Neg) Acetaminophen Less than 2.0 L (10.0-30.0) mcg/mL Ur Barbiturates Screen (Neg) Ur Amphetamines Screen (Neg) U Benzodiazepines Scrn (Neg) Urine Cocaine Screen (Neg) U Cannabinoids Screen (Neg) Serum Alcohol Less than 3 (0-5) mg/dL 03/04/18 03/04/18 Range/Units 10:35 10:35 WBC (4.0-11.0) th/mm3 RBC (4.50-5.90) mil/mm3 Hgb (13.0-17.0) gm/dL Hct (39.0-51.0) % MCV (80.0-100.0) fL MCH (27.0-34.0) pg MCHC (32.0-36.0) % RDW (11.6-17.2) % Plt Count (150-450) th/mm3 MPV (7.0-11.0) fL Neut % (Auto) (16.0-70.0) % Lymph % (Auto) (9.0-44.0) % [place] % (Auto) (0.0-8.0) % Eos % (Auto) (0.0-4.0) % Baso % (Auto) (0.0-2.0) % Neut # (Auto) (1.8-7.7) th/mm3 Lymph # (Auto) (1.0-4.8) th/mm3 [place] # (Auto) (0.0-0.9) th/mm3 Eos # (Auto) (0.0-0.4) th/mm3 Baso # (Auto) (0.0-0.2) th/mm3 WBC Differential Differential Comment Sodium (136-145) meq/L Potassium (3.5-5.1) meq/L Chloride (98-107) meq/L Carbon Dioxide (21.0-32.0) meq/L Anion Gap (5-15) meq/L BUN (7-18) mg/dL Creatinine (0.60-1.30) mg/dL Estimated GFR (>89) mL/min Random Glucose (74-106) mg/dL Calcium (8.5-10.1) mg/dL Total Bilirubin (0.2-1.0) mg/dL AST (15-37) U/L ALT (12-78) U/L Alkaline Phosphatase (45-117) U/L Total Protein (6.4-8.2) g/dL Albumin (3.4-5.0) g/dL TSH (0.358-3.740) uIU/mL Urine Color Yellow (Yellw/Straw) Urine Clarity Clear (Clear) Urine pH 5.0 (5.0-8.5) Ur Specific [place] 1.014 (1.002-1.035) Urine Protein Negative (Neg-Trace) mg/dL Urine Glucose (UA) Negative (Negative) mg/dL Urine Ketones Negative (Negative) mg/dL Urine Occult Blood Negative (Negative) Urine Nitrate Negative (Negative) Urine Bilirubin Negative (Negative) Urine Urobilinogen Less than 2 (Less than 2) mg/dL Ur Leukocyte Esterase Negative (Negative) Urine RBC Less than 1 (0-3) /hpf Urine WBC Less than 1 (0-5) /hpf Ur Squamous Epith Cells <1 (0-5) /hpf Urine Mucus Few H (Occasional) /lpf Micro UA Comment Culture not ind Ur Microscopic Review Not Reportable Urine Culture Comments Culture not ind Salicylates (2.8-20.0) mg/dL Urine Opiates Screen Neg (Neg) Acetaminophen (10.0-30.0) mcg/mL Ur Barbiturates Screen Neg (Neg) Ur Amphetamines Screen Neg (Neg) U Benzodiazepines Scrn Neg (Neg) Urine Cocaine Screen Neg (Neg) U Cannabinoids Screen Neg (Neg) Serum Alcohol (0-5) mg/dL Discharge Plan Discharge Disposition Patient Disposition: 30 Still Patient Discharge Condition Condition: Stable Discharge Details Diagnosis: Acute psychosis Physicians Team ED Provider: Joaquin Cervantes Primary Care Provider: Kristian Amos Rxs /Orders / Referrals /Forms Prescriptions: No Action trazodone 50 mg Tablet 50 mg PO DAILY RF: 0 lisinopril 20 mg Tablet 20 mg PO DAILY RF: 0 gabapentin 800 mg Tablet 800 mg PO BID RF: 0 insulin aspart U-100 [Novolog Flexpen U-100 Insulin] 100 unit/mL Insulin Pen See Label Instructions .ROUTE .COMPLEX RF: 0 insulin detemir U-100 [Levemir U-100 Insulin] 100 unit/mL Solution 25 unit SUB-Q BID RF: 0 Status ED Status: With Doctor
[2018-03-04 10:08] LABS: Albumin 3.9 g/dL (3.4-5.0); Anion Gap 10 meq/L (5-15); Aspartate Aminotransferase 18 U/L (15-37); Blood Urea Nitrogen 19 mg/dL (7-18); Calcium 8.8 mg/dL (8.5-10.1); Carbon Dioxide 25.1 meq/L (21.0-32.0); Chloride 102 meq/L (98-107); Glomerular Filtration Rate 86 mL/min (>89); Glucose,Random 135 mg/dL (74-106); Potassium 4.7 meq/L (3.5-5.1); Sodium 137 meq/L (136-145)
[2018-03-04 10:17] LABS: Alanine Aminotransferase 27 U/L (12-78); Alkaline Phosphatase 89 U/L (45-117); Thyroid Stimulating Hormone 0.806 uIU/mL (0.358-3.740); Total Protein 7.7 g/dL (6.4-8.2)
[2018-03-04 10:55] LABS: Bilirubin,Urine Negative (Negative); Clarity,Urine Clear (Clear); Color,Urine Yellow (Yellw/Straw); Glucose,Urine (UA) Negative (Negative); Leukocyte Esterase,Urine Negative (Negative); Mucus,Urine Few /lpf (Occasional); Nitrite,Urine Negative (Negative); Specific Gravity,Urine 1.014 (1.002-1.035); Squamous Epithelial Cell,Urine <1 /hpf (0-5)
[2018-03-04 11:01] LABS: Amphetamine Screen,Urine Neg (Neg); Barbiturate Screen,Urine Neg (Neg); Cannabinoid Screen,Urine Neg (Neg); Cocaine Screen,Urine Neg (Neg)
[2018-03-04 11:03] LABS: Opiate Screen,Urine Neg (Neg)
--- NOTE | 2018-03-04 12:15 | CT ---
EXAM DATE: 03/04/2018 12:12 PM EST AGE/SEX: 42 years / Male INDICATIONS: Hallucinations. CLINICAL DATA: This is the patient's initial encounter. Patient reports that signs and symptoms have been present for 1 day and indicates a pain score of 0/10. MEDICAL/SURGICAL HISTORY: Diabetes. Hypertension. None. RADIATION DOSE: 56.35 CTDI (mGy) COMPARISON: No prior exams available for comparison. TECHNIQUE: CT of the head without contrast. Using automated exposure control and adjustment of the mA and/or kV according to patient size, radiation dose was kept as low as reasonably achievable to ob tain optimal diagnostic quality images. DICOM format image data is available electronically for revi ew and comparison. FINDINGS: Cerebrum: The ventricles are normal for age. No evidence of midline shift, mass lesion, hemorrhage or acute infarction. No extraaxial fluid collections are seen. Posterior Fossa: The cerebellum and brainstem are intact. The 4th ventricle is midline. The cerebe llopontine angle is unremarkable. Extracranial: The visualized portion of the orbits is intact. Skull: The calvaria is intact. No evidence of skull fracture. CONCLUSION: 1. Negative for an acute process . Electronically signed by: Luis Enrique Grubbs MD 03/04/2018 12:14 PM EST
[2018-03-04] MEDS ORDERED: Aluminum/Magnesium/Simethacone Susp 30 ML UDC PO PRN (15:26)
[2018-03-04] MEDS ORDERED: Insulin HumaLOG Lispro Correctional Sugar Inj SQ SCH ×2 (16:15→17:00)
[2018-03-04] MEDS ORDERED: Insulin NovoLOG Aspart Correctional Sugar Inj SQ SCH (17:00)
--- NOTE | 2018-03-04 17:07 | P.CONPSY ---
Provisional Diagnosis Admission Date: March 04, 2018 15:36 [place] I.: Psychosis not otherwise specified History of Present Illness Primary Care Provider: John Amos MD History of Present Illness: This is a 42-year-old single, male who presented to this facility for bizarre behavior. He is known to this facility but not to the psychiatric department. Patient was brought in by his boss after his bizarre behavior and was placed under Estevez act by the ED physician. Patient was evaluated in [facility] with PAULINO Arora present. He is alert and oriented x4. His speech is clear, organized, of normal ye and volume. He denies being suicidal or homicidal as well as hearing auditory or visual hallucinations. He does not appear to be manic at this time. He does reports that several days ago he went to his mailbox and was "met by the devil". He states that "the devil trying to shake my hand but I refused to let him to". When asked if the person had identified themselves as a double he states no but reports that he "asked him if he was an zully and he said no, you know who I am ". He goes on to describe more of the same and states that he then surmised he must be the devil. As he talks about this he becomes visibly distressed and shaking. He reports that he had a rough year medically and had been praying to God before he was "met by the devil". He states that he lives by himself. Denies ever being or having had kids. He works for [employer]. He denies any familial diagnoses of mental health illness. Review of Systems All other systems reviewed negative except as stated in HPI PMFSH - History History Provided By: Patient - Medical History Medical History: Medical History (Last Reviewed 03/04/18 @ 17:03 by REJI Silveira) Chronic back pain Diabetes Foot fracture, left HTN (hypertension) Osteomyelitis Pilonidal abscess - Surgical History Surgical History: Surgical History (Last Reviewed 03/04/18 @ 17:03 by REJI Silveira) S/P cervical spinal fusion - Family History Family History: Family History (Last Reviewed 03/04/18 @ 17:03 by REJI Silveira) Other Diabetes HTN (hypertension) Hyperlipidemia - Tobacco History Second Hand Smoke Exposure: No Tobacco Use In Past 30 Days: No Smoking Status: Never smoker Tobacco Type: Cigarettes - Alcohol History How Often Do You Have a Drink Containing Alcohol: Never - Substance Use History Substance History: No History of Abuse - Travel History Recent Travel in the USA Within the Last 8 Weeks: No Recent Travel Out of the Country Within the Last 8 Weeks: No - Immunization History Tetanus Immunization: <5 Years Tetanus Immunization Year if Known: 2016 Medications and Allergies Active Medications: Active Medications Al Hydrox/Mg Hydrox/Simethicone (Mag-Al Plus Susp Liq) 30 ml PO Q6H PRN PRN Reason: DYSPEPSIA Al Hydroxide/Mg Hydroxide (Milk Of Magnesia Liq) 30 ml PO Q12H PRN PRN Reason: Mild Constipation Diphenhydramine HCl (Benadryl) 50 mg PO HS PRN PRN Reason: INSOMNIA Haloperidol Lactate (Haldol Inj) 2 mg IM DAILY [facility] Hydroxyzine HCl (Atarax) 50 mg PO Q6H PRN PRN Reason: ANXIETY Insulin Detemir (Levemir Inj) 20 unit SQ BID [facility] Insulin Human Lispro (Humalog Insulin Correctional Sugar Inj) 0 unit SQ ACHS [facility]; Protocol Lisinopril (Prinivil) 20 mg PO BID [facility] Non-Formulary Medication (Gabapentin [Gabapentin]) 800 mg PO TID [facility] Risperidone (Risperdal M-Tab) 1 mg PO DAILY [facility] Allergies Allergy/AdvReac Type Severity Reaction Status Date / Time No Known Allergies Allergy Verified 03/04/18 09:27 Home Medications Medication Instructions Recorded Confirmed Type gabapentin 800 mg PO TID 12/19/17 03/04/18 History insulin detemir U-100 [Levemir 20 unit SUB-Q BID 12/19/17 03/04/18 History U-100 Insulin] lisinopril 20 mg PO BID 12/19/17 03/04/18 History insulin lispro [Humalog U-100 1 sliding scale dose SUBCUT UD 03/04/18 03/04/18 History Insulin] temazepam 15 mg PO HS 03/04/18 03/04/18 History Exam Vital signs: Vital Signs 03/04/18 08:41 03/04/18 15:19 Temperature 98.6 F Pulse Rate 84 77 Respiratory Rate 16 18 Blood Pressure 179/77 H 143/68 H Pulse Oximetry 97 98 Intake & Output 03/03/18 03/04/18 03/04/18 18:59 06:59 18:59 Weight 286 lb - Constitutional mild distress, obese, cooperative - Routine HEENT Exam Head: Present: normocephalic, atraumatic - Routine Neurological Exam Present: alert, oriented X3 - Routine Psychiatric Exam Present: cooperative - Detailed Psychiatric Exam Mood and affect: Present: tearful Thought process: Present: perseverating Thought content: Present: delusions Mental Status Examination Appearance: Appropriate Consciousness: Alert Orientation: x4 Motor Activity: Normal gait Speech: Unremarkable Language: Adequate Fund of Knowledge: Inadequate Attention and Concentration: Adequate Memory: Impaired Mood: Anxious Affect: Anxious Thought Process & Associations: Tangential Thought Content: Preoccupations Hallucination Type: None Delusion Type: Bizarre Suicidal Ideation: No Suicidal Plan: No Suicidal Intention: No Homicidal Ideation: No Homicidal Plan: No Homicidal Intention: No Insight: Poor Judgment: Impulsive Assessment and Plan - Assessment (1) Psychosis Code(s): F29 - Unspecified psychosis not due to a substance or known physiological condition Status: Acute - Plan Plan: Estimated LOS: [7] days patient has been admitted to a locked psychiatric unit for further evaluation and treatment as deemed necessary Justification for Continued Inpatient Stay: Moving this patient to a less restrictive environment would likely result in decompensation.
[2018-03-04] MEDS ORDERED: Dextrose 50% in Water 50 ML Vial IV.PUSH PRN (17:25)
[2018-03-04] MEDS: Insulin NovoLOG Aspart Correctional Sugar Inj SQ SCH ×2 (17:41→21:08)
[2018-03-04] MEDS: risperiDONE 1 MG ODT PO SCH (17:44)
[2018-03-04] MEDS: Gabapentin 400 MG Capsule PO SCH (17:44)
[2018-03-04] MEDS: Insulin Detemir Inj 1,000 UNIT/10 ML Vial SQ SCH (21:09)
[2018-03-04] MEDS: Lisinopril 20 MG Tablet PO SCH (21:09)
[2018-03-05] MEDS: Gabapentin 400 MG Capsule PO SCH ×3 (08:12→17:00)
[2018-03-05] MEDS: risperiDONE 1 MG ODT PO SCH ×2 (08:12→20:52)
[2018-03-05] MEDS: Lisinopril 20 MG Tablet PO SCH ×2 (08:12→20:52)
[2018-03-05] MEDS: Insulin Detemir Inj 1,000 UNIT/10 ML Vial SQ SCH ×2 (08:13→20:52)
[2018-03-05] MEDS: Insulin NovoLOG Aspart Correctional Sugar Inj SQ SCH ×4 (08:15→20:53)
[2018-03-05] MEDS: Haloperidol Inj 5 MG/ML Ampul IM SCH ×2 (08:15→19:34)
[2018-03-05 09:12] LABS: Calcium 8.5 mg/dL (8.5-10.1); Carbon Dioxide 28.3 meq/L (21.0-32.0); Potassium 4.6 meq/L (3.5-5.1)
[2018-03-05 09:16] LABS: Chol/HDL Ratio 4.31 Ratio; HDL Cholesterol 49.4 mg/dL (40.0-60.0)
[2018-03-05 13:45] LABS: Amphetamine Urine With Conf Neg (Neg); Benzodiazepine Urine With Conf Neg (Neg)
--- NOTE | 2018-03-05 15:49 | P.HPPSY ---
Provisional Diagnosis Admission Date: March 04, 2018 15:36 [place] I.: Bipolar Disorder Mixed with psychotic features Competence Certification of Person's Competence To Provide Express and Informed Consent I have personally examined Toi Cano, a person being served at [facility] on, March 05, 2018 1518. Express and informed consent means consent voluntarily given in writing, by a competent person, after sufficient explanation and disclosure of the subject matter involved to enable the person to make a knowing and willful decision without any element of force, fraud, deceit, duress, or other form of constraint or coercion. This person is 18 years of age or older, is not now known to be incompetent to consent to treatment with a guardian advocate, and does not have a health care surrogate or proxy currently making medical treatment decisions. I have found this person to be one of the following: [] Competent to provide express and informed consent, as defined above, for voluntary admission to this facility and is competent to provide express and informed consent for treatment. He/she has the consistent capacity to make well reasoned, willful, and knowing decisions concerning his or her medical or mental health treatment. The person fully and consistently understands the purpose of the admission for examination/placement and is fully capable of personally exercising all rights assured [place] [] Incompetent to provide express and informed consent to voluntary admission, and this is incompetent to provide express and informed consent to treatment. The person must be transferred to involuntary status and a petition for a guardian advocate filed with the Circuit Court. [x] Refusing to provide express and informed consent to voluntary admission but is competent to provide express and informed consent for treatment. The person must be discharged or transferred to involuntary status. Form shall be completed within 24 hours of a person's arrival at the receiving facility and filed in the clinical record of each person: 1. Admitted on a voluntary basis 2. Permitted to provide express and informed consent to his/her own treatment 3. Allowed to transfer from involuntary to voluntary status 4. Prior to permitting a person to consent to his or her own treatment after having been previously found incompetent to consent to treatment. History of Present Illness Capacity: Has capacity Chief Complaint: psychosis History of Present Illness: Pt is a 42 YOWM who was admitted on a BA due to psychosis after he reported seeing the devil at the mailbox and that the devil was trying to make a deal with him. He reports that he has always suffered from recurrent episodes of depression as an adult. He reports that these last for several weeks, but he has never had treatment for them, stating, "I just try to get through them." He also reports rarer episodes of heightened mood, euphoria, decreased need for sleep and racing thoughts. Pt reports that prior to admission, he had not slept in several days and on Wednesday, he began to see the Devil who attempted to interact with him. He states that PCP prescribed him risperidone 1mg PO QHS which he has continued during hospitalization. He has been sleeping most of the day and states that medicine seems to be helping. He reports that he has been feeling depressed because of his medical problems. (numerous admissions this year for complications of diabetic foot ulcers and a stint at skilled rehab). He has a dime-sized ulcer on left medial aspect of dorsum of foot. No signs of cellulitis and he reports that it is not "worsening." He denies hx of psychiatric hospitalizations. No hx of suicide attempts or SI/HI. No medication side effects. Pt is agreeable to [place] [facility] - Inpatient Certification I certify that the inpatient services were ordered in accordance with Medicare regulations governing the order. This includes certification that hospital inpatient services are reasonable and necessary and in the case of services not specified as inpatient-only under 42 CFR 419.22(n), that they are appropriately provided as inpatient services in accordance to with the 2-midnight benchmark under 43 CFR 412.3(e) I certify that inpatient psychiatric hospital services are medically necessary. Evaluation and treatment and/or diagnostic testing are expected to improve the patient's condition. The patient needs on a daily basis, active treatment furnished directly by or requiring the supervision of inpatient psychiatric facility personnel. Estimated Total Length of Stay (Days): 7 Plans for Post Hospital Care: Home Review of Systems Psychiatric: Reports depression, Reports seeing things others do not see [facility] - History History Provided By: Patient - Medical History Medical History: Medical History (Last Reviewed 03/04/18 @ 17:03 by REJI Silveira) Chronic back pain Diabetes Foot fracture, left HTN (hypertension) Osteomyelitis Pilonidal abscess - Surgical History Surgical History: Surgical History (Last Reviewed 03/05/18 @ 15:44 by Zara Simmons MD) S/P cervical spinal fusion - Family History Family History: Family History (Last Reviewed 03/05/18 @ 15:44 by Zara Simmons MD) Other Diabetes HTN (hypertension) Hyperlipidemia - Tobacco History Second Hand Smoke Exposure: No Tobacco Use In Past 30 Days: No Smoking Status: Never smoker Tobacco Type: Cigarettes - Alcohol History How Often Do You Have a Drink Containing Alcohol: Never - Substance Use History Substance History: No History of Abuse - Travel History Recent Travel in the [place] Within the Last 8 Weeks: No Recent Travel Out of the Country Within the Last 8 Weeks: No - Immunization History Tetanus Immunization: Unsure Tetanus Immunization Year if Known: 2016 Hx Influenza Vaccine This Season: No Medications and Allergies Active Medications: Active Medications Al Hydrox/Mg Hydrox/Simethicone (Mag-Al Plus Susp Liq) 30 ml PO Q6H PRN PRN Reason: DYSPEPSIA Al Hydroxide/Mg Hydroxide (Milk Of Magnesia Liq) 30 ml PO Q12H PRN PRN Reason: Mild Constipation Dextrose (D50w Vial) 50 ml IV.PUSH UNSCH PRN PRN Reason: PER HYPOGLYCEMIA PROTOCOL Diphenhydramine HCl (Benadryl) 50 mg PO HS PRN PRN Reason: INSOMNIA Last Admin: 03/04/18 21:31 Dose: 50 mg Gabapentin (Neurontin) 800 mg PO TID [facility] Last Admin: 03/05/18 13:22 Dose: 800 mg Glucagon (Glucagon Inj) 1 mg OTHER PRN PRN PRN Reason: for Hypoglycemia Protocol Haloperidol Lactate (Haldol Inj) 2 mg IM DAILY [facility] Last Admin: 03/05/18 08:15 Dose: Not Given Hydroxyzine HCl (Atarax) 50 mg PO Q6H PRN PRN Reason: ANXIETY Last Admin: 03/04/18 21:31 Dose: 50 mg Insulin Aspart (Novolog Insulin Correctional Sugar Inj) 0 unit SQ ACHS [facility]; Protocol Last Admin: 03/05/18 11:21 Dose: Not Given Insulin Detemir (Levemir Inj) 20 unit SQ BID [facility] Last Admin: 03/05/18 08:13 Dose: 20 unit Lisinopril (Prinivil) 20 mg PO BID [facility] Last Admin: 03/05/18 08:12 Dose: 20 mg Risperidone (Risperdal M-Tab) 1 mg PO DAILY [facility] Last Admin: 03/05/18 08:12 Dose: 1 mg Allergies Allergy/AdvReac Type Severity Reaction Status Date / Time No Known Allergies Allergy Verified 03/04/18 09:27 Home Medications Medication Instructions Recorded Confirmed Type gabapentin 800 mg PO TID 12/19/17 03/04/18 History insulin detemir U-100 [Levemir 20 unit SUB-Q BID 12/19/17 03/04/18 History U-100 Insulin] lisinopril 20 mg PO BID 12/19/17 03/04/18 History insulin lispro [Humalog U-100 1 sliding scale dose SUBCUT UD 03/04/18 03/04/18 History Insulin] temazepam 15 mg PO HS 03/04/18 03/04/18 History Results - Labs CBC & Chem 7: 03/04/18 09:28 03/05/18 08:18 Labs: Laboratory Results - last 24 hr 03/04/18 03/04/18 03/05/18 16:55 21:08 07:28 Sodium Potassium Chloride Carbon Dioxide Anion Gap BUN Creatinine Estimated GFR POC Glucose 155 H 140 H 134 H Random Glucose Hemoglobin A1c Calcium Triglycerides Cholesterol LDL Cholesterol, Calc HDL Cholesterol Cholesterol/HDL Ratio Urine Opiates Screen Ur Barbiturates Screen Ur Amphetamine Screen U Benzodiazepines Scrn Urine Cocaine Screen U Cannabinoids Screen 03/05/18 03/05/18 03/05/18 08:18 08:18 11:12 Sodium 135 L Potassium 4.6 Chloride 99 Carbon Dioxide 28.3 Anion Gap 8 BUN 15 Creatinine 1.00 Estimated GFR 83 L POC Glucose 136 H Random Glucose 171 H Hemoglobin A1c 7.0 H Calcium 8.5 Triglycerides 131 Cholesterol 213 H LDL Cholesterol, Calc 137 H HDL Cholesterol 49.4 Cholesterol/HDL Ratio 4.31 Urine Opiates Screen Ur Barbiturates Screen Ur Amphetamine Screen U Benzodiazepines Scrn Urine Cocaine Screen U Cannabinoids Screen 03/05/18 13:22 Sodium Potassium Chloride Carbon Dioxide Anion Gap BUN Creatinine Estimated GFR POC Glucose Random Glucose Hemoglobin A1c Calcium Triglycerides Cholesterol LDL Cholesterol, Calc HDL Cholesterol Cholesterol/HDL Ratio Urine Opiates Screen Neg Ur Barbiturates Screen Neg Ur Amphetamine Screen Neg U Benzodiazepines Scrn Neg Urine Cocaine Screen Neg U Cannabinoids Screen Neg Exam Vital signs: Vital Signs 03/04/18 15:19 03/04/18 17:47 03/05/18 05:32 Temperature 97.8 F 97.7 F Pulse Rate 77 79 83 Respiratory Rate 18 Blood Pressure 143/68 H 188/95 H 157/76 H Pulse Oximetry 98 100 97 Intake & Output 03/04/18 03/05/18 03/05/18 18:59 06:59 18:59 Weight 129.7 kg Other: Weight On Admission 129.7 kg Mental Status Examination Appearance: Appropriate Consciousness: Alert Orientation: x4 Motor Activity: Normal gait Speech: Unremarkable Language: Adequate Fund of Knowledge: Inadequate Attention and Concentration: Adequate Memory: Impaired Mood: Sad Affect: Flat Thought Process & Associations: Tangential Thought Content: Preoccupations Hallucination Type: None Delusion Type: Bizarre Suicidal Ideation: No Suicidal Plan: No Suicidal Intention: No Homicidal Ideation: No Homicidal Plan: No Homicidal Intention: No Insight: Poor Judgment: Impulsive Assessment and Plan - Assessment (1) Bipolar disorder, current episode mixed, severe, with psychotic features Code(s): F31.64 - Bipolar disorder, current episode mixed, severe, with psychotic features Status: Acute - Plan Plan: Cotninue risperidone 1mg po QHS as psychosis is clearing and mood is improving. Will allow pt to sign for voluntary admission. Pt will need f/u upon discharge as no current psychiatric provider. Justification for Continued Inpatient Stay: psychosis
--- NOTE | 2018-03-05 16:14 | ECG ---
Date Performed: 03/05/2018 Time Performed: 11:59:29 PTAGE: 42 years EKG: Sinus rhythm NONSPECIFIC T-WAVE ABNORMALITY BORDERLINE ECG PREVIOUS TRACING : 12/21/2017 07.09 Since the previous tracing, no significant change noted DOCTOR: Steven Acuña Interpretating Date/Time 03/05/2018 16:12:46
[2018-03-06] MEDS: Gabapentin 400 MG Capsule PO SCH ×3 (09:09→17:39)
[2018-03-06] MEDS: Lisinopril 20 MG Tablet PO SCH ×2 (09:10→20:25)
[2018-03-06] MEDS: Insulin Detemir Inj 1,000 UNIT/10 ML Vial SQ SCH ×2 (09:12→20:25)
[2018-03-06] MEDS: Insulin NovoLOG Aspart Correctional Sugar Inj SQ SCH ×4 (09:13→20:23)
[2018-03-06] MEDS ORDERED: Ibuprofen 400 MG Tablet PO ONE (11:08)
--- NOTE | 2018-03-06 11:17 | P.PNPSY ---
Subjective Chief Complaint: psychosis Remarks: Reviewed electronic record and discussed with nursing staff. Rounded with PAULINO Burgos. Patient in bed lying flat with arti feet elevated. He states that he is in alot of pain due to amputation of his toe r/t his diabetes. Ordered Ibuprofen x1 and will allow Hospitalist team to manage his pain. Patient is currently receiving Gabapentin for his neuropathy. Patient states that he did sleep last night. Denies racing thoughts, paranoia or delusions but appear that he is struggling but does not want to talk about his symptoms due to the pain in his foot. Nursing staff report he told them that he seeing devils and demons. Denies SI/HI. Denies AVH. Review of Systems All other systems reviewed negative except as stated in HPI Comments: bilateral foot pain, toe amputation, diabetic neuropathy. Mental Status Examination Appearance: Appropriate Consciousness: Alert Orientation: x4 Motor Activity: Normal gait Speech: Unremarkable Language: Adequate Fund of Knowledge: Inadequate Attention and Concentration: Adequate Memory: Impaired Mood: Sad Affect: Flat Thought Process & Associations: Tangential Thought Content: Preoccupations Hallucination Type: None Delusion Type: Bizarre Suicidal Ideation: No Suicidal Plan: No Suicidal Intention: No Homicidal Ideation: No Homicidal Plan: No Homicidal Intention: No Insight: Poor Judgment: Impulsive Assessment and Plan - Assessment (1) Bipolar disorder, current episode mixed, severe, with psychotic features Code(s): F31.64 - Bipolar disorder, current episode mixed, severe, with psychotic features Status: Acute - Plan Plan: Continue current treatment and plan of care. Justification for Continued Inpatient Stay: Moving patient to a less restrictive environment may result in his decompensation.
[2018-03-06] MEDS: risperiDONE 1 MG ODT PO SCH (20:25)
[2018-03-07 06:01] VITALS: BP 146/87; PULSE 93; RESP 18; TEMP 98.2; O2SAT 98
[2018-03-07] MEDS: Insulin NovoLOG Aspart Correctional Sugar Inj SQ SCH ×2 (07:56→11:30)
[2018-03-07] MEDS: Gabapentin 400 MG Capsule PO SCH ×2 (08:14→13:47)
[2018-03-07] MEDS: Insulin Detemir Inj 1,000 UNIT/10 ML Vial SQ SCH (08:14)
[2018-03-07] MEDS: Lisinopril 20 MG Tablet PO SCH (08:14)
--- NOTE | 2018-03-07 13:14 | P.DSPSY ---
Psychiatry Discharge Summary Inpatient Psychiatric care?: Yes Advance Directives: No Mental Health Advance Directive: No Health Care Proxy: No - Admission Admission Date: March 04, 2018 15:36 - Admission Diagnosis (1) Bipolar disorder, current episode mixed, severe, with psychotic features Code(s): F31.64 - Bipolar disorder, current episode mixed, severe, with psychotic features Brief History: Pt is a 42 YOWM who was admitted on a BA due to psychosis after he reported seeing the devil at the mailbox and that the devil was trying to make a deal with him. He reports that he has always suffered from recurrent episodes of depression as an adult. He reports that these last for several weeks, but he has never had treatment for them, stating, "I just try to get through them." He also reports rarer episodes of heightened mood, euphoria, decreased need for sleep and racing thoughts. Pt reports that prior to admission, he had not slept in several days and on Wednesday, he began to see the Devil who attempted to interact with him. He states that PCP prescribed him risperidone 1mg PO QHS which he has continued during hospitalization. He has been sleeping most of the day and states that medicine seems to be helping. He reports that he has been feeling depressed because of his medical problems. (numerous admissions this year for complications of diabetic foot ulcers and a stint at skilled rehab). He has a dime-sized ulcer on left medial aspect of dorsum of foot. No signs of cellulitis and he reports that it is not "worsening." He denies hx of psychiatric hospitalizations. No hx of suicide attempts or SI/HI. No medication side effects. Pt is agreeable to voluntary admission to [facility] [place]. Tobacco Use In Past 30 Days: No How Often Do You Have a Drink Containing Alcohol: Never Hospital Course: Patient's hospital course was uneventful. Patient seen by me with nurse Eduarda and medical student history of is calm cooperative alert and oriented stating he he had one episode of visual and auditory hallucinations last week he has since disappeared. Today he denies suicidality homicidality voices or visions. He states he is willing to continue on his medication and have appropriate psychiatric follow-up. He also wished to go home because he misses his pet kitten thus patient will be discharged today Rx times a month follow-up Gian Simpson act - Discharge Discharge Date: 03/07/18 - Discharge Diagnosis (1) Bipolar disorder, current episode mixed, severe, with psychotic features Code(s): F31.64 - Bipolar disorder, current episode mixed, severe, with psychotic features Status: Acute Discharge Disposition: Home - Discharge Instructions Discharge Diet: Diabetic Diet Activities You Can Perform: Regular- No Restrictions - Discharge Time > 30 minutes Mental Status Examination Appearance: Appropriate Consciousness: Alert Orientation: x4 Motor Activity: Normal gait Speech: Unremarkable Language: Adequate Fund of Knowledge: Inadequate Attention and Concentration: Adequate Memory: Impaired Mood: Sad Affect: Flat Thought Process & Associations: Tangential Thought Content: Preoccupations Hallucination Type: None Delusion Type: Bizarre Suicidal Ideation: No Suicidal Plan: No Suicidal Intention: No Homicidal Ideation: No Homicidal Plan: No Homicidal Intention: No Insight: Poor Judgment: Impulsive Discharge/Advance Care Plan - Results Vital Signs: Last Vital Signs Temp 98.2 F 03/07/18 06:00 Pulse 93 H 03/07/18 06:00 Resp 18 03/07/18 06:00 BP 146/87 H 03/07/18 06:00 Pulse Ox 98 03/07/18 06:00 Lab Results: Abnormal Lab Results 03/05/18 03/06/18 03/06/18 08:18 16:34 20:12 POC Glucose 121 H 132 H RPR Nonreactive 03/07/18 03/07/18 06:38 11:28 POC Glucose 118 H 140 H RPR Laboratory Results Hemoglobin A1c 7.0 % (4.3-6.0) H 03/05/18 08:18 Triglycerides 131 mg/dL (42-150) 03/05/18 08:18 Cholesterol 213 mg/dL (120-200) H 03/05/18 08:18 LDL Cholesterol, Calc 137 mg/dL (0-99) H 03/05/18 08:18 HDL Cholesterol 49.4 mg/dL (40.0-60.0) 03/05/18 08:18 TSH 0.806 uIU/mL (0.358-3.740) 03/04/18 09:28 Urine Culture Comments Culture not ind 03/04/18 10:35 Summary of Procedures: None done Imaging: ITS Impressions Head CT 03/04/18 09:11 CONCLUSION: 1. Negative for an acute process . Pending Results: None - Medications Number of antipsychotic medications at discharge: 1 - Discharge Care Plan Goals to Promote Your Health: * To prevent worsening of your condition and complications * To maintain your health at the optimal level Directions to Meet Your Goals: Take your medications as prescribed Follow your dietary instruction Follow activity as directed Keep your appointments as scheduled Take your immunizations and boosters as scheduled If your symptoms worsen call your PCP, if no PCP go to Urgent Care Center or Emergency Room For 09/11 questions related to your inpatient stay or results of tests pending at discharge, please contact Dr. Gagan Breen MD at Smoking is Dangerous to Your Health. Avoid second hand smoking
--- NOTE | 2018-03-07 13:16 | P.TTN ---
- Patient Problems Problems: 1. Discharge planning 2. Medication compliance 3. Knowledge deficit 4. Lack of coping skills - Progress Toward Goals Provider Present: Dr. Ellen Breen Provider Input: 03/07: Pt was new; Assessed pt today, he is being discharged home Nurse(s) Present: Betty Nurse Input: 03/07: Pt is being discharged home to his cat Psychiatric Counselors Present: Tito Martin Jr., [facility]/OT/HICKS Present: FABIOLA Lomax, Nate Rodriguez, OT Group Spec/RT/OT/HICKS Input: 03/07: Pt does not attend groups - Discharge Plan 03/07: Pt will be discharged home today - Documentation Teaching Recipient: Patient
== END 2018-03-07 15:40 | disposition home or self-care (01) ==
LOC: NEPD 08:19 → NEDA 15:36 → H260 16:04
PROVIDERS: ADMIT Psychiatry & Neurology Psychiatry; ATTEND Psychiatry & Neurology Psychiatry